=== PATIENT | male | born 1960 | race Caucasian/White ===

== ENCOUNTER 2023-10-03 14:41 | Emergency (ER) | payer MEDICAID, SELFPAY ==
[2023-10-03 15:11] VITALS: BP 182/100; PULSE 71; RESP 16; TEMP 36.7; O2SAT 97; BMI 27.5
--- NOTE | 2023-10-03 15:21 | XR_ITS ---
The [address] [address] Patient Name: ALESIA CASTREJON MRN: [id number] date: 1960 Sex: M Assigned Patient Location: ER Current Patient Location: ER Accession/Order Number: [id number] Exam Date: 10/03/2023 15:40 Report Date: 10/03/2023 15:59 At the request of: CAROLE CHEN Procedure: XR tibia fibula LT 2V IMAGES REVIEWED: XR tibia fibula LT 2V COMPARISON: None available. CLINICAL INDICATION: fell through floor joist swelling and pain FINDINGS/IMPRESSION: 1. No evidence of acute osseous abnormality of the left tibia/fibula. 2. Mild soft tissue swelling involving the anterior mid-upper leg on the lateral view. 3. No radiopaque foreign bodies seen in the soft tissues. 4. No effusion. Electronically authenticated by: CHRISTIAN BENITES Date: 10/03/2023 15:59
[2023-10-03] MEDS: IBUPROFEN 600 MG TABLET PO (15:47)
--- NOTE | 2023-10-03 16:18 | ED_ITS ---
Documented by User: Selina Salvador 10/03/23 16:36 HPI - General Adult General Chief complaint: Extremity Injury, Upper Stated complaint: LOWER EXTREMITY INJURY Time Seen by Provider: 10/03/23 16:14 Source: patient Mode of arrival: Wheelchair Limitations: no limitations History of Present Illness HPI narrative: 53-year-old male presents here with chief complaint of left Knee injury. Related Data Home Medications Medication Instructions Recorded Confirmed loratadine 10 mg tablet (Allergy mg 10/03/23 Relief (loratadine)) meclizine 25 mg tablet mg 10/03/23 (Travel-Ease (meclizine)) Previous Rx's Medication Instructions Recorded ibuprofen 800 mg tablet 800 mg PO Q8H PRN pain #20 tabs 10/03/23 Allergies Allergy/AdvReac Type Severity Reaction Status Date / Time acetaminophen [From Percocet] Allergy Intermediate Verified 10/03/23 15:11 oxycodone [From Percocet] Allergy Intermediate Verified 10/03/23 15:11 Review of Systems ROS Narrative All Systems are negative except as noted/marked. PFSH PFSH Social History Smoking status: Former smoker Exam Narrative Exam Narrative: Nurses note and vital signs reviewed and patient is not hypoxic. General: The patient appears well and in no apparent distress. Patient is resting comfortably on cart. Skin: Warm, dry, no pallor noted. There is no rash noted. Head: Normocephalic, atraumatic Eye: Normal conjunctiva, no drainage, EOMI. PERRL Ears, Nose, Mouth, and Throat: oral mucosa is moist. Nares patent. Mouth without vesicles. Ear canals patent. Tm's without Erythema Cardiovascular: Regular Rate and Rhythm Musculoskeletal: Swelling left medial knee, 2x 3 cm area abrasion noted. No obvious deformity or dislocation soft tissue swelling noted. Patient has full range of motion of the extremity. The patient has no evidence of calf tenderness, no pitting edema, symmetrical pulses noted bilaterally Neurological: A&O x4, normal speech Psychiatric: Cooperative Constitutional Vital Signs, click to edit/add: Last Vital Signs Temp 98.1 F 10/03/23 15:11 Pulse 71 10/03/23 15:11 Resp 16 10/03/23 15:11 BP 182/100 H 10/03/23 15:11 Pulse Ox 97 10/03/23 15:11 O2 Del Method Room Air 10/03/23 15:11 Course Vital Signs Vital signs: Vital Signs Temperature 98.1 F 10/03/23 15:11 Pulse Rate 71 10/03/23 15:11 Respiratory Rate 16 10/03/23 15:11 Blood Pressure 182/100 H 10/03/23 15:11 Pulse Oximetry 97 10/03/23 15:11 Oxygen Delivery Method Room Air 10/03/23 15:11 Temperature 98.1 F 10/03/23 15:11 Pulse Rate 71 10/03/23 15:11 Respiratory Rate 16 10/03/23 15:11 Blood Pressure 182/100 H 10/03/23 15:11 Pulse Oximetry 97 10/03/23 15:11 Oxygen Delivery Method Room Air 10/03/23 15:11 Medical Decision Making MDM Narrative Medical decision making narrative: Plan elevate lower extremity injury to the left knee. Patient slipped on a scaffolding twisting his leg causing an abrasion. X-ray shows no acute deformity. Patient was updated on tetanus immunization here Coleman wrap and bacitracin applied to the knee. Patient declined the need for crutches. He will follow-up with his primary care physician or Dr. hinds on friday at 1030 am. prescription for Ibuprofen was given Differential Diagnosis Differential Diagnosis: Abrasion, sprain, knee pain Medical Records Medical records reviewed: Yes I reviewed the patient's medical records Imaging Data knee: Radiologist's impression: Exam Date: 10/03/2023 15:40 Report Date: 10/03/2023 15:59 At the request of: CAROLE DIA Procedure: XR tibia fibula LT 2V IMAGES REVIEWED: XR tibia fibula LT 2V COMPARISON: None available. CLINICAL INDICATION: fell through floor joist swelling and pain FINDINGS/IMPRESSION: 1. No evidence of acute osseous abnormality of the left tibia/fibula. 2. Mild soft tissue swelling involving the anterior mid-upper leg on the lateral view. 3. No radiopaque foreign bodies seen in the soft tissues. 4. No effusion. Electronically authenticated by: CHRISTIAN BENITES Date: 10/03/2023 15:59 Discharge Plan Discharge Chief Complaint: Extremity Injury, Upper Clinical Impression: Acute knee pain, Abrasion of leg Patient Disposition: Home, Self-Care Time of Disposition Decision: 16:14 Condition: Good Prescriptions / Home Meds: New ibuprofen 800 mg tablet 800 mg PO Q8H PRN (Reason: pain) Qty: 20 0RF No Action meclizine [Travel-Ease (meclizine)] 25 mg tablet loratadine [Allergy Relief (loratadine)] 10 mg tablet Instructions: Abrasion (ED), Knee Pain (ED) Referrals: ZACKERY OGDEN [Primary Care Provider] - 1 week José Hinds MD [Physician] - 10/06/23 10:30 am Discharge Date/Time: 10/03/23 16:34 Stand Alone Forms: Portal Instructions Documented by User: Carole Dia MD 10/03/23 20:55 HPI - General Adult General Chief complaint: Extremity Injury, Upper Stated complaint: LOWER EXTREMITY INJURY Time Seen by Provider: 10/03/23 16:14 Related Data Home Medications Medication Instructions Recorded Confirmed loratadine 10 mg tablet (Allergy mg 10/03/23 Relief (loratadine)) meclizine 25 mg tablet mg 10/03/23 (Travel-Ease (meclizine)) Previous Rx's Medication Instructions Recorded ibuprofen 800 mg tablet 800 mg PO Q8H PRN pain #20 tabs 10/03/23 Allergies Allergy/AdvReac Type Severity Reaction Status Date / Time acetaminophen [From Percocet] Allergy Intermediate Verified 10/03/23 15:11 oxycodone [From Percocet] Allergy Intermediate Verified 10/03/23 15:11 PFSH PFS Social History Smoking status: Former smoker Exam Constitutional Vital Signs, click to edit/add: Last Vital Signs Temp 98.1 F 10/03/23 15:11 Pulse 71 10/03/23 15:11 Resp 16 10/03/23 15:11 BP 182/100 H 10/03/23 15:11 Pulse Ox 97 10/03/23 15:11 O2 Del Method Room Air 10/03/23 15:11 Course Vital Signs Vital signs: Vital Signs Temperature 98.1 F 10/03/23 15:11 Pulse Rate 71 10/03/23 15:11 Respiratory Rate 16 10/03/23 15:11 Blood Pressure 182/100 H 10/03/23 15:11 Pulse Oximetry 97 10/03/23 15:11 Oxygen Delivery Method Room Air 10/03/23 15:11 Temperature 98.1 F 10/03/23 15:11 Pulse Rate 71 10/03/23 15:11 Respiratory Rate 16 10/03/23 15:11 Blood Pressure 182/100 H 10/03/23 15:11 Pulse Oximetry 97 10/03/23 15:11 Oxygen Delivery Method Room Air 10/03/23 15:11 Medical Decision Making MDM Narrative Medical decision making narrative: Plan elevate lower extremity injury to the left knee. Patient slipped on a scaffolding twisting his leg causing an abrasion. X-ray shows no acute d eformity. Patient was updated on tetanus immunization here Coleman wrap and bacitracin applied to the knee. Patient declined the need for crutches. He will follow-up with his primary care physician or Dr. hinds on friday at 1030 am. prescription for Ibuprofen was given I, Dr Dia, have reviewed the above progress note and course of action in the ER; agree with the above. I have gone over history and physical, and discussed disposition and treatment plan with the patient. Discharge Plan Discharge Chief Complaint: Extremity Injury, Upper Clinical Impression: Acute knee pain, Abrasion of leg Patient Disposition: Home, Self-Care Time of Disposition Decision: 16:14 Condition: Good Prescriptions / Home Meds: New ibuprofen 800 mg tablet 800 mg PO Q8H PRN (Reason: pain) Qty: 20 0RF No Action meclizine [Travel-Ease (meclizine)] 25 mg tablet loratadine [Allergy Relief (loratadine)] 10 mg tablet Instructions: Abrasion (ED), Knee Pain (ED) Referrals: ZACKERY OGDEN [Primary Care Provider] - 1 week José Hinds MD [Physician] - 10/06/23 10:30 am Discharge Date/Time: 10/03/23 16:34 Stand Alone Forms: Portal Instructions
[2023-10-03] MEDS: ADACEL DIPH,PERTUSS(ACELL),TET VAC/PF 0.5 ML ADULT SYRINGE IM (16:28)
[2023-10-03] MEDS: BACITRACIN 0.9 GM PACKET 1 PACKET TOPICAL (16:29)
== END 2023-10-03 16:34 | disposition home or self-care (01) ==
PROVIDERS: Emergency Provider Emergency Medicine; PCP Family Medicine
DX: S80.812A Abrasion, left lower leg, initial encounter (principal); M25.562 Pain in left knee; W17.89XA Other fall from one level to another, initial encounter; Z23 Encounter for immunization; Z79.899 Other long term (current) drug therapy; Z87.891 Personal history of nicotine dependence
CPT/HCPCS: 73590; 90471; 90715; 99283

== ENCOUNTER 2024-03-11 13:39 | Emergency (ER) | payer MEDICAID, SELFPAY ==
[2024-03-11 14:04] VITALS: BP 159/93; PULSE 74; TEMP 36.3; O2SAT 98; BMI 28.8
--- NOTE | 2024-03-11 14:06 | XR_ITS ---
The [address] [address] Patient Name: ALESIA CASTREJON MRN: [id number] date: 1960 Sex: M Assigned Patient Location: ER Current Patient Location: ER Accession/Order Number: [id number] Exam Date: 03/11/2024 14:26 Report Date: 03/11/2024 14:50 At the request of: SHIRA WATERS Procedure: XR chest 1V EXAM: XR chest 1V at 1422 hours HISTORY: Syncope COMPARISON: None. TECHNIQUE: AP upright portable chest x-ray FINDINGS: The heart is not enlarged and the vasculature is not distended. No acute infiltrate, effusion or pneumothorax is identified. The osseous structures are grossly intact. XR/XR chest 1V IMPRESSION: No acute infiltrate or evidence of cardiac decompensation. Electronically authenticated by: ANGELICA RÍOS Date: 03/11/2024 14:50
--- NOTE | 2024-03-11 14:06 | CT_ITS ---
The [address] [address] Patient Name: ALESIA CASTREJON MRN: [id number] date: 1960 Sex: M Assigned Patient Location: ER Current Patient Location: ER Accession/Order Number: [id number] Exam Date: 03/11/2024 14:22 Report Date: 03/11/2024 14:43 At the request of: SHIRA WATERS Procedure: CT stroke head/brain wo con EXAMINATION: CT stroke head/brain wo con HISTORY: Syncope COMPARISON: No relevant comparison available. TECHNIQUE: Axial CT images were obtained without IV contrast. Dose reduction techniques were achieved by using automated exposure control and/or adjustment of mA and/or kV according to patient size and/or use of iterative reconstruction technique. FINDINGS: BRAIN: No edema, hemorrhage, mass, acute infarction, or inappropriate atrophy. CSF SPACES: No hydrocephalus, subarachnoid hemorrhage, or mass. Appropriate for age. SKULL: No fracture, mass, or other significant visible lesion. SINUSES: No significant mucosal thickening or fluid on the limited views. ORBITS: No appreciable abnormality on the limited views. OTHER: Results communicated to the emergency room provider, Shira, by telephone 2:[address]/CT stroke head/brain wo con IMPRESSION: No acute intracranial abnormality Electronically authenticated by: FARHAT PINK Date: 03/11/2024 14:43
--- NOTE | 2024-03-11 14:20 | PC.NURSE ---
pt taken directly to CT from triage. Signifcant other present.
--- NOTE | 2024-03-11 14:34 | CT_ITS ---
The [address] [address] Patient Name: ALESIA CASTREJON MRN: [id number] date: 1960 Sex: M Assigned Patient Location: ER Current Patient Location: Accession/Order Number: [id number] Exam Date: 03/11/2024 15:50 Report Date: 03/11/2024 16:41 At the request of: SHIRA WATERS Procedure: CT angio neck CT angio neck, CT angio head, 03/11/2024 3:50 PM EDT INDICATION: Syncope, numbness COMPARISON: Prior CT of the head of the same date TECHNIQUE: Pre and postcontrast enhanced CT angiography of the head and neck were acquired with contrast .3 D MIP images were reconstructed in sagittal and coronal format at the scanner and were evaluated at the time of dictation. Dose reduction techniques were achieved by using automated exposure control and/or adjustment of mA and/or kV according to patient size and/or use of iterative reconstruction technique. FINDINGS: The great vessels enhance normally. No filling defects are identified within the carotid arteries. There is no significant stenosis at the origin of the internal carotid arteries. No abnormality of [place] is noted. The NEPTALI MCA and ROLLER EMBOSSER are unremarkable. The anterior and posterior communicating arteries are patent. There is no aneurysm or significant stenosis. No abnormality of the vertebral and basilar arteries is noted. No mass, mass effect or midline shift or hemorrhage in the brain parenchyma is noted. No significant soft tissue abnormality within the neck is noted. The visualized portion of the lungs show moderate paraseptal emphysematous changes. No suspicious bone lesion is noted. Multilevel degenerative changes of cervical spine. CT/CT angio neck IMPRESSION: No CT evidence of embolus or severe stenosis or dissection in the major arteries in the current study. CAROTID STENOSIS REFERENCE: MILD = <50% stenosis. MODERATE = 50-69% stenosis. SEVERE = >70% stenosis. Electronically authenticated by: WILFREDO MCCALLUM Date: 03/11/2024 16:41
--- NOTE | 2024-03-11 14:34 | CT_ITS ---
The [address] [address] Patient Name: ALESIA CASTREJON MRN: [id number] date: 1960 Sex: M Assigned Patient Location: ER Current Patient Location: Accession/Order Number: [id number] Exam Date: 03/11/2024 15:50 Report Date: 03/11/2024 16:41 At the request of: SHIRA WATERS Procedure: CT angio head CT angio neck, CT angio head, 03/11/2024 3:50 PM EDT INDICATION: Syncope, numbness COMPARISON: Prior CT of the head of the same date TECHNIQUE: Pre and postcontrast enhanced CT angiography of the head and neck were acquired with contrast .3 D MIP images were reconstructed in sagittal and coronal format at the scanner and were evaluated at the time of dictation. Dose reduction techniques were achieved by using automated exposure control and/or adjustment of mA and/or kV according to patient size and/or use of iterative reconstruction technique. FINDINGS: The great vessels enhance normally. No filling defects are identified within the carotid arteries. There is no significant stenosis at the origin of the internal carotid arteries. No abnormality of redding of [place] is noted. The NEPTALI MCA and FIRMWARE ENGINEER are unremarkable. The anterior and posterior communicating arteries are patent. There is no aneurysm or significant stenosis. No abnormality of the vertebral and basilar arteries is noted. No mass, mass effect or midline shift or hemorrhage in the brain parenchyma is noted. No significant soft tissue abnormality within the neck is noted. The visualized portion of the lungs show moderate paraseptal emphysematous changes. No suspicious bone lesion is noted. Multilevel degenerative changes of cervical spine. CT/CT angio head IMPRESSION: No CT evidence of embolus or severe stenosis or dissection in the major arteries in the current study. CAROTID STENOSIS REFERENCE: MILD = <50% stenosis. MODERATE = 50-69% stenosis. SEVERE = >70% stenosis. Electronically authenticated by: WILFREDO MCCALLUM Date: 03/11/2024 16:41
--- NOTE | 2024-03-11 14:35 | ECG_ITS ---
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
--- NOTE | 2024-03-11 14:39 | ED_ITS ---
HPI HPI - General Adult General Chief complaint: Syncope Stated complaint: DIZINESS/ GENERAL WEAKNESS Time Seen by Provider: 03/11/24 14:06 Source: patient and family Mode of arrival: walk-in Limitations: no limitations History of Present Illness HPI narrative: Patient is a 64-year-old male who presents to the emergency department for the evaluation of multiple complaints. Patient states he bent over to pet his dog yesterday when he began to blackout although he did not completely lose consciousness or fall. He remained upright. He states since that time he has felt dizzy as though he and the room were spinning. He has a history of vertigo in the past but states this feels different and states meclizine did not help with his symptoms. He states he has had several days of sinus congestion, coughing, mild shortness of breath. He denies chest pain, abdominal pain, vomiting. He does feel nauseous. He reports minimal left sided headache with no visual changes, no speech changes. He states today 2 hours ago he started to feel tingling in the left hand although he is able to ambulate and move all extremities equally. Related Data Home Medications ?Medication ?Instructions ?Recorded ?Confirmed loratadine 10 mg tablet (Allergy 10 mg PO Q24H 10/03/23 03/11/24 Relief (loratadine)) meclizine 25 mg tablet 25 mg PO BID 10/03/23 03/11/24 (Travel-Ease (meclizine)) tamsulosin 0.4 mg capsule 0.8 mg PO Q24H 03/11/24 03/11/24 Previous Rx's ?Medication ?Instructions ?Recorded ibuprofen 800 mg tablet 800 mg PO Q8H PRN pain #20 tabs 10/03/23 diazepam 5 mg tablet (Valium) 5 mg PO TID PRN dizziness #10 tabs 03/11/24 methylprednisolone 4 mg tablets in See Rx Instructions .Route 03/11/24 a dose pack (Medrol (Candido)) .COMPLEX #21 ea ondansetron 4 mg disintegrating 4 mg PO Q6H PRN nausea and 03/11/24 tablet vomiting #12 tabs Allergies Allergy/AdvReac Type Severity Reaction Status Date / Time acetaminophen [From Percocet] Allergy Intermediate itching Verified 03/11/24 14:13 oxycodone [From Percocet] Allergy Intermediate itch Verified 03/11/24 14:13 Opioid HPI Opioid Management Most Recent Opioid Data: Last Pain Scale 5 10/03/23 15:47 Review of Systems ROS Constitutional Denies: fever or chills Ears, nose, mouth, and throat Reports: nasal congestion; Denies: throat pain Cardiovascular Denies: chest pain Respiratory Reports: shortness of breath and cough Gastrointestinal Reports: nausea; Denies: abdominal pain, vomiting or diarrhea Integumentary/Breast Denies: rash Hematologic/Lymphatic Denies: easy bruising or easy bleeding [facility] Medical History (Updated 03/11/24 @ 17:02 by AWILDA Alex) Vertigo ?R42 - Dizziness and giddiness (ICD-10) Liver cirrhosis ?K74.60 - Unspecified cirrhosis of liver (ICD-10) Social History Smoking status: Former smoker Exam Narrative Exam Narrative: Gen.: Awake, alert, in no distress Head: Normocephalic, atraumatic ENT: Moist mucous membranes Respiratory: No respiratory distress, lungs clear bilaterally Cardio: Regular rate and rhythm Gastrointestinal: Abdomen is soft, nondistended and nontender to palpation Extremities: Moves extremities equally, 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 Psych: Normal mood and affect Neuro: No focal neuro deficit; NIH stroke scale of 0 Skin: Warm, dry, intact Constitutional Vital Signs, click to edit/add: Last Vital Signs Temp 97.4 F L 03/11/24 14:04 Pulse 74 03/11/24 14:04 Resp 20 03/11/24 14:04 BP 159/93 H 03/11/24 14:04 Pulse Ox 98 03/11/24 14:04 O2 Del Method Room Air 03/11/24 14:04 Course Vital Signs Vital signs: Vital Signs Temperature 97.4 F L 03/11/24 14:04 Pulse Rate 74 03/11/24 14:04 Respiratory Rate 20 03/11/24 14:04 Blood Pressure 159/93 H 03/11/24 14:04 Pulse Oximetry 98 03/11/24 14:04 Oxygen Delivery Method Room Air 03/11/24 14:04 Temperature 97.4 F L 03/11/24 14:04 Pulse Rate 74 03/11/24 14:04 Respiratory Rate 03/11/24 14:04 Blood Pressure 159/93 H 03/11/24 14:04 Pulse Oximetry 98 03/11/24 14:04 Oxygen Delivery Method Room Air 03/11/24 14:04 Medical Decision Making MDM Narrative Medical decision making narrative: Patient with no focal neurodeficits in the ER, CT of the brain with stroke protocol, chest x-ray are unremarkable. Exam is consistent with upper respiratory infection causing vertigo. CT angio of the head and neck are unremarkable as well. Laboratory studies reviewed and noted within normal limits. Patient with no complaints of chest pain in the ER. No EKG changes noted. He was reevaluated by attending physician prior to discharge, he was offered admission to the hospital if he feels too dizzy to go home. Patient prefers outpatient management. He is prescribed a steroid course with Valium as needed for dizziness. Zofran given for nausea. Follow-up with PCP and return to the ER if symptoms change or worsen. SHARED APC VISIT, PHYSICIAN ATTESTATION: [id number] I performed a substantive part of the MDM during the patient?s E/M visit. I personally evaluated and examined the patient. I personally made or approved the documented management plan and acknowledge its risk of complications. Medical Records Medical records reviewed: Yes I reviewed the patient's medical records Lab Data Lab results reviewed: Yes I reviewed the patient's lab results Labs: Lab Results 03/11/24 03/11/24 03/11/24 Range/Units 14:48 15:10 16:10 WBC 9.0 (4.0-11.0) 10^3/uL RBC 4.73 (4.70-6.10) 10^6/uL Hgb 15.1 (14.0-18.0) g/dL Hct 44.4 (42.0-54.0) % MCV 93.9 (80.0-94.0) fL MCH 31.9 (25.9-34.0) pg MCHC 34.0 (29.9-35.2) g/dL RDW 12.0 (11.0-15.0) % Plt Count 226 (150-450) 10^3/uL MPV 10.8 (9.5-13.5) fL Neut % (Auto) 76.1 H (43.0-75.0) % Lymph % (Auto) 15.7 L (20.5-60.0) % [place] % (Auto) 7.1 (1.7-12.0) % Eos % (Auto) 0.4 L (0.9-7.0) % Baso % (Auto) 0.4 (0.2-2.0) % Neut # (Auto) 6.8 H (1.4-6.5) 10^3/uL Lymph # (Auto) 1.4 (1.2-3.8) 10^3/uL [place] # (Auto) 0.6 (0.3-0.8) 10^3/uL Eos # (Auto) 0.0 (0.0-0.7) 10^3/uL Baso # (Auto) 0.0 (0.0-0.1) 10^3/uL Abs Immat Gran (auto) 0.03 (0.00-0.03) 10^3/uL Imm/Tot Granulo (auto) 0.3 (0.0-0.5) % PT 10.8 (9.0-11.6) sec INR 1.02 Sodium 137 (136-145) mmol/L Potassium 3.3 L (3.5-5.1) mmol/L Chloride 101 (98-107) mmol/L Carbon Dioxide 23.3 (21.0-32.0) mmol/L Anion Gap 16.0 BUN 12.0 (7.0-18.0) mg/dL Creatinine 1.00 (0.70-1.30) mg/dL Est GFR ( Amer) >60 (>=60) Est GFR (Non-Af Amer) >60 (>=60) BUN/Creatinine Ratio 12.0 Glucose 148 H (74-106) mg/dL Lactate 1.4 (0.4-2.0) mmol/L Calcium 9.3 (8.5-10.1) mg/dL Total Bilirubin 0.8 (0.2-1.0) mg/dL AST 22 (15-37) U/L ALT 28 (16-63) U/L Alkaline Phosphatase 104 (46-116) U/L Troponin I High Sens <4.0 L (4.0-76.1) pg/mL Total Protein 7.2 (6.4-8.2) g/dL Albumin 3.6 (3.4-5.0) g/dL Globulin 3.6 g/dL Albumin/Globulin Ratio 1.0 TSH 1.409 (0.358-3.740) uIU/mL Urine Color Lt. yellow (YELLOW) Urine Clarity Clear (CLEAR) Urine pH 7.0 (5.0-9.0) Ur Specific [place] <=1.005 A (1.005-1.025) Urine Protein Negative (NEG/TRACE) mg/dL Urine Glucose (UA) Negative (NEGATIVE) mg/dL Urine Ketones Negative (NEGATIVE) mg/dL Urine Occult Blood Negative (NEGATIVE) Urine Nitrite Negative (NEGATIVE) Urine Bilirubin Negative (NEGATIVE) Urine Urobilinogen 0.2 (0.2-1.0) EU/dL Ur Leukocyte Esterase Trace A (NEGATIVE) Urine RBC 0-2 (0-2) #/HPF Urine WBC 0-2 A (NONE SEEN) #/HPF Ur Squamous Epith Cells Rare (NONE/RARE) #/LPF Urine Crystals None seen (None Seen) #/HPF Urine Bacteria Trace A (NONE SEEN) #/HPF Urine Casts None seen (NONE SEEN) #/LPF Urine Mucus None seen (NONE SEEN) Ur Culture Indicated? No SARS-CoV-2 Ag (CV2AG) Negative (NEGATIVE) Imaging Data CT scan - head: Attestation: I have reviewed the pertinent imaging results. Radiologist's impression: ITS Impressions Brain CT 03/11/24 14:06 IMPRESSION: No acute intracranial abnormality Electronically authenticated by: FARHAT PINK Date: 03/11/2024 14:43 Chest X-Ray 03/11/24 14:06 IMPRESSION: No acute infiltrate or evidence of cardiac decompensation. Electronically authenticated by: ANGELICA RÍOS Date: 03/11/2024 14:50 Head CTA 03/11/24 14:34 IMPRESSION: No CT evidence of embolus or severe stenosis or dissection in the major arteries in the current study. CAROTID STENOSIS REFERENCE: MILD = <50% stenosis. MODERATE = 50-69% stenosis. SEVERE = >70% stenosis. Electronically authenticated by: WILFREDO MCCALLUM Date: 03/11/2024 16:41 Neck CTA 03/11/24 14:34 IMPRESSION: No CT evidence of embolus or severe stenosis or dissection in the major arteries in the current study. CAROTID STENOSIS REFERENCE: MILD = <50% stenosis. MODERATE = 50-69% stenosis. SEVERE = >70% stenosis. Electronically authenticated by: WILFREDO MCCALLUM Date: 03/11/2024 16:41 ECG Data Attestation: I personally reviewed and interpreted this ECG as follows: (Normal sinus rhythm at a rate of 67, no acute ST elevation or ectopy. EKG reviewed by attending physician) Discharge Plan Discharge Stand Alone Forms: Portal Instructions Chief Complaint: Syncope Clinical Impression: Dizziness Patient Disposition: Home, Self-Care Time of Disposition Decision: 17:02 Condition: Good Prescriptions / Home Meds: New diazepam [Valium] 5 mg tablet 5 mg PO TID PRN (Reason: dizziness) Qty: 10 0RF methylprednisolone [Medrol (Candido)] 4 mg tablets,dose pack See Rx Instructions .ROUTE .COMPLEX Qty: 21 0RF Rx Instructions: Taper as directed ondansetron 4 mg tablet,disintegrating 4 mg PO Q6H PRN (Reason: nausea and vomiting) Qty: 12 0RF No Action meclizine [Travel-Ease (meclizine)] 25 mg tablet 25 mg PO BID loratadine [Allergy Relief (loratadine)] 10 mg tablet 10 mg PO Q24H ibuprofen 800 mg tablet 800 mg PO Q8H PRN (Reason: pain) Qty: 20 0RF tamsulosin 0.4 mg capsule 0.8 mg PO Q24H Print Language: Luxembourgish Instructions: Dizziness (ED) Referrals: ZACKERY OGDEN [Primary Care Provider] - 1 week
[2024-03-11 14:59] LABS: Basophils Percent Auto 0.4 % (0.2-2.0); Eosinophils Percent Auto 0.4 % (0.9-7.0); Hematocrit 44.4 % (42.0-54.0); Hemoglobin 15.1 g/dL (14.0-18.0); Immature Granulocytes Abs Auto 0.03 10^3/uL (0.00-0.03); Immature Granulocytes Pct Auto 0.3 % (0.0-0.5); Lymphocytes Absolute Auto 1.4 10^3/uL (1.2-3.8); Lymphocytes Percent Auto 15.7 % (20.5-60.0); Mean Corpuscular Hemoglobin 31.9 pg (25.9-34.0); Mean Corpuscular Volume 93.9 fL (80.0-94.0); Mean Platelet Volume 10.8 fL (9.5-13.5); Monocytes Absolute Auto 0.6 10^3/uL (0.3-0.8); Monocytes Percent Auto 7.1 % (1.7-12.0); Neutrophils Absolute Auto 6.8 10^3/uL (1.4-6.5); Neutrophils Percent Auto 76.1 % (43.0-75.0); Platelet Count 226 10^3/uL (150-450); Red Blood Count 4.73 10^6/uL (4.70-6.10)
[2024-03-11] MEDS: ONDANSETRON PF 4 MG/2 ML VIAL IV (15:00)
[2024-03-11] MEDS: METHYLPREDNISOLONE SOD SUCC PF 125 MG/2 ML VIAL IVP (15:01)
[2024-03-11] MEDS: 0.9 % SODIUM CHLORIDE 1,000 ML 1000 ML IV (15:01)
[2024-03-11] MEDS: DIAZEPAM 10 MG/2 ML SYRINGE 5 MG IV (15:01)
[2024-03-11 15:10] LABS: Alanine Aminotransferase 28 U/L (16-63); Albumin Level 3.6 g/dL (3.4-5.0); Alkaline Phosphatase 104 U/L (46-116); Aspartate Amino Transferase 22 U/L (15-37); Bilirubin Total 0.8 mg/dL (0.2-1.0); Calcium 9.3 mg/dL (8.5-10.1); Carbon Dioxide 23.3 mmol/L (21.0-32.0); Chloride 101 mmol/L (98-107); Estimated GFR (African America >60 (>=60); Estimated GFR (Non-African Ame >60 (>=60); Globulin 3.6 g/dL; Glucose 148 mg/dL (74-106); Potassium 3.3 mmol/L (3.5-5.1); Sodium 137 mmol/L (136-145); Total Protein 7.2 g/dL (6.4-8.2)
[2024-03-11 15:12] LABS: INR 1.02; Prothrombin Time 10.8 sec (9.0-11.6)
[2024-03-11 15:15] LABS: Lactate/Lactic Acid 1.4 mmol/L (0.4-2.0)
[2024-03-11 15:19] LABS: Thyroid Stimulating Hormone 1.409 uIU/mL (0.358-3.740); Troponin I High Sensitivity <4.0 pg/mL (4.0-76.1)
[2024-03-11 15:40] LABS: Internal Control Within Normal Limits; SARS-CoV-2 Ag NEGATIVE (NEGATIVE)
[2024-03-11 16:42] LABS: Bilirubin Urine NEGATIVE (NEGATIVE); Blood Urine NEGATIVE (NEGATIVE); Clarity Urine CLEAR (CLEAR); Color Urine LT. YELLOW (YELLOW); Glucose Urine UA NEGATIVE (NEGATIVE); Ketones Urine NEGATIVE (NEGATIVE); Leukocyte Esterase Urine TRACE (NEGATIVE); Nitrite Urine NEGATIVE (NEGATIVE); Protein Urine NEGATIVE (NEG/TRACE); Specific Gravity Urine <=1.005 (1.005-1.025); Urobilinogen Urine 0.2 EU/dL (0.2-1.0)
[2024-03-11 16:45] LABS: Urine Microscopic Indicated YES
[2024-03-11 16:49] LABS: Bacteria Urine TRACE #/HPF (NONE SEEN); Cast Seen? NONE SEEN #/LPF (NONE SEEN); Crystals Seen? None Seen #/HPF (None Seen); Mucus Urine NONE SEEN (NONE SEEN); RBC Urine 0-2 #/HPF (0-2); Squamous Epithelial Cell Urine RARE #/LPF (NONE/RARE); Urine Culture Indicated NO; WBC Urine 0-2 #/HPF (NONE SEEN)
[2024-03-11 17:25] VITALS: BP 146/78; PULSE 65; TEMP 36.7; O2SAT 96
== END 2024-03-11 17:27 | disposition home or self-care (01) ==
PROVIDERS: Physician Assistant; Emergency Provider Emergency Medicine; PCP Family Medicine
DX: R42 Dizziness and giddiness (principal); Z87.891 Personal history of nicotine dependence; Z20.822 Contact with and (suspected) exposure to COVID-19
CPT/HCPCS: 36415; 70450; 70496; 70498; 71045; 80053; 81001; 83605; 84443; 84484; 85025; 85610; 87811; 93005; 96361; 96374; 96375; 99285; J2405; J2919; J3360; Q9967

== ENCOUNTER 2024-09-01 13:07 | Outpatient (RCR) | payer MEDICAID, SELFPAY | END 2024-10-20 08:21 | disposition home or self-care (01) | LOC: PT 13:07 | PROVIDERS: PCP Family Medicine; Visit Provider Psychiatry & Neurology Neurology | DX: M54.50 Low back pain, unspecified (principal); G89.29 Other chronic pain; G54.2 Cervical root disorders, not elsewhere classified | CPT/HCPCS: 97010; 97014; 97110; 97161 ==

== ENCOUNTER 2024-11-01 14:57 | Outpatient (OUT) | payer MEDICAID, SELFPAY ==
--- NOTE | 2024-11-01 15:04 | XR_ITS ---
[place] [id number] Patient Name: ALESIA CASTREJON MRN: [id number] date: 1960 Sex: M Assigned Patient Location: RAD Current Patient Location: [facility] Accession/Order Number: [id number] Exam Date: 11/01/2024 18:16 Report Date: 11/01/2024 18:18 At the request of: MENDY HEARD NP Procedure: XR hip RT 2V w/ pelvis 2 views right hip a single view pelvis HISTORY: Chronic right hip pain with worsening. COMPARISON: none Qdki-ah-[id number] contact superior right hip joint space narrowing. Preserved bony articular surface. No AVN. No articular collapse. No fracture. Adequate alignment. Unremarkable soft tissues. XR/XR hip RT 2V w/ pelvis IMPRESSION: Extensive bmdu-[id number]-[id number] contact right hip degeneration. Impression dictated by: Guanako Cee M.D.11/01/2024 6:18 PM Dictation Location[facility] Electron[facility] authenticated by: [id number] Y Date: 11/01/2024 18:18
== END 2024-11-01 14:58 | disposition home or self-care (01) ==
PROVIDERS: PCP Family Medicine; Visit Provider Nurse Practitioner Family
DX: R52 Pain, unspecified (principal); M16.11 Unilateral primary osteoarthritis, right hip
CPT/HCPCS: 73502

== ENCOUNTER 2024-11-08 13:40 | Outpatient (OUT) | payer MEDICAID, SELFPAY ==
--- NOTE | 2024-11-08 13:43 | MR_ITS ---
[address] [address] Patient Name: ALESIA CASTREJON MRN: [id number] date: 1960 Sex: M Assigned Patient Location: MRI Current Patient Location: MRI Accession/Order Number: [id number] Exam Date: 11/08/2024 14:32 Report Date: 11/08/2024 14:35 At the request of: MENDY HEARD NP Procedure: MR lumbar spine wo con EXAMINATION: MRI LUMBAR SPINE WITHOUT IV CONTRAST CLINICAL HISTORY: Chronic Low Back Pain, Arthropathy, Muscle Spasm COMPARISON: None TECHNIQUE: Multiecho imaging was performed in the sagittal and axial planes without contrast administration. FINDINGS: Vertebral heights appear maintained. No significant bone marrow edema is present. Endplate degenerative changes. Diffuse disc desiccation. Spinal cord terminates in normal position without abnormal cord signal. No paraspinal mass. Visualized retroperitoneum demonstrates no acute process. At L1-L2: Mild diffuse broad-based disc bulge is present with ligamentum flavum hypertrophy and facet joint degenerative changes causing mild canal and bilateral neural foraminal stenosis. At L2-L3: Mild diffuse broad-based disc bulge is present with ligamentum flavum hypertrophy and facet joint degenerative changes causing mild canal and bilateral neural foraminal stenosis. At L3-L4: Diffuse broad-based disc bulge is present with ligament flavum hypertrophy and facet joint degenerative changes causing moderate canal and bilateral neural foraminal stenosis. At L4-L5: Diffuse broad-based disc bulge is present with ligament flavum hypertrophy and facet joint degenerative changes causing moderate canal and bilateral neural foraminal stenosis. At L5-S1: Diffuse broad-based disc bulge is present with facet joint degenerative changes. No significant canal or neural foraminal stenosis is seen. MR/MR lumbar spine wo con IMPRESSION: Diffuse degenerative disc disease as described above, worst at L3-L4 and L4-L5. Impression dictated by: Melvin De La Cruz Jr., D.ORadha11/08/2024 2:35 PM Dictation Location: [place] [address] Electronically authenticated by: [id number] Y Date: 11/08/2024 14:35
--- OUTSIDE RECORDS SUMMARY | 2024-11-08 14:01 | XMS_ITS | CCD ---
Author Organization [facility] CliniSyoh Care Team Providers Care Cra Name Role Phone Becky Woodward Unavailable TIMMIS, DR BORRERO Admitting Unavailable TIMMIS, DR BORRERO Consulting Unavailable HOUSE, DR VIZCARRA Primary Care Unavailable TIMMIS, DR BORRERO Attending Unavailable ZIEBER, DR LYNDON Vela Consulting Unavailable HOUSE, DR VIZCARRA Admitting Unavailable HOUSE, DR VIZCARRA Primary Care Unavailable HOUSE, DR VIZCARRA Attending Unavailable HOUSE, DR VIZCARRA Admitting Unavailable TURNER, DR FARHAT Ku Consulting Unavailable HOUSE, DR VIZCARRA Primary Care Unavailable HOUSE, DR VIZCARRA Attending Unavailable HOUSE, DR VIZCARRA Consulting Unavailable BOONE, DR LYNDON Vela Consulting Unavailable HOUSE, DR VIZCARRA Primary Care Unavailable BARAZI, RAYA Admitting Unavailable BARAZI, RAYA Attending Unavailable BARAZI, RAYA Consulting Unavailable HOUSE, DR VIZCARRA Primary Care Unavailable TURNER, DR FARHAT Ku Consulting Unavailable HOUSE, DR VIZCARRA Attending Unavailable HOUSE, DR VIZCARRA Admitting Unavailable HOUSE, DR VIZCARRA Consulting Unavailable Darryl, Nataliya Unavailable JEFFERY CARVER Attending Unavailable RABALEXIA, JEFFERY Attending Unavailable RABALEXIA, JEFFERY Attending Unavailable House Arun FELIX Primary Care Provider Andreina Tejada DO Unavailable ANDREINA TEJADA Attending Unavailable ELVA, ANDREINA Attending Unavailable ANCA PETERSEN Attending Unavailable TIMMIS, ADAIR Barcenas Attending Unavailable ELVA, ANDREINA Attending Unavailable HOUSE, ARUN Cm Referring Unavailable HOUSE, DO ARUN Cm Referring Unavailable Nate Hua Attending Unavailable HOUSE, ARUN Cm Primary Care Unavailable Nate Hua Attending Unavailable HOUSE, ARUN P Primary Care Unavailable HOUSE, ARUN P Primary Care Unavailable HOUSE, DO ARUN P Attending Unavailable HOUSE, ARUN P Primary Care Unavailable HOUSE, DO ARUN P Attending Unavailable HOUSE, DO ARUN Cm Attending Unavailable HOUSE, ARUN P Primary Care Unavailable HOUSE, ARUN P Primary Care Unavailable HOUSE, DO ARUN P Attending Unavailable HOUSE, ARUN P Primary Care Unavailable HOUSE, DO ARUN P Attending Unavailable MD Faizan Torrez Admitting Unavailab le MD Faizan Torrez Attending Unavailab le HOUSE, ARUN P Primary Care Unavailable HOUSE, DO ARUN P Admitting Unavailable HOUSE, ARUN P Primary Care Unavailable HOUSE, DO ARUN P Attending Unavailable HOUSE, ARUN P Primary Care Unavailable Hua, Nate Attending Unavailable HOUSE, ARUN P Primary Care Unavailable HOUSE, DO ARUN P Attending Unavailable HOUSE, DO ARUN P Admitting Unavailable HOUSE, ARUN P Primary Care Unavailable HOUSE, DO ARUN P Attending Unavailable HOUSE, ARUN P Primary Care Unavailable Hua, Nate Attending Unavailable Hua, Nate Attending Unavailable HOUSE, ARUN P Primary Care Unavailable Hua, Nate Attending Unavailable HOUSE, ARUN P Primary Care Unavailable Hua, Nate Attending Unavailable HOUSE, ARUN P Primary Care Unavailable Allergies Allergy Classification Reported Allergen(s) Allergy Type Date of Onset Reaction(s) Facility (2 sources) Acetaminophen / HYDROcodone Drug Allergy 01-09-20 15 [facility] Repository (3 sources) Acetaminophen / oxyCODONE; Translations: [Percocet] Drug Allergy 01-09-20 15 [facility] Repository (4 sources) Codeine; Translations: [CODEINE] Drug Allergy 01-09-20 15 [facility] Repository (2 sources) Misc-Food; Translations: [Misc-Food] Food allergy (disorder) 01-09-20 15 [facility] Repository (1 source) Meperidine Drug Allergy vomiting [employer] Other (15 sources) Acetaminophen / oxyCODONE; Translations: [OXYCODONE-ACETA MINOPHEN] Drug Allergy 11-05-19 23 [facility] Repository (1 source) Lactase; Translations: [LACTASE] Drug Allergy 08-05-19 18 [facility] Repository (1 source) PROPOXYPHENE N-ACETAMINOPHEN; Translations: [PROPOXYPHENE N-ACETAMINOPHEN] Propensity to adverse reactions to drug (disorder) 12-15-19 24 [facility] Repository (14 sources) Lactose (non-medical use) Drug Intolerance 08-05-19 18 Diarrhea, Nausea Only [facility] Work Phone: (1 source) Acetaminophen / Propoxyphene; Translations: [Darvocet A500] Drug Allergy [facility] Repository Medications Current Medications Medication Drug Class(es) Dates Sig (Normalized) Sig (Original) [id number] 200 actuat albuterol 0.09 mg/actuat metered dose inhaler (1 source) beta2-Adrenergic Agonist Start: 07-20-2021 take 2 puff(s) by inhalation four times daily as needed Albuterol Sulfate HFA 108 (90 Base) MCG/ACT 2 puffs Inhalation qid prn Jul, Active azithromycin 250 mg oral tablet (1 source) Macrolide Antimicrobial Start: 07-20-2021 Zithromax 250 MG 2 tablet on the first day, then 1 tablet daily for 4 days Orally Once a day for 5 day(s) Jul, Active finasteride 5 mg oral tablet (10 sources) 5-alpha Reductase Inhibitor take 1 tablet by mouth once daily finasteride (Proscar) 5 MG tablet Take 5 mg by mouth Daily Do not crush, chew, or split. Active loratadine 10 mg oral tablet (7 sources) Start: 08-05-2023 End: 08-18-2024 take 1 tablet by mouth every twenty-four hours Loratadine 10 MG 1 tablet Orally Once a day for 30 day(s) Aug, Active meclizine hydrochloride 25 mg oral tablet (15 sources) Antiemetic take 1 tablet by mouth three times daily as needed for dizziness meclizine (Antivert) 25 MG tablet Take 25 mg by mouth 3 (three) times a day as needed for dizziness Active Meclizine HCl Ac tive predniSONE 20 mg oral tablet (2 sources) Start: 08-05-2023 take 1 tablet by mouth every twelve hours prednisone 20 MG 1 tablet Orally BID for 5 Aug, Active Start: 07-20-2021 take 1 tablet by jose c th every twelve hours predniSONE 20 MG 1 tablet Orally bid for 5 day(s) Jul, Active tamsulosin hydrochloride 0.4 mg oral capsule (13 sources) alpha-Adrenergic Eder take 1 capsule by mouth once daily tamsulosin (Flomax) 0.4 MG 24 hr capsule Take 0.4 mg by mouth Daily Active tiZANidine 4 mg oral tablet (10 sources) Central alpha-2 Adrenergic Agonist Start: 08-18-19 tiZANidine (Zanaflex) 4 MG tablet Indications: Muscle spasm 1/2-1 po up to bid 30 tablet 2 08/18/2024 Active Completed/Discontinued Medications Medication Drug Class(es) Dates Sig (Normalized) Sig (Original) amoxicillin 500 mg oral capsule (1 source) Penicillin-class Antibacterial Start: 02-20-2022 take 1 capsule by mouth every eight hours Amoxicillin 500 MG 1 capsule Orally three times a day for 10 day(s) Feb, Not-Taking/PRN hydrocortisone 10 mg/ml / neomycin 3.5 mg/ml / polymyxin b 92040 unt/ml otic suspension (1 source) Aminoglycoside Antibacterial, Polymyxin-class Antibacterial, Corticosteroid Start: 02-20-2022 Neomycin-Polymyxi n-HC 3.5-41399-5 3 drops right ear Three times a day for 7 days Feb, Not-Taking/PRN ipratropium bromide 0.042 mg/actuat metered dose nasal spray (5 sources) Anticholinergic Start: 06-08-2024 End: 06-08-2025 take 2 spray(s) nasal route in the morning, then take 2 spray(s) nasal route in the evening, then take 2 spray(s) nasal route at bedtime ipratropium (Atrovent) 0.06 % nasal spray Indications: Vasomotor rhinitis Administer 2 sprays into each nostril in the morning and 2 sprays in the evening and 2 sprays before bedtime. 45 mL 3 06/08/2024 08/18/2024 Discontinued (Med list cleanup) Problems Active Problems Problem Classification Problem Date Documented Date Episodic/Chronic Cardiac dysrhythmias (14 sources) Paroxysmal supraventricular tachycardia; Translations: [Paroxysmal supraventricular tachycardia] Onset: 11-22-2022 08-28-2023 Chronic Genitourinary symptoms and ill-defined conditions (4 sources) Urinary frequency; Translations: [Poor urinary stream] Onset: 12-15-2023 Episodic Hyperplasia of prostate (2 sources) Benign prostatic hyperplasia with lower urinary tract symptoms; Translations: [Benign prostatic hyperplasia with lower urinary tract symptoms] Onset: 01-19-2024 Chronic Nonspecific chest pain (1 source) Chest pain, unspecified; Translations: [CHEST PAIN UNSPECIFIED] Onset: 09-20-2022 Episodic Other connective tissue disease (6 sources) Spasm; Translations: [Other muscle spasm] 08-18-2024 Episodic Other lower respiratory disease (4 sources) Other forms of dyspnea; Translations: [OTHER FORMS OF DYSPNEA] Onset: 11-25-2022 Episodic Other nervous system disorders (14 sources) Chronic pain; Translations: [Other chronic pain] Onset: 08-28-2023 08-28-2023 Chronic Other nervous system disorders (8 sources) Numbness and tingling sensation of skin; Translations: [Anesthesia of skin] 08-18-2024 Episodic Other non-traumatic joint disorders (18 sources) Arthropathy; Translations: [Arthropathy, unspecified] Onset: 07-15-2013 08-28-2023 Chronic Other upper respiratory disease (14 sources) Chronic pharyngitis; Translations: [Chronic pharyngitis] Onset: 08-28-2023 08-28-2023 Chronic Other upper respiratory disease (2 sources) Vasomotor rhinitis; Translations: [Vasomotor rhinitis] 06-08-2024 Chronic Other upper respiratory disease (2 sources) Perforation of nasal septum; Translations: [Other specified disorders of nose and nasal sinuses] 06-08-2024 Episodic Other upper respiratory infections (2 sources) Acute upper respiratory infection, unspecified Onset: 07-20-2021 Resolved: 07-20-2021 Episodic Residual codes; unclassified (1 source) Pain, unspecified; Translations: [Pain, unspecified] Onset: 03-11-2024 Episodic Spondylosis; intervertebral disc disorders; other back problems (16 sources) Chronic low back pain; Translations: [Neck pain] 08-18-2024 Episodic Syncope (4 sources) Syncope and collapse; Translations: [SYNCOPE AND COLLAPSE] Onset: 09-16-2022 Episodic Past or Other Problems Problem Classification Problem Date Documented Da te Episodic/Chronic Chronic obstructive pulmonary disease and bronchiectasis (1 source) Bronchitis, not specified as acute or chronic Onset: 07-20-2021 Resolved: 07-20-2021 Episodic Immunizations and screening for infectious disease (1 source) Contact with and (suspected) exposure to other viral communicable diseases Onset: 07-20-2021 Resolved: 07-20-2021 Episodic Lymphadenitis (4 sources) Localized enlarged lymph nodes; Translations: [LOCALIZED ENLARGED LYMPH NODES] Onset: 03-01-2022 Episodic Other diseases of kidney and ureters (2 sources) Other obstructive and reflux uropathy; Translations: [Other obstructive and reflux uropathy] Onset: 01-19-2024 Episodic Other lower respiratory disease (14 sources) Dyspnea on exertion; Translations: [Other forms of dyspnea] Onset: 11-22-2022 08-28-2023 Episodic Other screening for suspected conditions (not mental disorders or infectious disease) (2 sources) Encounter for screening for malignant neoplasm of prostate; Translations: [Encounter for screening for malignant neoplasm of prostate] Onset: 12-15-2023 Episodic Thyroid disorders (4 sources) Disorder of thyroid, unspecified; Translations: [DISORDER OF THYROID UNSPECIFIED] Onset: 01-22-2022 Episodic Results Test Name Value Interpretation Reference Range Facility Rad - Other Radiology Report on 11-05-2024 Rad - Other Radiology Report [id number]#[id number] [facility] XR Hip - right [address] [place] [address] XRay Report Signed Patient: ALESIA MENA MR#: [id number] : 1960 Acct:[id number] Age/Sex: 64 / M ADM Date: 11/01/24 Loc: RAD Attending Dr: Anca Petersen NP Ordering Physician: Anca Petersen NP Date of Service: 11/01/24 Procedure(s): XR hip RT 2V w/ pelvis Accession Number(s): [id number] cc: Anca Petersen RURAL CARRIER; ARUN OGDEN [place] [id number] Patient Name: ALESIA MENA MRN: [id number] date: 1960 Sex: M Assigned Patient Location: RAD Current Patient Location: RAD Accession/Order Number: [id number] Exam Date: 11/01/2024 18:16 Report Date: 11/01/2024 18:18 At the request of: ANCA PETERSEN NP Procedure: XR hip RT 2V w/ pelvis 2 views right hip a single view pelvis HISTORY: Chronic right hip pain with worsening. COMPARISON: none Bzgw-fk-sbrg contact superior right hip joint space narrowing. Preserved bony articular surface. No AVN. No articular collapse. No fracture. Adequate alignment. Unremarkable soft tissues. XR/XR hip RT 2V w/ pelvis IMPRESSION: Extensive vudt-gj-oeeb contact right hip degeneration. Impression dictated by: Guanako Cee M.D.11/01/2024 6:18 PM Dictation Location: [place] [address] Electronically authenticated by: [id number] Y Date: 11/01/2024 18:18 Dictated By: Guanako Cee D.O. Signed By: 11/01/241819 DD/ 17 TD/TT: Building Dismantler: [facility] Radiology, Radiologmartin hernandez MD - 11/01/2024 [place] [address] XRay Report Signed Patient: ALESIA MENA MR#: [id number] : 1960 Acct:[id number] Age/Sex: 64 / M ADM Date: 11/01/24 Loc: RAD Attending Dr: Anca Petersen NP Ordering Physician: Anca Petersen NP Date of Service: 11/01/24 Procedure(s): XR hip RT 2V w/ pelvis Accession Number(s): [id number] cc: Anca Petersen NP; ARUN OGDEN [place] [id number] Patient Name: ALESIA MENA MRN: [id number]:[id number] date: 1960 Sex: M Assigned Patient Location: [facility] Current Patient Location: RAD Accession/Order Number: [id number] Exam Date: 11/01/2024 18:16 Report Date: 11/01/2024 18:18 At the request of: ANCA PETERSEN NP Procedure: XR hip RT 2V w/ pelvis 2 views right hip a single view pelvis HISTORY: Chronic right hip pain with worsening. COMPARISON: none Dnlz-qy-wgyy contact superior right hip joint space narrowing. Preserved bony articular surface. No AVN. No articular collapse. No fracture. Adequate alignment. Unremarkable soft tissues. XR/XR hip RT 2V w/ pelvis IMPRESSION: Extensive zcpd-we-hesx contact right hip degeneration. Impression dictated by: Guanako Cee M.D.11/01/2024 6:18 PM Dictation Location: [place] [address] Electronically authenticated by: [id number] Y Date: 11/01/2024 18:18 Dictated By: Guanako Cee D.O. Signed By: 11/01/241819 DD/ 17 TD/TT: Building Dismantler: [facility] Radiology Study observation (narrative) [facility] XR Hip - right 3 ViewsOrdere d By: Radiologist Radiology on 11-01-2024 [facility] Work Phone: EMG 2 Extremitieson 09-15-19 25 EMG/NCS BLE Normal study [facility] 9-10 Nerveson 09-15-2024 EMG/NCS BLE Normal study [facility] EMG 2 Extremitieson 09-13-19 25 EMG/NCS BUE Normal study [facility] 11-12 Nerveson 5 EMG/NCS BUE Normal study [facility] Office Visiton 05-26-2024 Follow-up visit [id number] Arnel Mena 1960 M Date Provider Department Center 05/26/2024 [facility]RO [place] Family History Problem Relation Age of Onset Stroke Father Heart attack Father's Brother Family Status - Relation Status Age at Father Father's Brother Level of Service:97893 CO OFFICE/OUTPATIENT ESTABLISHED MOD MDM 30 MIN Reason for Visit and Comments: Urinary Frequency [552085] - Pt c/o weak urinary stream and urgency, pt states he has been taking double flomax since last visit and symptoms are not improving Normal [facility] Physical Therapy Noteon 090 Physical Therapy Note [id number]#1.00O TGTIFF Normal [facility] Coding Summaryon 03-28-2024 Coding Summary HTMLBase 64 RyrdvboyJIa5rQj+PGhlYWQ +RQ8HSUAcQ09quMGqlT7aK8 NMTElOSywgQVBQTElOSyIgb bYoYX8zvKGwOJHq IC8+WE8bVMEbVhppaNFgn2F 1qSG3E38rss5bPGxwjRB9BS BzOoMoqdixs0yroLv6TNrjE mluOyBt OJTycU59ZHR0xD45Jp24mMH tjQOad8kpiRu1GnVrULBpFG H9wPmmNNijk6CdDSPiW86ra OVue6S1 VHJfvEnzgCKvNdJufWS5zL4 bRDmoemuft1vashlwPue2st 57kKWdg5W5nSC8N8AmyzH8P GJvbGQg MocjlWXTlF0rrakcg8raiaw rWjVgXLKoGIh2VXi1DCUhfT bvEsAxPQ44ZLU0FALeajIhG 2FsLWFs mJsfJoX9v4X7As6GA3ZMCmn dP4MILBGKLHwazEV+PC90cj 28O8EcOpajCgp4QLVdZEW3x MT7wY1v CCMiEWtaz1S0pZH3W5SclwA awi7sc5fuWYIuBJxgF20vxS Nro8J2OSQlgSZ4IKRoyBzcF iBzaG93 Oyc+GXPrmWnvq4HhRxwdr9p tc2cbbAl8CbxfAHRthgSjxN esRDV9p9XpEq4qJLKrwWZ8y UA8aW5i ZoBeNaW5FBunW164IlQnbYH pIapdS60lQ3AorHH+PHRyPj u2AFAigRjnMH1gL4ErDNCog mctbGVm aZezEL2lWXSwyaegVBVdwD1 wOSCkK8j6KtYrMvV8LGuoG5 FyDGBufrciIb87aE7lEuChP yA8JTde J1OdbdF2KPZqaHSzWUujLYE 2N72mc3J0YCBjMRHxGOJ4qR E1xT4eiBxvbenpoBHmgIutk mVydGlj KNmdDKjeO219UKAlyRicYsV vZGluZyBEYXRlOiAgMDgvMj UvMjAyNDwvdGQ+YTJtGAB4b WxlPSAn xOEuRNrcAj2qeEogoAhtMD8 qMWQpvlsdEFYrmH7gEITrhT DunAuzHE1pWECwlyuoz159U iAxMHB0 JZChnIEbS3VklP1vOgKdMUE dIXSoO2LvzSKlNQrxO736CW xqJqA8BCOzheLkB1NqLKDwu WduOiB0 u8E8Ll2Jt2RpfxymT4OhzKL hFzEyOdmgHMf5B3PzWjfjtS I+QL31INNfDV02EHr3FAN5m WxlPSdi EGOsA2ZpkV4lMtFnKHFwKQF kOyc+PHRhYmxlIHdpZHRoPS lfKLQgZpNbcZbnBJ0bEa1xV GVyLWNv zBtnwQZkApTtf7nyEVXuKBw zLH8qvXzwC3FuoFD9GEMba8 g6Jy48V31wT1GprMQ+PGNvb NI5cIQ7 xD8uXvPwIsB0FSwgW911XqB snNJoOutwj0orm3tnrDv3Sk O1ERIwoxHyuVsgDOB9f7UxC k99V50d IHdpZHRoPSIxNSUiIHZhbGl yxd1vbD3sFz3+BZModLJ0fC F6xT6yGeNxYpQ4NMhqZ011Y nRvcCIv Xeacs6cds3avtMm7QzJqOAC srzBoxDafKLU2b5PqDl44R8 GeqNvqn3BoFmm2nu56rMEpu 2M1mMU6 P1DrNPQyihacgBEmrCnuUB7 gIQGzbuctMGNnaM4tKFVtF9 j1HdJsWgL7WCeyW6ZuiiE2G GJvbGQg HIJlaIXUuY7yehsvs5ujafg vHdDeZUHuRZg8DJp1GZVtfP suZfRtENR2IfB4WAS0kVNbf R1pdNdo pctnkK8wFcc+AHV2yRMddJX VUL1eIeqyvKJ+ZLMqMTM3iB msHQeqQEYqwQ1dPFIxX5m0A iAwLjA1 HSuzU6NqsuU1DXBpcLMxXHD huDXTlV6chizkd4grmvfxFb LbLAMoBSv7DMa6ZIWiyHssO iBsZWZ0 QeQ9IKU8dMMxwR4aqDgnvgq xrN3bTvl+VhkwvNycGYE6XR u3C0NaQfh0JPSxnTytEX0yq GFkZGlu Dq2yePbasTnyYU2cGABpopq od428VbEuv6geKSQemLVgKA yyQKZ4V47vy2X0OPDuSIVoW HI0tGT0 mM7rvJxnyakxhEPhrKmnjlR keEaeAGabXYemE325ITEuoQ zwRnWeIWv1E4HfXms9YSQhs SuhXE2x vYVmPTjrDp1qvPpnoRwvAK0 wFHIsfurlx472BkXnm8mwYR EhqPKdXVndNIX5N50xk1H9G CMwMDAw FDB9rYI9qY5moLdtozvydEE mdDsgdmVydGljYWwtYWxpZ2 49AQHjcPooDjOrxPr5S6WtK sz8NSRh bJlxFZ8biPBdDOwrNt0yaXx szRckZC5sSGCjjdrth322Bu Ele1qxFZDkcHNjGEqsGNK0F 44ga7T4 BUQrNZKuUQQ0vTM9cJ8mkYm nbjogbGVmdDsgdmVydGljYW jmSSofG702ZAOmuPwmIuQkw GllbnQg ZCqxVSn9O1MfMsbfrOV+PC9 7EZUrYN17mXWnfSStu1zhrH q5ClSsFMCqQVG2sPyuWHnan 3JkZXIt N90haVFqq3R6WHPfvUmqkCD jAdYcjUR9bH7fRHxntxqym5 immfghSeaea2hyjp17cE13O 29sIHdp ZHRoPSIzMCUiIHZhbGlnbj0 awR4nCm2+USNvpJU3aEJ2eO 5fALEhFdJ1ISwgM076JuIsw CIvPjxj e7tgs4hgsBw5OwV3OIUvsjA gfXhxKFI2m3FxHl44I79yYO dpZHRoPSIyMCUiIHZhbGlnb x7arE3r Ii8+ERTqcSS0pEV0uM0pMcK eAwH2BJmpA520HlRgmVNzXe upD37vT0UllRB+SFSiOpp2U CBzdHls SP1mzYEcTUvyJi6zOGP1DyH cUeCxTCpiC3RmCWRybrevna lplXE0IHQeQFKiyS41Hf0wq DogMTBw dPMNzA5llzrbg0dbejfcQtS rCGWjSIq1KNk3GIBeaGazQo TnSDP7XpA0LAV3oXNqrM3zt Glnbjog aZ6sI1IyHHArxsonFq30rX6 lKiYcTeP1OAlqVjc+U0tFRU xUSLQDI3IWLpTtOcpqnUY+P HRkIHN0 lYopOXkrQVCexM2lGDSlS1m 1WqChMcK4BBzlJ9FmEVJlej ftDi48aB2fDvWkEmO1FIdfG 0CmfaT6 PJMpbWBvJNixXXI5B97by9H 0XWLcGNRbAUH3aDB5hB8jrN lnbjogbGVmdDsgdmVydGljY WwtYWxp T757EXPfpKuhJtF8JjN9XkK 0UlX9K6AnNwm8AKWbbNutNV 7nhEIwEViiKg9pbGxazRhcI Y2lXBHm kczhOOYsuZ2eZEUykOSqpSb pCP6zJHBudqqrz058HgCuOH M5KVMuhEXcM5QfyE7pZxZiO DAwMDAw R5JhmDHoJDckS047SLrfVrZ 2LETexeUiV4KkNYUjmUfyWo C2x7T0Jk70OdZGJQIflxewq GQ+PHRk LRY1oAfyNBhmTDYqcB9rEIR rZ7g9OkVpKzG6RCboU5PkVS ZkconlFm54wY3aFiHwNqA9R AxsV6Nf koA2TOYnvWKpYQrsRSL0F90 ez4Y3BUPmDKUcWWJ6fZW6rY 1hbGlnbjogbGVmdDsgdmVyd GljYWwt YFinY931TSXefNozGg6BTXB 7Y0DuHzt0WCDopBpaRM0fxR LxBPoyYv0rlCwvhWvvQM1xL TBpbjtw NOBxlV2bAPMboXHpwXoqGP2 xJPGvsannt177GmKdPBN3LP HjwEOjT1FypQ4fElEyLZLwG AQvE2Pw oYJlJTmxD347DEzsFvV8VEQ hjmFzN7TjWMPubTogLbV2t6 Q3Zo6GELY2pvKniqicR4T0p BG0tQDr dDwvdGQ+KD40xy16E0SnFyc nYwn4MPUgLUR2zWK9lX4lMD TeQWgus8H1zDY5T3UihwZsf x4as1li HKBxFHahN38nyKAhr7W7SRQ luJG2RXEbuSwaRxXkoW59Zw c+VOLgnYjia2FzVgzzm1ccb 6gqkZw7 LdVyEBKjiaAsiRvdMDO9j1W qHc99C08vXPozETSrYXYxXU FyVOUlaNzanq6azS4jXu0+P GNvbCB3 pBL7aK8yIcAePhD8HEypX37 2AyCebFFsGtgwp8amp5umqV h4OfUhLIZhpnYnbNkgCMZ2o 0WiKe83 L7TltFuif6XoAat5rp27jVV wj1Z3eFA8S2AwXZKlkbxbfY ZnmOkwBD9rJHRawhbwNBVsw N1xRJKb Y1a2MlOsHaB2PSruO5TfrkC 5VIQfaWDxPSZepHMFiD3wfr pek5rtdxviJuNtQFZoORr1M Gt9JBUh tHkhChMkMQE0KzV9PVZ3jCB myW9mnGrxlrmucO1yFcy+UG z7a5avmDFjDQ8oxVT7MW88A H23oLQm a5U7vML4Q2ZwUTVgmtikjte jlPU5ETSmJVHyxU84Uf3kuL huJy6tFPVuCAU5YGWfeVGyH 7ZghR3c MyAbILByTMGfR0MsfVWzCWc iL936CJtlGzB4PLNhvsIlH1 VvHMAhuSylPvN1v5S5Na5EK Q20JH43 LP40mRBex7L0zSS0A8ZfUUI kmwvggykvtDK2XYAzTFAguV 83Ys4xiAxaJr9uZHAtXGN2Q FRpbWVz Z2BotI2pIcAhFVNrXESyQ5R omGImMDepY693MDyeGxG8IF BqscYfC9AmAZDegTvpNdR8g 6S5Ka6W Hm59EZ17CL92qKFke5Y8fEM 2L3WjDWEtagwbfxozdSS1LQ HzRGPcnB61Hj5phItiZr5lS CAxMHB0 CIGzqXDbB2PgpP8wBxWoDIQ nCOXeN3DajBJfMJdiN816FE ewFhP1NZLhyhRlW5GiESWff WduOiB0 r3F0Xt7VCZpqiml2K8SdQgj vdHI+OA84XYEgTC63bDKyqQ Bmt5schFj5BbZvPMXvBVA9a WxlPSdi b3J (more content not included)... [facility] Outside Recordson 03-12-2024 Outside Records [id number]#1.[address] [facility] Rad - Other Radiology Report on 03-12-2024 Rad - Other Radiology Report [id number]#1.00O [facility] Rad - Other Radiology Report [id number]#1.00O [facility] Rad - Other Radiology Report [id number]#1.00O [facility] Coding Summaryon 03-09-2024 Coding Summary HTMLBase 64 NgifargtARw8kOx+PGhlYWQ +NM7SWKLkR63qrKYvjE6nP9 NMTElOSywgQVBQTElOSyIgb cLnOU9ctDIrYVOv IC8+FO6jNNTsUubdcTOfp7T 0jAC0D55rwb6fOKpldRC3RG DmZmIovvnbw1cgcGf5HNuhI mluOyBt MWItzO87UEW5qU32Ti75wBS quSMgx9msaBb3HqFfKFHbDP O7vFmkCNqvb1NkSAEvD21ji VNfo8P7 JCHrhXvhiGCtHePeqIR8pT4 wHJzrvjnkf7grdmduCyq2au 81eYEer0Q9dUN5R5DtrfL4A GJvbGQg DyopxLDZnX0jqvtje4cpntt zRnOfFTGgLDd6YTg5QRKriR uhXxKyDD32NIM6XMEetlBqZ 2FsLWFs yVilJdI4m9J9Hi2WX0NIUjy pS2MITHLSXHjluJA+PC90cj 31Z0CaFzonUyr0UYDxTVM4o CO3zY9q DRWsETgth3X7zLL5S5FdtiS unu8kj8izUYDfIZyfM98dvP Jws1S4DTSlbNA9DWGjwZuiK iBzaG93 Oyc+DLYdoUxrs0FrUyyrb2p vu7owsXt5UfalGGLmxiYxmW rxHZZ4b1NxLa8gDLYwrPJ8y NP1xC2g FqLqSoF3JGpqH697QkOvtAY lTwdtG84bC2LmcZI+PHRyPj q9CKDpfUbqKJ9oP4GgWJCga mctbGVm vFslYL1yFKKcwlgtXFKarX7 hVOIdI2l9WoEaGhD9CJyfA4 VwNUPxdazqWb79wV4bYxUzS gV0BThi V7SmrqN9OROikFCgKNupQCU 9I00qb3C0PDMbVRYhCHT5lQ S5vG8xlDrkyccxvFCeoJtrv mVydGlj LXwuZPyxJ573VNRhnKrdOfN vZGluZyBEYXRlOiAgMDgvMD YvMjAyNDwvdGQ+UMGxPGL8i WxlPSAn oFLjWZivZd8ztBzurLkxRO3 cPWSvsxifBZVyqG6xLQMmtL NetAujVL4eBKMfajdor900T iAxMHB0 WVLyaROsN9DpoX0aWfIzMHP zWLXhP6RiqVRaOXyaO481JO eaLvW7BHBwoyZsI3JyGZIiv WduOiB0 p5F9Xl4Bu0NmgpxxB4IfqLN gFxOrNdoyQTg2T6OhWejswK I+WK42ZCQtHL87HVb3EIH9c WxlPSdi HUCyC7IubC0jMkFtEYBtYUK kOyc+PHRhYmxlIHdpZHRoPS ymMFObZsEobQavON4mKo0fV GVyLWNv eNaotQBiYoBve4ajWMEaPRu tID3xfOobF5CfjDO5HJOnt6 u0Al05S11jY0DbzYZ+PGNvb PH9kWP1 iZ1dQmTdFaY6KBwjN957OfS wfREqLczvw9anf4oqjWn6Wq F2DIAxakGehAbyXWA9b2ArR s82D17t IHdpZHRoPSIxNSUiIHZhbGl klb5hvM4iJo0+VOKdwFL3nX V0tX8xJuHzGeF9DKbnF443T nRvcCIv Trueb6fht4ycvTj2ZzOhFRW tsgCjnQxxHHR2s3WpGq93A8 MbvMyzt6CfTyr3un33cSQnd 3V7qAB2 K0OcOTOigprfcPCvhLrtVJ6 wFYJhpromTSTnfD7dOGPmB4 q1VxBlWoE4EAlxM4ExzeF3N GJvbGQg HXAeeXPTfT9mezvrq7sysgn vCsVyLBGlDMl3FEy5MCBhmV qtDsKhCDH7GwA3USJ8bRCjy U3ebAfp jrvceS1wQby+OUV3iLRbzLT COO0qIshszQQ+QKXiFRY9oL gdYYceQXZqgB4wMRDkJ4j9N iAwLjA1 NMleW1EnbxS3ZDZyjYAaOZV xrPJWhS4uqasxx7mbgzqwDz JtKZZeUQp3FZm0CGWvzZtwQ iBsZWZ0 DnO7JVU5dNAteP7ciQuwcrq wtY6eAzr+WffahBtiALM2LX v1T4ZkTsd6RLWcjCezQQ3ir GFkZGlu Mb7jzEpwmDfjKJ1fLQKipgy cm853PaLxr5rfGFUggIFvGD vcECV7A59ln6I7ROJgYIXaG DB5uQN1 jJ2gjJgxxbppmQVdzZiczhK kxXrpCZpzLEhgI112EGLujC yiDlSgHAw0K6HsTyy6MRBab MqrAC4h lNUyCAmrEi4sfXjhaNdhJF6 uCQEipsebb554ZgKkw5vlCO OfcCFeDSldYCQ8J80lt1D4U CMwMDAw ISI6zVO4zG6ozSajcytliOO mdDsgdmVydGljYWwtYWxpZ2 91VCSonSgoHbPzrJa0T8FvL id3TBZy wSzpHK5cdNPjUNthNb8krXp iwWbfAS0vBLAklsntm931Ru Dtd1gtZDBfwBMgUUazNCJ2M 83gm2R1 DHCrCFQxGNF4cUP0eN3qlIe nbjogbGVmdDsgdmVydGljYW bcCElrV185YLNupFutXdGpz GllbnQg IRdaBOz3P4MpLzdhqFE+PC9 9UQQfJY11uFQhrRRyq1dgdD h9HrUaXGSwDIC8fJrdBXsvu 3JkZXIt U60grJFgh8B2ABMfgYkhwWJ eQkLqcFT3wN2xTPzupbiri8 mwyembTsefm1jpiv68eP29X 29sIHdp ZHRoPSIzMCUiIHZhbGlnbj0 vuA7iWe6+PYAwkVZ7yFC4jD 6bKEUqCkF5CFybF754WtCqo CIvPjxj x9elo1sfdKc8NaZ3VJXzkjF wgOabRNB5e3DqHy93E18yWA dpZHRoPSIyMCUiIHZhbGlnb i8usC9e Ii8+ZTTcmQB6iKW6mW1dDmE fGwL9RLmmA193RtLqiNYlDs wpJ72hH0SxkKQ+SZCzFra1J CBzdHls GO8uvPEnJXxbSc6pNSU8NwX iPgAfAPpaG6MxJHIpyrejpe nvyLT1NLSfUIFhpC92Ea7vh DogMTBw iMWQgG2bfhoav8djmbanNpX xEQXoJXe8QMw0QQQnvNlxZm XiWDN1XxR5XKO5bNBnbT8jg Glnbjog nP8qB3BfLXYkfisgGh91hX1 vCwMzHuV6BZqdCwz+U0tFRU yMZSGKD8YBUvUiIidnxLN+P HRkIHN0 bYjmYGkbFMCllV6hKRNdK5a 4EkLjLpD7CFcrD8XqTPNoeo dbYg75sI7aQcDoTqN5LCkpE 6FuguB6 ERKngOXcJWvcKTC4M96uu8Y 2CFWhPXLdCSK6nHI1hH2hrI lnbjogbGVmdDsgdmVydGljY WwtYWxp N830GHFevVzhNwX7YyE6LjD 4PnX1P4HcPdl2HPCvrMxtUH 0psPZfCNeqVd1oaGyolUlgZ W4hJJVt dvrlMBGshQ5bRGRinNAzdRc kOA5zZIAjzrzne281FsLgDC V8WXXorDVzS5CgjA8mMrHcG DAwMDAw C3PknVPdOBclY043YOybKcC 4SZYsmtQbC8FxGLQncHjxJc I7k1K0Sk96SmLXPPPsjbszc GQ+PHRk BGD9sUluBZxfTYYqlW7wGAA qJ3e5XbZuCkV7JFlbA4JxNJ PkrlqfEb63vB2mEvXoKkU0U HbgF9Wo zyA2BSRlhHUxPCdzBHV6Q47 jq3D7UULcUFSyFGU8oHM1jW 1hbGlnbjogbGVmdDsgdmVyd GljYWwt VWhnD878UXHteTfiHw9VEBK 1X7IdAhg9YFZhqSttXY5uaP JcLXmqZu5uzMjgjUflKN8eW TBpbjtw NCCjbP9xUTPlqPQnpXafHH1 cLBCorbixm224PiCfBLK9TZ QaxGTrH8CseA4wTbIlRKFpQ ABoY4Sn sVLdSKenZ963APcmWqK7LIS yduHiX4TvVSJihGzrYyF5d7 G6Zb3PPExgiGC+PD58jd07H 3RhYmxl Bbx9EPLdWQC2mQX7dA0pGFA lRGikb2U4gJI9R1JxsmApom 0zn7qnIEPoLVayO38hmNFcw 6Z2GYLa dJZ2WKVrgNbrBqVtiZ14Iaw +AZFtoEarm2FdWdxjq8kkj2 rvvKr9DzJnFSIlwaCjvYjyW DN7p3Pr Pj54Y94pXYovXUBdUNBoMOF rRLNufTsgti3jqD3pUj8+PG ZxtGM2oHB6lL9aQeMoMrW9N JpkI738 DdFkqEKyYwggz1kxi8awsRq 0GkDsYEQfbnBjoGruULH6u1 BbTa32N1ZcsBqth5HaOub9v w34aBSi r3I6sZR7L6JjMZEwwjxelLH yqCyrHF0tNPChlczbLNDfkS 6iWMPxD5h3QqNtArY8WNnsP 1JlbeM9 OHDeuWRjOCKizMDUwR7frwl jk3gtmsvpLiZsHMWtCKx7XU u7AIVklJlpNdMaWQX5RyI1Y GW8lQSa mL6ztQbposdgjZ5xUpw+UGh 2l7ryrIIfOK7obGF5ZE03YW 12gGHrd5E5qOQ7R1YpVWJog mctcmln oRW0LCVsRVNxdT99Ka6ncWf kGv0eLFCvZBA6EKOdwFVfQ8 GjrZ7uLxVtBOMlTWNnW4Ori HQtYWxp W371IFybXeN3ABMiuxQjH8B vZSFcbDubKzF6w4X2Ag7OOV 43XJ28QS60gAWwy1X0pYR7Z 3BhZGRp zcqnwimeuXC6DHKvJCXupM4 4By0hrYfaIg2yGXPoMUB8VP PwpCZlB2VegZ7vFbOwFZBrC SKjK8Nf vDIqYGflB824BSesVqK3NVR uelEeM8LdMDUwwEytWsP2l1 C5Vm9ZTg00GZ68TB96xNMkc 3S2fKV9 B8PdQNKyqxpfaobudXC9MSF zVCHhkS11Kq3fcFngUb2uVK IzTQF2AVRxdPBoG8DwfD9cN iAjMDAw WXFyA6NtxEBmKCoxD029USx eJwM1WZMtflKrP8TeYWSxqO vpVoY9v2G9Xa2YIIijfcj3D 3RkPjwv dHI+WU25VBSyZS22aRVioUA ji0eczRs9QrCcBCFnBZH5pY zeBXhqf0QuFQArD50wmLSks 8J2GAOc bGx (more content not included)... Normal [facility] Reminder Messageson 02-25-20 Reminder Messages - From: ARUN OGDEN DO To: [facility] Clinical Pool ([facility] Sent: 02/23/2024 19:23:35 EDT ! Show up: 02/23/2024 19:23:35 EDT Subject: Results Follow Up Actions: Call the patient with result(s) Due Date/Time: 02/24/2024 19:23:00 EDT Reminder Comments: t4/tsh normal thyroglobulin pending Results: Date Result Name Value Ref Range 02/23/2024 16:09 T4 7.52 mcg/dL (6.09 - 12.23) 02/23/2024 16:09 TSH 2.95 mcIU/mL (0.45 - 5.33) pt notified Normal [facility] Reminder Messages - From: ARUN OGDEN DO To: [facility] Clinical Pool ([facility]); Sent: 02/25/2024 07:38:38 EDT ! Show up: 02/25/2024 07:38:38 EDT Subject: Results Follow Up Actions: Call the patient with result(s) Due Date/Time: 2024 07:38:00 EDT Reminder Comments: looks okay Results: Date Result Name Ind Value Ref Range 02/23/2024 16:09 Thyroglobulin by GRACE LC ((H)) 30.0 ng/mL (1.4-29.2 - ) 02/23/2024 16:09 Thyroglobulin Antibody LC <1.0 IU/mL (0.0-0.9 - ) Normal [facility] .Thyroglobulin by GRACE LCon 0 02-24-2024 Thyroglobulin by GRACE LC 30.0 ng/mL High 1.4-29.2 [facility] Comment on above: Result Comment: According to the National Academy of Clinical Biochemistry, the reference interval for Thyroglobulin (TG) should be related to euthyroid patients and not for patients who underwent thyroidectomy. TG reference intervals for these patients depend on the residual mass of the thyroid tissue left after surgery. Establishing a post-operative baseline is recommended. The assay limit of quantitation is 0.1 ng/mL Thyroglobulin measured by [facility] [place] [facility] Performed At: [facility] [id number] Montrell Ritter PhD Ph:[phone] Performed By: #### 2 [id number] ####[facility] (DEFAULT)[address] [place] [address] Thyroglobulin Reflex Profile LCon 02-24-2024 Thyroglobulin Antibody LC <1.0 Invalid Interpretation Code 0.0-0.9 [facility] Comment on above: Result Comment: Thyr oglobulin Antibody measured by Elvira [place] Methodology It should be noted that the presence of thyroglobulin antibodies may not be pathogenic nor diagnostic, especially at very low levels. The assay hot pond operator has found that four percent of individuals without evidence of thyroid disease or autoimmunity will have positive TgAb levels up to 4 IU/mL. Performed At: [address] [id number] Montrell Ritter PhD Ph:[phone] Performed By: #### 2 [id number] ####[facility] (DEFAULT)[address] [place] [address] T4, Totalon 02-23-2024 T4 [Mass/Vol] 7.52 ug/dL Normal 6.09-12.23 [facility] Comment on above: Performed By: #### 2 [id number], [id number], [id number] ####[facility] (DEFAULT)[address] [place] [address] TSHon 02-23-2024 TSH Qn 2.95 m[IU]/L Normal 0.45-5.33 [facility] Comment on above: Performed By: #### 2 [id number], [id number], [id number] ####[facility] (DEFAULT)[address] [place] [address] Consent Formson 02-04-2024 Consent Forms [id number]#1.0 0OTGTIFF Normal [facility] Follow-Upon 01-19-2024 Follow-Up [id number] Arnel Mena 1960 M Date Provider Department Center 01/19/2024 JEFFERY TRACEY [facility] URO Second Fl Family History Problem Relation Age of Onset Stroke Father Heart attack Father's Brother Family Status - Relation Status Age at Father Father's Brother Level of Service:94534 CO OFFICE/OUTPATIENT ESTABLISHED MOD MDM 30 MIN Reason for Visit and Comments: Follow-up [829120] - Urgency is better, but not able to put much pressure behind stream, recovering with hernia surgery and hemorhoids, Normal [facility] Consent Formson 01-14-2024 Consent Forms [id number]#[id number] GTIFF Normal [facility] Labon 12-15-2023 Lab [id number] Arnel Mena J 1960 M Date Provider Department Center 12/15/2023 2245-[facility] OPD LAB RESOURCE [facility] OPD DC Medical C Family History Problem Relation Age of Onset Stroke Father Heart attack Father's Brother Family Status - Relation Status Age at Father Father's Brother Normal [facility] Office Visiton 12-15-2023 Follow-up visit [id number] Arnel Mena J 1960 M Date Provider Department Center 12/15/2023 3844-JEFFERY CARVER [facility] URO Second Fl Family History Problem Relation Age of Onset Stroke Father Heart attack Father's Brother Family Status - Relation Status Age at Father Father's Brother Level of Service:17277 CO OFFICE/OUTPATIENT NEW MODERATE MDM 45 MINUTES Reason for Visit and Comments: Urinary Frequency [947570] - Pt c/o frequency, urgency, and weak stream for about a year and a half Normal [facility] PSA, SCREENINGon 12-15-2023 PROSTATE SPECIFIC AG (NG/ML) IN SER/PLAS 2.4 ng/mL Normal 0.4-4 [facility] Comment on above: Performed By: #### L [id number] #### [facility] (BEAKER) [address] [place] [address] URINALYSISon 12-15-2023 BILIRUBIN, TOTAL PRESENCE IN URINE Negative Normal Negative [facility] Comment on above: Order Comment: Micro scopics not performed on urines with negative chemical reactions unless requested on original order. Performed By: #### L [id number] #### [facility] ([facility]) [address] [place] [address] Clarity (U) Clear Normal Clear [facility] Comment on above: Order Comment: Micro scopics not performed on urines with negative chemical reactions unless requested on original order. Performed By: #### L [id number] #### [facility] ([facility]) [address] [place] [address] Color (U) Yellow Normal Yellow [facility] Comment on above: Order Comment: Micro scopics not performed on urines with negative chemical reactions unless requested on original order. Performed By: #### L [id number] #### [facility] ([facility]) [address] [place] [address] Glucose (U) [Mass/Vol] Negative Normal Negative [facility] Comment on above: Order Comment: Micro scopics not performed on urines with negative chemical reactions unless requested on original order. Performed By: #### L [id number] #### [facility] ([facility]) [address] [place] [address] HEMOGLOBIN PRESENCE IN URINE Negative Normal Negative [facility] Comment on above: Order Comment: Micro scopics not performed on urines with negative chemical reactions unless requested on original order. Performed By: #### L [id number] #### [facility] ([facility]) [address] [place] [address] Ketones Ql (U) Negative Normal Negative [facility] Comment on above: Order Comment: Micro scopics not performed on urines with negative chemical reactions unless requested on original order. Performed By: #### L [id number] #### [facility] ([facility]) [address] [place] [address] LEUKOCYTE ESTERASE PRESENCE IN URINE BY TEST STRIP Negative Normal Negative [facility] Comment on above: Order Comment: Micro scopics not performed on urines with negative chemical reactions unless requested on original order. Performed By: #### L [id number] #### [facility] ([facility]) [address] [place] [address] NITRITE PRESENCE IN URINE Negative Normal Negative [facility] Comment on above: Order Comment: Micro scopics not performed on urines with negative chemical reactions unless requested on original order. Performed By: #### L [id number] #### [facility] ([facility]) [address] [place] [address] pH (U) 7.0 [pH] Normal 5.0-8.0 [facility] Comment on above: Order Comment: Micro scopics not performed on urines with negative chemical reactions unless requested on original order. Performed By: #### L [id number] #### [facility] ([facility]) [address] [place] [address] Protein (U) [Mass/Vol] Negative Normal Negative [facility] Comment on above: Order Comment: Micro scopics not performed on urines with negative chemical reactions unless requested on original order. Performed By: #### L [id number] #### [facility] ([facility]) [address] [place] [address] Specific gravity (U) [Rel density] 1.009 Low 1.015-1.020 [facility] Comment on above: Order Comment: Micro scopics not performed on urines with negative chemical reactions unless requested on original order. Performed By: #### L [id number] #### [facility] ([facility]) [address] [place] [address] Coding Summaryon 11-20-2023 [facility] JnbsaqmlTHg5uZx+PGhlYWQ +BR4HMILqX89xsOIctZ4tY5 NMTElOSywgQVBQTElOSyIgb rAbYH4vvIMkKIRj IC8+WQ7lWMFuTcbydWKdr8W 5dVW6Q47fps5kOLsuiVD0RG GgEhXmzbwwa2efvIw4EYavD mluOyBt VQShsQ97CYQ1eE83Zm73uPS ccAFsz1yhpZe5FnZvWBGeGS R3pTpuQLeod0DfFFQmL47hy VHlu5F2 ESWelYopnGYuDjMoqBR1fA0 iMGxctpklb7tqejimFyv8uc 38mBUqz9O5tMW8F4FeuuR6H GJvbGQg TigvcBPGkS2jpairq1bvvnb xXqDzBJRgGTt6KVd6PDLdgV vgYoMfGO42OHU6WMLzmtHvQ 2FsLWFs bTfyJoY1q5Z6Zj2EV7LHUbx qB9UTXIFCYWepeRZ+PC90cj 67A7ApGxkcJpd6TSWkPQL9p IL9rQ4r WYRwPIncd5A7pCS4E2NnmhS cio3xa4diOCUuQVhxU82wrH Wzf6V3DMEvlOE8PWZamTzrS iBzaG93 Oyc+TPFuoJolh8IrFwxtl6g xz0jraEt3XwiyVPIpohDypH bfLIX8c3EsQj5zEITzvUM9v BA3qE3p WsRwNiS9TZwiE586WlBruTP nWgldO03vL7FzjUR+PHRyPj j2EJNsqHgtIU1rG2RbWGEzl mctbGVm rDnuMX8rGORjlfqvXXZqfN7 yBEVnU4q6TyAjHbT9SDfbG5 OkGTTomfooVe15pO8uXwByS pK7NCaw M8ZdunN8DNThwBBuWWkcRXK 3D22wr8I3FDDbCNVbTBE4kX Q5nI1xpMrtywyoxHZdsIiey mVydGlj DPynGPghE267MGWzyQryDuU vZGluZyBEYXRlOiAgMDQvMT gvMjAyNDwvdGQ+WETkLHH0m WxlPSAn uIJrQJquCv3rjBuicDorUF8 hHXCbljojKHIpgQ2fXNMokU FieXsvKW1zGZVyxhkii506I iAxMHB0 FKVfsTUwF1AyuV6rFaEvWGF cNLUuF5PbrMMoCOekH751HG yjNvP9HPGfppYdZ8BbZIAle WduOiB0 v5A7Hs4My3CkfugfL0PgiAY yJtGeQdnpZEv2I9DfSygndF I+OY25BNAzSA63EIb8QMO4d WxlPSdi IZKpT4HquK1wTkDxXPArPOX kOyc+PHRhYmxlIHdpZHRoPS sbBOYqLyXrsAltDW0gMx4sC GVyLWNv jAfynAXfSkKif6nyKAGgVDx oBF4wmXkcA3RosEK6PLUbq6 v9Qv80K66yX4QkjBF+PGNvb CH8nOD5 rI2aOfYgFpC6TNowU299HbF keAWbYjfwr9qbk2kkdJi8Ni H2GMDcbcTftJisTQM9i1FwN j47Y07q IHdpZHRoPSIxNSUiIHZhbGl zmj7dgE5nBo8+FKEsiDU9qJ L9cX6fSnSdLfE2MZujN577R nRvcCIv Bganr2wld8fhdIq2BeCxWCN tzdTahTtwXBC4x8RtXd96X6 MosGrnw6PfVrt6tw47pWYuu 4B2oFX7 K0GhBSRdrhlgfWLzlWjvMT7 lRBLoexycTLGjyG6jXTPtB8 l9KdNtQuH0CUbqJ8KtumB3U GJvbGQg JIWemLKCqK2jxpopa0kceqy gXvLpIGIeHQa4KSk9QJOjrM kxSeCtCNS6ToX0WYB0cZTgf K6ymFiu rsfkeP5qItk+VUW7aJUyqHH NNR8dSesnwTK+JULgLUQ8kJ prYUcbOYKgxQ7yXGOwW2m6B iAwLjA1 XKfsZ7DgooP9MIQopJBjCKE mgSNIlA5pdwepu3waqaycLw ZtOGNxBGt9GJd8BLNuvIfzY iBsZWZ0 AzN0NZP1nZBfsH5tnYqbzrt aiC5kGqp+HmldbHlbPPD8QG q1F4VjTjj0NPIjoBdaGF2mf GFkZGlu Uz8ucNdcoAleNV3iTRUmcbj xf467UtFxa5dkGJLejBUbBS jlIJE9Y42mq0W3JAOzOLGcN ZH5nXX3 wH4ivUyxoulbkHKurCruohB kfYfiRQurEMajD266IORhbP weCuGsSNu3G6MpMqx4RHMvb HlnJK1s eDBzGGleJn2ehLqvvCexDY9 dAZDlnddij647OmTpj4rpWC HajTPfHMhgQDW6V15uu8D1N CMwMDAw WIL6vDS5rA5tlKvbtnwunMQ mdDsgdmVydGljYWwtYWxpZ2 90HOUulTewKhTzkPr8Q4EgS qi7BGKy rPnmXY7ymAYiXHhbBa3ivLh biRhmMT5sKALhzrlqd295Pe Iwt5jbPUBxdOIxJXzlCZO9S 24gk3C8 BQCwOAZiYQH8zBY7kX4tsGs nbjogbGVmdDsgdmVydGljYW glLIqgO843LCZmxBrjZoCya GllbnQg AKudXRw0N9ZxDuhfiVK+PC9 1EELbUL81sWKxqCRoz2jryA w8RcDbKIVgEBV7kNhzGLzov 3JkZXIt J17ajKDih2J0SYDhiNlouTL jNuJfbOZ3oA6eVPsvmrcyv2 pmwpdgFxdhz8tfvp21rE82C 29sIHdp ZHRoPSIzMCUiIHZhbGlnbj0 pzD7lBs6+RHZhzKT3eOL6qS 6oFBChEqL5YRslN628QkGkk CIvPjxj u2eod6myeVq4FbO1AGAbxnK mmLzaDJI8a8TaPc60D17qFJ dpZHRoPSIyMCUiIHZhbGlnb b4adS0u Ii8+TWZlhPO0qNN4rM0kRjB uYeH3MTwrF966GjNqiLGcGe ydG58zT0MxtMK+TNCcTvp2Q CBzdHls PQ2miVOeMZuqXd6fRLZ4OtH pDmSdHZjkR2ZtRVBbrlakce dhiHU3TTOlXOIjoK31Ed0ju DogMTBw qBWYdD0dblyma3ifovbkDnE kRFAiSZy3CZe3PZOxjAtpCh SvLNB2KtH5SNP9oYHqxW7yc Glnbjog lF6hC2LrDAEfkdifGa35oL3 vWuOwQoK0QHabEnp+U0tFRU aRAAOUB8TTMvFeVmaopPJ+P HRkIHN0 jLviQNozBSZrgN1fXLXyZ9t 3YkBqFjR5SMshI9MbNQQqfa hrOf92lB0yOqZwDdC2VHldI 1EyxyP6 EKFamNYpDQsrOMX7Q72jl2O 4RXInMOQrWKI1pTP5eM7vcL lnbjogbGVmdDsgdmVydGljY WwtYWxp M131TIFyxLmbRiJ1OdC0UgT 8FhO9L3WiPux4JDFxpNuiWN 8mwVNaNOxiOq6nxXbvnMxlS B0wIVKn ikwrXOUvlS3iDSRkxTFfkMm eFZ1yJGSsjqrdh409ZwZjEV J6BBEltCYpP3OuwC3gSyVtI DAwMDAw O3EblLVoJBpjM605XEwbEcB 6OHOtmlFfU6CfVERpbFwdOw T7p5H7Ht31KFWYHAGdwwjdk GQ+PHRk WHO7eXefWEnxAEWbkD1sIRS jP5g6CgGrIlC1YVwgM4VaEA CcswunVj95hT3eHlEjBzI9U CjzM6Gv cdZ5GZCkwLWvIZomXOI5R36 fr2S0CWGrPXQkDEF4rBY2qZ 1hbGlnbjogbGVmdDsgdmVyd GljYWwt VKtcS749XPJhqVarXm3ZZZK 4G3MyDjn4GWLluMecAV1uwS WxSFfkAg3lhLuxwWorCP6iV TBpbjtw UVKscQ2eDQEciDJbkBqvRD6 eATXizbhwf357ApVfJQK5FM AxjRXbS1DnzC5rXfHgKTJhO UVxY1Xm cBUoRXdlK059MCfhNhA3XBI gkuAuE1ExOEZkjMvsTzB5d4 O7Dv9NaWRpD5TbT6l8Y5MkT jwvdHI+ BE47NYCwNA14tKCwaNYxa2w mmUa3JaFdXOCrNAP8vCypVH qda0AgINMwX93irVWzc5Z3P GNvbGxh uHIsZbClgTZ3rS7hTIxtbzb bi7rnumywOwwzh9xoyu25sB 92X33sVSevZGViIFArPREsJ HZhbGln dy5ouZ6tPx7+FRDibYM3vYF 5iH6dCmQcGfN4RNnmA268Ux YtnQLiRjpbx2xge4lyzMo3F jIwJSIg pjDsaKscISA3b8FhHu35K26 sIHdpZHRoPSIyMCUiIHZhbG opol0haV0gCb3+LV5nc6vui t26zI71 dHI+VNWaCKS9mCdqVKncHCD agH5cIKykVlN7IARwPbPgwY 86iLRaJGjnNh7pbKfuuZjeE F7fWRSd sktdw044MpOlg8ruGKIquDY bVFirKND9J36os2H6QOTiNZ TcQPL3gZZ4aD9cwWxiqomla GVmdDsg toCfuJggTUgjUJvbM342IAX yiHxbLkNbqVSuJ9jtetADAO 1lOjwvdGQ+JMWeZYH5dUehW SdwYWRk cE5fSUGaA2z0OjRxQpQ9WKv tL2OhtoO3HISvyDAgSPCmuS OOaT2lbzejs9jovllxSvOrS DAwMDt0 BCe3CCWdyWldWcAtDGQ0CxK 4JEG7oTPlwP7wuYwjapudvL 9wOyc+RklOOjwvdGQ+PHRkI ZO3xZwx AQmgIVRetK7aFYEhH7z7FwX iSgM8YYuwC3BfivX1GYEktL QhVFEwwWCSiA4uyuxto7xsf jogIzAw RVZlVLj9EFr8FYGizCdxOuT qGSP4WoU9CHS0jUZorC1omZ elukbfvP9cDrn+TVJOOjwvd GQ+PHRk SRT6lYcoGKkfUJXalP7cQBM uQ3m7BgKxNoY4ICikC1Osfc H0DHQahLOuGOTcpTTJlL0ss rzhw2op ctntQjYwVPRcZXg0KDp6EXQ mvZodZhUnXOL1DsC9WDB7cM RheJ0dxYuaslfabG6yGea+U JE3MUQ2 NJ76WP76P8GuZvhfxWDqnJN +PHRhYmxlIHdpZHRoPScxMD HuMrAveSayLZ6aPb1yUBGwF WNvbGxh cHN (more content not included)... [facility] Consent Formson 11-18-2023 Consent Forms [id number]#[id number] GTIFF [facility] .Auto Diff 1on 11-14-2023 Auto [place] % 9 % [place] 08-15 [facility] Comment on above: Performed By: #### 1 [id number], [id number], [id number], [id number], [id number] ####[facility] (DEFAULT)[address] [place] [address] Baso Abs# 0.0 x10 Normal 0.0-0.2 [facility] Comment on above: Performed By: #### 1 [id number], [id number], , , [id number], [id number] ####[facility] (DEFAULT)[address] [place] [address] Basophils/100 WBC (Bld) 0.5 % Normal 0.2-2.0 [facility] Comment on above: Performed By: #### 1 [id number], [id number], [id number], , [id number], [id number] ####[facility] (DEFAULT)[address] [place] [address] Eos Abs# 0.2 x10 Normal 0.0-0.4 [facility] Comment on above: Performed By: #### 1 [id number], [id number], , , [id number], [id number] ####[facility] (DEFAULT)[address] [place] [address] Eosinophils/100 WBC (Bld) 2.9 % Normal 0.9-4.0 [facility] Comment on above: Performed By: #### 1 [id number], [id number], , , [id number], [id number] ####[facility] (DEFAULT)[address] [place] [address] 93918 Lymph Abs# 1.7 x10 Normal 1.3-2.9 [facility] Comment on above: Performed By: #### 1 [id number], [id number], , [id number], [id number], 6434291 ####[facility] (DEFAULT)[address] [place] [address] 43348 Lymphocytes/100 WBC (Bld) 25 % Normal 14-48 [facility] Comment on above: Performed By: #### 1 [id number], [id number], [id number], , [id number], 2369679 ####[facility] (DEFAULT)[address] [place] [address] 29770 Seward Abs# 0.7 x10 Normal 0.0-0.8 [facility] Comment on above: Performed By: #### 1 2152280, [id number], , , [id number], [id number] ####[facility] (DEFAULT)[address] [place] [address] Neut Abs# 4.3 x10 Normal 1.5-9.2 [facility] Comment on above: Performed By: #### 1 [id number], [id number], [id number], 1783997828, [id number], 7493056 ####[facility] (DEFAULT)[address] [place] [address] Neutrophils/100 WBC (Bld) 62 % Normal 44-88 [facility] Comment on above: Performed By: #### 1 [id number], [id number], 3293476269, 1507946845, 6180041185, 9675906 ####[facility] (DEFAULT)[address] [place] [address] CBC w/ Auto Diffon Erythrocyte distribution width (RBC) [Ratio] 13.0 % Normal 11.5-15.0 [facility] Comment on above: Performed By: #### 1 [id number], [id number], 1094581472, 8279760916, [id number], 9673349 ####[facility] (DEFAULT)[address] [place], [place] [address] Hematocrit (Bld) [Volume fraction] 43.9 % Normal 34.8-51.9 [facility] Comment on above: Performed By: #### 1 8563957, [id number], 3858344735, 6891357935, 0282186491, 9167161 ####[facility] (DEFAULT)[address] [place] [address] 48451 Hemoglobin (Bld) [Mass/Vol] 14.7 g/dL Normal 11.8-17.7 [facility] Comment on above: Performed By: #### 1 0294322, [id number], 2599634098, 6250646042, 9263621922, 1722835 ####[facility] (DEFAULT)[address] [place] [address] Man Diff? Auto Invalid Interpretation Code [facility] Comment on above: Performed By: #### 1 6506214, [id number], [id number], , [id number], 3787184 ####[facility] (DEFAULT)[address] [place] [address] 21189 MCH (RBC) [Entitic mass] 32 pg Normal 24-34 [facility] Comment on above: Performed By: #### 1 9501869, [id number], , , 9849137601, 3753750 ####[facility] (DEFAULT)[address] [place] [address] 27083 MCHC (RBC) [Mass/Vol] 34 g/dL Normal 26-37 [facility] Comment on above: Performed By: #### 1 0015241, 3845179752, 0172741678, , 8468707965, 7989529 ####[facility] (DEFAULT)[address] [place] [address] 73194 MCV (RBC) [Entitic vol] 96 fL Normal 81-100 [facility] Comment on above: Performed By: #### 1 8645196, [id number], 7400683981, , 3690541327, 6147611 ####[facility] (DEFAULT)[address] [place] [address] Platelet 228 x10 Normal 138-427 [facility] Comment on above: Performed By: #### 1 3378129, 9256709576, 8457888837, , 9728229676, 9706911 ####[facility] (DEFAULT)[address] [place] [address] 35140 Platelet mean volume (Bld) [Entitic vol] 8.5 fL Normal 6.3-10.2 [facility] Comment on above: Performed By: #### 1 7316015, 1744298668, 3438687943, , 0427062497, 2250859 ####[facility] (DEFAULT)[address] [place] [address] RBC 4.60 x10 Normal 3.70-5.30 [facility] Comment on above: Performed By: #### 1 9222085, [id number], 0058622574, 1085863123, 1652534964, 0477144 ####[facility] (DEFAULT)[address] [place] [address] WBC 6.9 x10 Normal 3.5-10.5 [facility] Comment on above: Performed By: #### 1 4205741, 2262051812, 6976049810, 4129433993, 5557378481, 2775443 ####[facility] (DEFAULT)[address] [place] [address] CMP Standardon 11-14-2023 eGFR Non AA >60 Invalid Interpretation Code [facility] Comment on above: Performed By: #### 1 5273257, [id number], 8721963892, 3967368196, 5779954063, 9764330 ####[facility] (DEFAULT)[address] [place] [address] eGFR AA >60 Invalid Interpretation Code [facility] Comment on above: Performed By: #### 1 4041950, [id number], [id number], , 2745627207, 0975315 ####[facility] (DEFAULT)[address] [place] [address] 96257 Albumin [Mass/Vol] 4.0 g/dL Normal 3.5-5.0 [facility] Comment on above: Performed By: #### 1 3536721, 6629231104, 0416733498, 1901997710, 2476321031, 4445412 ####[facility] (DEFAULT)[address] [place] [address] 96172 Alk Phos 76 IU/L Normal 32-91 [facility] Comment on above: Performed By: #### 1 2860435, [id number], 5514987367, 7864330146, 9626793366, 8810543 ####[facility] (DEFAULT)[address] [place] [address] ALT [Catalytic activity/Vol] 80.0 U/L High 17.0-63.0 [facility] Comment on above: Performed By: #### 1 0666541, [id number], 5197372616, , 5716242848, 4268270 ####[facility] (DEFAULT)[address] [place] [address] 92593 AST [Catalytic activity/Vol] 65 U/L High 15-41 [facility] Comment on above: Performed By: #### 1 8450625, [id number], 4503267954, , 1399456841, 2703199 ####[facility] (DEFAULT)[address] [place] [address] 25115 Bili Total 0.6 mg/dL Normal 0.3-1.2 [facility] Comment on above: Performed By: #### 1 9939613, 9161950965, 9333984795, , 3293862474, 8107956 ####[facility] (DEFAULT)[address] [place] [address] 09431 Calcium [Mass/Vol] 9.2 mg/dL Normal 8.9-10.3 [facility] Comment on above: Performed By: #### 1 5105649, [id number], , , [id number], 5282820 ####[facility] (DEFAULT)[address] [place] [address] 39225 Chloride [Moles/Vol] 106 mmol/L Normal 101-111 [facility] Comment on above: Performed By: #### 1 8997481, [id number], , , 3260395759, 8787989 ####[facility] (DEFAULT)[address] [place] [address] 86153 CO2 [Moles/Vol] 23 mmol/L Normal 21-32 [facility] Comment on above: Performed By: #### 1 8724874, [id number], , , 5889672374, 6835495 ####[facility] (DEFAULT)[address] [place] [address] 21254 Creatinine [Mass/Vol] 0.87 mg/dL Low 0.90-1.30 [facility] Comment on above: Performed By: #### 1 [id number], [id number], [id number], , [id number], [id number] ####[facility] (DEFAULT)[address] [place] [address] 32152 Glucose [Mass/Vol] 83.0 mg/dL Normal 74.0-118.0 [facility] Comment on above: Performed By: #### 1 [id number], [id number], [id number], , [id number], [id number] ####[facility] (DEFAULT)[address] [place] [address] 85334 Potassium [Moles/Vol] 4.0 mmol/L Normal 3.6-5.1 [facility] Comment on above: Performed By: #### 1 [id number], [id number], [id number], [id number], [id number], [id number] ####[facility] (DEFAULT)[address] [place] [address] 52633 Protein [Mass/Vol] 7.3 g/dL Normal 6.5-8.1 [facility] Comment on above: Performed By: #### 1 [id number], [id number], , , [id number], [id number] ####[facility] (DEFAULT)[address] [place] [address] 21898 Sodium [Moles/Vol] 135.0 mmol/L Low 136.0-144.0 [facility] Comment on above: Performed By: #### 1 [id number], [id number], [id number], , [id number], [id number] ####[facility] (DEFAULT)[address] [place] [address] 67534 Urea nitrogen [Mass/Vol] 16 mg/dL Normal 8-26 [facility] Comment on above: Performed By: #### 1 [id number], [id number], [id number], [id number], [id number], [id number] ####[facility] (DEFAULT)[address] [place] [address] 71739 Albumin/Globulin [Mass ratio] 1.2 {ratio} Low 1.4-2.6 [facility] Comment on above: Performed By: #### 1 [id number], [id number], [id number], , [id number], [id number] ####[facility] (DEFAULT)[address] [place] [address] 04407 Anion gap [Moles/Vol] 10.0 mmol/L Normal 5.0-19.0 [facility] Comment on above: Performed By: #### 1 [id number], [id number], [id number], [id number], [id number], [id number] ####[facility] (DEFAULT)[address] [place] [address] 13990 Globulin (S) [Mass/Vol] 3.3 g/dL Normal 1.5-4.3 [facility] Comment on above: Performed By: #### 1 [id number], [id number], [id number], [id number], [id number], [id number] ####[facility] (DEFAULT)[address] [place] [address] Osmolality 270 mOsm/L Invalid Interpretation Code [facility] Comment on above: Performed By: #### 1 [id number], [id number], [id number], [id number], [id number], [id number] ####[facility] (DEFAULT)[address] [place] [address] Urea nitrogen/Creatini ne [Mass ratio] 18.3 mg/mg High 4.6-16.2 [facility] Comment on above: Performed By: #### 1 [id number], [id number], [id number], [id number], [id number], [id number] ####[facility] (DEFAULT)[address] [place] [address] CT Abdomen/Pelvis w/ Contras ton 11-14-2023 CT Abdomen/Pelvis w/ Contrast CT ABDOMEN/PELVIS WITH IV CONTRAST. INDICATION: Abdominal pain, post-op. Recent right hernia surgery. COMPARISON: 09/04/2019 TECHNIQUE: Contiguous axial images were obtained from the lung bases to the pelvic floor following the intravenous administration of contrast. Coronal and sagittal reformations are provided. FINDINGS: LOWER LUNGS: Clear. LIVER/BILIARY TREE: No mass. No intrahepatic ductal dilatation. GALLBLADDER: No significant gallbladder wall thickening. No radiopaque stone. CBD: Normal CBD. SPLEEN: Normal in size. PANCREAS: No acute findings. No peripancreatic fluid or inflammation. No pancreatic duct dilatation. No discrete mass. ADRENALS: Normal. KIDNEYS: No hydronephrosis. Left nephrolithiasis. STOMACH AND BOWEL: Stomach is unremarkable. No dilated bowel loops. No bowel wall thickening. APPENDIX: Normal appendix. PERITONEAL CAVITY: No fluid. No fat stranding. ABDOMINAL WALL: Postoperative changes in the right inguinal region. There is either a recurrent or residual small right inguinal hernia containing fluid and fat. No organized collection. LYMPH NODES: No mesenteric or retroperitoneal lymphadenopathy by CT criteria. ABDOMINAL AORTA: No aneurysm. PELVIS: No acute abnormality. Prostatomegaly. MUSCULOSKELETAL: No acute osseous abnormality. IMPRESSION: 1. Either a recurrent or residual small right inguinal hernia containing fluid and fat. No organized fluid collection.. 2. No acute abnormality within the abdomen or within the pelvis. Final Dictated by: Angel Sandy MD Dictated DT/TM: 11/14/23 4:35 Signed (Electronic Signature): Angel Sandy MD 11/14/23 4:42 pm Technologist: Thomas NG [facility] ED Clinical Summaryon 2023 ED Clinical Summary [facility] - Emergency Department [address] [place] [address] ED Clinical Summary PERSON INFORMATION Name: ALESIA MENA Age: 63 Years Sex: MALE : 1960 MRN: Acct#: Visit Reason: Post surgical problem; ABD PAIN Arrival: 11/14/2023 13:14:58 Discharge: 11/14/2023 17:12:00 LOS: 000 03:58 Check In: 11/14/2023 13:14:58 Checkout:11/14/2023 17:12:00 Address: [address] [place] [address] PCP: ARUN OGDEN DO PROVIDER INFORMATION Provider Role Assigned Unassigned Norma Hollins RN ED Nurse 11/14/2023 14:11:44 Faizan Torrez ED Provider 11/14/2023 14:13:56 VITALS INFORMATION Vital Sign Triage Latest Temperature Tympanic Temperature Temporal Artery 36.9 DegC Pulse Rate 65 bpm 64 bpm O2 Sat 99 % 96 % Respiratory Rate 18 br/min 18 br/min Blood Pressure /86 mmHg /86 mmHg MEDICAL INFORMATION Medications Given: Medication Dose Route HYDROmorphone (Dilaudid) 1 mg IV Push ondansetron 4 mg IV Push iohexol (Omnipaque 350 100 ml) 350 mg IV Push Allergy Information: Darvocet A500; Percocet; codeine PHYSICIAN DOCUMENTATION DISCHARGE INFORMATION: Discharge Disposition: Home Discharge Location: Home PATIENT EDUCATION INFORMATION Instructions: Inguinal Hernia, Adult, Dyzz-fb-Oriy; Abdominal Pain, Adult, [id number]-Wqiq Follow-Up: With: Address: When: Nate Hua [address] [place] [address], [place] [address] Business (1) Within 3 to 5 days Comments: follow up with Dr. Hua on Friday as scheduled. return to ED if worsening symptoms. With: Address: When: ARUN [address] [address] Business (1) Within 3 to 5 days DIAGNOSIS: Groin pain; Post surgical complication Patient Understands: Yes - Patient/family/caregive r verbalizes understanding of instructions given Comment: [facility] ED Note - Physicianon 2023 ED Note - Physician Patient: ALESIA MENA Age: 63 years Sex: MALE : 1960 Associated Diagnoses: Post surgical complication; Groin pain Author: Fiazan Torrez Basic Information Additional information: Chief Complaint from Nursing Triage Note : Chief Complaint 11/14/2023 13:25 EDT Chief Complaint Patient had a hernia repair from Dr. Hua 10 days ago. Patient was left alone today for the first time, patient pulled the lever on his recliner and is concerned for reherniation. RLQ pain rating 10/10. . History of Present Illness Patient presents with right groin pain. The patient had a right inguinal repair hernia on 11/04/[address] Hua. He noted relatively improving signs over the past few days but then yesterday he was attempting to get in and out of recliner and noted some pain associated with extending his legs. He now notes moderate to severe pain in his right groin area. Denies any fever or chills denies any nausea or vomiting. Is able to defecate. And is able to urinate. Review of Systems Constitutional symptoms: No fever, no chills. Skin symptoms: Some bruising noted to the right groin area. Gastrointestinal symptoms: No abdominal pain, no nausea, no vomiting, no diarrhea. Genitourinary symptoms: No dysuria, no hematuria. Psychiatric symptoms: Anxiety. Health Status Allergies: Allergic Reactions (Selected) Mild Codeine- Itching. Darvocet A500- Itching. Percocet- Itching.. Medications: (Selected) Prescriptions Prescribed acetaminophen-hydrocodo ne 325 mg-5 mg oral tablet: 1 tab(s), Oral, TID, PRN: as needed for pain, 8 tab(s), 0 Refill(s) ibuprofen 600 mg oral tablet: 600 mg = 1 tab(s), Oral, q6hr, PRN: Pain - Moderate, 30 tab(s), 0 Refill(s) Documented Medications Documented Travel-Ease 25 mg oral tablet: Take 1 tablet by mouth 3 times a day ibuprofen 800 mg oral tablet: TAKE 1 TABLET BY MOUTH EVERY 8 HOURS NEEDED FOR PAIN ohm Allergy Relief 10 mg oral tablet: TAKE 1 TABLET BY MOUTH ONCE DAILY. Past Medical/ Family/ Social History Medical history: No active or resolved past medical history items have been selected or recorded.. Surgical history: Hernia ([id number]) on 11/04/2023 at 63 Years. Comments: 11/04/2023 10:39 FREIDAT - Sofia Franco RN right inguinal hernia repair Colonoscopy ([id number]). Arm ([id number]). Comments: 10/20/2023 13:18 Naomy Wilder RN right arm. Family history: COPD (chronic obstructive pulmonary disease) Mother Father Sister Brother . Social history: Social & Psychosocial Habits Alcohol 11/14/2023 Alcohol Use: Never Home/Environment 10/09/2023 Lives with: Spouse Substance Use 10/20/2023 Type: Marijuana Frequency: Daily 11/14/2023 Substance use: Current Type: Marijuana Tobacco 10/09/2023 Smoking tobacco use: Former tobacco user Number used per day: quit january 20 or 202211/14/2023 Smoking tobacco use: Former tobacco user Electronic Cigarette/Vaping 10/09/2023 Electronic Cigarette Use: Never 11/14/2023 Electronic Cigarette Use: Never . Problem list: Active Problems (4) Direct inguinal hernia of right side Enlarged prostate Hernia, inguinal Multiple leg contusions . Physical Examination Vital Signs Vital Signs 11/14/2023 17:00 EDT Peripheral Pulse Rate 64 bpm Respiratory Rate 18 br/min Systolic Blood Pressure 189 mmHg HI Diastolic Blood Pressure 118 mmHg HI Mean Arterial Pressure, Cuff 142 mmHg HI Mean Arterial Pressure Cuff 131 mmHg SpO2 96 % Oxygen Therapy Room air 11/14/2023 16:30 EDT Peripheral Pulse Rate 69 bpm Pulse Site Radial artery Respiratory Rate 16 br/min Systolic Blood Pressure 179 mmHg HI Diastolic Blood Pressure 100 mmHg HI Mean Arterial Pressure, Cuff 126 mmHg HI Mean Arterial Pressure Cuff 110 mmHg SpO2 92 % Oxygen Therapy Room air 11/14/2023 16:00 EDT Peripheral Pulse Rate 63 bpm Respiratory Rate 16 br/min Systolic Blood Pressure 174 mmHg HI Diastolic Blood Pressure 102 mmHg HI Mean Arterial Pressure, Cuff 126 mmHg HI Mean Arterial Pressure Cuff 126 mmHg SpO2 97 % Oxygen Therapy Room air 11/14/2023 15:30 EDT Peripheral Pulse Rate 63 bpm Respiratory Rate 18 br/min Systolic Blood Pressure 189 mmHg HI Diastolic Blood Pressure 106 mmHg HI Mean Arterial Pressure, Cuff 134 mmHg HI Mean Arterial Pressure Cuff 145 mmHg SpO2 97 % Oxygen Therapy Room air 11/14/2023 15:00 EDT Peripheral Pulse Rate 70 bpm Respiratory Rate 16 br/min SpO2 98 % Oxygen Therapy Room air 11/14/2023 14:30 EDT Peripheral Pulse Rate 64 bpm Respiratory Rate 18 br/min Systolic Blood Pressure 151 mmHg HI Diastolic Blood Pressure 94 mmHg HI Mean Arterial Pressure, Cuff 113 mmHg HI Mean Arterial Pressure Cuff 132 mmHg SpO2 95 % Oxygen Therapy Room air 11/14/2023 13:25 EDT Temperature Temporal Artery 36.9 DegC Peripheral Pulse Rate 65 bpm Respiratory Rate 18 br/min Systolic Blood Pressure 130 mmHg Diastolic Blood Pressure 86 mmHg (more content not included)... 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 Privacy maintained. Sister remained at bedside. Patient tolerated exam well. [facility] ED Note-Nursing Patient arrives via private car with his sister and taken to room 5. He c/o right groin pain from hernia repair 10 days ago. He was doing well until this morning and now pain 10/10. He had no injury. The area looks good. No s/sx of infection. Patient i A/O X4. He is urinating without difficulty. [facility] ED Note-Nursing Patient delayed room assignment due to high patient census. Patient taken to room 5 at this time. [facility] ED Patient Summaryon 024 ED Patient Summary [facility] - Emergency Department [address] [place] [address] PATIENT DISCHARGE INSTRUCTIONS Patient Information Name: ALESIA MENA Age: 63 Years Date of : 1960 Reason For Visit: Post surgical problem; ABD PAIN Arrival Time: 11/14/2023 13:14:58 Primary Care Physician: ARUN ODGEN DO Attending Physician: Faizan Torrez Comment: Visit Diagnosis: Diagnoses This Visit Groin pain (R10.30) Post surgical complication (T81.9XXA) Post surgical problem ([id number]) The Pharmacy at [facility] is open Friday through Friday from 9A to 6P and Friday and Friday from 9A to 5P Prescription Information: If you have been given a prescription for narcotics, seek immediate medical attention if you have any difficulty breathing or any sudden status changes such as confusion and sleepiness. If you or anyone you know is experiencing suicidal thoughts, mental health, alcohol and/or drug addiction problems; contact the [facility] 24/02 Crisis Hotline -Text 4HHUE vs 264515. If you received any narcotics, sedation, or any other medication that causes drowsiness for the next 24 hours, unless otherwise directed: ? Do not drive a car. ? Do not operate machinery such as power tools, lawn mowers, drills, sewing machines, or stoves ? Avoid alcoholic beverages and drugs for allergies, nerves, or sleep ? Do not make important personal or business decisions or sign any legal documents With: Address: When: Nate Hua [address] [facility], [place] [address] [facility] (1) Within 3 to 5 days Comments: follow up with Dr. Hua on Friday as scheduled. return to ED if worsening symptoms. With: Address: When: ARUN OGDEN [facility] [place] [address] [facility] (1) Within 3 to 5 days Medication Information: The exam and treatment you received today in the [facility] Emergency Department were for an urgent problem and are not intended as complete care. It is important for you to follow up with a doctor, nurse practitioner, or physician?s pharmacy technician assistant for ongoing care. If your symptoms become worse or you do not improve as expected and you are unable to reach your usual health care provider, you should return to the Emergency Department, we are available 24 hours a day. For those patients who have received Radiology results, the interpretation of your X-ray as given to you by our Emergency Department physician is only a preliminary report. The Radiologist will review your films and if there is a change in the diagnosis you will be notified by phone. Please make sure you have provided a working phone number so we can reach you if necessary. In the event that you had a lab culture while you were a patient in the Emergency Department, you will be notified by phone if there is a need to change your antibiotic. Please make sure you have provided a working phone number so we can reach you if necessary. [facility] Emergency Department has provided you with a complete list of medications post discharge. Please inform your production planning supervisor/provider of your visit and for further instruction on these medications. Any specific questions regarding your chronic medications and dosages should be discussed with your primary care physician(s) and/or pharmacist. Medications That Were Updated - Follow Below Instructions [id number], [address] [place] [id number], [phone] Updated: acetaminophen-hydrocodo ne (acetaminophen-hydrocod one 325 mg-5 mg oral tablet) 1 tab(s) Oral (given by mouth) 3 times a day (scheduled) as needed as needed for pain. Refills: 0. Additional medications on your home medication list not specifically addressed. Please contact the ordering physician if you have questions about these medications. ibuprofen (ibuprofen 600 mg oral tablet) 1 tab(s) Oral (given by mouth) every 6 hours (scheduled) as needed Pain - Moderate. Refills: 0. ibuprofen (ibuprofen 800 mg oral tablet) TAKE 1 TABLET BY MOUTH EVERY 8 HOURS NEEDED FOR PAIN. loratadine (ohm Allergy Relief 10 mg oral tablet) TAKE 1 TABLET BY MOUTH ONCE DAILY. meclizine (Travel-Ease 25 mg oral tablet) Take 1 tablet by mouth 3 times a day. Visit Information Allergies: Substance Reaction Symptoms Type Comments codeine Itching Drug Darvocet A500 Itching Drug Percocet Itching Drug Vital Signs: Vitals and Measurements this Visit (last charted value for your 11/14/2023 visit) Vital Signs This Visit Temperature Temporal Artery: 36.9 DegC Peripheral Pulse Rate: 64 bpm Pulse Site: Radial artery Respiratory Rate: 18 br/min Systolic Blood Pressure: 189 mmHg Diastolic Blood Pressure: 118 mmHg Mean Arterial Pressure, Cuff-Calculation: 142 mmHg Mean Arterial Pressure Cuff-Monitor: 131 mmHg SpO2: 96 % Oxygen Ther (more content not included)... Normal [facility] Extra Blueon 11-14-2023 Tube Collected Yes Invalid Interpretation Code [facility] Comment on above: Performed By: #### 1 [id number], [id number], [id number], [id number], [id number], [id number] ####[facility] (DEFAULT)[address] [place] [address] NM STRESS/REST MULTIon 11-25 NM STRESS/REST MULTI Patient: ESTEPHANIAKENTON ALESIA Jesusita Exam Date: 11/25/2022 : 1960 Gender:M Ordering : RAYA MÉNDEZ Admission #: [id number] Family : Order #: [id number] CLICK HERE TO VIEW EXAM RADIOLOGY REPORT PROCEDURE: RADIONUCLIDE IMAGING STRESS/REST MULTI COMPARISON: None. INDICATIONS: Dyspnea on exertion TECHNIQUE: Exam Description: Stress/Rest two day protocol gated SPECT Rest Imagin.2 mCi Tc-99m Cardiolite IV on 11/25/2022 Stress Imaging 30.6 mCi Tc-99m Cardiolite IV on 11/25/2022 Exercise Protocol: 0.4 mg Lexiscan given IV Heart Rate (bpm): Rest: 58 Max: 87 PMHR: 66 Blood Pressure: Rest: 154/78 Max: 156/80 Symptoms: Rest and peak stress ECG findings were pending and the exercise portion of the study was pending per attending physician Dr. SERRANO . For more details please see separate cardiac stress test report. FINDINGS: QUALITY OF STUDY: Excellent. PERFUSION DEFECT: None. LOCATION: N/A SIZE: N/A. SEVERITY: N/A. TYPE: N/A. WALL MOTION: Normal. LV SIZE: Normal. 103 mL. TID / TCD: None; 0.9 LVEF: Normal. Calculated EF 65%. SUMMARY: Myocardial perfusion imaging study is NORMAL. CONCLUSION: 1. Normal nuclear medicine myocardial perfusion scan. Dictated by: Lyndon Graham M.D. on 11/25/2022 at 13:10 Approved by: Lyndon Graham M.D. on 11/25/2022 at 13:[address] [facility] US CAROTID ART BILon 02-13-2 023 US CAROTID ART SHARMIN EXAMINATION: US CAROTID ART SHARMIN HISTORY: Syncope COMPARISON: No relevant comparison available. TECHNIQUE: Duplex Doppler ultrasound analysis of carotid and vertebral arteries. . Bilateral carotid arterial duplex examination was performed using B-mode, color flow and spectral analysis. Carotid stenosis is reported according to validated velocity parameters, similar to NASCET criteria. FINDINGS: RIGHT CAROTID ARTERY No significant atherosclerotic plaque Subclavian: PSV: 189.1 cm/s cm/s EDV: 0.0 cm/s cm/s CCA: Prox: PSV: 125.9 cm/s cm/s EDV: 31.3 cm/s cm/s Mid: PSV: 102.3 cm/s cm/s EDV: 27.4 cm/s cm/s Distal: PSV: 94.4 cm/s cm/s EDV: 21.5 cm/s cm/s BULB: PSV: 72.7 cm/s cm/s EDV: 19.5 cm/s cm/s ICA: Prox: PSV: 47.8 cm/s cm/s EDV: 19.3 cm/s cm/s Mid: PSV: 81.4 cm/s cm/s EDV: 30.9 cm/s cm/s Distal: PSV: 101.6 cm/s cm/s EDV: 43.4 cm/s cm/s ECA: PSV: 90.3 cm/s cm/s EDV: 17.6 cm/s cm/s VERTEBRAL: PSV: 48.8 cm/s cm/s EDV: 6.9 cm/s cm/s ICA/CCA ratio: PSV: 1.1 EDV: 2.0 LEFT CAROTID ARTERY Mild atherosclerotic plaque Subclavian: PSV: 137.8 cm/s cm/s EDV: 17.5 cm/s CCA: Prox: PSV: 139.7 cm/s cm/s EDV: 31.3 cm/s Mid: PSV: 96.4 cm/s cm/s EDV: 25.4 cm/s Distal: PSV: 88.5 cm/s cm/s EDV: 25.4 cm/s BULB: PSV: 66.8 cm/s cm/s EDV: 19.5 cm/s ICA: Prox: PSV: 65.8 cm/s cm/s EDV: 23.0 cm/s Mid: PSV: 87.5 cm/s cm/s EDV: 30.3 cm/s Distal: PSV: 94.1 cm/s cm/s EDV: 39.1 cm/s ECA: PSV: 85.3 cm/s cm/s EDV: 14.9 cm/s VERTEBRAL: PSV: 64.4 cm/s cm/s EDV: 19.3 cm/s ICA/CCA ratio: PSV: 1.1 EDV: 1.5 IMPRESSION: 0-49% flow stenosis bilateral internal carotid arteries Spectral Doppler US Thresholds (Reference: Girish EG, et al. Radiology 2000; 214:247-252) Stenosis (%) PSV (cm/sec) VICA/VCCA 0-49 <150 <2.5 50-69 150-225 2.5-4.0 >70 >225 >4.0 Electronically authenticated by: FARHAT PINK Date: 2022-09-16 16:30 Normal [facility] CREATININEon 03-01-2022 Creatinine [Mass/Vol] 1.09 mg/dL Normal 0.70-1.[address] [facility] Comment on above: Performed By: #### C PEÑA #### [facility] [address] [address] [address] Ramona Rojo EGFR-AF [facility] >60 Normal >=60 [facility] Comment on above: Performed By: #### C PEÑA #### [facility] [address] [address] [address] Ramona Rojo EGFR-NON AF [facility] >60 Normal >=[address] [facility] Comment on above: Performed By: #### C PEÑA #### [facility] [address] [address] [address] NECK ST W CONon [address] W CON EXAMINATION: CT NECK ST W CON HISTORY: Lymphadenopathy ; right neck lump for 2 months COMPARISON: No relevant comparison available. TECHNIQUE: Axial, Coronal, and Sagittal CT images created with IV contrast. Dose reduction techniques were achieved by using automated exposure control and/or adjustment of mA and/or kV according to patient size and/or use of iterative reconstruction technique. FINDINGS: NASOPHARYNX: No asymmetry of the fossae of Rosenmuller and torus tubarius. ORAL CAVITY: No visible mass. OROPHARYNX: No asymmetry of the facial and lingual tonsils. HYPOPHARYNX: No mass or other visible lesion. LARYNX: No mass or asymmetry of the vocal cords. SINUSES: No significant fluid or mucosal thickening. NECK GLADS: No visible abnormality of the parotid, submandibular, and thyroid glands. LYMPH NODES: No pathological-appearing or enlarged lymph nodes. VASCULATURE: No suspicious abnormality. BONES: Mild degenerative disc disease. No significant osseous lesions. OTHER: Prominent bullous changes within the lung apices. IMPRESSION: 1. No mass or lymphadenopathy to correspond to the patient's palpable lump which was localized with a skin surface marker over the lower lateral right neck. The posterior margin of the sternocleidomastoid muscle is deep to the marker and may account for the palpable sensation. Electronically authenticated by: LYNDON GRAHAM Date: 2022-03-01 17:58 Normal [facility] US THYROIDon 01-22-2022 US THYROID EXAMINATION: US THYR OID HISTORY: Mass of thyroid gland COMPARISON: No relevant comparison available. TECHNIQUE: Sonographic images of the thyroid gland were obtained. FINDINGS: The right thyroid lobe is normal in size, contour and homogeneous echotexture measuring 4.9 x 1.7 x 1.8 cm. No focal nodules. The thyroid isthmus measures 4 mm, homogeneous, no focal nodule The left thyroid lobe is normal in size, contour and homogeneous echotexture measuring 3.9 x 1.7 x 1.4 cm. No focal nodules. Right lateral neck corresponding to the patient's palpable abnormality is a oval area of hypoechogenicity measuring 0.9 x 0.4 x 0.7 cm having peripheral hypoechogenicity and a hyperechogenic hilum without definitive flow on color ultrasound IMPRESSION: Normal appearance of the thyroid gland Normal size right cervical lymph node corresponding to the patient's palpable abnormality Electronically authenticated by: FARHAT PINK Date: 2022-01-22 16:[address] [facility] Coding Summary.on 07-04-2020 Coding Summary. CODING DATE: 020 [facility] STATUS: Home (Routine DC) PAYOR: Commercial Insurance ADMIT DX: REASON FOR VISIT DX: Z20.828 Contact with and (suspected) exposure to other viral communicable diseases FINAL DX: PRINCIPAL: Z20.828 Contact with and (suspected) exposure to other viral communicable diseases SECONDARY: PYMT PROC APC STAT DESCRIPTION DOCTOR NAME DATE NOTE: The code number assigned matches the documented diagnosis and / or procedure in the patient's chart. However, the narrative phrase printed from the coding software may appear abbreviated, or result in slightly different terminology. Coded By: Molly Sow CphT Date Saved: 07/04/2020 04:17 pm Normal [facility] SARS-CoV-2, NAAon 06-17-2020 SARS CORONAVIRUS 2 RNA:PRTHR:PT:RESP IRATORY:ORD:PROBE .AMP.TAR Not Detected Not Detected [facility] Comment on above: Result Comment: This nucleic acid amplification test was developed and its performance characteristics determined by [employer]. Nucleic acid amplification tests include PCR and TMA. This test has not been FDA cleared or approved. This test has been authorized by FDA under an Emergency Use Authorization (EUA). This test is only authorized for the duration of time the declaration that circumstances exist justifying the authorization of the emergency use of in vitro diagnostic tests for detection of SARS-CoV-2 virus and/or diagnosis of COVID-19 infection under section 564(b)(1) of the Act, 21 U.S.C. 360bbb-3(b) (1), unless the authorization is terminated or revoked sooner. When diagnostic testing is negative, the possibility of a false negative result should be considered in the context of a patient's recent exposures and the presence of clinical signs and symptoms consistent with COVID-19. An individual without symptoms of COVID-19 and who is not shedding SARS-CoV-2 virus would expect to have a negative (not detected) result in this assay. Performed at: [facility] [address] [facility], [place] [id number] [facility] Trell Diaz Performed By: #### S ARS-CoV-2, STEVE #### [facility] [address] [place] [address] Physician Orderon 06-13-2020 Physician Order [id number] D:127 Normal [facility] Vital Signs Date Time Vital Sign Value Performing Clinician Facility 10-14-2024 16:00-0400 Body height 175.3 cm Anca Johannyanum [employer] Work Phone: [facility] 10-14-2024 16:00-0400 Body mass index (BMI) [Ratio] 29.39 kg/m2 Anca Gillanum [employer] Work Phone: [facility] 10-14-2024 16:00-0400 Body weight 90.27 kg Anca Petersen [employer] Work Phone: [facility] 10-14-2024 16:00-0400 Diastolic blood pressure 80 mm[Hg] Anca Kinneyr [employer] Work Phone: [facility] 10-14-2024 16:00-0400 Heart rate 75 /min Anca Johannyanum [employer] Work Phone: [facility] 10-14-2024 16:00-0400 SaO2% (BldA) [Mass fraction] 92 % Anca Petersen [employer] Work Phone: [facility] 10-14-2024 16:00-0400 Systolic blood pressure 142 mm[Hg] Anca Petersen [employer] Work Phone: [facility] 08-18-2024 15:12-0500 Body height 175.3 cm Andreina Elva DO Work Phone: [facility] 08-18-2024 15:12-0500 Body mass index (BMI) [Ratio] 29.15 kg/m2 Andreina Elva DO Work Phone: [facility] 08-18-2024 15:12-0500 Body weight 89.54 kg Andreina Elva DO Work Phone: [facility] 08-18-2024 15:12-0500 Diastolic blood pressure 94 mm[Hg] Andreina Elva DO Work Phone: [facility] 08-18-2024 15:12-0500 Heart rate 68 /min Andreina Elva DO Work Phone: [facility] 08-18-2024 15:12-0500 SaO2% (BldA) [Mass fraction] 93 % Andreina Elva DO Work Phone: [facility] 08-18-2024 15:12-0500 Systolic blood pressure 168 mm[Hg] Andreina Elva DO Work Phone: [facility] 06-08-2024 11:01-0500 Body mass index (BMI) [Ratio] 30.7 kg/m2 Adair Melo MD Work Phone: [facility] 06-08-2024 11:01-0500 Body weight 88.91 kg Adair Melo MD Work Phone: [facility] 06-08-2024 11:01-0500 Diastolic blood pressure 81 mm[Hg] Adair Melo MD Work Phone: [facility] 06-08-2024 11:01-0500 Systolic blood pressure 125 mm[Hg] Adair Melo MD Work Phone: [facility] 08-05-2023 13:20-0500 Body height Nataliya Andrews Other [employer] Other 08-05-2023 13:20-0500 Body mass index (BMI) [Ratio] 28.4 kg/m2 Nataliya Andrews Other [employer] Other 08-05-2023 13:20-0500 Body temperature 98.7 [degF] Nataliya Andrews Other [employer] Other 08-05-2023 13:20-0500 Body weight 84.73 kg Nataliya Andrews Other [employer] Other 08-05-2023 13:20-0500 Respiratory rate 18 /min Nataliya Andrews Other [employer] Other 08-05-2023 13:20-0500 SaO2% (BldA) [Mass fraction] 97 % Nataliya Andrews Other [employer] Other 07-20-2021 16:00-0500 Body height Becky Diamondmond Other [employer] Other 07-20-2021 16:00-0500 Body mass index (BMI) [Ratio] 25.85 kg/m2 Becky Crissy Other [employer] Other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 with MRIs. Plan I will order an electromyograph evaluation of the upper extremities to assess for nerve damage such as cervical radiculopathy, brachial plexopathy, or entrapment mononeuropathy. I will order an electromyograph evaluation of the lower extremities to assess for nerve damage such as lumbar radiculopathy, lumbar plexopathy, or peripheral neuropathy. Add Zanaflex 4 mg half 1 at bedtime and can work up to twice a day tolerated can rotate the Motrin can consider Therapy with home exercise program If fails physical therapy consider treatment we will then consider MRI of the lumbar and cervical. Do not recommend smoking marijuana The diagnosis was all discussed with the patient. All questions were answered and they agreed with the treatment plan. Patient will call if there are any new issues or questions. Pt has been fully educated on their diagnosis, treatment options, follow up plan, and return instructions Return to clinic: 3 weeks documented in this encounter [facility] 06-08-2024 History of Present illness Narrative Subjective Patient ID: Alesia Mena is a 64 y.o. male who presents for Sinusitis (Check sinuses last seen 04/2022) Pt reports one month ago he had a sore throat and congestion. Tx with abx and steroids and improved. Primary c/o now is chronic rhinorrhea exacerbated by eating. 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 Chronic pharyngitis 08/28/2023 FLOREZ (dyspnea on exertion) 11/22/2022 Other chronic pain 08/28/2023 Paroxysmal supraventricular tachycardia (CMS/HCC) 11/22/2022 Resolved Ambulatory Problems Diagnosis Date Noted No Resolved Ambulatory Problems Past Medical History: Diagnosis Date COVID-19 08/2021 Past Surgical History: Procedure Laterality Date ELBOW SURGERY Right HERNIA REPAIR 11/04/2023 VASECTOMY Allergies Allergen Reactions Lactose Intolerance (Gi) Diarrhea and Nausea Only Oxycodone-Acetaminophen Current Outpatient Medications on File Prior to Visit Medication Sig Dispense Refill loratadine (Claritin) 10 MG tablet Take 10 mg by mouth in the morning. meclizine (Antivert) 25 MG tablet Take 25 mg by mouth 3 (three) times a day as needed for dizziness tamsulosin (Flomax) 0.4 MG 24 hr capsule Take 0.4 mg by mouth Daily No current facility-administered medications on file prior to visit. Objective Last Recorded Vitals Vitals: 06/08/24 1101 BP: 125/81 ENT Physical Exam Ear Ear Canals: right ear canal normal; left ear canal normal; Tympanic Membranes: right tympanic membrane normal; left tympanic membrane normal; Nose Nose comments: Lg ant septal perf Oral Cavity/Oropharynx Lips: normal; Teeth: normal; Gums: gingiva normal; Tongue: normal; Oral mucosa: normal; Hard palate: normal; OC/OP comments: IDL - no mass or ulcer Neck Neck: neck normal; neck palpation normal; Thyroid: thyroid normal; Assessment/Plan Diagnoses and all orders for this visit: Vasomotor rhinitis Trial of ipratroprium for rhinorrhea Nasal septal perforation Due to remote cocaine use. documented in this encounter [facility] 05-26-2024 Note Chief complaint: BPH follow-up History of Present Illness: Location: Prostate Duration: Has been a chronic problem Context/Modifying Factors: Voiding Associated signs and symptoms: Denies gross hematuria Review of Systems: A 10 point review of systems was performed and is otherwise negative unless included in the chief complaint, history of present illness, histories, or the assessment and plan. Social History: Social History Socioeconomic History Marital status: Spouse name: Not on file Number of children: Not on file Years of education: Not on file Highest education level: Not on file Occupational History Not on file Tobacco Use Smoking status: Former Packs/day: 1.5 Types: Cigarettes Quit date: 01/20/2023 Years since quittin.3 Smokeless tobacco: Never Substance and Sexual Activity Alcohol use: Not Currently Drug use: Yes Types: Marijuana Sexual activity: Not on file Other Topics Concern Not on file Social History Narrative Not on file Social Determinants of Health Financial Resource Strain: Not on file Food Insecurity: Not on file Transportation Needs: Not on file Physical Activity: Not on file Stress: Not on file Social Connections: Not on file Intimate Partner Violence: Unknown (09/25/2023) [place] Safety & Environment Fear of Current or Ex-Partner: Not on file Emotionally Abused: Not on file Physically Abused: Not on file Sexually Abused: Not on file Physically or Sexually Abused: Not on file Housing Stability: Not on file Past Medical/Surgical History: No past medical history on file. Family History: Family History Problem Relation Name Age of Onset Stroke Father Heart attack Father's Brother Physical Exam: Constitutional: In no acute distress Psychiatric: Normal affect, alert and oriented HEENT: No scleral icterus Pulmonary: Is not laboring to breathe Cardiovascular: No obvious cyanosis of the extremities Extremities: No significant lower extremity edema Neurologic: Grossly nonfocal Skin: No jaundice Diagnoses: BPH symptoms Assessment and Plan: The patient is a 64-year-old male evaluated in follow-up. He initially presented with a weak urinary stream and straining to urinate. A prescription for tamsulosin was provided but he has had poor symptom control. His PVR by ultrasound today is minimal. I discussed with him the options. A prescription for finasteride was provided. Will see him back in 6 months to assess his response. Jeffery Carver MD [facility] 04-28-2024 Note Entered by LETY OGDEN DO on April 28, 2024 16:03:44 EDT From: ARUN OGDEN DO To: [id number] Sent: 04/28/2024 16:03:44 EDT Subject: Medication Management Submitted: Complete:meclizine (meclizine 25 mg oral tablet) Signed by ARUN OGDEN DO 04/28/2024 16:03:00 EDT Approved with modifications: meclizine (meclizine 25 mg tablet) TAKE 1 TABLET BY MOUTH THREE TIMES DAILY Qty: 90 tab(s) Days Supply: 30 Refills: 1 Substitutions Allowed Route To Pharmacy - [id number] --------- From: [facility] To: ARUN OGDEN DO Sent: April 28, 2024 1:23:27 PM CDT Subject: Medication Management Due: April 29, 2024 12:03:27 AM CDT On Hold Pending Signature Drug: meclizine (meclizine 25 mg oral tablet), TAKE 1 TABLET BY MOUTH THREE TIMES DAILY Quantity: 90 tab(s) Days Supply: 30 Refills: 1 Substitutions Allowed Notes from Pharmacy: This prescription was filled on 02/06/2024. Any refills authorized will be placed on file. Dispensed Drug: meclizine (meclizine 25 mg oral tablet), TAKE 1 TABLET BY MOUTH THREE TIMES DAILY Quantity: 90 tab(s) Days Supply: 30 Refills: 1 Substitutions Allowed Notes from Pharmacy: --------- [facility] 2024 Note Entered by LETY OGDEN DO on 2024 08:24:20 EDT From: ARUN OGDEN DO To: [facility] Sent: 2024 08:24:20 EDT Subject: Medication Management Submitted: Complete:meclizine (Travel-Ease 25 mg oral tablet) Signed by ARUN OGDEN DO 2024 08:24:00 EDT Approved with modifications: meclizine (meclizine 25 mg tablet) TAKE 1 TABLET BY MOUTH THREE TIMES DAILY Qty: 90 tab(s) Days Supply: 30 Refills: 1 Substitutions Allowed Route To Pharmacy - [facility] Note from Pharmacy: This prescription was filled on 02/06/2024. Any refills authorized will be placed on file. --------- From: [facility] To: ARUN OGDEN DO Sent: 2024 7:02:15 AM CDT Subject: Medication Management Due: February 27, 2024 12:19:08 AM CDT On Hold Pending Signature Drug: meclizine (Travel-Ease 25 mg oral tablet), 1 tab(s) Oral TID,x30 day(s),Instr:Take 1 tablet by mouth 3 times a day Quantity: 90 tab(s) Days Supply: 0 Refills: 0 Substitutions Allowed Notes from Pharmacy: Dispensed Drug: meclizine (meclizine 25 mg oral tablet), TAKE 1 TABLET BY MOUTH THREE TIMES DAILY Quantity: 90 tab(s) Days Supply: 30 Refills: 1 Substitutions Allowed Notes from Pharmacy: This prescription was filled on 02/06/2024. Any refills authorized will be placed on file. --------- [facility] 01-19-2024 Note Chief complaint: BPH follow-up History of Present Illness: Location: Prostate Duration: Has been a chronic problem Context/Modifying Factors: Started on tamsulosin 0.4 mg at the last visit Associated signs and symptoms: Denies gross hematuria Review of Systems: A 10 point review of systems was performed and is otherwise negative unless included in the chief complaint, history of present illness, histories, or the assessment and plan. Social History: Social History Socioeconomic History Marital status: Spouse name: Not on file Number of children: Not on file Years of education: Not on file Highest education level: Not on file Occupational History Not on file Tobacco Use Smoking status: Former Packs/day: 1.5 Types: Cigarettes Quit date: 01/20/2023 Years since quittin.9 Smokeless tobacco: Never Substance and Sexual Activity Alcohol use: Not Currently Drug use: Yes Types: Marijuana Sexual activity: Not on file Other Topics Concern Not on file Social History Narrative Not on file Social Determinants of Health Financial Resource Strain: Not on file Food Insecurity: Not on file Transportation Needs: Not on file Physical Activity: Not on file Stress: Not on file Social Connections: Not on file Intimate Partner Violence: Unknown (09/25/2023) [place] Safety & Environment Fear of Current or Ex-Partner: Not on file Emotionally Abused: Not on file Physically Abused: Not on file Sexually Abused: Not on file Physically or Sexually Abused: Not on file Housing Stability: Not on file Past Medical/Surgical History: No past medical history on file. Family History: Family History Problem Relation Name Age of Onset Stroke Father Heart attack Father's Brother Physical Exam: Constitutional: In no acute distress Psychiatric: Normal affect, alert and oriented HEENT: No scleral icterus Pulmonary: Is not laboring to breathe Cardiovascular: No obvious cyanosis of the extremities Extremities: No significant lower extremity edema Neurologic: Grossly nonfocal Skin: No jaundice Diagnoses: BPH Assessment and Plan: The patient is a 63-year-old male evaluated in follow-up. At last visit he was started on tamsulosin for his lower urinary tract symptoms. He feels that he has some improvement but still his stream is slow. I discussed with him that only anecdotally increasing Flomax may improve his symptoms but also could potentially increase side effects. He will try 0.8 mg daily. We will see him back in 4 to 6 weeks to assess his response. Jeffery Carver MD [facility] 12-15-2023 Note Chief complaint: Wea k urinary stream History of Present Illness: Location: Lower urinary tract Duration: Worsening recently Context/Modifying Factors: Voiding Associated signs and symptoms: Denies gross hematuria Review of Systems: A 10 point review of systems was performed and is otherwise negative unless included in the chief complaint, history of present illness, histories, or the assessment and plan. Social History: Social History Socioeconomic History Marital status: Spouse name: Not on file Number of children: Not on file Years of education: Not on file Highest education level: Not on file Occupational History Not on file Tobacco Use Smoking status: Former Packs/day: 1.5 Types: Cigarettes Quit date: 01/20/2023 Years since quittin.9 Smokeless tobacco: Never Substance and Sexual Activity Alcohol use: Not Currently Drug use: Yes Types: Marijuana Sexual activity: Not on file Other Topics Concern Not on file Social History Narrative Not on file Social Determinants of Health Financial Resource Strain: Not on file Food Insecurity: Not on file Transportation Needs: Not on file Physical Activity: Not on file Stress: Not on file Social Connections: Not on file Intimate Partner Violence: Unknown (09/25/2023) [place] Safety & Environment Fear of Current or Ex-Partner: Not on file Emotionally Abused: Not on file Physically Abused: Not on file Sexually Abused: Not on file Physically or Sexually Abused: Not on file Housing Stability: Not on file Past Medical/Surgical History: No past medical history on file. Family History: Family History Problem Relation Name Age of Onset Stroke Father Heart attack Father's Brother Physical Exam: Constitutional: In no acute distress Psychiatric: Normal affect, alert and oriented HEENT: No scleral icterus Pulmonary: Is not laboring to breathe Cardiovascular: No obvious cyanosis of the extremities Extremities: No significant lower extremity edema Neurologic: Grossly nonfocal Skin: No jaundice Genitourinary: Prostate exam is benign Diagnoses: Weak urinary stream Assessment and Plan: The patient is a 63-year-old male who complains of a weak urinary stream. He has to void urgently and frequently as well. He denies gross hematuria. A prescription was provided for tamsulosin. He has not had a recent PSA or urinalysis and orders were placed. Will see him back in a few weeks to assess his response. Jeffery Carver MD [facility] 11-14-2023 Note Education Materials Gastroenterology Inguinal Hernia, Adult An inguinal hernia is when fat or your intestines push through a weak spot in a muscle where your leg meets your lower belly (groin). This causes a bulge. This kind of hernia could also be: ? In your scrotum, if you are male. ? In folds of skin around your vagina, if you are female. There are three types of inguinal hernias: ? Hernias that can be pushed back into the belly (are reducible). This type rarely causes pain. ? Hernias that cannot be pushed back into the belly (are incarcerated). ? Hernias that cannot be pushed back into the belly and lose their blood supply (are strangulated). This type needs emergency surgery. What are the causes? This condition is caused by having a weak spot in the muscles or tissues in your groin. This develops over time. The hernia may poke through the weak spot when you strain your lower belly muscles all of a sudden, such as when you: ? Lift a heavy object. ? Strain to poop (have a bowel movement). Trouble pooping (constipation) can lead to straining. ? Cough. What increases the risk? This condition is more likely to develop in: ? Males. ? females. ? People who: ? Are overweight. ? Work in jobs that require long periods of standing or heavy lifting. ? Have had an inguinal hernia before. ? Smoke or have lung disease. These factors can lead to long-term (chronic) coughing. What are the signs or symptoms? Symptoms may depend on the size of the hernia. Often, a small hernia has no symptoms. Symptoms of a larger hernia may include: ? A bulge in the groin area. This is easier to see when standing. You might not be able to see it when you are lying down. ? Pain or burning in the groin. This may get worse when you lift, strain, or cough. ? A dull ache or a feeling of pressure in the groin. ? An abnormal bulge in the scrotum, in males. Symptoms of a strangulated inguinal hernia may include: ? A bulge in your groin that is very painful and tender to the touch. ? A bulge that turns red or purple. ? Fever, feeling like you may vomit (nausea), and vomiting. ? Not being able to poop or to pass gas. How is this treated? Treatment depends on the size of your hernia and whether you have symptoms. If you do not have symptoms, your doctor may have you watch your hernia carefully and have you come in for follow-up visits. If your hernia is large or if you have symptoms, you may need surgery to repair the hernia. Follow these instructions at home: Lifestyle ? Avoid lifting heavy objects. ? Avoid standing for long amounts of time. ? Do not smoke or use any products that contain nicotine or tobacco. If you need help quitting, ask your doctor. ? Stay at a healthy weight. Prevent trouble pooping You may need to take these actions to prevent or treat trouble pooping: ? Drink enough fluid to keep your pee (urine) pale yellow. ? Take [id number] or prescription medicines. ? Eat foods that are high in fiber. These include beans, whole grains, and fresh fruits and vegetables. ? Limit foods that are high in fat and sugar. These include fried or sweet foods. General instructions ? You may try to push your hernia back in place by very gently pressing on it when you are lying down. Do not try to push the bulge back in if it will not go in easily. ? Watch your hernia for any changes in shape, size, or color. Tell your doctor if you see any changes. ? Take [id number] and prescription medicines only as told by your doctor. ? Keep all follow-up visits. Contact a doctor if: ? You have a fever or chills. ? You have new symptoms. ? Your symptoms get worse. Get help right away if: ? You have pain in your groin that gets worse all of a sudden. ? You have a bulge in your groin that: ? Gets bigger all of a sudden, and it does not get smaller after that. ? Turns red or purple. ? Is painful when you touch it. ? You are a male, and you have: ? Sudden pain in your scrotum. ? A sudden change in the size of your scrotum. ? You cannot push the hernia back in place by very gently pressing on it when you are lying down. ? You feel like you may vomit, and that feeling does not go away. ? You keep vomiting. ? You have a fast heartbeat. ? You cannot poop or pass gas. These symptoms may be an emergency. Get help right away. Call your local emergency services (911 in the [place] ? Do not wait to see if the symptoms will go away. ? Do not drive yourself to the hospital. Summary ? An inguinal hernia is when fat or your intestines push through a weak spot in a muscle where your leg meets your lower belly (groin). This causes a bulge. ? If you do not have symptoms, you may not need treatment. If you have symptoms or a large hernia, you may need surgery. ? Avoid lifting heavy objects. Also, avoid standing for long amounts of time. ? Do not try to push the bulge back (more content not included)... [facility] 08-05-2023 Evaluation note Encounter Date Diagnosis Assessment Notes Aug, Viral URI with cough (ICD-10 - J06.9) Patient declines/refuses COVID/influenza testing today. Advised patient that will treat as viral URI. Supportive care as directed, increase fluids and rest, Tylenol as directed, Rx of prednisone and Claritin as directed to help with ear effusion, cool mist humidifier, throat lozenges. Discussed infection control practices such as good hand washing and mask wearing. Patient to follow up with PCP if symptoms persist or worsen despite treatment. Immediate eval for SOB, difficulty breathing, chest pain, fevers that do not break with antipyretic or any other concerning symptoms as reviewed on patient education handout. Patient verbalizes understanding and is agreeable to treatment plan. Patient left in stable condition. [employer] Other 04-24-2023 NoteCARDIAC STRESS TEST Requesting Provider: Raya Méndez NP Procedure Date:11/25/2022 PERFORMING PHYSICIAN: Corina Anna M.D. INDICATION: Dyspnea on exertion. STRESS TEST PROTOCOL: Treadmill nuclear stress test. Resting EKG: Sinus rhythm. Resting heart rate: 59 Peak heart rate: 136 Resting blood pressure: 134/78 ST changes: None. Symptoms: None. Arrhythmias: None. CONCLUSION: 1. Treadmill stress test was discontinued early due to fatigue. Patient has poor exercise tolerance. He was unable to attain target heart rate. This was converted to a Lexiscan stress test. 2. This is an equivocal treadmill stress test. 3. No definite evidence of ischemia on EKG portion of Lexiscan stress test. 4. Please refer to separately interpreted and reported nuclear myocardial perfusion imaging.[id number] Evaluation [facility]* Encounter Date Diagnosis Assessment Notes Treatment Notes Treatment Clinical Notes Jul, Contact with and (suspected) exposure to other viral communicable diseases (ICD-10 - Z20.828) Jul, Bronchitis (ICD-10 - J40) Drink plenty of fluids, get plenty of rest. Take Tylenol Motrin for aches pains or fevers. Take the prednisone as prescribed until gone. Take the Zithromax as prescribed until gone. Use the albuterol inhaler as prescribed as needed for cough or shortness of breath. Try to quit smoking. Follow-up with your family doctor if no improvement in 2 to 3 days Jul, Viral upper respiratory illness (ICD-10 - J06.9) Jul, Other Additional time spent conducting pre-visit phone call, screening for symptoms, instructions on social distancing, application and removal of PPE, and cleaning of examination room, equipment and supplies was preformed. Patient education given for testing methodology and results. Patient care instructions given in writting by [facility] Care At Home document. [employer] Other Evaluation note* Diagnosis Vasomotor rhinitis- Primary Allergic rhinitis, cause unspecified Nasal septal perforation Other diseases of nasal cavity and sinuses [facility] Diagnosis Chronic low back pain, unspecified back pain laterality, unspecified whether sciatica present- Primary Neck pain Cervicalgia Numbness and tingling Disturbance of skin sensation Muscle spasm Spasm of muscle [facility]* Diagnosis Chronic low back pain, unspecified back pain laterality, unspecified whether sciatica present Neck pain Cervicalgia Numbness and tingling Disturbance of skin sensation [facility] Diagnosis Chronic low back pain, unspecified back pain laterality, unspecified whether sciatica present Neck pain Cervicalgia Numbness and tingling Disturbance of skin sensation [facility]* Diagnosis Chronic low back pain, unspecified back pain laterality, unspecified whether sciatica present- Primary Arthropathy Unspecified arthropathy, site unspecified Numbness and tingling Disturbance of skin sensation Muscle spasm Spasm of muscle [facility] Narrative - Reported* Type Description Date Medical History vertigo Surgical History Right arm Hospitalization History See Above [employer] Other Summary Purpose Family History No Family History Records FoundNo Family History Records FoundNo Family History Records FoundNo Family History Records FoundNo Family History Records FoundNo Family History Records Found Advance Directives No Advanced Directives Records FoundNo Advanced Directives Records FoundNo Advanced Directives Records FoundNo Advanced Directives Records FoundNo Advanced Directives Records FoundNo Advanced Directives Records Found Additional Source Comments (unrecognized sect ion and content) No Status Records FoundNo Status Records FoundNo Status Records FoundNo Status Records FoundNo Status Records FoundNo Status Records Found INFORMATION SOURCE (unrecogn ized section and content) DATE CREATED AUTHOR [facility] DATE CREATED AUTHOR AUTHOR'S ORGANIZ ATION 12/05/2022 [facility] DATE CREATED AUTHOR AUTHOR'S ORGANIZ ATION 03/18/2024 [facility] DATE CREATED AUTHOR AUTHOR'S ORGANIZ ATION 05/28/2024 [facility] DATE CREATED AUTHOR AUTHOR'S ORGANIZ ATION 10/17/2024 [facility] DATE CREATED AUTHOR AUTHOR'S ORGANIZ ATION [facility]/20[facility] REASON FOR VISIT (unrecogniz ed section and content) Reason Comments Sinusitis Check sinuses last s een 04/2022 Reason Comments Back Pain Neck Pain Specialty Diagnoses / Procedures Referred By Olman evangelista Referred To Contact Neurology Diagnoses Dorsalgia, unspecified Procedures CO [facility] [address] [place] [address] Phone: tel: fax: Lyndon Monroe MD [address] [place] [address] Phone: tel: fax: Referral ID Status Reason Start Date Expiration Date V isits Requested Visits Authorized [id number] Closed Consult and Treat 06/30/2024 12/27/2024 1 1 Reason Comments Back Pain Neck Pain Numbness Tingling Care Teams (unrecognized sec tion and content) Cra Relationship Specialty Start Date End Date Arun Ogden MD [address] [place] [address] PCP - General Family Medicine 05/11/24 Cra Relationship Specialty Start Date End Date Arun Ogden MD [address] [place] [address] PCP - General Family Medicine 05/11/24 Cra Relationship Specialty Start Date End Date Arun Ogden MD [address] [place] [id number] PCP - General Family Medicine 05/11/24 Cra Relationship Specialty Start Date End Date Arun Ogden MD [address] [place] [address] PCP - General Family Medicine 05/11/24 Cra Relationship Specialty Start Date End Date Arun Ogden MD [address] [place] [address] PCP - General Family Medicine 05/11/24 Cra Relationship Specialty Start Date End Date Arun Ogden MD [address] [place] [address] PCP - General Family Medicine 05/11/24 Cra Relationship Specialty Start Date End Date Arun Ogden MD [address] [place] [address] PCP - General Family Medicine 05/11/24 Andreina Tejada DO [address] [place] [address] Referring Physician Neurology 09/15/24 Cra Relationship Specialty Start Date End Date Arun Ogden MD [address] [place] [address] PCP - General Family Medicine 05/11/24 Andreina Tejada DO [address] [place] [address] Referring Physician Neurology 09/15/24 Cra Relationship Specialty Start Date End Date Arun Ogden MD [address] [place] [address] PCP - General Family [facility] 05/11/24 Andreina Tejada DO [address] [place] [address] Referring Physician Neurology 09/15/24 FOR RECORDS PERTAINING TO PATIENTS WHO ARE OR HAVE BEEN ENROLLED IN A CHEMICAL DEPENDENCY/SUBSTANCEABUSE PROGRAM, SOME INFORMATION MAY BE OMITTED. This clinical summary was aggregated from multiple sources. Caution should be exercised in using it in the provision of clinical care. This summary normalizes information from multiple sources, and as a consequence, information in this document may materially change the coding, format and clinical context of patient data. In addition, data may be omitted in some cases. CLINICAL DECISIONS SHOULD BE BASED ON THE PRIMARY CLINICAL RECORDS. [facility]. provides no warranty or guarantee of the accuracy or completeness of information in this document.
== END 2024-11-08 13:41 | disposition home or self-care (01) ==
LOC: MRI 13:40
PROVIDERS: PCP Family Medicine; Visit Provider Nurse Practitioner Family
DX: M54.50 Low back pain, unspecified (principal); G89.29 Other chronic pain; M12.9 Arthropathy, unspecified; R20.0 Anesthesia of skin; R20.2 Paresthesia of skin; M62.838 Other muscle spasm; M51.369 Other intervertebral disc degeneration, lumbar region without mention of lumbar back pain or lower extremity pain
CPT/HCPCS: 72148

== ENCOUNTER 2024-12-16 08:02 | Outpatient (OUT) | payer MEDICAID, SELFPAY ==
--- OUTSIDE RECORDS SUMMARY | 2024-12-16 08:07 | XMS_ITS | CCD ---
Author Organization [facility] [place] CliniSynd Care Team Providers Care Imagery Analyst Name Role Phone Becky Woodward Unavailable TIMMIS, DR BORRERO Admitting Unavailable TIMMIS, DR BORRERO Consulting Unavailable HOUSE, DR VIZCARRA Primary Care Unavailable TIMMIS, DR BORRERO Attending Unavailable ZIEBER, DR LYNDON Vela Consulting Unavailable HOUSE, DR VIZCARRA Admitting Unavailable HOUSE, DR VIZCARRA Primary Care Unavailable NANTICOKE, DR VIZCARRA Attending Unavailable MELVI, DR VIZCARRA Admitting Unavailable JOESPH, DR FARHAT Ku Consulting Unavailable NANTICOKE, DR VICZARRA Primary Care Unavailable NANTICOKE, DR VIZCARRA Attending Unavailable NANTICOKE, DR VIZCARRA Consulting Unavailable BOONE, DR LYNDON Vela Consulting Unavailable HOUSE, DR VIZCARRA Primary Care Unavailable BARAZI, RAYA Admitting Unavailable BARAZI, RAYA Attending Unavailable BARAZI, RAYA Consulting Unavailable NANTICOKE, DR VIZCARRA Primary Care Unavailable HUNT, DR FARHAT Ku Consulting Unavailable NANTICOKE, DR VIZCARRA Attending Unavailable HOUSE, DR VIZCARRA Admitting Unavailable HOUSE, DR VIZCARRA Consulting Unavailable Nataliya Andrews Unavailable Arun Ogden MD Primary Care Provider Andreina Tejada DO Unavailable JEFFERY CARVER Attending Unavailable NU, JEFFERY Attending Unavailable NU, JEFFERY Attending Unavailable NU, JEFFERY Attending Unavailable Anca Petersen NP Unavailable ANDREINA TEJADA Attending Unavailable ELVA, ANDREINA Attending Unavailable ANCA PETERSEN Attending Unavailable JR. BARTLETT GEORGE C Attending Unavaila ANDREINA Joshua Referring Unavailable JR. BARTLETT GEORGE C Referring Unavaila ADAIR Gamboa Attending Unavailable ADAIR MELO Attending Unavailable ANDREINA TEJADA Attending Unavailable ARUN OGDEN Referring Unavailable ANCA PETERSEN Attending Unavailable JR. IRAIS, GANESH Sanabria Attending Unavaila Nate Hogan Attending Unavailable HOUSE, ARUN P Primary Care [...] HOUSE, DO ARUN P Admitting Unavailable HOUSE, DO ARUN P Attending Unavailable STEPANIC, GANESH C Admitting Unavailable STEPANIC, GANESH C Attending Unavailable HOUSE, ARUN P Primary Care Unavailable STEPANIC, GANESH C Admitting Unavailable STEPANIC, GANESH C Attending Unavailable HOUSE, ARUN P Primary Care Unavailable HOUSE, ARUN P Primary Care Unavailable Hua, Nate Attending Unavailable HOUSE, ARUN P Primary Care Unavailable HOUSE, DO ARUN P Attending Unavailable HOUSE, ARUN P Primary Care Unavailable HOUSE, DO ARUN P Admitting Unavailable HOUSE, DO ARUN P Attending Unavailable HOUSE, ARUN P Primary Care Unavailable Hua, Nate Attending Unavailable Hua, Nate Attending Unavailable HOUSE, ARUN P Primary Care Unavailable HOUSE, DO ARUN P Referring Unavailable Hua, Nate Attending Unavailable HOUSE, ARUN P Primary Care Unavailable Allergies Allergy Classification Reported Allergen(s) Allergy Type Date of Onset Reaction(s) Facility (2 sources) Acetaminophen / HYDROcodone Drug Allergy 01-09-20 15 [facility] Repository (3 sources) Acetaminophen / oxyCODONE; Translations: [Percocet] Drug Allergy 01-09-20 15 [facility] Repository (4 sources) Codeine; Translations: [CODEINE] Drug Allergy 01-09-20 15 [facility] Repository (2 sources) Misc-Food; Translations: [Misc-Food] Food allergy (disorder) 01-09-20 15 [facility] Repository (1 source) Meperidine Drug Allergy vomiting [employer] Other (20 sources) Acetaminophen / oxyCODONE; Translations: [OXYCODONE-ACETA MINOPHEN] Drug Allergy 11-05-19 23 [facility] (20 sources) Lactose (non-medical use) Drug Intolerance 08-05-19 18 Diarrhea, Nausea Only [facility] Healthcare Work Phone: (1 source) Lactase; Translations: [LACTASE] Drug Allergy 08-05-19 18 [facility] Repository (1 source) PROPOXYPHENE N-ACETAMINOPHEN; Translations: [PROPOXYPHENE N-ACETAMINOPHEN] Propensity to adverse reactions to drug (disorder) 12-15-19 [facility] Repository (7 sources) Codeine Drug Allergy 11-30-19 25 [facility] (1 source) Acetaminophen / Propoxyphene; Translations: [Indra A500] Drug Allergy [facility] Repository Medications Current Medications Medication Drug Class(es) Dates Sig (Normalized) Sig (Original) [id number] 200 actuat albuterol 0.09 mg/actuat metered dose [...] Jul, Active finasteride 5 mg oral tablet (20 sources) 5-alpha Reductase Inhibitor take 1 tablet [...] Active meclizine hydrochloride 25 mg oral tablet (20 sources) Antiemetic End: 11-29-2024 take 1 tablet by mouth three times daily as needed for dizziness meclizine (Antivert) 25 MG tablet Take 25 mg by mouth 3 (three) times a day as needed for dizziness 11/29/2024 Discontinued (Therapy completed) Meclizine HCl Ac tive methylPREDNISolone (11 sources) Corticosteroid Start: 11-11-2024 methylPREDNISo lone (Medrol Dospak) 4 MG tablets 11/11/2024 Active Start: 11-11-2024 methylPREDNISo lone (Medrol Dospak) 4 MG tablets TAKE BY MOUTH DIRECTED ON PACKAGE 11/11/2024 Active predniSONE 20 mg oral tablet (2 sources) Start: 08-05-2023 take 1 tablet by mouth every twelve hours prednisone 20 MG 1 tablet Orally BID for 5 Aug, Active Start: 07-20-2021 take 1 tablet by jose c th every twelve hours predniSONE 20 MG 1 tablet Orally bid for 5 day(s) Jul, Active tamsulosin hydrochloride 0.4 mg oral capsule (20 sources) alpha-Adrenergic Eder End: 11-29-2024 take 1 capsule by mouth once daily tamsulosin (Flomax) 0.4 MG 24 hr capsule Take 0.4 mg by mouth Daily Active tiZANidine 4 mg oral tablet (20 sources) Central alpha-2 Adrenergic Agonist Start: 11-15-2024 tiZANidine (Zanaflex) 4 MG tablet Indications: Muscle spasm TAKE 1/2 (ONE-HALF) OF A TABLET TO ONE TABLET BY MOUTH TWICE DAILY 30 tablet 2 11/15/2024 Active Start: 08-18-2024 tiZANidine (Za naflex) 4 MG tablet Indications: Muscle spasm 1/2-1 [...] / neomycin 3.5 mg/ml / polymyxin b 79057 unt/ml otic suspension (1 source) Aminoglycoside Antibacterial, Polymyxin-class Antibacterial, Corticosteroid Start: 02-20-2022 Neomycin-Polymyxi n-HC 3.5-62995-5 3 drops right ear Three times a [...] Problem Classification Problem Date Documented Date Episodic/Chronic Abdominal hernia (11 sources) Right inguinal hernia ; Translations: [Unilateral inguinal hernia, without obstruction or gangrene, not specified as recurrent] Onset: 11-16-2024 11-16-2024 Episodic Cardiac dysrhythmias (20 sources) Paroxysmal supraventricular tachycardia; Translations: [Paroxysmal supraventricular tachycardia] Onset: 11-22-2022 08-28-2023 Chronic Conditions associated with dizziness or vertigo (11 sources) Benign paroxysmal positional vertigo; Translations: [Benign paroxysmal vertigo, unspecified ear] Onset: 11-16-2024 11-16-2024 Episodic Hyperplasia of prostate (2 sources) Benign prostatic hyperplasia with lower urinary tract symptoms; Translations: [Benign prostatic hyperplasia with lower urinary tract symptoms] Onset: 01-19-2024 Chronic Nonspecific chest pain (1 source) Chest pain, unspecified; Translations: [CHEST PAIN UNSPECIFIED] Onset: 09-20-2022 Episodic Osteoarthritis (4 sources) Osteoarthritis of right hip joint; Translations: [Unilateral primary osteoarthritis, right hip] 11-27-2024 Chronic Other connective tissue disease (8 sources) Spasm; Translations: [Other muscle spasm] 08-18-2024 Episodic Other lower respiratory disease (4 sources) Other forms of dyspnea; Translations: [OTHER FORMS OF DYSPNEA] Onset: 11-25-2022 Episodic Other nervous system disorders (20 sources) Chronic pain; Translations: [Other chronic pain] Onset: 08-28-2023 08-28-2023 Chronic Other nervous system disorders (10 sources) Numbness and tingling sensation of skin; Translations: [Anesthesia of skin] 08-18-2024 Episodic Other non-traumatic joint disorders (20 sources) Arthropathy; Translations: [Arthropathy, unspecified] Onset: 07-15-2013 08-28-2023 Chronic Other non-traumatic joint disorders (6 sources) Hip pain; Translations: [Pain in right hip] 11-19-2024 Episodic Other skin disorders (2 sources) Mass of neck; Translations: [Localized swelling, mass and lump, neck] 11-29-2024 Episodic Other upper respiratory disease (20 sources) Chronic pharyngitis; Translations: [Chronic pharyngitis] Onset: 08-28-2023 08-28-2023 Chronic Other upper respiratory disease (2 sources) Vasomotor rhinitis; Translations: [Vasomotor rhinitis] 06-08-2024 Chronic Other upper respiratory disease (2 sources) Perforation of nasal septum; Translations: [Other specified disorders of nose and nasal sinuses] 06-08-2024 Episodic Other upper respiratory disease (2 sources) Pain in throat; Translations: [Pain in throat] 11-29-2024 Episodic Other upper respiratory disease (7 sources) Chronic hoarseness; Translations: [Dysphonia] Onset: 11-29-2024 11-29-2024 Episodic Other upper respiratory disease (1 source) Dysphonia; Translations: [Dysphonia] Onset: 11-25-2024 Episodic Other upper respiratory infections (2 sources) Acute upper respiratory infection, unspecified Onset: 07-20-2021 Resolved: 07-20-2021 Episodic Residual codes; unclassified (1 source) Pain, unspecified; Translations: [Pain, unspecified] Onset: 03-11-2024 Episodic Spondylosis; intervertebral disc disorders; other back problems (20 sources) Chronic low back pain; Translations: [Neck pain] 08-18-2024 Episodic Syncope (4 sources) Syncope and collapse; Translations: [SYNCOPE AND COLLAPSE] Onset: 09-16-2022 Episodic Unclassified (2 sources) Benign Prostatic Hypertrophy; Translations: [Benign Prostatic Hypertrophy] Onset: 11-24-2024 Past or Other Problems Problem Classification Problem Date Documented Da te Episodic/Chronic Chronic obstructive pulmonary disease and bronchiectasis (1 source) Bronchitis, not specified as acute or chronic Onset: 07-20-2021 Resolved: 07-20-2021 Episodic Genitourinary symptoms and ill-defined conditions (4 sources) Urinary frequency; Translations: [Poor urinary stream] Onset: 12-15-2023 Episodic Immunizations and screening for infectious disease [...] Onset: 01-19-2024 Episodic Other lower respiratory disease (20 sources) Dyspnea on exertion; Translations: [Other forms [...] Test Name Value Interpretation Reference Range Facility Follow-Upon 11-24-2024 Follow-Up [id number] Arnel Mena 1960 M Date Provider Department Center 11/24/2024 JEFFERY [facility] Second Fl Family History Problem Relation Age of Onset Stroke Father Heart attack Father's Brother Family Status - Relation Status Age at Father Father's Brother Level of Service:68256 [place] OFFICE/OUTPATIENT ESTABLISHED LOW [facility] 20 MIN Reason for Visit and Comments: Benign Prostatic Hypertrophy [[id number]] - 6mo med check Normal [facility] XR Hip - right 3 Viewson Imaging Result: Imaging Result: AP and lateral of right hip showed femoral head to be well centered in the acetabulum without evidence of fracture or dislocation. There was some spurring at the inferior medial, and superior lateral aspect of the femoral acetabular junction. There was global decrease in joint space height. There was no acute bony process including but not limited to, fracture and/or dislocation. Impression moderate degenerative joint disease, right hip [facility] Radiology Study observation (narrative) [facility] Rad - Other Radiology Report on 11-09-2024 Rad - Other Radiology Report [id number]#[id number] 0OTGTIFF [facility] MR [place]BAR [place] [address] Magnetic Resonance Report Signed Patient: ALESIA MENA MR#: [id number] : 1960 Acct:[id number] Age/Sex: 64 / M ADM Date: 11/08/24 Loc: MRI Attending Dr: Anca Petersen NP Ordering Physician: Anca Petersen NP Date of Service: 11/08/24 Procedure(s): MR lumbar spine wo con Accession Number(s): [id number] cc: Anca Petersen NP; [place] [address] Patient Name: ALESIA MENA MRN: [id number] date: 1960 Sex: M Assigned Patient Location: MRI Current Patient Location: MRI Accession/Order Number: [id number] Exam Date: 11/08/2024 14:32 Report Date: 11/08/2024 14:35 At the request of: ANCA PETERSEN NP Procedure: MR lumbar spine wo con EXAMINATION: MRI LUMBAR SPINE WITHOUT IV CONTRAST CLINICAL HISTORY: Chronic Low Back Pain, Arthropathy, Muscle Spasm COMPARISON: None TECHNIQUE: Multiecho imaging was performed in the sagittal and axial planes without contrast administration. FINDINGS: Vertebral heights appear maintained. No significant bone marrow edema is present. Endplate degenerative changes. Diffuse disc desiccation. Spinal cord terminates in normal position without abnormal cord signal. No paraspinal mass. Visualized retroperitoneum demonstrates no acute process. At L1-L2: Mild diffuse broad-based disc bulge is present with ligamentum flavum hypertrophy and facet joint degenerative changes causing mild canal and bilateral neural foraminal stenosis. At L2-L3: Mild diffuse broad-based disc bulge is present with ligamentum flavum hypertrophy and facet joint degenerative changes causing mild canal and bilateral neural foraminal stenosis. At L3-L4: Diffuse broad-based disc bulge is present with ligament flavum hypertrophy and facet joint degenerative changes causing moderate canal and bilateral neural foraminal stenosis. At L4-L5: Diffuse broad-based disc bulge is present with ligament flavum hypertrophy and facet joint degenerative changes causing moderate canal and bilateral neural foraminal stenosis. At L5-S1: Diffuse broad-based disc bulge is present with facet joint degenerative changes. No significant canal or neural foraminal stenosis is seen. MR/MR lumbar spine wo con IMPRESSION: Diffuse degenerative disc disease as described above, worst at L3-L4 and L4-L5. Impression dictated by: Melvin De La Cruz Jr., D.O.11/08/2024 2:35 PM Dictation Location: [place] [address] Electronically authenticated by: [id number] Y Date: 11/08/2024 14:35 Dictated By: Melvin De La Cruz M.D. Signed By: 11/08/248 DD/ 34 TD/TT: Web Production Artist: [facility] Radiology, Radiologmartin hernandez MD - 11/08/2024 [place] [address] Magnetic Resonance Report Signed Patient: ALESIA MENA MR#: [id number] : 1960 Acct:[id number] Age/Sex: 64 / M ADM Date: 11/08/24 Loc: MRI Attending Dr: Anca Petersen NP Ordering Physician: Anca Petersen NP Date of Service: 11/08/24 Procedure(s): MR lumbar spine wo con Accession Number(s): [id number] cc: Anca Petersen NP; ARUN OGDEN [place] [address] Patient Name: ALESIA MENA MRN: [facility]:[id number] date: 1960 Sex: M Assigned Patient Location: MRI Current Patient Location: MRI Accession/Order Number: [id number] Exam Date: 11/08/2024 14:32 Report Date: 11/08/2024 14:35 At the request of: ANCA PETERSEN NP Procedure: MR lumbar spine wo con EXAMINATION: MRI LUMBAR SPINE WITHOUT IV CONTRAST CLINICAL HISTORY: Chronic Low Back Pain, Arthropathy, Muscle Spasm COMPARISON: None TECHNIQUE: Multiecho imaging was performed in the sagittal and axial planes without contrast administration. FINDINGS: Vertebral heights appear maintained. No significant bone marrow edema is present. Endplate degenerative changes. Diffuse disc desiccation. Spinal cord terminates in normal position without abnormal cord signal. No paraspinal mass. Visualized retroperitoneum demonstrates no acute process. At L1-L2: Mild diffuse broad-based disc bulge is present with ligamentum flavum hypertrophy and facet joint degenerative changes causing mild canal and bilateral neural foraminal stenosis. At L2-L3: Mild diffuse broad-based disc bulge is present with ligamentum flavum hypertrophy and facet joint degenerative changes causing mild canal and bilateral neural foraminal stenosis. At L3-L4: Diffuse broad-based disc bulge is present with ligament flavum hypertrophy and facet joint degenerative changes causing moderate canal and bilateral neural foraminal stenosis. At L4-L5: Diffuse broad-based disc bulge is present with ligament flavum hypertrophy and facet joint degenerative changes causing moderate canal and bilateral neural foraminal stenosis. At L5-S1: Diffuse broad-based disc bulge is present with facet joint degenerative changes. No significant canal or neural foraminal stenosis is seen. MR/MR lumbar spine wo con IMPRESSION: Diffuse degenerative disc disease as described above, worst at L3-L4 and L4-L5. Impression dictated by: Melvin De La Cruz Jr., D.ORadha11/08/2024 2:35 PM Dictation Location: [place] [address] Electronically authenticated by: [id number] Y Date: 11/08/2024 14:35 Dictated By: Melvin De La Cruz M.D. Signed By: 11/08/241437 DD/ 34 TD/TT: Web Production Artist: [facility] Radiology Study observation (narrative) [facility] MR LUMBAR SPINE WO CONOrdere d By: Radiologist Radiology on 11-08-2024 [facility] Work Phone: Rad - Other Radiology Report on 11-05-2024 Rad - Other Radiology Report [id number]#[id number] [facility] XR Hip - right 3 [facility] The [address] [address] XRay Report Signed Patient: ALESIA MENA MR#: [id number] : 1960 Acct:[id number] Age/Sex: 64 / M ADM Date: 11/01/24 Loc: RAD Attending Dr: Anca Petersen NP Ordering Physician: Anca Petersen NP Date of Service: 11/01/24 Procedure(s): XR hip RT 2V w/ pelvis Accession Number(s): [id number] cc: Anca Petersen SHOWCASE TRIMMER; ARUN OGDEN [place] [address] Patient Name: ALESIA MENA MRN: [facility]:[id number] date: 1960 Sex: M Assigned Patient Location: RAD Current Patient Location: RAD Accession/Order Number: [id number] Exam Date: 11/01/2024 18:16 Report Date: 11/01/2024 18:18 At the request of: ANCA PETERSEN NP Procedure: XR hip RT 2V w/ pelvis 2 views right hip a single view pelvis HISTORY: Chronic right hip pain with worsening. COMPARISON: none Kwcz-rj-hgnm contact superior right hip joint space narrowing. Preserved bony articular surface. No AVN. No articular collapse. No fracture. Adequate alignment. Unremarkable soft tissues. XR/XR hip RT 2V w/ pelvis IMPRESSION: Extensive ipih-nz-opmt contact right hip degeneration. Impression dictated by: Guanako Cee M.D.11/01/2024 6:18 PM Dictation Location: [place] [address] Electronically authenticated by: [id number] Y Date: 11/01/2024 18:18 Dictated By: Guanako Cee D.O. Signed By: 11/01/241819 DD/ 17 TD/TT: Web Production Artist: [facility] Radiology, Radiologi MD david - 11/01/2024 [place] [address] XRay Report Signed Patient: ALESIA MENA MR#: [id number] : 1960 Acct:[id number] Age/Sex: 64 / M ADM Date: 11/01/24 Loc: [facility] Attending Dr: Anca Petersen NP Ordering Physician: Anca Petersen NP Date of Service: 11/01/24 Procedure(s): XR hip RT 2V w/ pelvis Accession Number(s): [id number] cc: Anca Petersen SHOWCASE TRIMMER; [place] [address] Patient Name: ALESIA MENA MRN: [id number] date: 1960 Sex: M Assigned Patient Location: RAD Current Patient Location: RAD Accession/Order Number: [id number] Exam Date: 11/01/2024 18:16 Report Date: 11/01/2024 18:18 At the request of: ANCA PETERSEN NP Procedure: XR hip RT 2V w/ pelvis 2 views right hip a single view pelvis HISTORY: Chronic right hip pain with worsening. COMPARISON: none Gfaz-ri-wbtn contact superior right hip joint space narrowing. Preserved bony articular surface. No AVN. No articular collapse. No fracture. Adequate alignment. Unremarkable soft tissues. XR/XR hip RT 2V w/ pelvis IMPRESSION: Extensive nobz-an-ixao contact right hip degeneration. Impression dictated by: Guanako Cee M.D.11/01/2024 6:18 PM Dictation Location: [place] [address] Electronically authenticated by: [id number] Y Date: 11/01/2024 18:18 Dictated By: Guanako Cee D.O. Signed By: 11/01/241819 DD/ 17 TD/TT: Web Production Artist: [facility] Radiology Study observation (narrative) [facility] XR Hip - right 3 ViewsOrdere d By: Radiologist Radiology on 11-01-2024 [facility] Work Phone: EMG 2 Extremitieson 09-15-19 25 EMG/NCS BLE Normal study [facility] -10 Nerveson 09-15-2024 EMG/NCS BLE Normal study [facility] EMG 2 Extremitieson 09-13-19 25 EMG/NCS BUE Normal study [facility] 11-12 Nerveson 5 EMG/NCS BUE Normal study [facility] Office Visiton 05-26-2024 Follow-up visit [id number] Arnel Mena 1960 M Date Provider Department Center 05/26/2024 JEFFERY [facility] Second Fl Family History Problem Relation Age of Onset Stroke Father Heart attack Father's Brother Family Status - Relation Status Age at Father Father's Brother Level of Service:82386 [place] OFFICE/OUTPATIENT ESTABLISHED MOD MDM 30 MIN Reason for Visit and Comments: Urinary Frequency [690875] - Pt c/o weak urinary stream and urgency, pt states he has been taking double flomax since last visit and symptoms are not improving Normal [facility] Physical Therapy Noteon Physical Therapy Note [id number] TGTIFF [facility] Coding Summaryon 03-28-2024 Coding Summary HTMLBase 64 UwdztqlzYRn2wCr+PGhlYWQ +KQ4AFKMqI33jdIPlrK2nB1 NMTElOSywgQVBQTElOSyIgb aHjNL7tzETpCWQw IC8+VT8sTDYlHjuvmLJvq3D 3uWI9Y67ffr5dNLdziTD8FM BqQkYrikrjm4jhiSa5XSbsX mluOyBt TYGrfR51IXT3aA75Ns03xKH mpLLgj9npnSv2FqVlJODjHB L3xAexJJizc8NmXIBlK89pk OHxa4Y1 CKCycVtkaNVpXrJzgLJ1eJ5 oYQbrqyeiw3dekqvoUvu9jz 96lFJxj4G7kQI5F3RgujD9X GJvbGQg TaqmiDPAgP5fkwuoq2mdmep pCnIuAZYgAKq9ZAy2GCCanT rzOySuKT06XXK6AEYhrmIuL 2FsLWFs nFbuYyH7x1H1Mx0GF6OCHcd aE6FFSCXFWGjliPH+PC90cj 54M6UfAugwAfy9NKEyHGS5a LZ3eF6c RRAmWWgml7P6zXK9K3DitbK iyg5jx4ifUXDsKVkbL48ssI Sbd0E8LOOgdLH7LZAucNogN iBzaG93 Oyc+OQOoeSxen4DsXleyx9r yd6alqQw2GtmlQRCadaDnkN yaHBU9e9NuWx1xIGBxoQM6o TU7yK6d OjEiEwA7XCwqT602PwShdYN qHnnuV19nV2IlpYA+PHRyPj h9SHQiwTdxXY7fK9AuOMYqo mctbGVm rVpgUP9qYHXxxjamKITfhW3 cVMLyU6u3MrWyQdG7NKybO0 UyYYLphhzvGj84mN9rTpMtV hH6RAll R3KztrI3SYGnfSHgTLqzPUR 1T99yn3G1MAPgGYJqTYB8qM H2bZ1blGfonvybgXOigAwmn mVydGlj BYitMTlmS725RXVsnGxaTjS vZGluZyBEYXRlOiAgMDgvMj UvMjAyNDwvdGQ+OFSsZMG2r WxlPSAn gUMkJJtxQu8uaDpogKdlHA1 gYSAqppfzDGZiuP1pQAVvwU UqxFbxRT6zOWBijvykp287W iAxMHB0 OOUsyIRxI7VowK8kLmPnOZL qUEXmW8IvbOKkRYtyS620XC arZrK7DJPhtsBdJ2OmGOUta WduOiB0 c8K9Gj0Wf9TcylajA9AtaEA vCdNgJgvoPXk8F3UxMozeyJ I+QU21DOObAH19YTd2IVQ1v WxlPSdi XMKnH1XfaZ1kQyRzHTEoDNO kOyc+PHRhYmxlIHdpZHRoPS lhSRSyNePqpRzbGU3pAu1sS GVyLWNv eMqysKOaNoAke5deOODuWIa jXT3ihEysC0AmiFI5CGEbh9 w0Bw77J51fJ2KdpOS+PGNvb KH2sSV1 eP2lGnJdOuQ9CFayX749ArK dzXFhAlrkf8hbi0ypuPs4Tw C8AEQcviQgiFypMBG9r4HxI y38X70g IHdpZHRoPSIxNSUiIHZhbGl fmp4ejT9dGq3+BNMeyIO8zN R7nT3uEfFyUbB7XOmmO520B nRvcCIv Slknl6fqj0rybQw9ErOfUPI sjmBuzTpsQRY1l4NhXg19T8 NnrYrsj3BgKxa3qg93gHHoh 9F7jFV8 O7TwGAGoancckPUxsQfyRF8 eAXIgdnqtSGSsjZ5mVIKvT5 w7FaCsVxL5WLmbH8EwviS7Y GJvbGQg QBVmvRNLgI4jxivkd3hwttk wZhSaWZGlELk4CHn8EHWhdK jdNqGwUXD1FjZ6FEG7oGZqw O6tdApw popydE6vRoc+FEA9lPVppFZ DOI7oYrbqgAY+GCTwFLN8cJ zzVOlfKWHurW1nAPFpL0n5W iAwLjA1 HJseQ7OhrvS6VRJgiYBtGIT ndQUOkR5lhvejz9kctxexMt JqDBQpADq0GPs4NOJbbAoaC iBsZWZ0 GtR2QBH3mMCmuE0lrPbfkif ltC4cQfy+SjpokAttTZB0NW j3S9IlKgq0YDLrhQyfOP9bv GFkZGlu De2oyOwyaLyrWA4eKXZdvsq sc920JpKow2cnTRIhwSHtHX uiSVY2J81ks9B9DNRmBMHbP AF4nAI6 zP5gwXudvhycvEOicWgpaqR ggVpsEDvsNMrnM722PDQqdD xnLdTdDNw6I1FjVfn7KQHie ClqNB5s fSJfITdkPw7bxGawsDwsHI0 qRSDbfpncr725XuRec5ygXC UyxOXaLIuqNFS3W16ry4J7S CMwMDAw DZM4jWH0vR3wbZqgtjeeoRB mdDsgdmVydGljYWwtYWxpZ2 12JKVvdPhqKrAwwGm0W8UbL oq5XHWe xPqiBN1ifMWoQZdaXa3duTo fdCyuJB9eKVJpiujad567Xf Oyv3kqWPRdlVXwPQvaYFO2Z 39lo4E7 JPVsESFcBFE8bHJ5vE9qlLs nbjogbGVmdDsgdmVydGljYW cgODgrX950LZNzbExoYaAee GllbnQg HNqgLQk0O7MqEvoqgYI+PC9 7EKLcRG27tFMibOWip0nkpG z1StGuMUTxIHW4wAijZKxyc 3JkZXIt Z58rmTUny1Y6KTNmvGlsmDF tNtLpjXE6yG3kPSjoqvjjn3 garfwzSyunn9tccg97nT33D 29sIHdp ZHRoPSIzMCUiIHZhbGlnbj0 rlY7sDo3+UDNtnHY9cWK8pL 0fCBHfHrI5WYiaJ507UjFyy CIvPjxj c0nwt1ygmFf1LjN7MZOkkqP skStpWJI2k9XkUe50E44nXS dpZHRoPSIyMCUiIHZhbGlnb s5zgV8z Ii8+OTHucGZ5aCK6sB3sTuZ aGqU2VFnlP846OjFruBMcUw gwM40vA2MwdOU+VWNzBrc4W CBzdHls MR6xwRTgJJslBt3xZSS9KbS xMlPcYWojL4JsDZRsdepvhq mtiIM1FDGyGOOtnZ95Eu2di DogMTBw uAGLpT7etvmcy8extwehLfZ hBEMsAAg0TUx8WZQdcGheSv AxHRZ6OzA2VYW8wTEavH2gz Glnbjog vE7bT0MkQFJcaaikQg94sM3 qQqHyBwA0PYaiZtn+U0tFRU lPHJKEU4MDNoYqLitgxTA+P HRkIHN0 vAdyUQzsQWAmlW5dFZBuV6f 8QdNjYuO3VYojU1WuWSYcen ngBo46hZ6dMeSbHrR5CVwzW 1PmbkT8 VZMjuFSqLGdnKTQ9N06jx8E 2PUKyFGRjJTX9bJS0pO7kkI lnbjogbGVmdDsgdmVydGljY WwtYWxp D384KXImhLixJzA4SsN1UxV 6BaQ3F8BaMiq5JJHilWnvII 6fmWQsAKjpCu0jcSwylUhaO S8sIFEq zlwxHMBvnN4oHNXveGTykKq dBH8jHFEzfhxxu977RmMmGB I7XZOgxNUqE4IitM4yEhMbF DAwMDAw N6VckNDdUErkL640SGisRfR 0KJDgmyBlQ5IyTKJmoGwhQf A4s2F5Ac07PhHRIDSihgksx GQ+PHRk PAI8kTtxLGbnUFVuoD1vWJE gJ4b5QuLoXsE8RRicR5CsEB PacfwsZw07vJ6sAvLkIjV9A TjbU4Rv vxJ0SIGlhCJyIKonIVS6G80 dm8R2XBBmFSPhHJA7aJG6wG 1hbGlnbjogbGVmdDsgdmVyd GljYWwt TJtgM098NPYykJikGb2MCNJ 3T8JgMej1BHOpfDzsGZ5wzH AoTGxaYc2ocJskmSrfZV4lT TBpbjtw NSKtpJ7mGXZzjYAzjLvmTY2 pFPJympfgq778VdQgWBO7AG GdhFBmG7SeaC1sGxOrNXWgY IKbX1Uh dQWfZOjaQ172JRsjBrK6MCL viiApG0ReGJKxmDzmLsE7s0 E6Tx6WOTT3eiQpwbmbG3M1u WI3rIQo dDwvdGQ+AD29am58C4OcDop dCau1XDAkRRK1iUI1kV9fBM IaFKybb4M0wVD6W1WpvdPft p6tu1mx MYOtOOdnG50fxJPxz7O3LPW uaIJ8JBQccQrmTpGkwO23Fu c+LBLjtXksh7SpJrmxt3jsm 3eboHg5 SkEfYNIdlnJioQayMGZ4x1Y kFj22D31uCQrrNTIjALObXD AfWDQwnCthnu7yuN4dCe6+P GNvbCB3 qUB2hJ1gXcLsApN8DDzjK80 8VlMafGQkVbceb6ovk4yivY u9RsRuVBJlaxZynYbrTEH1j 7BpOh32 W3LyeMauk2GqAhr1qe08fSD fy8P9uLS8X7VeSTCrfdrdxQ KwsCckZT0zSGThwtxiFDDts L6uGTUh C2a1AoMhMtI7ZFntY7PdbcH 7UHYrzGMcWFTrbUBIsY9prm wtk6wsmrinTkAgGLUgUKf9O Ja8EQPf aCbkLzEcNVC7JpQ3VEL3nDE jfT3yoOjrhifhqP0zEih+UG x1w0rhqYGmLN4baMZ2SU92C L58mCIw o0P3vFZ8A2WbNRGckjdmlfm jiYR2VRPrRTRxjQ39Ox5fcM qvQi1fSRIdNCD2WCBafNGeE 8CbeT3q OuNfSSNeQMFbX5OphRKzJZo lX085ZEepXcJ6CUUobiIpK2 XjZCNbiIyqQfV8z0D9Fd1AC E35XP28 DC29iBVud9K2iIF2C6RqGDQ tqtmtznxotCP6BTAdGFQpaS 10Av9ctAopGi8uOCDdTZQ1U FRpbWVz M4QdgQ4yAqRqMCQsPOQaT0F ftREpWDklL487ZKsbNzV4UF WgkgFmC6RaGQBfyNtlLgK7x 4A9Ej3T Uw20XE64KF31xRFti0Q8qQJ 2Z4PaMBDaxxmlquttwDS3WV LlDDKukH36Ft2ijXjlAu9oS CAxMHB0 MVRuiEHvC6WrnP6gMtRpOLC kGQCqI5WhrFJxQAdxG488CD naAfV4VQAbopRgC3DyOCOoo WduOiB0 z3F5Tk7WJZokche6V7HvYvx vdHI+ZB20SBRbDU41eOIemP Mdp1uoxPo1DpJiDLRmSSD4l WxlPSdi b3J (more content not included)... [facility] Outside Recordson 03-12-2024 Outside Records [id number]#1.00O [facility] Rad - Other Radiology Report on 03-12-2024 Rad - Other Radiology Report [id number]#1.00O [facility] Rad - Other Radiology Report [id number]#1.00O [facility] Rad - Other Radiology Report [id number]#1.00O [facility] Coding Summaryon 03-09-2024 Coding Summary HTMLBase 64 NlzvmysqFYk5kAx+PGhlYWQ +PA1YSXAoI01vwBLesP7mR5 NMTElOSywgQVBQTElOSyIgb lXkSM1jgGMkZAQz IC8+RI3wIBJqRfakoMYpu1V 3zNQ8K81tvr9iAIczgIG9OP LjBgIiamgfr0gvsVd9HTbhL mluOyBt LQBugP80CKK4xF83Ds26lPN ymJMbz8mdsIh7NlHvQGPpBE X0mOzrYDoay3SbMSQzB87mh WXjo7I8 LVIsvOyymTLrJlBumQP5tA4 bUKspjzxsv4fbtyprMxf5bb 18kSGhc4F0jKO4J9VtzzG2G GJvbGQg DoxxvVIRpF4loqqce7qvjvq fRcGbFJAuQFs0RXt0MANhyJ axNqStJI75BYQ9PVDxnnXoZ 2FsLWFs zNawYaP0g1E4Oo1HU0BIVup dW2XZEGHBVBmstNY+PC90cj 99V7NdUczlDyf4RKZqCGH6k UP9rF8d QXIpFYwxz7K3vDY8F9FafaQ aup6yx8gsKVHzDZzgQ04skM Kze4W2QCHdiOV0PAUfkUmlF iBzaG93 Oyc+CPGzcWqqn1KwPkrfy2i jt7wzgIj2JwzcFLOvxaRfvZ rrFYL4m0RoOh2uRDEqwQA9w XG3lN7i PcKlZiA8RRvzB439MdTlnHB cIgkzW81aR3KiqLQ+PHRyPj z5ZHCglYjcPX1vJ0HfHJQbv mctbGVm wRhlUV7gDIMpjdwbBMHaxY4 zRQXdB8d7IyJxIcP0HWyfE1 HvODVjozgjOe18uX6nVpBnA gX0SKkk W4QhefX8IJPyxZIcYCvgMXJ 9N67uj1J8THZyXRXcMBX1aT F6dI5lxIfueeasxEXgdFopx mVydGlj VQzhDXdpC335GCLmmYsmJnX vZGluZyBEYXRlOiAgMDgvMD YvMjAyNDwvdGQ+OHEhWHE0v WxlPSAn bCBbZYbfFj0weToyuGvcBY3 bMAHxfjixKUXenM4eSZBxmV JmtZfhVI6tFSNeytcgf024O iAxMHB0 UPOwoGOwZ6JnnH1fWkBoPVF tCBTjU6LqlAMcTXdtM959ER zwAoX9LPXppgHyZ8QgKYWcw WduOiB0 s8M0On7Mo2MfzdtvY7NcdRM xJlOcPhlbYPg6V6SzSikluO I+WD61QUMwZP09YFl8QKZ1d WxlPSdi PFBhG0NloL0aFbSeDXTqAMU kOyc+PHRhYmxlIHdpZHRoPS igRBEgUzMekHypSX9vQb0hB GVyLWNv tLknlCOgXfHxx8kyEPHqSCx nAJ2okPneT2GwxZR3SBFby4 p7Yu78D56uS5OckZW+PGNvb IN5oSV5 nE7iGqSiTqD6HCftD513UcJ vkBLbPfmlb1amc8fddZp6Cg S0EKRkbmMbvLzkEGW3o2CnD n53N03z IHdpZHRoPSIxNSUiIHZhbGl guo7ahE8hMf6+CCMzxTV4eB R1fV7lPyTpXkJ9VQubM475W nRvcCIv Pmrop9cih9lxuDk6ZkFlNXV ytzJpdYefGTE5j2CwAm25T9 CfbTekr7WbPsg1aw38bHFbs 8F3jHQ4 S1TeUHAdhtmcgQRtbYdiEJ8 wBNTitnadIIIspT2gYPBhS0 c3TxRmXtH6QStwE6RespD9X GJvbGQg BGNriXHKlY1ljrcot2tardl nAnWaMYZyRZg1CIv7OMAcuO rnIwYvYJJ4CzC4HNF6tQPww T3ppEwo adcrqG7cNkt+CYZ7rMYhpQQ JCB8yGmqwbDY+PNGxQQU9gK wnFPxxZXXgrM5rTQRmX8u0G iAwLjA1 BWgaN2QhnoD7ZDFwyMEfEDX ydFIToG0geheki3wvlurhMj GeNDPvNIw7AFu6JCZwvWmjO iBsZWZ0 ZaU0WEL4vUJqzL8wcNfrkrg niZ6dPhz+VyxttIscFSI8QP w8F1YmMul0TJJwaNotXT2xz GFkZGlu Fh9ioRugaLjrCL2uWXAiihk lf356VbSit7teHKRvsTDyTX vzDDC7B47ad8X0FYAtQITsP IR9gBN9 eS8fdDflzmvidCUubVmdkvF wpTmqKVgfQXgiA870SUFwnD yqGbAgHSz8O3IzAww1RDIch RxqRD0s uTDfVCoiRu7maErymQswZE9 eGRUtbduey176JqLta5mgSL MmaDYdUNvjCAQ3G29bk2G2E CMwMDAw QCO8lTV4oO3smTjoigidnFX mdDsgdmVydGljYWwtYWxpZ2 16GYAocGmgCyFmtNe6N9EkK xo4MKKo jBzxOU5xjZTdYQfvYn1adJf xxSitET7eFFIjcsuug157If Whx0tgCXYuaPXxAEfhZYC1R 26un8Y9 WWLzTRVtISE1cGT7jZ4qhHj nbjogbGVmdDsgdmVydGljYW yqEGffB078AFZlbUofIzKia GllbnQg EGrgDIc1L0HxAvniaJV+PC9 2YVTeXD07dTTwfNJin7oyfY b5RlZfAZQaCJH4hEetOMzbl 3JkZXIt R28gjUHne5V8OWRjjXuawDB qFkHyjLE0zR3kTDitiaonl0 pyvykyAvjsq4xdko67oK06W 29sIHdp ZHRoPSIzMCUiIHZhbGlnbj0 taX7aNy3+ZDRudSO5pOO5uL 0gXSBqIgS4NOlzD250JcGur CIvPjxj e4mgm1lkmUx5XlM6UCPnboC bgWcvSQR5l4WzVr97M77mOB dpZHRoPSIyMCUiIHZhbGlnb b8bqZ1o Ii8+JUHizWB0uTZ7bZ5vVpE vWtK4TTbxR304EgJkaDIwNv zhA66uK0RxrXN+EJHjTsc5T CBzdHls DF3coXGwETfpXi6iWZL9UkS tVmAwKGesT1PxLYDgyjeikc xjpJK6PMTxSMOcjC06Zi3qq DogMTBw nOFHbJ5gcauaw8pzskeoOxQ mJSJfAAv8XVg0NWUpgAqlYc SzDJQ5YhX7FDH2hPAhpX2tg Glnbjog wU3jM5FcQDWtqmyjFh07kL4 fUmThLyN2IJlrNst+U0tFRU mOBHMAF4GKBlGkWhbuxVU+P HRkIHN0 eIctOPxgDGRixR2mGKVuH8g 7EoYdQjO0WSpoU5SuJPCaoe nnEd18lQ9tPaMwAwQ1QLpsD 9MdehT0 CFEyyDHpDFdnDLI7H69as0W 4YLZsAWYxRYS0bVN4sN1csH lnbjogbGVmdDsgdmVydGljY WwtYWxp W031NHSkqRafUuN1BoY0JrH 8DgE5Z4NuPje8BWVleDcwPR 8zoUIuFBboIm1szKjgzIiuI J8fSOEr tkfpPWEemF3iVTYisWJcfFf cRK2uCQRjbdtbf872BcUuOU P1WKFicJZcS1XixK3kObVqB DAwMDAw T2KffRHaOIiiT574UPgyPuT 6DLMiovHyT3CkTEYeuFyzDd I2o4Q9Qu32EoSHYMPwkeqir GQ+PHRk WYZ2qTtgPMrtCDUpjS4kMFE kR9s9LrJcKvK7SBneA8SyVG BfodxpIb07vC3pUjDcVxW4E FgoL9Jj ypT8NDKggKQvZVrxNQU7Y59 wf7K2HOEbXSLlSXN9tDE2eJ 1hbGlnbjogbGVmdDsgdmVyd GljYWwt JEscF551ZMUvhPzdRa5PAWB 5N4KiAvx2IWCkzKmgIY6mmN UgPZjuPc4rzYhqhXodFY7zL TBpbjtw WIDbpS4rSFYheAQdmUxwIR4 jMMDplzupn099DyDoVUZ9KE ZbtITeI7ZfsQ5zHvFwCZMmO ZYpA5Oh bZKhAWvdB550RFslAuP5VOG uxqDkG8MvZDYovNceMkM3l3 O2Wx3RPQglsBW+UB98dr39T 3RhYmxl Hzo9NAJjQBS3yKQ5lV3jSJB yWQxlx0P2xQH8F3JsezKzow 5nv7glSSKgWWshJ71bmGGhk 1Q2MPMb nFL2ABDxaVhkIaPylH72Aho +NPAljUxxq8FxAsnqf1aqm0 ooqFb8GjUtOKTszjXbzTfkF NR6b8Ld Ud06T57sYZdiXHKjRXPsEYE vXKMqhZkxbl8ojG0xLy3+PG JdeHR7nSJ8kG2yImYeRoW6N YbxM683 LnYayJPcGfwij0rky3ptkNv 7ViBvEUNvtaFwhEapMOR8n2 QlAe68A2DvoPqvb7FmAvh8g p96qUTn p2Y0vLJ7E8ZiSODtedbkrYF muIxySH9rAEHxcormOMCtvO 1zHOYuW2y3WgNnVhI4KCbmG 9SpzhT7 HFVerWPxJGMkeWLDjE1eibh of0lybefmZtJcQQYhFYd9OK b7LBEadJgmCdRzCKQ9DeW5Z WT4tXVh pI3ybFhlxngryK6pQtv+UGh 3r7cakIYaLE3krMJ5ZP65HY 33qFYnl3B2uPM9Y1OmQTLsn mctcmln nAD1SSHtVOCddL41Sx3tfMd dNu7pVDOhSMM0ISYekPNlG1 PwjK4pWqYfHPZtDMRyB5Llf HQtYWxp O353NXrbXtU4VRYspeYvA2O cLJHqtGrbJvA9r6C0Os8OPI 80UB30BL07nXBvc0S8rLM8G 3BhZGRp dymrdjrgpUZ8MRCxNTQvlV4 0Eo2gcZfgYa7uDGTuCMP1TJ CtoMCmS2SkiV1tAgUkTYYkT AQtB6Hi fOLrPZasU835VDpcYfX8NNY zpmVkM0IwBUWgfPzlEvF8j9 E8Hq5JQz36HC72YV15rUJiz 9Y8uZQ4 B0AfWWMsogbeovohgYE3ZNY zIBCaiT52Gx3pmVylEu5kNT FxPRT1AJNzgPBuF6EwzZ3qK iAjMDAw CEFqT7SukGKxMHdvS250EJr nDmV4PGKtvnUdN8UgIUMizL btIcW6v1G6Tb1LQLyfpqs4X 3RkPjwv dHI+ER21AOTjSK73dEQleFL ch0kxxQe9KqKiWJPvYSV2uU byJIukt9YbFDHbB51unQGkt 4X5NISw bGx (more content not included)... Normal [facility] Reminder Messageson 02-25-20 Reminder Messages - From: ARUN OGDEN DO To: [facility] Clinical [place] ([facility]); Sent: 02/23/2024 19:23:35 EDT ! Show up: 02/23/2024 19:23:35 EDT Subject: Results Follow Up Actions: Call the patient with result(s) Due Date/Time: 02/24/2024 19:23:00 EDT Reminder Comments: t4/tsh normal thyroglobulin pending Results: Date Result Name Value Ref Range 02/23/2024 16:09 T4 7.52 mcg/dL (6.09 - 12.23) 02/23/2024 16:09 TSH 2.95 mcIU/mL (0.45 - 5.33) pt notified [facility] Reminder Messages - From: ARUN OGDEN DO To: [facility] Clinical [place]beck ([facility]); Sent: 02/25/2024 07:38:38 EDT ! Show up: 02/25/2024 07:38:38 EDT Subject: Results Follow Up Actions: Call the patient with result(s) Due Date/Time: 2024 07:38:00 EDT Reminder Comments: looks okay Results: Date Result Name Ind Value Ref Range 02/23/2024 16:09 Thyroglobulin by GRACE LC ((H)) 30.0 ng/mL (1.4-29.2 - ) 02/23/2024 16:09 Thyroglobulin Antibody LC <1.0 IU/mL (0.0-0.9 - ) Normal [facility] .Thyroglobulin by GRACE LCon 0 02-24-2024 Thyroglobulin by GRACE LC 30.0 ng/mL High 1.4-29.2 [facility] Comment on above: Result Comment: According [...] is 0.1 ng/mL Thyroglobulin measured by Elvira Morris Immunometric Assay Performed At: [facility] [address], [place] [id number] Montrell Ritter PhD Ph:[phone] Performed By: #### 1 [id number] ####[facility] (DEFAULT)[address] [place] [address] Thyroglobulin Reflex Profile LCon 02-24-2024 Thyroglobulin Antibody LC <1.0 Invalid Interpretation Code 0.0-0.9 [facility] Comment on above: Result Comment: Thyr oglobulin Antibody measured by Elvira Rayle Methodology It should be noted that the presence of thyroglobulin antibodies may not be pathogenic nor diagnostic, especially at very low levels. The assay crusher setter has found that four percent of individuals without evidence of thyroid disease or autoimmunity will have positive TgAb levels up to 4 IU/mL. Performed At: [facility] [address], [place] [id number] Montrell Ritter PhD Ph:[phone] Performed By: #### 1 [id number], [id number] ####[facility] (DEFAULT)[address] [place] [address] T4, Totalon 02-23-2024 T4 [Mass/Vol] 7.52 ug/dL Normal 6.09-12.23 [facility] Comment on above: Performed By: #### 1 [id number], [id number], [id number] ####[facility] (DEFAULT)[address] [place] [address] TSHon 02-23-2024 TSH Qn 2.95 m[IU]/L Normal 0.45-5.33 [facility] Comment on above: Performed By: #### 1 [id number], [id number], [id number] ####[facility] (DEFAULT)[address] [place] [address] Consent Formson 02-04-2024 Consent Forms [id number]#1.0 [facility]-19-2024 Follow-Up [id number] Arnel Mena 1960 [facility] Provider Department Center 01/19/2024 JEFFERY TRACEY [facility] [place] Family History Problem Relation Age of Onset Stroke Father Heart attack Father's Brother Family Status - Relation Status Age at Father Father's Brother Level of Service:92902 [place] OFFICE/OUTPATIENT ESTABLISHED MOD MDM 30 MIN Reason for Visit and Comments: Follow-up [545366] - Urgency is better, but not able to put much pressure behind stream, recovering with hernia surgery and hemorhoids, Normal [facility] Consent Formson 01-14-2024 Consent Forms [id number]#1.00OT [facility] Labon 12-15-2023 Lab [id number] Arnel Mena 1960 [facility] Provider Department Center 12/15/2023 2[facility] LAB RESOURCE [facility] [place] Medical C Family History Problem Relation Age of Onset Stroke Father Heart attack Father's Brother Family Status - Relation Status Age at Father Father's Brother Normal [facility] Office Visiton 12-15-2023 Follow-up visit [id number] Arnel Mena 1960 [facility] Provider Department Center 12/15/2023 JEFFERY TRACEY [facility] [place] Family History Problem Relation Age of Onset Stroke Father Heart attack Father's Brother Family Status - Relation Status Age at Father Father's Brother Level of Service:44537 [place] OFFICE/OUTPATIENT NEW MODERATE MDM 45 MINUTES Reason for Visit and Comments: Urinary Frequency [669042] - Pt c/o frequency, urgency, and weak stream for about a year and a half Normal [facility] PSA, SCREENINGon 12-15-2023 PROSTATE SPECIFIC AG (NG/ML) IN SER/PLAS 2.4 ng/mL Normal 0.4-4 [facility] Comment on above: Performed By: #### L [id number] #### [facility] ([facility]) [address] [place] [address] URINALYSISon 12-15-2023 BILIRUBIN, TOTAL PRESENCE IN URINE Negative Normal Negative [facility] Comment on above: Order Comment: Micro scopics not performed on urines with negative chemical reactions unless requested on original order. Performed By: #### L [id number] #### [facility] ([facility]) [address] [place] [address] Clarity (U) Clear Normal Clear [facility] Comment on above: Order Comment: Micro scopics not performed on urines with negative chemical reactions unless requested on original order. Performed By: #### L [id number] #### [facility] ([facility]) [address] [place] [address] Color (U) Yellow Normal Yellow [facility] Comment on above: Order Comment: Micro scopics not performed on urines with negative chemical reactions unless requested on original order. Performed By: #### L [id number] #### [facility] ([facility]) [address] [place] [address] Glucose (U) [Mass/Vol] Negative Normal Negative [facility] Comment on above: Order Comment: Micro scopics not performed on urines with negative chemical reactions unless requested on original order. Performed By: #### L [id number] #### [facility] ([facility]) [address] [place] [address] HEMOGLOBIN PRESENCE IN URINE Negative Normal Negative [facility] Comment on above: Order Comment: Micro scopics not performed on urines with negative chemical reactions unless requested on original order. Performed By: #### L [id number] #### [facility] ([facility]) [address] [place] [address] Ketones Ql (U) Negative Normal Negative [facility] Comment on above: Order Comment: Micro scopics not performed on urines with negative chemical reactions unless requested on original order. Performed By: #### L [id number] #### [facility] ([facility]) [address] [place] [address] LEUKOCYTE ESTERASE PRESENCE IN URINE BY TEST STRIP Negative Normal Negative [facility] Comment on above: Order Comment: Micro scopics not performed on urines with negative chemical reactions unless requested on original order. Performed By: #### L [id number] #### [facility] ([facility]) [address] [place] [address] NITRITE PRESENCE IN URINE Negative Normal Negative [facility] Comment on above: Order Comment: Micro scopics not performed on urines with negative chemical reactions unless requested on original order. Performed By: #### L [id number] #### [facility] ([facility]) [address] [place] [address] pH (U) 7.0 [pH] Normal 5.0-8.0 [facility] Comment on above: Order Comment: Micro scopics not performed on urines with negative chemical reactions unless requested on original order. Performed By: #### L [id number] #### [facility] ([facility]) [address] [place] [address] Protein (U) [Mass/Vol] Negative Normal Negative [facility] Comment on above: Order Comment: Micro scopics not performed on urines with negative chemical reactions unless requested on original order. Performed By: #### L [id number] #### [facility] ([facility]) [address] [place] [address] Specific gravity (U) [Rel density] 1.009 Low 1.015-1.020 [facility] Comment on above: Order Comment: Micro scopics not performed on urines with negative chemical reactions unless requested on original order. Performed By: #### L [id number] #### [facility] ([facility]) [address] [place] [address] NM STRESS/REST MULTIon 11-25 NM STRESS/REST MULTI Patient: ALESIA MENA Exam Date: 11/25/2022 : 1960 Gender:M Ordering : RAYA MÉNDEZ Admission #: [id number] Family : Order #: [id number] CLICK HERE TO VIEW EXAM RADIOLOGY REPORT [...] Graham M.D. on 11/25/2022 at 13:11 Normal [facility] US CAROTID ART BILon 02-13-2 023 [...] by: FARHAT PINK Date: 2022-09-16 16:30 Normal [facility] CREATININEon 03-01-2022 Creatinine [Mass/Vol] 1.09 mg/dL Normal 0.70-1.30 [facility] Comment on above: Performed By: #### C PEÑA #### [facility] [address] [place] [address] Dr. Ramona Rojo EGFR-AF VENEZUELAN >60 Normal >=60 [facility] Comment on above: Performed By: #### C PEÑA #### [facility] [address] [place] [address] Dr. Ramona Rojo EGFR-NON AF VENEZUELAN >60 Normal >=60 [facility] Comment on above: Performed By: #### C PEÑA #### [facility] [address] [place] [address] NECK ST W CONon CT NECK ST W CON EXAMINATION: CT [...] by: LYNDON GRAHAM Date: 2022-03-01 17:58 Normal [facility] US THYROIDon 01-22-2022 US THYROID EXAMINATION: US [...] by: FARHAT PINK Date: 2022-01-22 16:42 Normal [facility] Coding Summary.on 07-04-2020 Coding Summary. CODING DATE: [address] [facility] STATUS: Home (Routine DC) PAYOR: Commercial Insurance [...] CphT Date Saved: 07/04/2020 04:[address] [facility] SARS-CoV-2, NAAon 06-17-2020 SARS CORONAVIRUS 2 RNA:PRTHR:PT:RESP IRATORY:ORD:PROBE .AMP.TAR Not Detected Not Detected [facility] Comment on above: Result Comment: This nucleic acid amplification test was developed and its performance characteristics determined by [employer]. Nucleic acid amplification tests include PCR and [...] detected) result in this assay. Performed at: [facility] [address] [place], [place] [id number] [facility] Trell Diaz Performed By: #### S ARS-CoV-2, STEVE #### [facility] [address] [place] [address] Physician Orderon 06-13-2020 Physician Order [id number] D:[address] [facility] Vital Signs Date Time Vital Sign Value Performing Clinician Facility 11-30-2024 08:19-0400 Body height 175.3 cm Anca Petersen [employer] Work Phone: [facility] 11-30-2024 08:19-0400 Body mass index (BMI) [Ratio] 29.39 kg/m2 Anca Petersen [employer] Work Phone: [facility] 11-30-2024 08:19-0400 Body weight 90.27 kg Anca Petersen [employer] Work Phone: [facility] 11-30-2024 08:19-0400 Diastolic blood pressure 88 mm[Hg] Anca Petersen [employer]CASE [employer]MER Work Phone: [facility] 11-30-2024 08:19-0400 Heart rate 65 /min Anca Johannymor [employer] Work Phone: [facility] 11-30-2024 08:19-0400 SaO2% (BldA) [Mass fraction] 96 % Anca Johannymor [employer]CASE [employer]MER Work Phone: [facility] 11-30-2024 08:19-0400 Systolic blood pressure 152 mm[Hg] Anca Johannymor [employer]CASE [employer]MER Work Phone: [facility] 11-29-2024 09:44-0400 Body height 175.3 cm Adair Melo MD Work Phone: [facility] 11-29-2024 09:44-0400 Body mass index (BMI) [Ratio] 29.09 kg/m2 Adair Melo MD Work Phone: [facility] 11-29-2024 09:44-0400 Body weight 89.36 kg Adair Melo MD Work Phone: [facility] 11-29-2024 09:44-0400 Diastolic blood pressure 76 mm[Hg] Adair Melo MD Work Phone: [facility] 11-29-2024 09:44-0400 Heart rate 66 /min Adair Melo MD Work Phone: [facility] 11-29-2024 09:44-0400 Systolic blood pressure 140 mm[Hg] Adair Melo MD Work Phone: [facility] 10-14-2024 16:00-0400 Body height 175.3 cm Anca Johannymor [employer]CASE [employer]MER Work Phone: [facility] 10-14-2024 16:00-0400 Body mass index (BMI) [Ratio] 29.39 kg/m2 Anca Gillmor [employer] Work Phone: [facility] 10-14-2024 16:00-0400 Body weight 90.27 kg Anca Gillmor [employer]CASE [employer]MER Work Phone: [facility] 10-14-2024 16:00-0400 Diastolic blood pressure 80 mm[Hg] Anca Gillmor [employer]OWCASE TR[employer]MER Work Phone: [facility] 10-14-2024 16:00-0400 Heart rate 75 /min Anca Kinneyr [employer]CASE [employer]MER Work Phone: [facility] 10-14-2024 16:00-0400 SaO2% (BldA) [Mass fraction] 92 % Anca Petersen [employer]OWCASE [employer]MER Work Phone: [facility] 10-14-2024 16:00-0400 Systolic blood pressure 142 mm[Hg] Anca Petersen [employer]OWCASE [employer]MER Work Phone: [facility] 08-18-2024 15:12-0500 Body height 175.3 cm Andreina Elva DO Work Phone: [facility] 08-18-2024 15:12-0500 Body mass index (BMI) [Ratio] 29.15 kg/m2 Andreina Elva DO Work Phone: [facility] 08-18-2024 15:12-0500 Body weight 89.54 kg Andreina Elva DO Work Phone: [facility] 08-18-2024 15:12-0500 Diastolic blood pressure 94 mm[Hg] Andreina Elva DO Work Phone: [facility] 08-18-2024 15:12-0500 Heart rate 68 /min Andreina Elva DO Work Phone: [facility] 08-18-2024 15:12-0500 SaO2% (BldA) [Mass fraction] 93 % Andreina Elva DO Work Phone: [facility] 08-18-2024 15:12-0500 Systolic blood pressure 168 mm[Hg] Andreina Elva DO Work Phone: [facility] 06-08-2024 11:01-0500 Body mass index (BMI) [Ratio] 30.7 kg/m2 Adair Melo MD Work Phone: [facility] 06-08-2024 11:01-0500 Body weight 88.91 kg Adair Melo MD Work Phone: [facility] 06-08-2024 11:01-0500 Diastolic blood pressure 81 mm[Hg] Adair Melo MD Work Phone: [facility] 06-08-2024 11:01-0500 Systolic blood pressure 125 mm[Hg] Adair Melo MD Work Phone: [facility] 08-05-2023 13:20-0500 Body height Nataliya Andrews Other [employer] Other 08-05-2023 13:20-0500 Body mass index (BMI) [Ratio] 28.4 kg/m2 Nataliya Andrews Other [employer] Other 08-05-2023 13:20-0500 Body temperature 98.7 [degF] Nataliya Andrews Other [employer] Other 08-05-2023 13:20-0500 Body weight 84.73 kg Nataliya Andrews Other [employer] Other 08-05-2023 13:20-0500 Respiratory rate 18 /min Nataliya Andrews Other [employer] Other 08-05-2023 13:20-0500 SaO2% (BldA) [Mass fraction] 97 % Nataliya Andrews Other [employer] Other 07-20-2021 16:00-0500 Body height Becky Woodward Other [employer] Other 07-20-2021 16:00-0500 Body mass index (BMI) [Ratio] 25.85 kg/m2 Becky Woodward Other [employer] Other 07-20-2021 16:00-0500 Body temperature 97.5 [degF] Becky Woodward Other [employer] Other 07-20-2021 16:00-0500 Body weight 77.11 kg Becky Woodward Other [employer] Other 07-20-2021 16:00-0500 SaO2% (BldA) [Mass fraction] 96 % Becky Woodward Other [employer] Other Encounters Encounter Date Encounter Type Care Provider Facility Start: 12-10-2024 End: 12-10-2024 Bamlico monte Jr. Ganesh Elly Bartlett DO Work Phone: [facility] Start: 12-10-2024 End: 12-10-2024 Bambosharath Red [employer] Ganesh Elly Colepat DO Work Phone: [facility] Start: 12-10-2024 ambulatory GANESH BARTLETT [facility] Start: 12-10-2024 End: 12-10-2024 Office outpatient visit 40 minutes Jr. Ganesh Bartlett DO Work Phone: [facility] Comment on above: Pain of right hip (P rimary Dx); Primary osteoarthritis of right hip Start: 12-10-2024 End: 12-10-2024 ambulatory GANESH VELARDE Not Available Start: 11-30-2024 End: 11-30-2024 Office outpatient visit 25 minutes Anca Petersen NP Work Phone: [facility] Comment on above: Chronic low back krishna n, unspecified back pain laterality, unspecified whether sciatica present (Primary Dx); Pain of right hip; Neck pain; Muscle spasm; Numbness and tingling Start: 11-30-2024 End: 11-30-2024 ambulatory ANCA PETERSEN Not Available Start: 11-29-2024 End: 11-29-2024 Bamboo flowsheet Adair Melo MD Work Phone: [facility] Start: 11-29-2024 End: 11-29-2024 Bamboo flowsheet Adair Melo MD Work Phone: [facility] Start: 11-29-2024 End: 11-29-2024 ambulatory ADAIR MELO Not Available Start: 11-29-2024 End: 11-29-2024 Office outpatient visit 25 minutes Adair Melo MD Work Phone: [facility] Comment on above: Neck mass (Primary D x); Throat pain Start: 11-25-2024 End: 11-25-2024 ambulatory DO ARUN Cm NANT[place]KE Facility:[facility] Start: 11-24-2024 End: 11-24-2024 ambulatory [facility] Start: 11-19-2024 End: 11-19-2024 Bamboo flowsheet JrRadha Sanabria Steppat DO Work Phone: [facility] Start: 11-19-2024 End: 11-19-2024 Bamboo flowsheet JrRadha Sanabria Steppat DO Work Phone: [facility] Start: 11-19-2024 End: 11-19-2024 Office consultation new/estab patient 40 min JrRadha Sanabria Steppat DO Work Phone: [facility] Comment on above: Primary osteoarthrit is of right hip (Primary Dx); Pain of right hip Start: 11-19-2024 End: 11-19-2024 ambulatory GANESH VELARDE Not Available Start: 11-08-2024 End: 11-08-2024 Clinisync Result Encounter Anca Petersen [employer] Work Phone: [facility] Unsolicited Start: 11-08-2024 End: 11-08-2024 Clinisync Result Encounter Anca Petersen [employer]MER Work Phone: [facility] Unsolicited Start: 11-01-2024 End: 11-01-2024 Clinisync Result Encounter Anca Petersen [employer]OWCASE TRIMMER Work Phone: [facility] Unsolicited Start: 11-01-2024 End: 11-01-2024 Clinisync Result Encounter Anca Kinneyamelia [employer]OWCASE TR[employer]MER Work Phone: [facility] Unsolicited Start: 10-14-2024 End: 10-14-2024 Office outpatient visit 25 minutes Anca Kinneyamelia [employer]MER Work Phone: [facility] Comment on above: Chronic low back krishna n, unspecified back pain laterality, unspecified whether sciatica present (Primary Dx); Arthropathy; Numbness and tingling; Muscle spasm Start: 10-14-2024 End: 10-14-2024 ambulatory ANCA PETERSEN Not Available Start: 10-14-2024 End: 10-14-2024 Bamboo flowsheet Anca Kinneyamelia [employer]OWCASE TRIMMER Work Phone: [facility] Start: 10-14-2024 End: 10-14-2024 Bamboo flowsheet Anca Kinneyamelia SHOWCASE TRIMMER Work Phone: [facility] [place] Start: 09-15-2024 End: 09-15-2024 Bamboo flowsheet Andreina Elva DO Work Phone: [facility] [place] Start: 09-15-2024 End: 09-15-2024 Bamboo flowsheet Andreina Elva DO Work Phone: [facility] [place] Start: 09-15-2024 End: 09-15-2024 Patient encounter procedure Andreina Elva DO Work Phone: [facility] Comment on above: Chronic low back krishna n, unspecified back pain laterality, unspecified whether sciatica present; Neck pain; Numbness and tingling Start: 09-15-2024 End: 09-15-2024 ambulatory ANDREINA ELVA Not Available Start: 09-13-2024 End: 09-13-2024 Bamboo flowsheet Andreina Elva DO Work Phone: [facility] [place] Start: 09-13-2024 End: 09-13-2024 Bamboo flowsheet Andreina Elva DO Work Phone: [facility] [place] Start: 09-13-2024 End: 09-13-2024 Patient encounter procedure Andreina Tejada DO Work Phone: [facility] Comment on above: Chronic low back krishna n, unspecified back pain laterality, unspecified whether sciatica present; Neck pain; Numbness and tingling Start: 09-13-2024 End: 09-13-2024 ambulatory ANDREINA TEJADA Not Available Start: 08-18-2024 End: 08-18-2024 Office outpatient new 45 minutes Andreina Tejada DO Work Phone: [facility] Comment on above: Chronic low back krishna n, unspecified back pain laterality, unspecified whether sciatica present (Primary Dx); Neck pain; Numbness and tingling; Muscle spasm Start: 08-18-2024 End: 08-18-2024 ambulatory ANDREINA TEJADA Not Available Start: 08-18-2024 End: 08-18-2024 Bamboo flowsheet Andreina Tejada DO Work Phone: [facility] Start: 08-18-2024 End: 08-18-2024 Bamboo flowsheet Andreina Tejada DO Work Phone: [facility] Start: 07-07-2024 End: 07-07-2024 ambulatory DO ARUN OGDEN Facility:[facility] Start: 06-15-2024 ambulatory DO ARUN Toi [place] Faci lity:[facility] Start: 06-08-2024 End: 06-08-2024 Bamboo flowsheet Adair Melo MD Work Phone: [facility] Start: 06-08-2024 End: 06-08-2024 Bamboo flowsheet Adair Melo MD Work Phone: [facility] Start: 06-08-2024 End: 06-08-2024 Office outpatient visit 25 minutes Adair Melo MD Work Phone: [facility] Comment on above: Vasomotor rhinitis ( Primary Dx); Nasal septal perforation Start: 06-08-2024 End: 06-08-2024 ambulatory ADAIR MELO Not Available Start: 05-26-2024 End: 05-26-2024 ambulatory [facility] Start: 05-12-2024 End: 05-12-2024 ambulatory DO ARUN P HOUSE [facility] Start: 03-23-2024 End: 04-08-2024 ambulatory ARUN P HOUSE Facility:[facility] Start: 03-18-2024 End: 03-18-2024 ambulatory ARUN P HOUSE Facility: [facility] Start: 03-11-2024 ambulatory [facility] Start: 02-23-2024 End: 02-23-2024 ambulatory ARUN P HOUSE Facility:[facility] Start: 02-23-2024 End: 02-23-2024 ambulatory ARUN P HOUSE [facility] Start: 02-19-2024 End: 02-19-2024 ambulatory ARUN P HOUSE Facility: [facility] Start: 02-04-2024 End: 02-04-2024 ambulatory ARUN P HOUSE Facility: [facility] Start: 02-02-2024 End: 02-02-2024 ambulatory Nate Hua Facility: [facility] Start: 01-19-2024 End: 01-19-2024 ambulatory [facility] Start: 01-14-2024 End: 01-14-2024 ambulatory Nateshawn Hua Facility: [facility] Start: 12-22-2023 End: 12-22-2023 ambulatory DO ARUN P HOUSE Facility: [facility] Start: 12-16-2023 End: 12-16-2023 ambulatory DO ARUN P HOUSE Facility: [facility] Start: 12-15-2023 ambulatory [facility] Start: 12-15-2023 End: 12-15-2023 ambulatory [facility] Start: 08-05-2023 End: 08-05-2023 ambulatory Nataliya Andrews Other [employer] Other Start: 08-05-2023 Office outpatient vi sit [...] 07-20-2021 End: 07-20-2021 ambulatory Becky Woodward Other [employer] Other Start: 07-20-2021 Office outpatient vi sit 15 minutes Becky Woodward [facility] Procedures Date Procedure Procedure Detail Performing Clinician Start: 11-19-2024 Radex hip unilateral with pelvis 2-3 views Jr. Ganesh Bartlett DO Work Phone: Start: 11-08-2024 MR LUMBAR SPINE WO CON Anca Petersen NP Work Phone: Start: 11-01-2024 Radex hip unilateral with pelvis 2-3 views Anca Petersen NP Work Phone: Start: 09-15-2024 End: 09-15-2024 Needle emg ea extremty w/paraspinl area complete Andreina Elva DO Work Phone: Start: 09-13-2024 End: 09-13-2024 Needle emg ea extremty w/paraspinl area complete Andreina Elva DO Work Phone: Plan of Treatment Date Care Activity Detail Author Start: 02-21-2025 End: 02-21-2025 Patient encounter procedure 02/21/2025 10:00 AM EDT Office Visit [facility] [address] [place] [address] Girish Fairbanks, SHOWCASE TRIMMER [address] [place], [place] [id number] [facility] Start: 12-10-2024 End: 12-10-2024 Patient encounter procedure [facility] Comment on above: Arrived Start: 12-02-2024 End: 12-02-2024 Patient encounter procedure 12/02/2024 9:40 AM EDT Office Visit [facility] [address] [place] [address] Anca Petersen NP [address] [place] [facility] Start: 11-30-2024 End: 11-30-2024 Patient encounter procedure 11/30/2024 8:20 AM EDT Office Visit [facility] [address] [place] [address] Anca Petersen NP [address] [place], [place] [facility] Start: 11-29-2024 End: 11-29-2024 Patient encounter procedure 11/29/2024 9:40 AM EDT Office Visit [facility] [address] [facility] [place] [phone] Adair Melo MD [address] [facility] [address] [place] [address] [facility] Start: 11-19-2024 End: 11-19-2024 Patient encounter procedure 11/19/2024 8:30 AM EDT Office Visit [facility] [address] [place] [address] Jr. Ganesh Bartlett DO [address] [place] [address] Pain of right hip [facility] Comment on above: Pain of right hip Start: 10-14-2024 End: 10-14-2024 Patient encounter procedure 10/14/2024 4:00 PM EDT Office Visit [facility] [address] [place] [address] Anca Petersen NP [address] [place] Arrived [facility] Comment on above: Arrived Start: 10-14-2024 End: 10-14-2025 MR Lumbar spine WO contrast MR lumbar spine wo contrast Imaging Routine Chronic low back pain, unspecified back pain laterality, unspecified whether sciatica present Arthropathy Numbness and tingling Muscle spasm Expected: 10/14/2024 (Approximate), Expires: 10/14/2025 [facility] Comment on above: Expected: 10/14/2024 [...] 09-15-2024 End: 09-15-2024 Patient encounter procedure [facility] Comment on above: Arrived Start: 09-13-2024 End: 09-13-2024 Patient encounter procedure [facility] Comment on above: Arrived Start: 08-18-2024 End: 08-18-2024 Patient encounter procedure 08/18/2024 3:30 PM EST Office Visit [facility] [address] [place] [address] Andreina Tejada DO [address] [place] [address] Arrived [facility] Comment on above: Arrived Start: 08-18-2024 End: 08-18-2025 EMG 2 Extremities EMG 2 Extremities Neurology Routine Chronic low back pain, unspecified back pain laterality, unspecified whether sciatica present Neck pain Numbness and tingling Expected: 08/18/2024 (Approximate), Expires: 08/18/2025 [facility] Comment on above: Expected: 08/18/2024 (Approximate), [...] EST Office Visit [facility] [address] [facility] [address] [place] [id number] Adair Melo MD [address] [facility] [address] [place], [place] [phone] Arrived [facility] Comment on above: Arrived Payers Date Payer Category Payer Medicaid [facility] [id number] 2023 Medicaid [id number] 1960 Unknown [id number] 2.16.840.1.852345.3.579.2.593 1962 Unknown [id number] 2.16.840.1.593231.3.579.2.593 1962 Unknown [id number] 2.16.840.1.558294.3.579.2.593 1962 Unknown [id number] 2.16.840.1.881086.3.579.2.593 1962 Unknown [id number] 2.16.840.1.287622.3.579.2.593 1962 Unknown [id number] 2.16.840.1.816341.3.579.2.1286 1962 Unknown [id number] 2.16.840.1.647535.3.579.2.125 1962 Unknown [id number] 2.16.840.1.794955.3.579.2.125 1962 Unknown [id number] 2.16.840.1.242726.3.579.2.125 1962 Unknown [id number] 2.16.840.1.126898.3.579.2.1259 1962 Unknown [id number] 2.16.840.1.630056.3.579.2.1259 1962 Unknown [id number] 2.16.840.1.572684.3.579.2.1259 1962 Unknown [id number] 2.16.840.1.361647.3.579.2.125 1962 Unknown [id number] 2.16.840.1.075997.3.579.2.1259 1962 Unknown [id number] 2.16.840.1.698194.3.579.2.1259 1962 Unknown [id number] 2.16.840.1.660666.3.579.2.1259 1962 Unknown [id number] 2.16.840.1.268523.3.579.2. 1962 Unknown [id number] 2.16.840.1.844391.3.579.2. 1962 Unknown [id number] 2.16.840.1.322210.3.579.2. 1962 Unknown [id number] 2.16.840.1.720126.3.579.2. 1962 Unknown [id number] 2.16.840.1.315199.3.579.2. 1962 Unknown [id number] 2.16.840.1.495855.3.579.2. 1962 Unknown [id number] 2.16.840.1.210734.3.579.2 1962 Unknown [id number] 2.16.840.1.085069.3.579.2. 1962 Unknown [id number] 2.16.840.1.446343.3.579.2. 1962 Unknown [id number] 2.16.840.1.577356.3.579.2. 1962 Unknown [id number] 2.16.840.1.130110.3.579.2. 1962 Unknown [id number] 2.16.840.1.901177.3.579.2. 1962 Unknown [id number] 2.16.840.1.434969.3.579.2. 1962 Unknown [id number] 2.16.840.1.924156.3.579.2. 1962 Unknown [id number] 2.16.840.1.767401.3.579.2.718 1962 Unknown [id number] 2.16.840.1.544567.3.579.2.718 1959 Self-pay [id number] Self-pay [id number] 2.16.840.1.857238.19 Unknown [id number] 2.16. 840.1.509133.19 Social History Date Type Detail Facility Unknown if ever smoked [employer] Other Start: 08-28-2023 End: 12-10-2024 Sex Assigned At [id number] Other Start: 08-28-2023 Tobacco smoking stat [facility] Smokes tobacco daily [facility] History of tobacco use Cigarette Smoker [facility] Start: 08-28-2023 End: 06-08-2024 Tobacco use and exposure Smokeless tobacco non-user [facility] Start: 08-28-2023 End: 12-10-2024 Alcoholic beverage intake Ex-drinker (finding) [facility] Start: 08-28-2023 End: 12-10-2024 History of Social function [facility] Start: 1960 Sex assigned at Not on file [facility] Start: 06-08-2024 Tobacco smoking stat [facility] Ex-smoker [facility] History of tobacco use Current smoker [facility] Clinical Notes 07-20-2021 to 12-10-2024 . Ganesh Bartlett, - 12/10/2024 8:00 AM Adithya Melo MD - 11/29/2024 9:40 AM EDTJr. Ganesh Bartlett, - 11/19/2024 8:30 AM Renny Petersen NP - 10/14/2024 4:00 PM EDT Note Date & Type Note Facility 12-10-2024 History of Present illness Narrative Images from the original note were not included. HISTORY OF PRESENT ILLNESS: EST PT Alesia Mena is an 64 y.o. @ male. (EST PT) - RECHECK (R) HIP PAIN - HERE TO DISCUSS POSSIBLE (R) YARI - HE WOULD LIKE TO HAVE THIS DONE IN MARCH 2025. *AT LAST APPT, PATIENT WAS HAVING DIFFICULTY WITH URINARY FLOW - WENT TO UROLOGIST, DR. CARVER AT [facility] ON 11/24/24 - CYSTOSCOPY WAS RECOMMENDED- THIS IS SCHEDULED FOR 12/22/24. XR (R) HIP 11/19/24 MAG XR (R) HIP 11/01/24 [facility] (REPORT IN EPIC) MRI L-SPINE 11/08/24 [facility] (REPORT IN [facility]) EMG BLE 09/15/24 [facility] 11/11/24, 11/25/24 PER PCP FOR SINUS INFECTION - NO RELIEF IN HIP/BACK PAIN P.T [facility] (09/01/24-10/28/24) (R) HIP PAIN / LOW BACK PAIN - NEUROLOGY TX W/ P.T, XR (R) HIP, MRI L-SPINE, EMG BLE, AND ZANAFLEX - LOW BACK PAIN FOR MORE THAN 20 YEARS - PAIN IS MOSTLY IN (R) HIP NOW, PAIN IS IN JOINT - HE IS DOING HEP- IF HE DOESN'T DO EXERCISES THE HIP WILL GET STIFF/TIGHT - PAIN CAN BE DULL OR SHOOTING - PAIN IS CONSTANT, WORSE WITH SITTING/DRIVING. TAKING ZANAFLEX AND MOTRIN/TYL FOR PAIN - HE HAS TRIED HEAT/ICE AND TOPICAL CREAMS. DENIES N/T, DENIES SWELLING. DENIES CRACKING, POPPING, GRINDING. +DOES CAUSE HIM TO WALK WITH A LIMP AT TIMES. PAIN CAN WAKE HIM AT NIGHT AT TIMES. ALLERGIES: Allergies Allergen Reactions Codeine Lactose Intolerance (Gi) Diarrhea and Nausea Only Oxycodone-Acetaminophen HOME MEDICATIONS: Current Outpatient Medications Medication Instructions finasteride (PROSCAR) 5 mg, Daily methylPREDNISolone (Medrol Dospak) 4 MG tablets tamsulosin (FLOMAX) 0.4 mg, Daily tiZANidine (Zanaflex) 4 MG tablet TAKE 1/2 (ONE-HALF) OF A TABLET TO ONE TABLET BY MOUTH TWICE DAILY PHYSICAL EXAM: Hip Musculoskeletal Exam Gait Antalgic: right Inspection Leg length disparity: no discrepancy Right Erythema: none Ecchymosis: none Edema: none Deformity: none Palpation Right Increased warmth: none Tenderness: present Greater trochanteric region pain: moderate Pubic rami pain: mild Lower lumbar region pain: mild Range of Motion Right Right hip range of motion is within functional limits. Active ROM: pain. Passive ROM: pain. Active extension: 20. Passive extension: 20. Active flexion: 90. Passive flexion: 90. Active internal rotation: 10. Passive internal rotation: 10. Active external rotation: 20. Passive external rotation: 25. Active adduction: 10. Passive adduction: 10. Active abduction: 20. Passive abduction: 20. Range of motion additional comments: Terminal motion on IR and ER limited by pain. Strength Right Right hip strength is normal. Extension: 5/5. Flexion: 4+/5. Flexion is affected by pain. Internal rotation: 5/5. External rotation: 5/5. Adduction: 5/5. Abduction: 4+/5. Abduction is affected by pain. Neurovascular Right Right hip neurovascular exam is normal. Pulses - PT: normal Posterior tibial: 2+ Special Tests Right Log roll test: positive General Constitutional: appears stated age Labored breathing: no Psychiatric: normal mood and affect Neurological: alert and oriented x3 Skin: intact Lymphadenopathy: none Vitals: There is no height or weight on file to calculate BMI. Tobacco Use: Medium Risk (11/30/2024) Patient History Smoking Tobacco Use: Former Smokeless Tobacco Use: Never Passive Exposure: Not on file Alcohol Use: Not on file IMAGING: Procedures No orders of the defined types were placed in this encounter. ASSESSMENT: No diagnosis found. PLAN: We have discussed his case with him at length including both surgical and nonsurgical treatment options and the risks and benefits associated with both. The patient is requesting a right total hip arthroplasty. We'll see him back on the day of surgery. Patient fully understands the risks and benefits of said treatment. We have discussed both surgical and nonsurgical treatment options with the patient and the risks and benefits associated with both. The patient is requesting surgical intervention because the patient's symptoms were affecting the patient's activities of daily living and ability to sleep. The patient's symptoms were unresponsive to outpatient treatment options. After lengthy discussions involving but not limited to both surgical and nonsurgical treatment options the patient has requested surgical intervention and we will see them back on the day of surgery. The patient understands the risks of said treatment. We have discussed both surgical and nonsurgical treatment options with the patient at length and the risks and benefits associated with both. The patient is requesting surgical intervention because they have not responded to outpatient treatment options including but not limited to rest ice, and home exercise program. Pain and decreased range of motion are affecting the patient''s ability to sleep and activities of daily living and we have recommended surgical intervention. We recommended surgery in the form of a total hip arthroplasty. Factors including the patient's age and longevity of prosthesis, usual postoperative course, and possible need for revision in the future, and leg length inequality postoperatively were discussed at length. We have discussed with the patient that this is a major orthopedic procedure. We discussed that the patient may require more than the average 30 MED limited and may require greater than 7 days narcotic treatment postoperatively. Therefore, patient's narcotic usage will be tailored on an individual basis. If this patient at the time of surgery has any of the following: Morbidities including but not limited to history of falling, cognitive impairment, BMI greater than 30, end-stage renal disease, respiratory failure, heart failure, kidney failure, liver failure, diabetes, cardiac event in the last year, sleep apnea, disorder, excessive tobacco use, if at the time of surgery the patient is greater than 80 years old, or the patient requires discharge to a halfway facility, the patient may require to have additional inpatient hospital stay days following the surgery. Physical therapy is contraindicated in this patient''s case because of the [id number] articulation of the patient's hip. Questions answered in laymen terms at the bedside. The diagnosis, home exercise plan and any ongoing restrictions/ recommendations reviewed. If unable to be reached in office, I recommend evaluation at nearest Emergency Room if any symptoms worsened or new symptoms develop for requiring urgent evaluation. documented in this encounter [facility] 11-29-2024 History of Present illness Narrative Images from the original note were not included. Subjective Patient ID: Alesia Mena is a 64 y.o. male who presents for Hoarseness Pt reports he has continued to have intermittent RT neck/throat pain. Quit smoking 2 years ago. Smoked 2ppd till then. Review of Systems All other systems reviewed and are negative. 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 Chronic pharyngitis 08/28/2023 FLOREZ (dyspnea on exertion) 11/22/2022 Other chronic pain 08/28/2023 Paroxysmal supraventricular tachycardia (CMS/HCC) 11/22/2022 Right inguinal hernia 11/16/2024 Benign positional vertigo 11/16/2024 Chronic hoarseness 11/29/2024 Resolved Ambulatory Problems Diagnosis Date Noted No Resolved Ambulatory Problems Past Medical History: Diagnosis Date COVID-19 08/2021 Enlarged prostate Inguinal hernia, right Peripheral edema Past Surgical History: Procedure Laterality Date COLONOSCOPY ELBOW SURGERY Right HERNIA REPAIR 11/04/2023 VASECTOMY Allergies Allergen Reactions Codeine Lactose Intolerance (Gi) Diarrhea and Nausea Only Oxycodone-Acetaminophen Current Outpatient Medications on File Prior to Visit Medication Sig Dispense Refill finasteride (Proscar) 5 MG tablet Take 5 mg by mouth Daily Do not crush, chew, or split. methylPREDNISolone (Medrol Dospak) 4 MG tablets tamsulosin (Flomax) 0.4 MG 24 hr capsule Take 0.4 mg by mouth Daily tiZANidine (Zanaflex) 4 MG tablet TAKE 1/2 (ONE-HALF) OF A TABLET TO ONE TABLET BY MOUTH TWICE DAILY 30 tablet 2 [DISCONTINUED] meclizine (Antivert) 25 MG tablet Take 25 mg by mouth 3 (three) times a day as needed for dizziness [DISCONTINUED] tamsulosin (Flomax) 0.4 MG 24 hr capsule Take 0.4 mg by mouth Daily No current facility-administered medications on file prior to visit. Objective Last Recorded Vitals Vitals: 11/29/24 0944 BP: 140/76 Pulse: 66 ENT Physical Exam Neck Neck comments: 2cm soft tender mass post to insertion of RT SCM into the sternum Respiratory Inspection: breathing unlabored; normal breathing rate; Auscultation: breath sounds are clear; Cardiovascular Inspection: extremities are warm and well perfused; no peripheral edema present; Auscultation: regular rate and rhythm; Patient ID: Alesia Mena is a 64 y.o. male. Procedures A diagnostic flexible fiberoptic laryngoscopy was performed. The flexible fiberoptic laryngoscope was placed into the nose and advanced to the level of the tip of the epiglottis. Examination of the larynx including both surfaces of the epiglottis false and true vocal folds, arytenoids and surrounding mucosal surfaces show no evidence of lesion, ulceration or mass. Normal bilateral true vocal fold motion is present. Bilateral piriform sinuses and base of tongue appear without lesion Assessment/Plan Diagnoses and all orders for this visit: Neck mass Throat pain Pharyngeal exam is still unremarkable. I will check a CT neck to evaluate the RT zone 4 mass documented in this encounter [facility] 11-24-2024 Note Chief complaint/HPI/ Plan: The patient is a 64-year-old male who is seen in follow-up for BPH. He had been maintained on tamsulosin 0.8 mg daily. At the last visit finasteride was added. However, he did not notice any improvement in his lower urinary tract symptoms. He denies gross hematuria. His PVR by ultrasound today was 40 mL. He has to sit to void. Will arrange cystoscopy. I have personally reviewed the imaging and lab work relevant to the patient visit. Diagnosis: BPH with Vitals: 11/24/24 1407 BP: (!) 161/92 Pulse: 71 Temp: 36.7 ???C (98 ???F) Exam: Constitutional: Patient is in no acute distress Psychiatric: Normal affect HEENT: No head or neck abnormalities or jaundice Pulmonary: Patient is not laboring to breathe Neurologic: No obvious neurologic abnormalities Extremities: No deformity Cardiovascular: No obvious cyanosis of the extremities Integumentary: No obvious rash Patient Active Problem List Diagnosis Viral warts Paroxysmal supraventricular tachycardia FLOREZ (dyspnea on exertion) History reviewed. No pertinent past medical history. Past Surgical History: Procedure Laterality Date ELBOW SURGERY Right 1996 tendonitis repair EXTREMITY CYST EXCISION Right 1979 knee HERNIA REPAIR 11/04/2023 right inguinal Current Outpatient Medications on File Prior to Visit Medication Sig Dispense Refill Allergy Relief, loratadine, 10 mg tablet Take 10 mg by mouth in the morning. finasteride (Proscar) 5 mg tablet Take 1 tablet (5 mg) by mouth in the morning. Do not crush, chew, or split. 30 tablet 11 tamsulosin (Flomax) 0.4 mg 24 hr capsule Take 2 capsules (0.8 mg) by mouth in the morning. 60 capsule 11 meclizine (Antivert) 25 mg tablet Take 25 mg by mouth if needed in the morning, at noon, and at bedtime. No current facility-administered medications on file prior to visit. Allergies Allergen Reactions Lactase Diarrhea and Nausea Only Percocet [Oxycodone-Acetaminophen] Codeine Itching Propoxyphene N-Acetaminophen Itching Social History Socioeconomic History Marital status: Spouse name: Not on file Number of children: Not on file Years of education: Not on file Highest education level: Not on file Occupational History Not on file Tobacco Use Smoking status: Former Current packs/day: 0.00 Types: Cigarettes Quit date: 01/20/2023 Years since quittin.8 Passive exposure: Past Smokeless tobacco: Never Substance and Sexual Activity [...] on file Housing Stability: Not on file Family History Problem Relation Name Age of Onset Stroke Father Heart attack Father's Brother Jeffery Carver MD [facility] 11-19-2024 History of Present illness Narrative Images from the original note were not included. NAME: Alesia Mena : 1960 HISTORY OF PRESENT ILLNESS: NEW PT Alesia Mena is an 64 y.o. @ male. (NEW PT) (DR. TEJADA/NEUROLOGY REFERRAL) - (R) HIP PAIN / LOW BACK PAIN - NEUROLOGY TX W/ P.T, XR (R) HIP, MRI L-SPINE, EMG BLE, AND ZANAFLEX - LOW BACK PAIN FOR MORE THAN 20 YEARS - PAIN IS MOSTLY IN (R) HIP NOW, PAIN IS IN JOINT - HE IS DOING HEP- IF HE DOESN'T DO EXERCISES THE HIP WILL GET STIFF/TIGHT - PAIN CAN BE DULL OR SHOOTING - PAIN IS CONSTANT, WORSE WITH SITTING/DRIVING. TAKING ZANAFLEX AND MOTRIN/TYL FOR PAIN - HE HAS TRIED HEAT/ICE AND TOPICAL CREAMS. DENIES N/T, DENIES SWELLING. DENIES CRACKING, POPPING, GRINDING. +DOES CAUSE HIM TO WALK WITH A LIMP AT TIMES. PAIN CAN WAKE HIM AT NIGHT AT TIMES. XR (R) HIP TODAY 11/19/24 [facility] XR (R) HIP 11/01/24 [facility] (REPORT IN EPIC) MRI L-SPINE 11/08/24 [facility] (RE[facility]) EMG BLE 09/15/24 [facility] 11/11/24 PER PCP FOR SINUS INFECTION -DID NOT NOTICE RELIEF WITH PAIN P.T [facility] (09/01/24-10/28/24) PAST MEDICAL HISTORY: Past Medical History: Diagnosis Date COVID-19 08/2021 PAST SURGICAL HISTORY: Past Surgical History: Procedure Laterality Date ELBOW SURGERY Right HERNIA REPAIR 11/04/2023 VASECTOMY SOCIAL HISTORY: Social History Occupational History Not on file Tobacco Use Smoking status: Former Current packs/day: 1.50 Types: Cigarettes Smokeless tobacco: Never Substance and Sexual Activity Alcohol use: Not Currently Drug use: Never Sexual activity: Defer ALLERGIES: Allergies Allergen Reactions Lactose Intolerance (Gi) Diarrhea and Nausea Only Oxycodone-Acetaminophen HOME MEDICATIONS: Current Outpatient Medications Medication Instructions finasteride (PROSCAR) 5 mg, Daily meclizine (ANTIVERT) 25 mg, 3 times daily PRN tamsulosin (FLOMAX) 0.4 mg, Daily tiZANidine (Zanaflex) 4 MG tablet TAKE 1/2 (ONE-HALF) OF A TABLET TO ONE TABLET BY MOUTH TWICE DAILY REVIEW OF SYSTEMS: Review of Systems Vitals: There is no height or weight on file to calculate BMI. Tobacco Use: Medium Risk (10/14/2024) Patient History Smoking Tobacco Use: Former Smokeless Tobacco Use: Never Passive Exposure: Not on file Alcohol Use: Not on file PHYSICAL EXAM: Hip Musculoskeletal Exam Gait Antalgic: right Inspection Leg length disparity: no discrepancy Right Erythema: none Ecchymosis: none Edema: none Deformity: none Palpation Right Increased warmth: none Tenderness: present Greater trochanteric region pain: mild Pubic rami pain: mild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
--- NOTE | 2024-12-16 08:18 | CT_ITS ---
[address] [address] Patient Name: ALESIA CASTREJON MRN: [id number] date: 1960 Sex: M Assigned Patient Location: LAB Current Patient Location: LAB Accession/Order Number: [id number] Exam Date: 12/16/2024 10:15 Report Date: 12/16/2024 10:20 At the request of: ADAIR MELO MD Procedure: CT soft tissue neck w con CT soft tissue neck w con 12/16/2024 9:07 AM SIGNS AND SYMPTOMS: Swelling and pain on right side of neck for 6 months with swelling and pain on left side of neck for 2 weeks. CONTRAST: 100 mL of intravenous Omnipaque TECHNIQUE: Multidetector CT axial slices of the soft tissues of the neck were obtained with IV contrast. Sagittal and coronal reformats were reconstructed. CT was performed with one or more of the following dose reduction techniques: Automated exposure control, adjustment of the mA and/or kV according to patient size, or use of iterative reconstruction technique. COMPARISON: 03/11/2024 FINDINGS: The soft tissues of the infratemporal fossa fossa structures show no acute abnormality. Mucosal surfaces of the nasopharynx, oropharynx, hypopharynx, glottic, and subglottic airways are grossly unremarkable. The parotid glands, submandibular, and the thyroid gland are within normal limits. The carotid and jugular circulations are within normal limits. Emphysematous changes are noted in the lung apices. No acute bony abnormalities are appreciated. Degenerative changes are noted in the cervical spine. The skull base, craniocervical junction, atlantoaxial joints are within normal limits. The paranasal sinuses are within normal limits. CT/CT soft tissue neck w con IMPRESSION: No evidence of mass, soft tissue swelling, or abnormality enhancement. Emphysematous changes are noted in the lung apices. Impression dictated by: Damion Grayson M.D. 12/16/2024 10:20 AM Dictation Location: [place] [address] Electronically authenticated by: [id number] Y Date: 12/16/2024 10:20
[2024-12-16 08:29] LABS: Estimated GFR (African America >60 (>=60 mL/min/1.73m^2); Estimated GFR (Non-African Ame >60 (>=60 mL/min/1.73m^2)
== END 2024-12-16 08:03 | disposition home or self-care (01) ==
LOC: LAB 08:04
PROVIDERS: Pathology Anatomic Pathology & Clinical Pathology; PCP Family Medicine; Visit Provider Otolaryngology
DX: R22.1 Localized swelling, mass and lump, neck (principal); R07.0 Pain in throat
CPT/HCPCS: 36415; 70491; 82565; Q9967

== ENCOUNTER 2024-12-29 12:22 | Emergency (ER) | payer MEDICAID, SELFPAY ==
--- OUTSIDE RECORDS SUMMARY | 2023-10-06 06:30 | XMS_ITS ---
Author Organization [facility] Address [address] [place] [address] Care Team Providers Care Cardiac Cath Lab Radiology Technologist Name Role Phone José Petty Unavailable [phone] Allergies Allergen (clinical drug ingredient) Drug/Non Drug Allergy documented on EMR Reaction Allergy Type Onset Date Status Percocet Unknown Drug Allergy Active REASON FOR VISIT [facility] ER f/u LT knee injury Medications Medication SIG (Take, Route, Frequency, Duration) Notes Start Date End Date Status Dramamine Active Social History Tobacco Use: Social History Observation Description Date Details (start date - stop date) Never Smoker NA - NA Smoking History Question Answer Notes Smoking Status NonSmoker Alcohol Screening Question Answer Notes Did you have a drink contain ging alcohol in the last year? Yes How often did you have a dri nk containing alcohol in the last year? Monthly or less (1 point) Points 1 Interpretation Negative Vital Signs Height 5'8 in 10/06/2023 Weight 181 lbs 10/06/2023 BMI 27.52 10/06/2023 Encounters Encounter Location Date Provider Diagnosis [facility] Office [address] [place] [address] [place] [address] 10/06/2023 José Petty Injury of left knee, initial encounter S89.92XA Assessments Encounter Date Diagnosis (ICD Code) Assessment Notes Treatment Notes Treatment Clinical Notes Section Notes 10/06/2023 Injury of left knee, initial encounter (ICD-10 - S89.92XA) 10/06/2023 Other I have discussed with the patient that this more likely represents a bruise of the bone versus an occult fracture. I recommended symptomatic treatment with relative rest. He will follow-up in 1 month to reassess his progress. If pain persist we will repeat x-rays. If his pain is increasing and starts to have pain with walking he will follow-up sooner. Import medication Plan Of Treatment Treatment Notes Assessment Notes Other I have discussed with the patient that this more likely represents a bruise of the bone versus an occult fracture. I recommended symptomatic treatment with relative rest. He will follow-up in 1 month to reassess his progress. If pain persist we will repeat x-rays. If his pain is increasing and starts to have pain with walking he will follow-up sooner. Import medication Next Appt Details Follow Up: 4 Weeks, Reason: Progress Notes * ALESIA CASTREJON LenchoDOB:[birth year] (63 yo M)Acc No.[id number]:10/06/2023 Patient: ALESIA LEY Provider: Siomara Petty MD :1960 A ge:63 Y S ex:Male Date:10/06/2023 Address:[address] [place], [place] [id number] Subjective: * Chief Complaints: * T [facility] ER f/u LT knee injury * HPI: G eneral Follow Up Information: Patient presents today for a left leg injury sustained this past week. He was working on his home when he fell struck his proximal tibia against a wooden beam with the acute onset of pain. He had x-rays obtained and was referred here for evaluation. G eneral Info per Patient Report: Have you seen another doctor in this practice? N o. S carolina affected is L eft. J oint or body part affected is k nee. D ate of Injury: . S tart of Pain/Cause of Injury . P ain occurred i njury. W ork related: N o. M otor vehicle accident: N o. M VA N o. T hird constitution party responsibility: N o. Q uality of pain is m oderate, severe. T ype of pain: s harp, burning. H ave you been seen by a Dentist in the last year? N o. D o you have any dental problems? N o. * ROS: M usculoskeletal: Joint pain Y es. J oint stiffness Y es. ? C ardiovascular: Leg Swelling Y es. N eurological: Numbness/ Tingling Yes. * Medical History: * Surgical History: N o Surgical History documented. * Family History: M other: diagnosed with Lung disease. S iblings: diagnosed with Lung disease. F ather: diagnosed with Arthritis, Stroke. * Social History: S moking History S moking Status N onSmoker. A lcohol Screening D id you have a drink containging alcohol in the last year? Y es, H ow often did you have a drink containing alcohol in the last year? M onthly or less (1 point), P oints 1 , I nterpretation?Negative. * Medications: T akingDramamine Medication List reviewed and reconciled with the patientTaking Dramamine Medication List reviewed and reconciled with the patient * Allergies: P ercocetno[Allergies Verified] Objective: * Vitals: H t: 5'8 , Wt: 181 lbs, BMI:27.52. * Examination: G eneral examination: O n exam today he is in no obvious distress. He has ecchymosis and swelling around the proximal tibia. He is tender to palpation along the proximal tibia. His gait is not antalgic. X -ray Imaging Studies: X -rays of his leg were reviewed and show no obvious fractures. . M RI Imaging Studies: Assessment: * Assessment: 1. I njury of left knee, initial encounter - S89.92XA (Primary) Plan: * Treatment: * Procedure Codes: * Preventive Medicine: MIPS Measures: # 128 BMI screening follow up plan A sybil Normal BMI Follow-up?Dietary management education, guidance, and counseling. * Follow Up: 4 Weeks Forms: * Images: * Sign off status: Completed true * Provider: Siomara Petty MD Date: 0 10/06/2023 Generated for Adalid hathaway/Maria G/Mitaliitting on: 0 12/29/2024 12:27 PM EDT History and Physical Notes * HPI (History of Present Illness) Category Sub-Category Detail Notes Category Not es General Follow Up Information Patient presents tod ay for a left leg injury sustained this past week. He was working on his home when he fell struck his proximal tibia against a wooden beam with the acute onset of pain. He had x-rays obtained and was referred here for evaluation. General Info per Patient Report Side affected is Left Joint or body part affected is knee Pain occurred injury Work related: No Motor vehicle accident: No Quality of pain is moderate, severe Type of pain: sharp, burning Have you seen another doctor in this pra ctice? No Date of Injury: 10/03/2023 Start of Pain/Cause of Injury 10/03/2023 Third constitution party responsibility: No Have you been seen by a Dentist in the l ast year? No Do you have any dental problems? No MVA No Examination Category Sub-Category Detail Notes Category Not es General examination On exam today he is in no obvious distress. He has ecchymosis and swelling around the proximal tibia. He is tender to palpation along the proximal tibia. His gait is not antalgic. X-ray Imaging Studies X-rays of his leg were reviewed and show no obvious fractures. MRI Imaging Studies
--- OUTSIDE RECORDS SUMMARY | 2023-11-03 06:30 | XMS_ITS ---
Author Organization [facility] Address [address] [place] [address] Care Team Providers Care Nurse Licensed Practical Name Role Phone José Petty Unavailable [phone] Results Component Value Reference Range Notes SCC- KNEE 4 VIEW [id number] Reviewed date:12/11/2023 09:17:11 AM Interpretation: Performing Lab: Notes/Report: REASON FOR VISIT Left knee injury f/u Medications Medication SIG (Take, Route, Frequency, Duration) Notes Start Date End Date Status Dramamine Active Encounters Encounter Location Date Provider Diagnosis [facility] Office [address] [place] [address] [place] [address] 11/03/2023 José Jovanny Injury of left knee, initial encounter S89.92XA Assessments Encounter Date Diagnosis (ICD Code) Assessment Notes Treatment Notes Treatment Clinical Notes Section Notes 11/03/2023 Injury of left knee, initial encounter (ICD-10 - S89.92XA) Plan Of Treatment No Information Progress Notes * ALESIA CASTREJONDOB:[birth year] (64 yo M)Acc No.[id number]:11/03/2023 Patient: Siomara GOLDROHITALESIA ROY Provider: Siomara Petty MD :1960 A ge:63 Y S ex:Male Date:11/03/2023 Address:[address] [place] [id number] Subjective: * Chief Complaints: * 1 . Left knee injury f/u. * Medical History: * Medications: T aking Dramamine Objective: * Vitals: Assessment: * Assessment: 1. I njury of left knee, initial encounter - S89.92XA Plan: * Treatment: Forms: * Images: * Electronic signature of Holger Petty MD on 12/29/2024 at 12:27 PM EDT Sign off status: Pending * Provider: Siomara Petty MD Date: 0 11/03/2023 Generated for Adalid hathaway/Maria G/Roseann on: 0 12/29/2024 12:27 PM EDT
--- OUTSIDE RECORDS SUMMARY | 2024-11-16 05:24 | XMS_ITS | Continuity of Care Document ---
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 It does not include entries that were removed or entered in error. 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 Location Location Details Encounter Type Encounter Number Reason For Visit Attending Provider ADM Date DC Date Status Disposition Source [facility] HC PRO PHONE CALL 5-10 MIN [id number] Diagnos is: ICD-10- CM Z71.89 Other specifi ed auto travel counselor Amy Garcia 08/29 [facility] MTMS BY PHARM ADDL 15 MIN [id number] Diagnos is: ICD-10- CM F43.81 Prolong ed grief disorde r WILLDane CRUZ [place] J 08/29 [facility] PSYCH DIAGNOSTIC EVALUATION [id number] Diagnos is: ICD-10- CM F43.21 Adjustm ent disorde r with depress ed mood PLATTE,NIKOLE Ordoñez 09/19 [facility] Outpatient Encounter [id number] 10/22 [facility] Out[facility] Encounter [id number] 10/28 [facility]
--- OUTSIDE RECORDS SUMMARY | 2024-12-29 12:27 | XMS_ITS | Patient Health Record ---
Author Organization [facility] Address [address] [place] [address] Support Name Relationship Address Phone LUCÍAALESIA Guarantor Unknown [phone] Allergies Allergen (clinical drug ingredient) Drug/Non Drug Allergy documented on EMR Reaction Allergy Type Onset Date Status Percocet Unknown Drug Allergy Active Reason For Referral No Information Medications Medication SIG (Take, Route, Frequency, Duration) [...] less (1 point) Points 1 Interpretation Negative Plan Of Treatment No Information Insurance Providers Payer Name Payer Address Payer Phone Subscriber Number Group Number Insured Name Patient Relationship to Insured Coverage Start Date Coverage End Date Medicaid [facility] [address] [address] [place] [address] [id number] ALESIA CASTREJON Self - patient is the insured Medical (General) History Medical History History ICD Code Drug allergies: yes
--- OUTSIDE RECORDS SUMMARY | 2024-12-29 12:27 | XMS_ITS | Encounter Summary ---
Author Organization [facility] Address [address] [place] [address] Care Team Providers Care Patrol Mother Name Role Phone Unallocated, Noms Provider Primary Care Provi quintin Arun Mina MD Primary Care Provider [phone] Elva Vivienne DO Unavailable [phone] Anca Petersen RANCH SUPERVISOR Unavailable [phone] Encounter Details Date Type Department Care Team (Late st Contact Info) Description 08/28/2023 Abstract [facility] [address] [facility] [address] [place] [phone] Paola Aden RN 112 [facility] [address] [place], [place] [address] Social History Tobacco Use Types Packs/Day Years Used Date Smoking Tobacco: Every Day Cigarettes Smokeless Tobacco: Never Tobacco Cessation:Ready to Q uit: Not Asked; Counseling Given: Not Answered Alcohol Use Standard Drinks/Week Comments Not Currently 0 (1 standard drink = 0.6 oz pur e alcohol) Sex and Gender Information Value Date Recorded Sex Assigned at Not on file Legal Sex Male 7:06 PM EDT Gender Identity Not on file Sexual Orientation Not on file documented as of this encounter Plan of Treatment Upcoming Encounters Date Type Department Care Team (Late st Contact Info) Description 01/03/2025 11:10 AM EDT Office Visit [facility] [address] [facility] [address] [place] [phone] Sharmaine Calderón MD 112 [facility] [address] [place], [place] [address] 02/21/2025 10:00 AM EDT Office Visit [facility] [address] [place] [address] Girish Fairbanks, SHERRI [address] [place] [address] documented as of this encounter Visit Diagnoses Not on filedocumented in this encounter Care Teams Patrol Mother Relationship Specialty Start Date End Date Unallocated, Noms MD Pancho [address] [place] [address] PCP - General Family Medicine 08/13/23 05/10/24 Arun Mina MD [address] [place] [address] PCP - General Family Medicine 05/11/24 Vivienne Stevenson DO [address] [place] [address] Referring Physician Neurology 09/15/24 Anca Petersen NP [address] [place], [place] Nurse Practitioner Neurology 11/30/24 11/30/24 documented as of this encounter
--- OUTSIDE RECORDS SUMMARY | 2024-12-29 12:27 | XMS_ITS | Encounter Summary ---
Author Organization [facility] Address [address] [place] [address] Care Team Providers Care Theatre Instructor Name Role Phone Leopoldo Arun Cm MD Primary Care Provider [phone] Vivienne Stevenson DO Unavailable [phone] Encounter Details Date Type Department Care Team (Late Contact Info) Description 12/15/2024 Orders Only [facility] [address] [place] [phone] Sarina Ji [address] [place], [place] [id number] Neck mass Social History Tobacco Use Types Packs/Day Years Used Date Smoking Tobacco: Former Cigarettes Smokeless Tobacco: Never Alcohol Use Standard Drinks/Week Comments Not Currently [...] Visit [facility] [address] [place] [phone] Sharmaine Calderón MD [address] [place] [address] 02/21/2025 10:00 AM EDT Office Visit [facility] [address] [place] [phone] Girish Fairbanks, CAR LUBRICATOR [address] [place], [place] [phone] Scheduled Orders Name Type Priority Associated Diagnoses Orde r Schedule Creatinine Lab Routine Neck mass Expected: 12/15/2024 (Approximate), Expires: 12/15/2025 documented as of this encounter Visit Diagnoses Diagnosis Neck mass Swelling, mass, or lump in head and neck documented in this encounter Care Teams Theatre Instructor Relationship Specialty Start Date End Date Arun Mina MD [address] [place] [address] PCP - General Family Medicine 05/11/24 Vivienne Stevenson DO [address] [place] [address] Referring Physician Neurology 09/15/24 documented as of this encounter
--- OUTSIDE RECORDS SUMMARY | 2024-12-29 12:27 | XMS_ITS | Clinical Summary ---
Author Organization [employer] Address [id number] [address] [place] [address] Care Team Providers Care Irrigation Flume Layer Name Role Phone Unavailable Primary Care Provider Unavailabl e Social History Tobacco Use Types Packs/Day Years Used Date Smoking Tobacco: Never Assessed Childcare Answer Date Recorded Childcare Unknown 01/13/2019 Employment Answer Date Recorded Employment Unknown 01/13/2019 Sex and Gender Information Value Date Recorded Sex Assigned at Not on file Legal Sex Male 11:30 AM EDT Gender Identity Not on file Sexual Orientation Not on file Plan of Treatment Health Maintenance Due Date Last Done Comments Depression Screening 1974 Tobacco Screening 1974 Adult BMI Screening 02/27/1980 DTaP,Tdap and Td Vaccines (1 - Tdap) 1981 Zoster (Shingles) Vaccine (1 of 2) 02/27/2012 Influenza Vaccine 04/04/2025 Medical Devices Not on file Insurance MEDICAID [place]
--- OUTSIDE RECORDS SUMMARY | 2024-12-29 12:27 | XMS_ITS | Encounter Summary ---
Author Organization [facility] Address [address] [place] [address] Care Team Providers Care Mock Up Assembler Name Role Phone Arun Mina MD Primary Care Provider [phone] Vivienne Stevenson DO Unavailable [phone] Encounter Details Date Type Department Care Team (Late st Contact Info) Description 12/17/2024 Telephone [facility] [address] [place] [address] [place] [address] Sharmaine Calderón MD [address] [facility] [address] [place], [place] [id number] Social History Tobacco Use Types Packs/Day Years [...] on file documented as of this encounter Miscellaneous Notes * Telephone Encounter - Pari Calderón - 12/21/2024 9:22 AM EDT Pt is scheduled with Dr Calderón 01/03/2025. * Telephone Encounter - Pari Calderón - 12/21/2024 9:10 AM EDT Tried to call pt/unable to leave a message. * Telephone Encounter - Pari Calderón - 12/17/2024 10:48 AM EDT Tried to call pt to schedule appt with Dr Calderón, unable to leave a message. * Telephone Encounter - Sharmaine Calderón MD - 12/17/2024 10:15 AM EDT Pt needs a post-CT appt documented in this encounter Plan of Treatment Upcoming Encounters Date Type Department Care Team (Late st Contact Info) Description 01/03/2025 11:10 AM EDT Office Visit [facility] [address] [facility] [address] [place] [phone] Sharmaine Calderón MD [address] [address] 02/21/2025 10:00 AM EDT Office Visit [facility] [address] [place] [phone] Girish Fairbanks, SHERRI [address] [place] [address] documented as of this encounter Visit Diagnoses Not on filedocumented in this encounter Care Teams Mock Up Assembler Relationship Specialty Start Date End Date Arun Mina MD [address] [place] [address] PCP - General Family Medicine 05/11/24 Vivienne Stevenson DO [address] [place] [address] Referring Physician Neurology 09/15/24 documented as of this encounter
--- OUTSIDE RECORDS SUMMARY | 2024-12-29 12:27 | XMS_ITS | Encounter Summary ---
Author Organization [facility] Address [address] [facility] [address] Care Team Providers Care Photography Manager Name Role Phone Leopoldo Arun Cm MD Primary Care Provider [phone] Vivienne Stevenson DO Unavailable [phone] Encounter Details Date Type Department Care Team (Late Contact Info) Description 12/16/2024 Orders Only [facility] [address] [facility] [address] [place] [phone] Sharmaine Calderón MD [address] [facility] [address] [place], [place] [phone] Social History Tobacco Use Types Packs/Day Years [...] Encounters Date Type Department Care Team (Late Contact Info) Description 01/03/2025 11:10 AM EDT Office Visit [facility] [address] [facility] [address] [place] [phone] Sharmaine Calderón MD [address] [facility] [address] [place] [address] 02/21/2025 10:00 AM EDT Office Visit [facility] [address] [place] [phone] Girish Fairbanks, HUMAN RESOURCES RECRUITER [address] [place] [address] documented as of this encounter Procedures Procedure Name Priority Date/Time Associated Diagnosis Comments CT SOFT TISSUE NECK WO CO Routine 12/16/2024 10:37 AM EDT documented in this encounter Results * CT SOFT TISSUE NECK WO CO (12/16/2024 10:37 AM EDT) Anatomical Region Laterality Modality Radiographic Lupe ging us Sharmaine Calderón MD IMG XR PROCEDURES Final Resul t documented in this encounter Visit Diagnoses Not on filedocumented in this encounter Care Teams Photography Manager Relationship Specialty Start Date End Date Arun Mina MD [address] [place] [address] PCP - General Family Medicine 05/11/24 Vivienne Stevenson DO [address] [place] [address] Referring Physician Neurology 09/15/24 documented as of this encounter
--- OUTSIDE RECORDS SUMMARY | 2024-12-29 12:27 | XMS_ITS | Clinical Summary ---
Author Organization [facility] Address [address] [place] [address] Care Team Providers Care Brand Manager Name Role Phone House SrRadha, Arun SMITH Primary Care Provider + Allergies Active Allergy Reactions Criticality Noted Date Comments Lactose Intolerance (Gi) Diarrhea,Nausea Only 0 08/05/2017 Medications Dimeth Mnybj-Feiffwm-V sobutane (COMPOUND W FREEZE OFF) AERO Apply topically as needed Active Active Problems Problem Noted Date Diagnosed Date Viral warts 08/06/2017 Social History Tobacco Use Types Packs/Day Years Used Date Smoking Tobacco: Every Day Cigarettes 1.5 48.8 Started: 02/27/1976 Smokeless Tobacco: Never Tobacco Cessation:Ready to Q uit: No; Counseling Given: Yes Comments:Smokes 1-1.5 packs / day. Try chew once, but hated it. Alcohol Use Standard Drinks/Week Comments No 0 (1 standard drink = 0.6 oz pur e alcohol) Sex and Gender Information Value Date Recorded Sex Assigned at Not on file Legal Sex Male 8:26 PM EST Gender Identity Not on file Sexual Orientation Not on file Last Filed Vital Signs Vital Sign Reading Time Taken Comments Blood Pressure - - Pulse - - Temperature - - Respiratory Rate 16 08/05/2017 4:05 PM EST Oxygen Saturation - - Inhaled Oxygen Concentration - - Weight 74.8 kg (165 lb) 08/05/2017 4:05 PM EST Height 172.7 cm (5' 8 ) 08/05/2017 4:05 PM EST Body Mass Index 25.09 08/05/2017 4:05 PM EST Plan of Treatment Not on file Care Teams Brand Manager Relationship Specialty Start Date End Date Arun Mina Sr., DO [address] [place] [address] PCP - General Family Medicine 08/05/17
--- OUTSIDE RECORDS SUMMARY | 2024-12-29 12:27 | XMS_ITS | Encounter Summary ---
Author Organization [facility] Address [address] [place] [address] Care Team Providers Care Outside Plant Supervisor Name Role Phone Leopoldo Arun Cm MD Primary Care Provider [phone] Vivienne Stevenson DO Unavailable [phone] Encounter Details Date Type Department Care Team (Late Contact Info) Description 12/16/2024 Clinisync Result Encounter [facility] Department Unsolicited Adair Calderón MD [address] [facility] [address] [place] [address] Social History Tobacco Use Types Packs/Day Years [...] EDT Office Visit [facility] [address] [facility] [address] [place] [phone] Adair Calderón MD [address] [facility] [address] [place] [address] 02/21/2025 10:00 AM EDT Office Visit [facility] [address] [place] [phone] Girish Fairbanks, HEAD RESIDENT [address] [place], [place] [phone] (work) documented as of this encounter Procedures Procedure Name Priority Date/Time Associated Diagnosis Comments CT SOFT TISSUE NECK W IV CONTRAST 12/16/2024 10:20 AM EDT documented in this encounter Results * CT soft tissue neck w IV contrast (12/16/2024 10:20 AM EDT) Anatomical Region Laterality Modality Head, Neck Computed Tomogra phy 12/16/2024 10:2 0 AM EDT Narrative 12/16/2024 10:22 [place] [address] CT Scan Report Signed Patient: ALESIA MENA MR#: [id number] : 1960 Acct:[id number] Age/Sex: 64 / M ADM Date: 12/16/24 Loc: LAB Attending Dr: Adair Calderón M.D. Ordering Physician: Adair Calderón M.D. Date of Service: 12/16/24 Procedure(s): CT soft tissue neck w con Accession Number(s): [id number] cc: ARUN OGDEN [address] [address] Patient Name: ALESIA MENA MRN: [id number] date: 1960 Sex: M Assigned Patient Location: LAB Current Patient Location: LAB Accession/Order Number: [id number] Exam Date: 12/16/2024 10:15 Report Date: 12/16/2024 10:20 At the request of: ADAIR CALDERÓN MD Procedure: CT soft tissue neck w con CT soft tissue neck w con 12/16/2024 9:07 AM SIGNS AND SYMPTOMS: Swelling and pain on right side of neck for 6 months with swelling and pain on left side of neck for 2 weeks. CONTRAST: 100 mL of intravenous Omnipaque TECHNIQUE: Multidetector CT axial slices of the soft tissues of the neck were obtained with IV contrast. Sagittal and coronal reformats were reconstructed. CT was performed with one or more of the following dose reduction techniques: Automated exposure control, adjustment of the mA and/or kV according to patient size, or use of iterative reconstruction technique. COMPARISON: 03/11/2024 FINDINGS: The soft tissues of the infratemporal fossa fossa structures show no acute abnormality. Mucosal surfaces of the nasopharynx, oropharynx, hypopharynx, glottic, and subglottic airways are grossly unremarkable. The parotid glands, submandibular, and the thyroid gland are within normal limits. The carotid and jugular circulations are within normal limits. Emphysematous changes are noted in the lung apices. No acute bony abnormalities are appreciated. Degenerative changes are noted in the cervical spine. The skull base, craniocervical junction, atlantoaxial joints are within normal limits. The paranasal sinuses are within normal limits. CT/CT soft tissue neck w con IMPRESSION: No evidence of mass, soft tissue swelling, or abnormality enhancement. Emphysematous changes are noted in the lung apices. Impression dictated by: Damion Grayson M.D. 12/16/2024 10:20 AM Dictation Location: [place] [address] Electronically authenticated by: [id number] Y Date: 12/16/2024 10:20 Dictated By: Damion Grayson M.D. Signed By: 12/16/24 1022 DD/ 1020 TD/TT: Drafting Layout Man: Procedure Note Radiology, Radiologist, MD - 12/16/2024 [place] [address] CT Scan Report Signed Patient: ALESIA MENA R#: [id number] : 1960cct:[id number] Age/Sex: 64 / MADM Date: 12/16/24 Loc: LAB Attending Dr: Adari Calderón M.D. Ordering Physician: Adair Calderón M.D. Date of Service: 12/16/24 Procedure(s): CT soft tissue neck w con Accession Number(s): [id number] cc: ARUN OGDEN [place] [id number] Patient Name: ALESIA MENA MRN: [id number] date: 1960 Sex: M Assigned Patient Location: LAB Current Patient Location: LAB Accession/Order Number: [id number] Exam Date: 12/16/2024 10:15 Report Date: 12/16/2024 10:20 At the request of: ADAIR CALDERÓN MD Procedure: CT soft tissue neck w con CT soft tissue neck w con 12/16/2024 9:07 AM SIGNS AND SYMPTOMS: Swelling and pain on right side of neck for 6 monthswith swelling and pain on left side of neck for 2 weeks. CONTRAST: 100 mL of intravenous Omnipaque TECHNIQUE: Multidetector CT axial slices of the soft tissues of the neckwere obtained with IV contrast. Sagittal and coronal reformats werereconstructed. CT was performed with one or more of the following dose reductiontechniques: Automated exposure control, adjustment of the mA and/or kV according to patient size, or use of iterative reconstruction technique. COMPARISON: 03/11/2024 FINDINGS: The soft tissues of the infratemporal fossa fossa structures show no acute abnormality. Mucosal surfaces of the nasopharynx, oropharynx, hypopharynx, glottic, and subglottic airways are grossly unremarkable. The parotid glands, submandibular, and the thyroid gland are within normal limits. The carotid and jugular circulations are within normal limits. Emphysematous changes are noted in the lung apices. No acute bony abnormalities are appreciated. Degenerative changes arenoted in the cervical spine. The skull base, craniocervical junction,atlantoaxial joints are within normal limits. The paranasal sinuses are within normal limits. CT/CT soft tissue neck w con IMPRESSION: No evidence of mass, soft tissue swelling, or abnormality enhancement. Emphysematous changes are noted in the lung apices. Impression dictated by: Damion Grayson M.D. 12/16/2024 10:20 AM Dictation Location: [place] [address] Electronically authenticated by: [id number] Y Date: 0:20 Dictated By: Damion Grayson M.D. Signed By:12/16/24 1022 DD/ 1020 TD/TT: Drafting Layout Man: Adair Calderón MD IMG CT PROCEDURES Final Resul t documented in this encounter Visit Diagnoses Not on filedocumented in this encounter Care Teams Outside Plant Supervisor Relationship Specialty Start Date End Date Arun Ogden MD [address] [place] [address] PCP - General Family Medicine 05/11/24 Vivienne Stevenson DO [address] [place] [address] Referring Physician Neurology 09/15/24 documented as of this encounter
--- OUTSIDE RECORDS SUMMARY | 2024-12-29 12:28 | XMS_ITS | Clinical Summary ---
Author Organization [facility] Address [address] [place] [address] Care Team Providers Care Electrical Construction Project Manager Name Role Phone Leopoldo Arun Cm MD Primary Care Provider [phone] Vivienne Stevenson DO Unavailable [phone] Allergies Active Allergy Reactions Criticality Noted Date Comments Codeine 11/29/2024 Lactose Intolerance (Gi) Diarrhea,Nausea Only 0 08/05/2017 Oxycodone-Acetaminophen 11/04/2022 Medications finasteride (Proscar) 5 MG tablet Take 5 mg by mouth Daily Do not crush, chew, or split. Active tiZANidine (Zanaflex) 4 MG tabletIndication s:Muscle spasm TAKE 1/2 (ONE-HALF) OF A TABLET TO ONE TABLET BY MOUTH TWICE DAILY 30 tablet 2 11/15/2024 Active methylPREDNISolo ne (Medrol Dospak) 4 MG tablets 11/11/2024 Active tamsulosin (Flomax) 0.4 MG 24 hr capsule Take 0.4 mg by mouth Daily Active Active Problems Problem Noted Date Diagnosed Date Chronic hoarseness 11/29/2024 Right inguinal hernia 11/16/2024 Benign positional vertigo 11/16/2024 Chronic pharyngitis 08/28/2023 Other chronic pain 08/28/2023 FLOREZ (dyspnea on exertion) 11/22/2022 Overview (08/28/2023): Last Assessment & Plan: - Patient now experiencing FLOREZ which is unusual for him and has no past history of this or medical concerns such as hypertension or heart disease Paroxysmal supraventricular tachycardia 11/23/19 Overview (08/28/2023): Last Assessment & Plan: - Per event monitor SVT is mild -For now we will proceed with treadmill stress test -If palpitations persist, can consider beta-andree or calcium channel andree, otherwise palpitations are infrequent Arthropathy 07/15/2013 Encounters Date Type Department Care Team Description 12/17/2024 Telephone [facility] [address] [place] [address] Sharmaine Melo MD 12/16/2024 Clinisync Result Encounter [facility] External Department Unsolicited Sharmaine Melo MD 12/16/2024 Orders Only [facility] [address] [place] [phone] Sharmaine Melo MD 12/15/2024 Orders Only [facility] [address] [place] [phone] Sarina Ji Neck mass 12/10/2024 8:00 AM EDT Office Visit [facility] [address] [place] [address] Jr. Carter Bartlett, Pain of right hip (Primary Dx); Primary osteoarthritis of right hip 12/10/2024 [facility] flowsheet [facility] [address] [facility] [address] [place] [phone] Jr. Carter Bartlett, 12/10/2024 Travel 11/30/2024 8:20 AM EDT Office Visit [facility] GUERIN [address] [facility] [place] [address] Mendy Petersen NP Chronic low back pain, unspecified back pain laterality, unspecified whether sciatica present (Primary Dx); Pain of right hip; Neck pain; Muscle spasm; Numbness and tingling 11/29/2024 9:40 AM EDT Office Visit [facility] [address] [place] [address] Sharmaine Melo MD Neck mass (Primary Dx); Throat pain 11/29/2024 [facility] [address] [place] [address] Sharmaine Melo MD 11/29/2024 Travel 11/19/2024 8:30 AM EDT Office Visit [facility] [address] [place] [address] Jr. Carter Bartlett, DO Primary osteoarthritis of right hip (Primary Dx); Pain of right hip 11/19/2024 8:05 AM EDT Ancillary Procedure [facility] [address] [place] [address] 11/19/2024 Bamboo flowsheet [facility] [address] [facility] [address] [place] [address] Jr. Carter Bartlett, 11/19/2024 Travel 11/14/2024 Refill AYALA MIRI [address] [place] [address] Vivienne Stevenson DO Muscle spasm 11/10/2024 Telephone AYALA DREW [address] [place], [place] [address] [place] [address] Carmen Mgaallanes MA requesting MRI results 11/08/2024 Clinisync Result Encounter [facility] External Department Unsolicited Mendy Petersen NP 11/01/2024 Clinisync Result Encounter [facility] External Department Unsolicited Mendy Petersen NP 10/14/2024 4:00 PM EDT Office Visit AYALA GUERIN [address] [place] [address] Mendy Petersen NP Chronic low back pain, unspecified back pain laterality, unspecified whether sciatica present (Primary Dx); Arthropathy; Numbness and tingling; Muscle spasm 10/14/2024 Bamboo flowsheet AYALA MIRI [address] [place] [address] Mendy Petersen NP from Last 3 Months Family History Medical History Relation Name Comments Hypertension Father Stroke Father COPD Mother Relation Name Status Comments Father Mother Social History Tobacco Use Types Packs/Day Years Used Date Smoking Tobacco: Former Cigarettes Smokeless Tobacco: Never Tobacco Cessation:Counseling Given: Not Answered Alcohol Use Standard Drinks/Week Comments Not Currently 0 (1 standard drink = 0.6 oz pur e alcohol) Sex and Gender Information Value Date Recorded Sex Assigned at Not on file Legal Sex Male 7:06 PM EDT Gender Identity Not on file Sexual Orientation Not on file Last Filed Vital Signs Vital Sign Reading Time Taken Comments Blood Pressure 152/88 11/30/2024 8:19 AM EDT Pulse 65 11/30/2024 8:19 AM EDT Temperature - - Respiratory Rate - - Oxygen Saturation 96% 11/30/2024 8:19 AM EDT Inhaled Oxygen Concentration - - Weight 90.3 kg (199 lb) 11/30/2024 8:19 AM EDT Height 175.3 cm (5' 9 ) 11/30/2024 8:19 AM EDT Body Mass Index 29.39 11/30/2024 8:19 AM EDT Plan of Treatment Upcoming Encounters Date Type Department Care Team (Late st Contact Info) Description 01/03/2025 11:10 AM EDT Office Visit [facility] [address] [facility] [address] [place] [phone] Sharmaine Melo MD [address] [address] 02/21/2025 10:00 AM EDT Office Visit [facility] [address] [place] [address] Girish Fairbanks NP [address] [place], [place] [phone] Procedures Procedure Name Priority Date/Time Associated Diagnosis Comments CT SOFT TISSUE NECK WO CO Routine 12/16/2024 10:[address] SOFT TISSUE NECK W IV CONTRAST 12/16/2024 10:20 AM EDT XR HIP 2 OR 3 VW RIGHT Routine 11/19/2024 8:05 AM EDT Pain of right hip MR LUMBAR SPINE WO CON 11/08/2024 2:35 PM EDT XR HIP 2 OR 3 VW RIGHT 11/01/2024 6:18 PM EDT from Last 3 Months Results * CT SOFT TISSUE NECK WO CO (12/16/2024 10:37 AM EDT) Anatomical Region Laterality Modality Radiographic Lupe ging us Sharmaine Melo MD IMG XR PROCEDURES Final Resul t * CT soft tissue neck w IV contrast (12/16/2024 10:20 AM EDT) Anatomical Region Laterality Modality Head, Neck Computed Tomogra phy 12/16/2024 10:2 0 AM EDT Narrative 12/16/2024 10:[place] [address] CT Scan Report Signed Patient: ALESIA MENA MR#: [id number] : 1960 Acct:[id number] Age/Sex: 64 / M ADM Date: 12/16/24 Loc: LAB Attending Dr: Sharmaine Melo M.D. Ordering Physician: Sharmaine Melo M.D. Date of Service: 12/16/24 Procedure(s): CT soft tissue neck w con Accession Number(s): [id number] cc: ARUN OGDEN [place] [id number] Patient Name: ALESIA MENA MRN: [id number] date: 1960 Sex: M Assigned Patient Location: LAB Current Patient Location: LAB Accession/Order Number: [id number] Exam Date: 12/16/2024 10:15 Report Date: 12/16/2024 10:20 At the request of: SHAMRAINE MELO MD Procedure: CT soft tissue neck w [...] Grayson M.D. 12/16/2024 10:20 AM Dictation Location: [place] [address] Electronically authenticated by: [id number] Y Date: 12/16/2024 10:20 Dictated By: Damion Grayson M.D. Signed By: 12/16/24 1022 DD/ 1020 TD/TT: Creative Specialist: Procedure Note Radiology, Radiologist, MD - 12/16/2024 [place] [address] CT Scan Report Signed Patient: ALESIA MENA JMR#: [id number] : 2Acct:[id number] Age/Sex: 64 / MADM Date: 12/16/24 Loc: LAB Attending Dr: Sharmaine Melo M.D. Ordering Physician: Sharmaine Melo M.D. Date of Service: 12/16/24 Procedure(s): CT soft tissue neck w con Accession Number(s): [id number] cc: ARUN OGDEN [place] [address] [place] [id number] Patient Name: ALESIA MENA MRN: [id number] date: 1960 Sex: M Assigned Patient Location: LAB Current Patient Location: LAB Accession/Order Number: [id number] Exam Date: 12/16/2024 10:15 Report Date: 12/16/2024 10:20 At the request of: SHARMAINE MELO MD Procedure: CT soft tissue neck w [...] Grayson M.D. 12/16/2024 10:20 AM [facility]ictation [facility] Electron[facility] authenticated by: [id number] Y Date: 0:20 Dictated By: Damion Grayson M.D. Signed By:12/16/24 1022 DD/ 1020 TD/TT: Creative Specialist: Sharmaine Melo MD IMG CT PROCEDURES Final Resul t * XR hip right 2 or 3 views (11/19/2024 8:05 AM EDT) Only the most recent of2 resultswithin the time period is included. Anatomical Region Laterality Modality Lower Extremities, Hip Right Radiograp hic Imaging Narrative 11/19/2024 9:09 AM EDT Imaging Result: Imaging Result: AP and lateral [...] Impression moderate degenerative joint disease, right hip Jr. Carter Bartlett DO IMG XR PROCEDURES Final Result * MR LUMBAR SPINE WO CON (11/08/2024 2:35 PM EDT) Anatomical Region Laterality Modality Other 11/08/2024 2:35 PM EDT Narrative 11/08/2024 2:38 PM EDT [address] [address] Magnetic Resonance Report Signed Patient: ALESIA MENA MR#: [id number] : 1960 Acct:[id number] Age/Sex: 64 / M ADM Date: 11/08/24 Loc: MRI Attending Dr: Mendy Petersen NP Ordering Physician: Mendy Petersen NP Date of Service: 11/08/24 Procedure(s): MR lumbar spine wo con Accession Number(s): [id number] cc: Mendy Petersen NP; ARUN OGDEN [address] [address] Patient Name: ALESIA MENA MRN: [id number] date: 1960 Sex: M Assigned Patient Location: MRI Current Patient Location: MRI Accession/Order Number: [id number] Exam Date: 11/08/2024 14:32 Report Date: 11/08/2024 14:35 At the request of: MENDY PETERSEN NP Procedure: MR lumbar spine wo [...] Cruz Jr., D.O.11/08/2024 2:35 PM Dictation Location: [place] [address] Electronically authenticated by: [id number] Y Date: 11/08/2024 14:35 Dictated By: Melvin De La Cruz M.D. Signed By: 11/08/24 1438 DD/ 1435 TD/TT: Creative Specialist: Procedure Note Radiology, Radiologist, - 11/08/[address] Resonance Report Signed Patient: ALESIA MENA JMR#: [id number] : 1960cct:[id number] Age/Sex: 64 / MADM Date: 11/08/24 Loc: MRI Attending Dr: Mendy Petersen NP Ordering Physician: Mendy Petersen NP Date of Service: 11/08/24 Procedure(s): MR lumbar spine wo con Accession Number(s): [id number] cc: Mendy Petersen VENTILATOR SPECIALIST; [facility] [address] [place] [id number] Patient Name: ALESIA MENA MRN: [id number] date: 1960 Sex: M Assigned Patient Location: MRI Current Patient Location: MRI Accession/Order Number: [id number] Exam Date: 11/08/2024 14:32 Report Date: 11/08/2024 14:35 At the request of: MENDY PETERSEN NP Procedure: MR lumbar spine wo con EXAMINATION: MRI LUMBAR SPINE WITHOUT IV CONTRAST CLINICAL HISTORY: Chronic Low Back Pain, Arthropathy, Muscle Spasm COMPARISON: None TECHNIQUE: Multiecho imaging was performed in the sagittal and axialplanes without contrast administration. FINDINGS: Vertebral heights appear maintained. No significant bone marrow edema is present. Endplate degenerative changes. Diffuse discdesiccation. Spinal cord terminates in normal position without abnormal cord signal.No paraspinal mass. Visualized retroperitoneum demonstrates no acuteprocess. At L1-L2: Mild diffuse broad-based disc bulge is present with ligamentum flavum hypertrophy and facet joint degenerative changes causing mild [place] bilateral neural foraminal stenosis. At L2-L3: Mild diffuse broad-based disc bulge is present with ligamentum flavum hypertrophy and facet joint degenerative changes causing mild can[place] bilateral neural foraminal stenosis. At L3-L4: Diffuse broad-based disc bulge is present with ligament flavum hypertrophy and facet joint degenerative changes causing moderate can[place] bilateral neural foraminal stenosis. At L4-L5: Diffuse broad-based disc bulge is present with ligament flavum hypertrophy and facet joint degenerative changes causing moderate canaland bilateral neural foraminal stenosis. At L5-S1: Diffuse broad-based disc bulge is present with facet joint degenerative changes. No significant canal or neural foraminal stenosisis seen. MR/MR lumbar spine wo con IMPRESSION: Diffuse degenerative disc disease as described above, worst at L3-L4 and L4-L5. Impression dictated by: Melvin De La Cruz Jr., D.O.11/08/2024 2:35 PM Dictation Location: [place] [address] Electronically authenticated by: [id number] Y Date: 4:35 Dictated By: Melvin De La Cruz M.D. Signed By:11/08/248 DD/ 34 TD/TT: Creative Specialist: us Mendy Petersen VENTILATOR SPECIALIST [facility] Final Result from Last 3 Months Insurance [employer] [place]ICA[place] Care Teams Electrical Construction Project Manager Relationship Specialty Start Date End Date Arun Ogden MD [address] [place] [address] PCP - General Family Medicine 05/11/24 Vivienne Stevenson DO [address] [place] [address] Referring Physician Neurology 09/15/24
[2024-12-29 12:48] VITALS: BP 152/86; PULSE 66; TEMP 36.5; O2SAT 95; BMI 28.8
--- NOTE | 2024-12-29 12:49 | XR_ITS ---
The [place] [id number] Patient Name: ALESIA CASTREJON MRN: [id number] date: 1960 Sex: M Assigned Patient Location: ED.MAIN Current Patient Location: ED.MAIN Accession/Order Number: [id number] Exam Date: 12/29/2024 13:21 Report Date: 12/29/2024 13:23 At the request of: SUMMER WOODS MD Procedure: XR hand RT min 3V RIGHT HAND - 3 views CLINICAL DATA: Puncture wound at the base of the second and third fingers with a corn ann. COMPARISON: None AP, lateral and oblique views were obtained. A marker was placed at the site of concern on the lateral view. There is no acute fracture or dislocation. There are mild scattered degenerative changes involving the interphalangeal, metacarpophalangeal and first carpal metacarpal joints. There is slight soft tissue swelling in the vicinity of the metacarpal phalangeal joints. No radiopaque foreign bodies are noted. XR/XR hand RT min 3V IMPRESSION: NO ACUTE BONY INJURY OR RADIOPAQUE FOREIGN BODIES. Impression dictated by: Taylor Patel M.D. 12/29/2024 1:23 PM Dictation Location: [place] [address] Electronically authenticated by: [id number] Y Date: 12/29/2024 13:23
--- NOTE | 2024-12-29 12:51 | ED.GENADUL1 ---
HPI HPI - General Adult General Chief complaint: Wound/Laceration Stated complaint: LACERATION R HAND Time Seen by Provider: 12/29/24 12:47 History of Present Illness HPI narrative: 64-year-old male presented to the emergency department for a wound to his right hand. This was sustained about 7:00 this morning when his hand accidentally went onto a metal spike causing this puncture type wound to the palm of his right hand between his 2nd and 3rd fingers. It did not hurt initially but now he has some pain in that area. He had a tetanus shot a year ago. No weakness in his fingers. Related Data Home Medications ?Medication ?Instructions ?Recorded ?Confirmed loratadine 10 mg tablet (Allergy 10 mg PO Q24H 10/03/23 03/11/24 Relief (loratadine)) meclizine 25 mg tablet 25 mg PO BID 10/03/23 03/11/24 (Travel-Ease (meclizine)) tamsulosin 0.4 mg capsule 0.8 mg PO Q24H 03/11/24 03/11/24 Previous Rx's ?Medication ?Instructions ?Recorded ibuprofen 800 mg tablet 800 mg PO Q8H PRN pain #20 tabs 10/03/23 diazepam 5 mg tablet (Valium) 5 mg PO TID PRN dizziness #10 tabs 03/11/24 methylprednisolone 4 mg tablets in See Rx Instructions .Route 03/11/24 a dose pack (Medrol (Candido)) .COMPLEX #21 ea ondansetron 4 mg disintegrating 4 mg PO Q6H PRN nausea and 03/11/24 tablet vomiting #12 tabs cephalexin 500 mg capsule 500 mg PO TID 5 days #15 caps 12/29/24 Allergies Allergy/AdvReac Type Severity Reaction Status Date / Time oxycodone (From Percocet) Allergy Intermediate itch Verified 03/11/24 14:13 acetaminophen (From AdvReac Severe itching Verified 12/29/24 13:02 Tylenol-Codeine #3) codeine (From AdvReac Severe itching Verified 12/29/24 13:02 Tylenol-Codeine #3) Opioid HPI Opioid Management Most Recent Opioid Data: Last Pain Scale 5 10/03/23, 15:47 Review of Systems ROS Narrative A ten point review of systems is negative except as noted above. [facility] Medical History (Updated 12/29/24 @ 13:20 by Robert Cunha MD) Vertigo ?R42 - Dizziness and giddiness (ICD-10) Liver cirrhosis ?K74.60 - Unspecified cirrhosis of liver (ICD-10) Social History Smoking status: Former smoker Little interest or pleasure in doing things: not at all Feeling down, depressed, or hopeless: not at all Exam Narrative Exam Narrative: Nurses note and vital signs reviewed and patient is not hypoxic. General: The patient appears well and in no apparent distress. Patient is resting comfortably on cart. Skin: Warm, dry, no pallor noted. There is no rash noted. Head: Normocephalic, atraumatic Eye: Normal conjunctiva, no drainage Ears, Nose, Mouth, and Throat: oral mucosa is moist. Nares patent. Cardiovascular: Regular Rate and Rhythm Respiratory: Patient is in no distress, no accessory muscle use Back: non-tender GI: Soft and nontender Musculoskeletal: His right hand is examined. There is a laceration approximately 4 mm in length which is not gaping or bleeding. It is on the palmar aspect between the base of the 2nd and 3rd fingers. Fingers have full range of motion. Neurological: A&O, normal speech; fingers of his right hand have full range of motion Psychiatric: Cooperative Constitutional Vital Signs, click to edit/add: Last Vital Signs Temp 97.7 F 12/29/24 12:48 Pulse 66 12/29/24 12:48 Resp 16 12/29/24 12:48 BP 152/86 H 12/29/24 12:48 Pulse Ox 95 12/29/24 12:48 O2 Del Method Room Air 12/29/24 12:48 Course Vital Signs Vital signs: Vital Signs Temperature 97.7 F 12/29/24 12:48 Pulse Rate 66 12/29/24 12:48 Respiratory Rate 16 12/29/24 12:48 Blood Pressure 152/86 H 12/29/24 12:48 Pulse Oximetry 95 12/29/24 12:48 Oxygen Delivery Method Room Air 12/29/24 12:48 Temperature 97.7 F 12/29/24 12:48 Pulse Rate 66 12/29/24 12:48 Respiratory Rate 16 12/29/24 12:48 Blood Pressure 152/86 H 12/29/24 12:48 Pulse Oximetry 95 12/29/24 12:48 Oxygen Delivery Method Room Air 12/29/24 12:48 Medical Decision Making MDM Narrative Medical decision making narrative: X-rays here in my interpretation shows no bony injury or foreign body. Tetanus is up-to-date and he is placed on prophylactic Keflex. Treatment diagnosis and follow-up were discussed with the patient. Sutures are not indicated. Differential Diagnosis Differential Diagnosis: Puncture wound, laceration, foreign body, fracture Imaging Data Right hand x-ray: My impression: No fracture or foreign body Discharge Plan Discharge Chief Complaint: Wound/Laceration Clinical Impression: Puncture wound Patient Disposition: Home, Self-Care Prescriptions / Home Meds: New cephalexin 500 mg capsule 500 mg PO TID 5 Days Qty: 15 0RF No Action meclizine [Travel-Ease (meclizine)] 25 mg tablet 25 mg PO BID loratadine [Allergy Relief (loratadine)] 10 mg tablet 10 mg PO Q24H ibuprofen 800 mg tablet 800 mg PO Q8H PRN (Reason: pain) Qty: 20 0RF tamsulosin 0.4 mg capsule 0.8 mg PO Q24H diazepam [Valium] 5 mg tablet 5 mg PO TID PRN (Reason: dizziness) Qty: 10 0RF methylprednisolone [Medrol (Candido)] 4 mg tablets,dose pack See Rx Instructions .ROUTE .COMPLEX Qty: 21 0RF Rx Instructions: Taper as directed ondansetron 4 mg tablet,disintegrating 4 mg PO Q6H PRN (Reason: nausea and vomiting) Qty: 12 0RF Print Language: Beninese Instructions: Puncture Wound (ED) Referrals: ZACKERY OGDEN [Primary Care Provider, Family Practice] - 1 week
== END 2024-12-29 13:26 | disposition home or self-care (01) ==
PROVIDERS: Emergency Provider Emergency Medicine; PCP Family Medicine
DX: S61.431A Puncture wound without foreign body of right hand, initial encounter (principal); W45.8XXA Other foreign body or object entering through skin, initial encounter; Z87.891 Personal history of nicotine dependence
CPT/HCPCS: 73130; 99283

== ENCOUNTER 2025-03-05 12:46 | Outpatient (OUT) | payer MEDICAID, SELFPAY ==
--- OUTSIDE RECORDS SUMMARY | 2023-11-03 06:30 | XMS_ITS ---
Author Organization [facility] Address [address] [place] [address] Care Team Providers Care Rollout Manager Name Role Phone José Petty Unavailable [phone] Results Component Value Reference Range Notes SCC- KNEE 4 VIEW [id number] Reviewed date:12/11/2023 09:17:11 AM Interpretation: Performing Lab: Notes/Report: REASON FOR VISIT Left knee injury f/u Medications Medication SIG (Take, Route, Frequency, Duration) Notes Start Date End Date Status Dramamine Active Encounters Encounter Location Date Provider Diagnosis [facility] Office [address] [place] [address] [place] [address] 11/03/2023 José Jovanny Injury of left knee, initial encounter S89.92XA Assessments Encounter Date Diagnosis (ICD Code) Assessment Notes Treatment Notes Treatment Clinical Notes Section Notes 11/03/2023 Injury of left knee, initial encounter (ICD-10 - S89.92XA) Plan Of Treatment No Information Progress Notes * ALESIA CASTREJONDOB:[birth year] (65 yo M)Acc No.[id number]:11/03/2023 Patient: Siomara BEEALESIA Provider: Siomara Petty MD :1960 A ge:63 Y S ex:Male Date:11/03/2023 Address:[address] [place] [id number] Subjective: * Chief Complaints: * 1 . Left knee injury f/u. * Medical History: * Medications: T aking Dramamine Objective: * Vitals: Assessment: * Assessment: 1. I njury of left knee, initial encounter - S89.92XA Plan: * Treatment: Forms: * Images: * Electronic signature of Holger Petty MD on 03/05/2025 at 12:48 PM EDT Sign off status: Pending * Provider: Siomara Petty MD Date: 0 11/03/2023 Generated for Adalid hathaway/Maria G/Roseann on: 0 03/05/2025 12:48 PM EDT
--- OUTSIDE RECORDS SUMMARY | 2025-02-21 04:55 | XMS_ITS | Continuity of Care Document ---
Author Name [facility] Organization [facility] Care Team Providers Care Armhole Baster Jumpbasting Name Role Phone [facility] Unavailable Unavailable Problems Combined list of problems from Department of Defense and Veterans Affairs facilities. It does not include entries that were removed or entered in error. Problem Status Onset Date Problem Type Date of Resolution Comments Source Adjustment disorder with depressed mood Active Condition [facility] Diagnosis: ICD-10-CM F43.21 Adjustment disorder with depressed [...] [facility] HC PRO PHONE CALL 5-10 MIN [phone] Diagnos is: ICD-10- CM Z71.89 Other specifi ed admitting counselor Amy Garcia 08/29 [facility] MTMS BY PHARM ADDL 15 MIN [id number] Diagnos is: ICD-10- CM F43.81 Prolong ed grief disorde r WILLDane CRUZ BARR[place] J 08/29 [facility] PSYCH DIAGNOSTIC EVALUATION [id number] Diagnos is: ICD-10- CM F43.21 Adjustm ent disorde r with depress ed mood PLATTE,NIKOLE Ordoñez 09/19 [facility] Outpatient Encounter [id number] 10/22 [facility] Out[facility] Encounter [id number] 10/28 [facility]
--- OUTSIDE RECORDS SUMMARY | 2025-02-21 10:00 | XMS_ITS | Encounter Summary ---
Author Organization [facility] Address [address] [place] [address] Care Team Providers Care Copy Room Technician Name Role Phone Vivienne Stevenson DO Unavailable [phone] Reason for Referral * Rehabilitation - Outpatient (Routine) - Authorized Specialty Diagnoses / Procedures Referred By Olman evangelista Referred To Contact Physical Therapy Diagnoses Pre-op exam Procedures [place] OFFICE/OUTPATIENT [facility] MDM 60 MINUTES Girish Fairbanks, SHERRI [address] [place] [address] Phone: tel: fax: Romeo Romero, PT [address] [address] Phone: tel: fax: Referral ID Status Reason Start Date Expiration Date Visits Requested Visits Authorized [id number] Authorized Specialty Services Required 02/21/2025 08/20/2025 30 30 Reason for Visit * Reason Comments Pre-op Exam Encounter Details Date Type Department Care Team (Latest Contact Info) Description 02/21/2025 10:00 AM EDT Office Visit [facility] [address] [place] [address] Girish Fairbanks, SHERRI [address] [place] [address] Primary osteoarthritis of right hip; Pre-op exam Social History Tobacco Use Types Packs/Day Years [...] on file documented as of this encounter Last Filed Vital Signs Vital Sign Reading Time Taken Comments Blood Pressure - - Pulse - - Temperature - - Respiratory Rate - - Oxygen Saturation - - Inhaled Oxygen Concentration - - Weight 90.5 kg (199 lb 9.6 oz) 02/21/2025 10:03 AM EDT Height 170.2 cm (5' 7 ) 02/21/2025 10:03 AM EDT Body Mass Index 31.26 02/21/2025 10:03 AM EDT documented in this encounter Progress Notes * Girish Fairbanks NP - 02/21/2025 10:00 AM EDT Images from the original note were not included. GENERAL HISTORY AND PHYSICAL: NAME: Jesus Mena : 1960 HISTORY OF PRESENT ILLNESS: Jesus Mena is an 64 y.o. @ male. Here for surgery instructions right total hip arthroplasty March 21 @ [facility]. PAST MEDICAL HISTORY: Past Medical History: Diagnosis Date Benign positional vertigo COVID-19 08/2021 Enlarged prostate Inguinal hernia, right Peripheral edema PAST SURGICAL HISTORY: Past Surgical History: Procedure Laterality Date COLONOSCOPY ELBOW SURGERY Right HERNIA REPAIR 11/04/2023 VASECTOMY SOCIAL HISTORY: Social History Occupational History Not on file Tobacco Use Smoking status: Former Current packs/day: 1.50 Types: Cigarettes Smokeless tobacco: Never Substance and Sexual Activity Alcohol use: Not Currently Drug use: Yes Types: Marijuana Sexual activity: Defer ALLERGIES: Allergies Allergen Reactions Codeine Lactose Intolerance (Gi) Diarrhea and Nausea Only Oxycodone-Acetaminophen MEDICATIONS: Current Outpatient Medications Medication Instructions finasteride (PROSCAR) 5 mg, Daily tamsulosin (FLOMAX) 0.4 mg, Daily tiZANidine (Zanaflex) 4 MG tablet TAKE 1/2 (ONE-HALF) OF A TABLET TO ONE TABLET BY MOUTH TWICE DAILY REVIEW OF SYSTEMS: Review of Systems Constitutional: Negative for fatigue, fever and unexpected weight change. Eyes: Negative for redness and visual disturbance. Gastrointestinal: Negative for abdominal pain. Denies Indigestion Musculoskeletal: See note: Skin: Negative for color change and rash. Neurological: Negative for light-headedness and numbness. Vitals: Body mass index is 31.26 kg/m??. PHYSICAL EXAM: Physical Exam Constitutional: General: He is not in acute distress. Appearance: Normal appearance. HENT: Head: Normocephalic and atraumatic. Right Ear: External ear normal. Left Ear: External ear normal. Nose: Nose normal. No rhinorrhea. Mouth/Throat: Mouth: Mucous membranes are moist. Dentition: No gingival swelling or dental abscesses. Pharynx: Oropharynx is clear. No pharyngeal swelling or posterior oropharyngeal erythema. Eyes: Extraocular Movements: Extraocular movements intact. Conjunctiva/sclera: Conjunctivae normal. Cardiovascular: Rate and Rhythm: Normal rate and regular rhythm. Pulses: Normal pulses. Heart sounds: Normal heart sounds. No murmur heard. Pulmonary: Effort: Pulmonary effort is normal. No respiratory distress. Breath sounds: No wheezing or rhonchi. Comments: Diminished breath sounds but no crackles, rhonchi or wheezing noted Abdominal: Palpations: Abdomen is soft. Tenderness: There is no abdominal tenderness. Musculoskeletal: Cervical back: Normal range of motion and neck supple. Lymphadenopathy: Cervical: No cervical adenopathy. Skin: General: Skin is warm and dry. Findings: No erythema or rash. Neurological: General: No focal deficit present. Mental Status: He is alert and oriented to person, place, and time. Psychiatric: Mood and Affect: Mood normal. Behavior: Behavior normal. No orders of the defined types were placed in this encounter. ASSESSMENT: ICD-10-CM 1. Primary osteoarthritis of right hip M16.11 2. Pre-op exam Z01.818 PLAN: This patient presents for preadmission testing for upcoming surgery. Complete history with medical,surgery, and current allergy and medication list obtained. Consent for surgery signed and witnessedafter verbal consent to perform surgery received. All questions answered and proposed surgery scheduled. SURGERY INSTRUCTIONS February BRAYAN NOTIFIED PAT AT [facility] February MEDICAL CLEARANCE FROM DR. OGDEN RECEIVED HAS PERCOCET ALLERGY HAS WALKER IRON SENT TO [facility] APRN Follow up in about 6 weeks (around 04/05/2025) for Post-Op April 05 10:[address] [place] [address] Bartlett. documented in this encounter Plan of Treatment Upcoming Encounters Date Type Department Care Team (Late st Contact Info) Description 03/14/2025 2:00 PM EDT Evaluation [facility] [address] [facility] [address] [place] [address] Fitz Lanadmantha, DEMARCO 03/15/2025 3:20 PM EDT Office Visit [facility] [place] [facility] [address] [facility] [address] [place] [address] Sharmaine Calderón MD [address] [facility] [address] [place] [address] 04/05/2025 10:00 AM EDT Office Visit [facility] [address] [facility] [id number] Jr. Carter Bartlett DO [address] [facility] [address] [place] [address] Scheduled Referrals Name Type Priority Associated Diagnoses Order Schedule Ambulatory referral to Physical Therapy Outpatient Referral Routine Pre-op exam Expected: 02/21/2025 (Approximate), Expires: 08/24/2025 documented as of this encounter Visit Diagnoses Diagnosis Primary osteoarthritis of right hip Pre-op exam documented in this encounter Care Teams Copy Room Technician Relationship Specialty Start Date End Date Vviienne Stevenson DO [address] [place] [address] Referring Physician Neurology 09/15/24 documented as of this encounter
--- OUTSIDE RECORDS SUMMARY | 2025-02-23 23:59 | XMS_ITS | Continuity of Care Document ---
Author Organization [facility] Address Unknown Care Team Providers Care Greens Or Grounds Superintendent Name Role Phone ZACKERY OGDEN Primary Care Physician [phone] Encounter [facility] [id number] Date(s): 02/23/25 - 02/23/[address] [address] Discharge Disposition: Home Attending Physician: GANESH BRAXTON DO Admitting Physician: GANESH BRAXTON DO Encounter Type: OP Allergies, Adverse Reactions, Alerts Substance Criticality Severity Reaction Reaction Severity Status codeine Low criticality Mild Itching Acti ve Percocet Low criticality Mild Itching Acti ve Darvocet A500 Low criticality Mild Itching Active Assessment and Plan Future Appointments Medications Ferrex 150 Forte oral capsule 1 tab(s), Oral, Daily, 0 Refill(s) Start Date: 02/23/25 Status: Ordered Medication Dispense Status: Completed Total Allowed Fills: 1 Fills Dispensed: 0 finasteride 5 mg oral tablet Instructions: TAKE 1 TABLET BY MOUTH IN THE MORNING DO NOT CRUSH, CHEW, OR SPLIT Start Date: 07/07/24 Status: Ordered Medication Dispense Status: Completed Total Allowed Fills: 1 Fills Dispensed: 0 Multivitamin, generic 1 tab(s), Oral, Daily, 0 Refill(s) Start Date: 02/23/25 Status: Ordered Medication Dispense Status: Completed Total Allowed Fills: 1 Fills Dispensed: 0 ohm Allergy Relief 10 mg oral tablet Instructions: TAKE 1 TABLET BY MOUTH ONCE DAILY Start Date: 10/20/23 Status: Ordered Medication Dispense Status: Completed Total Allowed Fills: 1 Fills Dispensed: 0 tamsulosin 0.4 mg oral capsule 1 cap(s) ( 0.4 mg ), Instructions: TAKE 2 CAPSULES BY MOUTH IN THE MORNING Start Date: 02/23/24 Status: Ordered Medication Dispense Status: Completed Total Allowed Fills: 1 Fills Dispensed: 0 tiZANidine 4 mg oral tablet Instructions: TAKE ONE-HALF TABLET to ONE TABLET BY MOUTH TWICE DAILY Start Date: 02/15/25 Status: Ordered Medication Dispense Status: Completed Total Allowed Fills: 1 Fills Dispensed: 0 Problem List Condition Confirmation Course Effective Dates Status H ealth Status Informant Allergic rhinitis Confirmed Active Benign positional vertigo Confirmed Active Benign paroxysmal positional vertigo Confirmed 11/16/24 Active BPH (benign prostatic hyperplasia) Confirmed Active Chronic hoarseness. Confirmed 11/29/24 Active Chronic pain Confirmed 08/28/23 Active Dyspnea on exertion Confirmed 11/22/22 Active Enlarged prostate Confirmed Active Lethargy Confirmed Active Osteoarthritis Confirmed Active Paroxysmal supraventricular tachycardia Confirmed 11/22/22 Active Procedures Procedure Date Related Diagnosis Body Site Status Hernia 1 11/03/23 Completed Arm 2 Completed Colonoscopy Completed Knee 3 Completed 1right inguinal hernia repair 2right arm 3right knee, removed Results Laboratory List Name Date .Auto Diff 1 02/23/25 Basic Metabolic Panel Standard (BMP Glenn dard) 02/23/25 CBC w/ Auto Diff 02/23/25 Urinalysis with Culture, if indicated [place] (UA w Culture if Ind Standard) 02/23/25 Most recent to oldest [Reference Range]: 1 Urine Source Clean Catch (02/23/25 10:15 AM) Creatinine Level [0.90-1.30 mg/dL] 0.90 mg/dL (02/23/25 10:57 AM) UA Blood [NEGATIVE] NEGATIVE (02/23/25 10:15 AM) UA Color Yellow (02/23/25 10:15 AM) UA Glucose NEGATIVE (02/23/25 10:15 AM) UA Ketones NEGATIVE (02/23/25 10:15 AM) UA Leuk Est [NEGATIVE] NEGATIVE (02/23/25 10:15 AM) UA Nitrite [NEGATIVE] NEGATIVE (02/23/25 10:15 AM) UA Protein [NEGATIVE] NEGATIVE (02/23/25 10:15 AM) UA Urobilinogen [0.2-1.0 mg/dL] 0.2 mg/d L (02/23/25 10:15 AM) UA pH [5-8] 7.0 (02/23/25 10:15 AM) BUN [8-26 mg/dL] 18 mg/dL (02/23/25 10:57 AM) Chloride Level [101-111 mmol/L] 106 mmol /L (02/23/25 10:57 AM) CO2 [21-32 mmol/L] 24 mmol/L (02/23/25 10:57 AM) Glucose Level [74.0-118.0 mg/dL] 93.0 mg /dL (02/23/25 10:57 AM) Hct [34.8-51.9 %] 42.9 % (02/23/25 10:57 AM) Hgb [11.8-17.7 gm/dL] 14.8 gm/dL (02/23/25 10:57 AM) MCH [24-34 pg] 32 pg (02/23/25 10:57 AM) MCHC [26-37 gm/dL] 34 gm/dL (02/23/25 10:57 AM) MCV [81-100 fL] 94 fL (02/23/25 10:57 AM) MPV [6.3-10.2 fL] 9.1 fL (02/23/25 10:57 AM) Osmolality 277 mOsm/L *NA* (02/23/25 10:57 AM) Platelet [138-427 x10^3/mcL] 183 x10^3/m cL (02/23/25 10:57 AM) Potassium Level [3.6-5.1 mmol/L] 3.8 mmo l/L (02/23/25 10:57 AM) RBC [3.70-5.30 x10^6/mcL] 4.57 x10^6/mcL (02/23/25 10:57 AM) RDW [11.5-15.0 %] 12.9 % (02/23/25 10:57 AM) Sodium Level [136.0-144.0 mmol/L] 138.0 mmol/L (02/23/25 10:57 AM) WBC [3.5-10.5 x10^3/mcL] 6.9 x10^3/mcL (02/23/25 10:57 AM) UA Spec Grav [1.001-1.035] 1.020 (02/23/25 10:15 AM) Anion Gap [5.0-19.0 mmol/L] 11.8 mmol/L (02/23/25 10:57 AM) Calcium Level [8.9-10.3 mg/dL] 9.1 mg/dL (02/23/25 10:57 AM) Auto Eos % [0.9-4.0 %] 2.2 % (02/23/25 10:57 AM) Auto Lymph % [14-48 %] 23 % (02/23/25 10:57 AM) Auto Neut % [44-88 %] 64 % (02/23/25 10:57 AM) Eos Abs# [0.0-0.4 x10^3/mcL] 0.1 x10^3/m cL (02/23/25 10:57 AM) Lymph Abs# [1.3-2.9 x10^3/mcL] 1.6 x10^3 /mcL (02/23/25 10:57 AM) Dixie Abs# [0.0-0.8 x10^3/mcL] 0.7 x10^3/ mcL (02/23/25 10:57 AM) UA Clarity [CLEAR] CLEAR (02/23/25 10:15 AM) Auto Baso % [0.2-2.0 %] 0.6 % (02/23/25 10:57 AM) Auto Dixie % [1-12 %] 10 % (02/23/25 10:57 AM) Baso Abs# [0.0-0.2 x10^3/mcL] 0.0 x10^3/ mcL (02/23/25 10:57 AM) Neut Abs# [1.5-9.2 x10^3/mcL] 4.4 x10^3/ mcL (02/23/25 10:57 AM) BUN/Creat Ratio [4.6-16.2] 20.0 *HI* (02/23/25 10:57 AM) Micro? Not Indicated *NA* (02/23/25 10:15 AM) eGFR AA >60 mL/min/1.73m2 *NA* (02/23/25 10:57 AM) eGFR Non AA >60 mL/min/1.73m2 *NA* (02/23/25 10:57 AM) Culture? Not Indicated *NA* (02/23/25 10:15 AM) UA Bilirubin NEGATIVE (02/23/25 10:15 AM) Social History Social History Type Response Tobacco Former tobacco user Tobacco Use:. quit january 20 or 2022 per day. Sex Sex Representation Male (finding) Implantable Device List Procedure Provider Procedure Date Device Type Site Hernia Repair Inguinal Nate Hua MD 11/04/23 Non B iological Groin R Device Identifier Serial Number Lot or Batch Number Manufacturing Date Expiration Date Distinct Identification Code MRI Safety Implantable Status Assigning Authority Unknown Unknown [id number] Unknown 12/01/27 Unknown Unknown Active Unknown Patient Care team information Care Team Personnel Name: ZACKERY OGDEN DO Position: [facility] Physician Acute/ED/Clinic/Care Member Role: Primary Care Physician [address]: [address] [place] [address] Telecom: Care Team Related Persons Name: NIK MOCK Name: JOSELUIS CASTREJON Insurance Providers Guarantor name: Health Plan Information #: 1 Payer: MEDICAID [place] Payer Identifier: NA Member Number: [id number] Group Number: [id number] Subscriber Identifier: [id number] Relationship to Subscriber: self Coverage Type: MEDICAID Coverage Verification Date: 25 Telecom: [phone] Address: [address] [address] [facility] Plan Information #: 2 Payer: MEDICAID [place] Payer Identifier: NA Member Number: [id number] Group Number: [id number] Subscriber Identifier: [id number] Relationship to Subscriber: self Coverage Type: MEDICAID Coverage Verification Date: 25 Telecom: [phone] Address: [address] [address]
--- OUTSIDE RECORDS SUMMARY | 2025-03-02 13:30 | XMS_ITS | Encounter Summary ---
Author Organization [facility] Address [address] [place] [address] Care Team Providers Care Shot Fireman Name Role Phone Vivienne Stevenson DO Unavailable [phone] Arun Mina MD Primary Care Provider [phone] Reason for Visit * Reason Comments Throat Pain Encounter Details Date Type Department Care Team (Late st Contact Info) Description 03/02/2025 1:30 PM EDT Office Visit [facility] [address] [facility] [address] [place] [address] Sharmaine Calderón MD 112 [facility] [address] [place] [address] Neck pain (Primary Dx) Social History Tobacco Use Types Packs/Day Years [...] Sign Reading Time Taken Comments Blood Pressure 137/75 03/02/2025 1:20 PM EDT Pulse 66 03/02/2025 1:20 PM EDT Temperature - - Respiratory Rate - - Oxygen Saturation - - Inhaled Oxygen Concentration - - Weight 90.3 kg (199 lb) 03/02/2025 1:20 PM EDT Height 175.3 cm (5' 9 ) 03/02/2025 1:20 PM EDT Body Mass Index 29.39 03/02/2025 1:20 PM EDT documented in this encounter Progress Notes * Sharmaine Calderón MD - 03/02/2025 1:30 PM EDT Subjective Patient ID: Jesus Mena is a 65 y.o. male who presents for Throat Pain Pt reports a 2 day h/o RT lower neck pain. Family History Problem Relation Name Age of Onset COPD Mother Emphysema Mother Stroke Father Hypertension Father Active Ambulatory Problems Diagnosis Date Noted Arthropathy 07/15/2013 Chronic pharyngitis 08/28/2023 FLOREZ (dyspnea on exertion) 11/22/2022 Other chronic pain 08/28/2023 Paroxysmal supraventricular tachycardia (HCC) 11/22/2022 Right inguinal hernia 11/16/2024 Benign positional vertigo 11/16/2024 Chronic hoarseness 11/29/2024 BPH (benign prostatic hyperplasia) 03/02/2025 Osteoarthritis 03/02/2025 Resolved Ambulatory Problems Diagnosis Date Noted No [...] Daily Do not crush, chew, or split. Iron Polysacch [id number] (Poly-Iron 150 Forte) 150-0.025-1 MG capsule Take 1 tablet by mouth Daily 30 capsule 1 tamsulosin (Flomax) 0.4 MG 24 hr capsule Take 0.4 mg by mouth Daily tiZANidine (Zanaflex) 4 MG tablet TAKE 1/2 (ONE-HALF) OF A TABLET TO ONE TABLET BY MOUTH TWICE DAILY 30 tablet 2 No current facility-administered medications on file prior to visit. Objective Last Recorded Vitals Vitals: 03/02/25 1320 BP: 137/75 Pulse: 66 ENT Physical Exam Neck Neck comments: Anterior neck tenderness with no discrete abnormality on palpation. Assessment/Plan Diagnoses and all orders for this visit: Neck pain Pt notes a 2 day flare up of his pain. There is no mass on palpation. I will check an US and start abx Pt having a hip replacement in 2 weeks. I have advised he needs to notify his orthopedic surgeon that he has been put on abx for a possible infection. documented in this encounter Miscellaneous Notes * Addendum Note - Steph Sandhu MA - 03/02/2025 1:30 PM EDTAddended by: STEPH SANDHU on: 03/02/2025 04:08 PM Modules accepted: Orders documented in this encounter Plan of Treatment Upcoming Encounters Date Type Department Care Team (Late st Contact Info) Description 03/14/2025 2:00 PM EDT Evaluation [facility] [place] [facility] [address] [facility] [address] [place] [address] Ama Landa, DEMARCO 03/15/2025 3:20 PM EDT Office Visit [facility] [place] [facility] [address] [facility] [address] [place] [address] Sharmaine Calderón MD [address] [facility] [address] [place] [address] 04/05/2025 10:00 AM EDT Office Visit [facility] [address] [facility] [place] [phone] Jr. Carter Bartlett DO [address] [facility] [address] [place] [address] Scheduled Orders Name Type Priority Associated Diagnoses Orde r Schedule US head neck soft tissue Imaging Routine Neck pain Expected: 03/02/2025, Expires: 03/02/2026 documented as of this encounter Visit Diagnoses Diagnosis Neck pain- Primary Cervicalgia documented in this encounter Care Teams Shot Fireman Relationship Specialty Start Date End Date Arun Mina MD [address] [facility] [place] [address] PCP - General Family Medicine 03/01/25 Vivienne Stevenson DO [address] [place] [id number] Referring Physician Neurology 09/15/24 documented as of this encounter
--- NOTE | 2025-03-05 | US_ITS ---
The [address] [address] Patient Name: ALESIA CASTREJON MRN: [id number] date: 1960 Sex: M Assigned Patient Location: US Current Patient Location: US Accession/Order Number: [id number] Exam Date: 03/05/2025 19:57 Report Date: 03/05/2025 20:00 At the request of: ADAIR MELO MD Procedure: US soft tissue head and neck US soft tissue head and neck 03/05/2025 1:06 PM SIGNS AND SYMPTOMS: ^NECK PAIN M54.2 PROTOCOL: Grayscale, color Doppler, and duplex Doppler sonographic images of the soft tissues of the neck and right carotid bulb COMPARISON: 12/16/2024 FINDINGS: The soft tissues of the anterior aspect of the right side of the neck in the region of tenderness are within normal limits. There is no evidence of mass, fluid collection, hyperemia, or edema. No pathologically enlarged lymph nodes. Incidental note is made of smooth homogeneous plaque in the right carotid bulb with satisfactory arterial waveforms on duplex Doppler imaging within the right common carotid artery and carotid bulb. This is consistent with plaque seen at the right carotid bulb posteriorly and laterally on the previous soft tissue neck CT. US/US soft tissue head and neck IMPRESSION: The soft tissues of the anterior aspect of the right side of the neck in the region of tenderness are within normal limits. There is no evidence of mass, fluid collection, hyperemia, or edema. No pathologically enlarged lymph nodes. Impression dictated by: Damion Grayson M.D. 03/05/2025 8:00 PM Dictation Location: [place] [address] Electronically authenticated by: [id number] Y Date: 03/05/2025 20:00
--- OUTSIDE RECORDS SUMMARY | 2025-03-05 12:48 | XMS_ITS | Clinical Summary ---
Author Organization [facility] Address [address] [place] [address] Care Team Providers Care Manager Quality Name Role Phone Arun Mina MD Primary Care Provider [phone] Ric Carver MD Unavailable Allergies Active Allergy Reactions Criticality Noted Date Comments Codeine Itching Low 12/15/2023 Lactase Diarrhea,Nausea Only 08/05/2017 Oxycodone-Acetaminophen 11/04/2022 Propoxyphene N-Acetaminophen Itching Low 024 Medications meclizine (Antivert) 25 mg tablet Take 25 mg by mouth if needed in the morning, at noon, and at bedtime. 3 Active Allergy Relief, loratadine, 10 mg tablet Take 10 mg by mouth in the morning. 4 Active finasteride (Proscar) 5 mg tabletIndication s:Benign prostatic hyperplasia with lower urinary tract symptoms, symptom details unspecified Take 1 tablet (5 mg) by mouth in the morning. Do not crush, chew, or split. 30 tablet 11 4 05/26/20 25 Active tamsulosin (Flomax) 0.4 mg 24 hr capsuleIndicatio ns:Weak urinary stream TAKE 2 CAPSULES BY MOUTH IN THE MORNING 60 capsule 11 5 Active Active Problems Problem Noted Date Diagnosed Date Paroxysmal supraventricular tachycardia 11/23/19 23 Assessment & Plan (11/22/2022 7:26 AM EDT): - Per event monitor SVT is mild -For now we will proceed with treadmill stress test -If palpitations persist, can consider beta-andree or calcium channel andree, otherwise palpitations are infrequent FLOREZ (dyspnea on exertion) 11/22/2022 Assessment & Plan (11/22/2022 7:26 AM EDT): - Patient now experiencing FLOREZ which is unusual for him and has no past history of this or medical concerns such as hypertension or heart disease Viral warts 08/06/2017 Encounters Date Type Department Care Team Description 01/11/2025 Refill [facility] Urology [address] [place] [address] Ric Carver MD Weak urinary stream 12/22/2024 2:00 PM EDT Procedure Visit [facility] [address] [place] [address] Ric Carver MD BPH with lower urinary tract symptoms without urinary obstruction (Primary Dx) from Last 3 Months Family History Medical History Relation Name Comments Stroke Father Heart attack Father's Brother Relation Name Status Comments Father Father's Brother Social History Tobacco Use Types Packs/Day Years Used Date Smoking Tobacco: Former Cigarettes Q uit: 01/20/2023 Passive Smoke Exposure: Past Smokeless Tobacco: Never Tobacco Cessation:Counseling Given: Not Answered Alcohol Use Standard Drinks/Week Comments Not Currently 0 (1 standard drink = 0.6 oz pur e alcohol) PHQ-2 Answer Date Recorded Patient Health Questionnaire-2 Score 0 11/24/2024 [place] Safety & Environment Answer Date Rec orded Fear of Current or Ex-Partner Not on file Emotionally Abused Not on file 09/25/2023 Physically Abused Not on file 09/25/2023 Sexually Abused Not on file 09/25/2023 Physically or Sexually Abused Not on file Sex and Gender Information Value Date Recorded Sex Assigned at Not on file Legal Sex Male 12:51 PM EST Gender Identity Not on file Sexual Orientation Not on file Last Filed Vital Signs Vital Sign Reading Time Taken Comments Blood Pressure 141/78 12/22/2024 2:08 PM EDT Pulse 72 12/22/2024 2:08 PM EDT Temperature 36.8 C (98.3 F) 12/22/2024 2:08 PM EDT Respiratory Rate - - Oxygen Saturation 97% 12/11/2022 2:55 PM EDT Inhaled Oxygen Concentration - - Weight 90.4 kg (199 lb 3.2 oz) 12/22/2024 2:08 P M EDT Height 172.7 cm (5' 8 ) 12/22/2024 2:08 PM EDT Body Mass Index 30.29 12/22/2024 2:08 PM EDT Plan of Treatment Upcoming Encounters Date Type Department Care Team (Late st Contact Info) Description 06/27/2025 1:00 PM EST Follow-Up [facility] Urology [address] [place] [address] Ric Carver MD [address] [place] [address] Health Maintenance Due Date Last Done Comments CT Colonography 1962 Colonoscopy 1962 Colorectal Cancer Screening 1962 FIT-DNA 1962 FIT 1962 FOBT 1962 Sigmoidoscopy 1962 Adult Tetanus 02/27/1984 Zoster Vaccines (1 of 2) 02/27/2012 COVID-19 Vaccine (2023-2 5 season) 2024 Influenza Vaccine (#1) 2025 Depression Screening 11/24/2025 11/24/2024 HIB Vaccines Aged Out No longer eligi ble based on patient's age to complete this topic HPV Vaccines Aged Out No longer eligi ble based on patient's age to complete this topic IPV Vaccines Aged Out No longer eligi ble based on patient's age to complete this topic Meningococcal B Vaccine Aged Out No l onger eligible based on patient's age to complete this topic Meningococcal Vaccine Aged Out No loi ian eligible based on patient's age to complete this topic Pneumococcal Vaccine: Pediat rics (0 to 5 Years) and At-Risk Patients (6 to 64 Years) Aged Out No longer eligi ble based on patient's age to complete this topic Rotavirus Vaccines Aged Out No longer eligible based on patient's age to complete this topic Insurance [facility] MEDICA[facility] Care Teams Manager Quality Relationship Specialty Start Date End Date Arun Mina MD [address] [place] [address] PCP - General 10/30/22 Ric Carver MD [address] [place] [address] Consulting Physician Urology 12/15/23
--- OUTSIDE RECORDS SUMMARY | 2025-03-05 12:48 | XMS_ITS | Encounter Summary ---
Author Organization [facility] Address [address] [facility] [place] [address] Care Team Providers Care Datastage Architect Name Role Phone Unallocated, Noms Provider Primary Care Provi quintin Vivienne Stevenson DO Unavailable [phone] Anca Petersen PLUG STITCHER Unavailable [phone] Arun Mina MD Primary Care Provider [phone] Encounter Details Date Type Department Care Team (Late st Contact Info) Description 08/28/2023 Abstract [facility] [address] [place] [address] Paola Aden, JOSEPH [address] [place] [address] Social History Tobacco Use Types Packs/Day Years [...] Info) Description 03/14/2025 2:00 PM EDT Evaluation [facility] [address] [place] [address] Ama Landa PT 03/15/2025 3:20 PM EDT Office Visit [facility] [place] [facility] [address] [place] [address] Sharmaine Calderón MD 112 [facility] 130 [place] [address] 04/05/2025 10:00 AM EDT Office Visit [facility] [address] [place] [address] Jr. Carter Bartlett DO 112 [facility] 150 [place] [address] documented as of this encounter Visit Diagnoses Not on filedocumented in this encounter Care Teams Datastage Architect Relationship Specialty Start Date End Date Unallocated, Nomoscar Deleon MD [address] [place] [address] PCP - General Family Medicine 08/13/23 05/10/24 Arun Mina MD [address] [place] [address] PCP - General Family Medicine 03/01/25 Vivienne Stevenson DO [address] [place] [address] Referring Physician Neurology 09/15/24 Anca Petersen NP [address] [place] [address] Nurse Practitioner Neurology 11/30/24 11/30/24 documented as of this encounter
--- OUTSIDE RECORDS SUMMARY | 2025-03-05 12:48 | XMS_ITS | Encounter Summary ---
Author Organization [facility] Address [address] [place] [address] Care Team Providers Care Investigations Chief Name Role Phone Vivienne Stevenson DO Unavailable [phone] Arun Mina MD Primary Care Provider [phone] Reason for Visit * Reason Onset Date Comments Antbiotics 03/02/2025 Encounter Details Date Type Department Care Team (Late st Contact Info) Description 03/02/2025 Telephone [facility] [address] [place] [address] Jr. Carter Bartlett, DO [address] [address] Antbiotics Social History Tobacco Use Types Packs/Day Years [...] encounter Miscellaneous Notes * Telephone Encounter - Laverne Bolden MA - 03/02/2025 2:56 PM EDT I let Dr. Bartlett know, he said as long as it clears up after the abx, we can proceed forward withsurgery. Abx for 7 days. Will follow up then. * Telephone Encounter - Yanely Rhodes - 03/02/2025 2:11 PM EDT Pt called stating that he just saw ENT and they put him on a ABX, was told to inform out office of this. Please call pt at [phone] documented in this encounter Plan of Treatment Upcoming Encounters Date Type Department Care Team (Late st Contact Info) Description 03/14/2025 2:00 PM EDT Evaluation [facility] [place] [facility] [address] [facility] [address] [place] [address] Ama aLnda, DEMARCO 03/15/2025 3:20 PM EDT Office Visit [facility] [place] [facility] [address] [facility] [address] [place] [address] Sharmaine Calderón MD [address] [facility] [address] [place] [address] 04/05/2025 10:00 AM EDT Office Visit [facility] [address] [place] [address] Jr. Carter Bartlett DO [address] [facility] [address] [place] [address] documented as of this encounter Visit Diagnoses Not on filedocumented in this encounter Care Teams Investigations Chief Relationship Specialty Start Date End Date Arun Mina MD [address] [facility] [place] [address] PCP - General Family Medicine 03/01/25 Vivienne Stevenson DO [address] [place] [address] Referring Physician Neurology 09/15/24 documented as of this encounter
--- OUTSIDE RECORDS SUMMARY | 2025-03-05 12:48 | XMS_ITS | Clinical Summary ---
Author Organization [facility] Address [id number] [address] [place] [address] Care Team Providers Care Desk Editor Name Role Phone Unavailable Primary Care Provider [...]
--- OUTSIDE RECORDS SUMMARY | 2025-03-05 12:48 | XMS_ITS | Encounter Summary ---
Author Organization [facility] Address [address] [place] [address] Care Team Providers Care Sports Internship Name Role Phone Vivienne Stevenson DO Unavailable [phone] Arun Mina MD Primary Care Provider [phone] Encounter Details Date Type Department Care Team (Late Contact Info) Description 03/02/2025 Bamboo flowsheet [facility] [place] [facility] [address] [facility] [address] [place] [address] Sharmaine Calderón MD [address] [facility] [address] [place] [address] Social History Tobacco Use Types Packs/Day Years [...] Department Care Team (Late Contact Info) Description 03/14/2025 2:00 PM EDT Evaluation [facility] [place] [facility] [address] [facility] [address] [place] [address] Ama Landa, DEMARCO 03/15/2025 3:20 PM EDT Office Visit [facility] [place] [facility] [address] [place] [address] [place] [address] Sharmaine Calderón MD [address] [place], [place] [address] 04/05/2025 10:00 AM EDT Office Visit [facility] [address] [place] [address] Jr. Carter Bartlett DO [address] [facility] [address] [place] [address] documented as of this encounter Visit Diagnoses Not on filedocumented in this encounter Care Teams Sports Internship Relationship Specialty Start Date End Date Arun Mina MD [address] [place] [address] PCP - General Family Medicine 03/01/25 Vivienne Stevenson DO [address] [place], [place] [id number] Referring Physician Neurology 09/15/24 documented as of this encounter
--- OUTSIDE RECORDS SUMMARY | 2025-03-05 12:48 | XMS_ITS | Encounter Summary ---
Author Organization [facility] Address [address] [facility] [place] [address] Care Team Providers Care Mental Health Nurse Practitioner Name Role Phone Vivienne Stevenson DO Unavailable [phone] Arun Mina MD Primary Care Provider [phone] Encounter Details Date Type Department Care Team (Latest Contact Info) Description 03/02/2025 Travel Social History Tobacco Use Types Packs/Day Years [...] [facility] [address] [place] [address] Ama Landa, DEMARCO 03/15/2025 3:20 PM EDT Office Visit [facility] [address] [place] [address] Sharmaine Calderón MD [address] [place] [address] 04/05/2025 10:00 AM EDT Office Visit [facility] [address] [place] [address] Jr. Carter Bartlett DO [address] [place] [address] documented as of this encounter Visit Diagnoses Not on filedocumented in this encounter Care Teams Mental Health Nurse Practitioner Relationship Specialty Start Date End Date Arun Mina MD [address] [place] [address] PCP - General Family Medicine 03/01/25 Vivienne Stevenson DO [address] [place] [address] Referring Physician Neurology 09/15/24 documented as of this encounter
--- OUTSIDE RECORDS SUMMARY | 2025-03-05 12:48 | XMS_ITS | Clinical Summary ---
Author Organization [facility] Address [address] [facility], [address] [place] [address] Care Team Providers Care Manufacturing Quality Manager Name Role Phone House SrRadha, Arun SMITH Primary Care Provider + Allergies Active Allergy Reactions Criticality Noted Date Comments Lactose Intolerance (Gi) Diarrhea,Nausea Only 0 08/05/2017 Medications Dimeth Mcigm-Ohksexa-A sobutane (COMPOUND W FREEZE OFF) AERO Apply topically as needed Active Active Problems Problem Noted Date Diagnosed Date Viral warts 08/06/2017 Social History Tobacco Use Types Packs/Day Years Used Date Smoking Tobacco: Every Day Cigarettes 1.5 49 Started: 02/27/1976 Smokeless Tobacco: Never Tobacco Cessation:Ready [...] of Treatment Not on file Care Teams Manufacturing Quality Manager Relationship Specialty Start Date End Date Arun Mnia Sr., DO [address] [place] [address] PCP - General Family Medicine 08/05/17
--- OUTSIDE RECORDS SUMMARY | 2025-03-05 12:48 | XMS_ITS | Encounter Summary ---
Author Organization [facility] Address [address] [place] [address] Care Team Providers Care Clipper Counters Name Role Phone Vivienne Stevenson DO Unavailable Encounter Details Date Type Department Care Team (Late Contact Info) Description 02/21/2025 Bamboo flowsheet [facility] [address] [place] [address] Girish Fairbanks, PRODUCT MARKETING INTERN [address] [place], [place] [phone] Social History Tobacco Use Types Packs/Day Years [...] EDT Evaluation [facility] [address] [facility] [address] [place] [address] Ama Landa, DEMARCO 03/15/2025 3:20 PM EDT Office Visit [facility] [address] [facility] [address] [place] [address] Sharmaine Calderón MD [address] [facility] [address] [place], [place] [address] 04/05/2025 10:00 AM EDT Office Visit [facility] [address] [place] [address] Jr. Carter Bartlett, 112 [facility] [address] [place] [address] documented as of this encounter Visit Diagnoses Not on filedocumented in this encounter Care Teams Clipper Counters Relationship Specialty Start Date End Date Vivienne Stevenson DO [address] [place] [address] Referring Physician Neurology 09/15/24 documented as of this encounter
--- OUTSIDE RECORDS SUMMARY | 2025-03-05 12:48 | XMS_ITS | Patient Health Record ---
Author Organization [facility] Address [address] [place] [address] Support Name Relationship Address Phone LUCÍAALESIA Guarantor Unknown [phone] Allergies Allergen (clinical drug ingredient) Drug/Non Drug [...] Coverage Start Date Coverage End Date Medicaid [facility] [address] [address] [place] [address] [id number] ALESIA CASTREJON Self - patient is the insured Medical (General) History Medical History History ICD Code Drug allergies: yes
--- OUTSIDE RECORDS SUMMARY | 2025-03-05 12:48 | XMS_ITS | Encounter Summary ---
Author Organization [facility] Address [address] [place] [address] Care Team Providers Care Colon Therapist Name Role Phone Vivienne Stevenson DO Unavailable [phone] Encounter Details Date Type Department Care Team (Latest Contact Info) Description 02/21/2025 Travel Social History Tobacco Use Types Packs/Day [...] Info) Description 03/14/2025 2:00 PM EDT Evaluation [facility] [address] [place] [address] Ama Landa, DEMARCO 03/15/2025 3:20 PM EDT Office Visit [facility] [address] [place] [address] Sharmaine Calderón MD [address] [place] [address] 04/05/2025 10:00 AM EDT Office Visit [facility] [place] [address] Jr. Carter Bartlett DO [address] [place] [address] documented as of this encounter Visit Diagnoses Not on filedocumented in this encounter Care Teams Colon Therapist Relationship Specialty Start Date End Date Vivienne Stevenson DO [address] [place] [address] Referring Physician Neurology 09/15/24 documented as of this encounter
--- OUTSIDE RECORDS SUMMARY | 2025-03-05 12:49 | XMS_ITS | CCD ---
Author Organization [facility] Care Team Providers Care Superintendent General Name Role Phone Becky Wodoward Unavailable TIMMIS, DR BORRERO Admitting Unavailable TIMMIS, DR BORRERO Consulting Unavailable MELVI, DR VIZCARRA Primary Care Unavailable CARLOSS, DR BORRERO Attending Unavailable BOONE, DR LYNDON Vela Consulting Unavailable MELVI, DR VIZCARRA Admitting Unavailable MELVI, DR VIZCARRA Primary Care Unavailable PHILADEL[place], DR VIZCARRA Attending Unavailable MELVI, DR VIZCARRA Admitting Unavailable JOESPH, DR FARHAT Ku Consulting Unavailable MELVI, DR VIZCARRA Primary Care Unavailable MELVI, DR VIZCARRA Attending Unavailable MELVI, DR VIZCARRA Consulting Unavailable BOONE, DR LYNDON Vela Consulting Unavailable [place], DR VIZCARRA Primary Care Unavailable BARAZI, RAYA Admitting Unavailable BARAZI, RAYA Attending Unavailable BARAZI, RAYA Consulting Unavailable MELVI, DR VIZCARRA Primary Care Unavailable JOESPH, DR FARHAT Ku Consulting Unavailable [place], DR VIZCARRA Attending Unavailable [place], DR VIZCARRA Admitting Unavailable [place], DR VIZCARRA Consulting Unavailable Nataliya Andrews Unavailable Arun Ogden MD Primary Care Provider Andreina Tejada DO Unavailable Nicola POLANCO, Anca Unavailable [phone] JEFFERY CARVER Attending Unavailable NU, JEFFERY Attending Unavailable NU, JEFFERY Attending Unavailable NU, JEFFERY Attending Unavailable Arun Ogden MD Primary Care Provider Arun Ogden MD Primary Care Provider ANDREINA TEJADA Attending Unavailable ANDREINA TEJADA Attending Unavailable ANCA PETERSEN Attending Unavailable JR. IRAIS, GANESH Sanabria Attending Unavaila ANDREINA Joshua Referring Unavailable JR. IRAIS, GANESH Sanabria Referring Unavaila ble ADAIR MELO Attending Unavailable KAMERON, ADAIR Barcenas Attending Unavailable ANDREINA TEJADA Attending Unavailable ARUN OGDEN Referring Unavailable ANCA PETERSEN Attending Unavailable JR. IRAIS, GANESH Sanabria Attending UnavailADAIR Kohler Attending Unavailable FRANCISCO, CHRISTIAN Hoffmann Attending Unavailable ADAIR MELO Attending Unavailable Farhat Mehta Consulting Unavailable HOUSE, ARUN P Primary Care Unavailable STEPANIC, GANESH C Admitting Unavailable STEPANIC, GANESH Sanabria Attending Unavailable HOUSE, DO ARUN P Admitting Unavailable HOUSE, DO ARUN P Attending Unavailable HOUSE, ARUN P Primary Care Unavailable HOUSE, ARUN P Primary Care Unavailable HOUSE, DO ARUN P Attending Unavailable HOUSE, DO ARUN P Attending Unavailable [...] ARUN P Primary Care Unavailable STEPANIC, GANESH Sanabria Admitting Unavailable STEPANIC, GANESH Sanabria Attending Unavailable Allergies Allergy Classification Reported Allergen(s) Allergy Type Date of Onset Reaction(s) Facility (2 sources) Acetaminophen / HYDROcodone Drug Allergy 01-09-[address] [facility] Repository (3 sources) Acetaminophen / oxyCODONE; Translations: [Percocet] Drug Allergy 01-09-[address] [facility] Repository (4 sources) Codeine; Translations: [CODEINE] Drug Allergy 01-09-[address] [facility] Repository (2 sources) Misc-Food; Translations: [Misc-Food] Food allergy (disorder) 01-09-[address] [facility] Repository (1 source) Meperidine Drug Allergy vomiting [employer] Other (20 sources) Acetaminophen / oxyCODONE; Translations: [OXYCODONE-ACETA MINOPHEN] Drug Allergy 11-05-19 23 [facility] Healthcare (20 sources) Lactose (non-medical use) Drug Intolerance 08-05-19 18 Diarrhea, Nausea Only [facility] Healthcare Work Phone: (19 sources) Codeine Drug Allergy 11-30-19 25 [facility] (1 source) Lactase; Translations: [LACTASE] Drug Allergy 08-05-19 18 [facility] Repository (1 source) PROPOXYPHENE N-ACETAMINOPHEN; Translations: [PROPOXYPHENE N-ACETAMINOPHEN] Propensity to adverse reactions to drug (disorder) 12-15-19 [facility] Repository (1 source) Acetaminophen / Propoxyphene; Translations: [Indra A500] Drug Allergy [facility] Repository Medications Current Medications Medication Drug Class(es) Dates Sig (Normalized) Sig (Original) [id number] 200 actuat albuterol 0.09 mg/actuat metered dose inhaler (1 source) beta2-Adrenergic Agonist Start: 07-20-2021 take 2 puff(s) by inhalation four times daily as needed Albuterol Sulfate HFA 108 (90 Base) MCG/ACT 2 puffs Inhalation qid prn Jul, Active amoxicillin 875 mg / clavulanate 125 mg oral tablet (2 sources) Penicillin-class Antibacterial Start: 03-02-2025 End: 03-09-2025 take 1 tablet by mouth in the morning amoxicillin-clavula ranjeet (Augmentin) 875-125 MG tablet Indications: Neck pain Take 1 tablet (875 mg) by mouth in the morning and 1 tablet (875 mg) before bedtime. Do all this for 7 days. 14 tablet 03/02/2025 03/09/2025 Active azithromycin 250 mg oral tablet (1 source) Macrolide Antimicrobial Start: 07-20-2021 Zithromax 250 MG 2 tablet on the first day, then 1 tablet daily for 4 days Orally Once a day for 5 day(s) Jul, Active cephalexin 500 mg oral capsule (6 sources) Cephalosporin Antibacterial Start: 12-29-2024 End: 02-21-2025 take 1 capsule by mouth in the morning, then take 1 capsule by mouth in the evening, then take 1 capsule by mouth at bedtime cephalexin (Keflex) 500 MG capsule Take 500 mg by mouth in the morning and 500 mg in the evening and 500 mg before bedtime. 12/29/2024 02/21/2025 Discontinued (Therapy completed) finasteride 5 mg oral tablet (20 sources) 5-alpha Reductase Inhibitor take 1 tablet by mouth once daily finasteride (Proscar) 5 MG tablet Take 5 mg by mouth Daily Do not crush, chew, or split. Active folic acid 1 mg / polysaccharide iron complex 150 mg / vitamin b12 0.025 mg oral capsule (5 sources) Vitamin B12 Start: 02-21-2025 End: 03-23-2025 take 1 tablet by mouth once daily Iron Polysacch Jetva-D76-NZ (Poly-Iron 150 Forte) 150-0.025-1 MG capsule Indications: Primary osteoarthritis of right hip Take 1 tablet by mouth Daily 30 capsule 1 02/21/2025 03/23/2025 Active loratadine 10 mg oral tablet (7 [...] (Therapy completed) Meclizine HCl Ac tive methylPREDNISolone (20 sources) Corticosteroid Start: 11-11-2024 End: 02-21-2025 methylPREDNISolone (Medrol Dospak) 4 MG tablets 11/11/2024 02/21/2025 Discontinued (Therapy completed) Start: 11-11-2024 methylPREDNISo lone (Medrol Dospak) 4 [...] / neomycin 3.5 mg/ml / polymyxin b 51183 unt/ml otic suspension (1 source) Aminoglycoside Antibacterial, Polymyxin-class Antibacterial, Corticosteroid Start: 02-20-2022 Neomycin-Polymyxi n-HC 3.5-54944-9 3 drops right ear Three times a [...] Problem Date Documented Date Episodic/Chronic Cardiac dysrhythmias (20 sources) Paroxysmal supraventricular tachycardia; Translations: [Paroxysmal supraventricular tachycardia] Onset: 11-22-2022 08-28-2023 Chronic Hyperplasia of prostate (4 sources) Benign prostatic hyperplasia with lower urinary tract symptoms; Translations: [Benign prostatic hyperplasia] Onset: 01-19-2024 Chronic Nonspecific chest pain (1 source) Chest pain, unspecified; Translations: [CHEST PAIN UNSPECIFIED] Onset: 09-20-2022 Episodic Osteoarthritis (8 sources) Osteoarthritis of right hip joint; Translations: [Unilateral primary osteoarthritis, right hip] Onset: 03-02-2025 11-27-2024 Chronic Other connective tissue disease (8 [...] right hip] 11-19-2024 Episodic Other skin disorders (4 sources) Mass of neck; Translations: [Localized swelling, [...] in throat] 11-29-2024 Episodic Other upper respiratory infections (2 sources) [...] Other Problems Problem Classification Problem Date Documented Date Episodic/Chronic Abdominal hernia (20 sources) Right inguinal hernia ; Translations: [Unilateral inguinal hernia, without obstruction or gangrene, not specified as recurrent] Onset: 11-16-2024 11-16-2024 Episodic Chronic obstructive pulmonary disease and bronchiectasis (1 source) Bronchitis, not specified as acute or chronic Onset: 07-20-2021 Resolved: 07-20-2021 Episodic Conditions associated with dizziness or vertigo (20 sources) Benign paroxysmal positional vertigo; Translations: [Benign paroxysmal vertigo, unspecified ear] Onset: 11-16-2024 11-16-2024 Episodic Genitourinary symptoms and ill-defined conditions (4 sources) Urinary frequency; Translations: [Poor urinary stream] Onset: 01-19-2024 Episodic Immunizations and screening for infectious disease [...] of dyspnea] Onset: 11-22-2022 08-28-2023 Episodic Other upper respiratory disease (19 sources) Chronic hoarseness; Translations: [Dysphonia] Onset: 11-29-2024 11-29-2024 Episodic Other upper respiratory disease (1 source) Dysphonia; Translations: [Dysphonia] Onset: 11-25-2024 Episodic Thyroid disorders (4 sources) Disorder of thyroid, unspecified; Translations: [DISORDER OF THYROID UNSPECIFIED] Onset: 01-22-2022 Episodic Unclassified (2 sources) Preprocedural examination done 02-21-2025 Results Test Name Value Interpretation Reference Range Facility Coding Summaryon 03-03-2025 Coding Summary HTMLBase 64 BhuxfvbuSEc6cRn+PGhlYWQ +DF7VHVVrO93zrYDklN8hE7 NMTElOSywgQVBQTElOSyIgb xQfSE9neRSgGHYl IC8+WI6gHLJvXvoufLPns8O 3tAP1Y04kfi7rCBuwrHP3AE KkDcHsfngcw0gmqSa3OLcwW mluOyBt XMRmuC84YKV1oQ97Yy83tCF paQMlk3fmsAh9PzTsZVBeZV B7aUpyCVrxq2IlWJVzK92zw VAnt5Q5 VMPmzGeipVUpVfOsoCI1wC7 jHRoodcvli5krlpyqMvj4wj 93yBZcs5M3yFE3U3JlzqV2Q GJvbGQg WwchuHSZhJ9ricinp9iauhq eZbBwCWSkPNq7NDu7RVVzaJ cgAaGzYJ01LKG7MLVysjCsF 2FsLWFs lBfjUnJ9n2M5St1VN5ITXho mZ4VDYUWZFGifdSA+PC90cj 25A8YyQahiOoj5JRFjRFI0r PF9rM1l PLUoQSzko1O7fKO9Y9JkabF hin4dp7erSGByIJemW04luM Lyx1P6ZSVphJI5RXIfzJkkA iBzaG93 Oyc+QGAsoQexz6CkJgkdj7h hi7zvlNw7NijoXRMjyrQcqE zcMDX2v8MwPv4zRWXsmPD0e ND6gG5t UhJpFaA2KQsrI379SrFeuWB lJonzU88rT4AoyOZ+PHRyPj w6INGtsDmmHL8oY6GrVVBlx mctbGVm yEydZZ7eQJLfghgwYBLzcL6 yAPWtV2s1ZkHzFmU6AZvvW6 FpFJUcrqzjSu40qG1dBvUhW tO8MVti X4UdhrJ4HFGfeQOtBAddCJV 1M40ds1K2GEYrQXLjUXY9yL D5qJ2ubVhdmmyqjZXauCzez mVydGlj FRwxXMnqU611SQTupUugHeM vZGluZyBEYXRlOiAgMDcvMz EvMjAyNTwvdGQ+DOWiEPE6t WxlPSAn zUOuDWygJi7taXxzlQsiGG8 iJRYmreyjZXXgpH6bPXUloR AsyKhbKL5cOCOrydhne363S iAxMHB0 EVJzjJBjK4NliJ6jOxIqCWU dXDQuF0PogUOqDMjpJ828KG ojTtA6FHNhnpFqS4KzKJEpq WduOiB0 o7D9Sr1Ge6NxraweY4PgwKI fUvTkCksrRMe2N0TlXjaxcU I+BE14IXJeYP42KAc3QVE3p WxlPSdi ILBvW5MabR3eUgXrNCPbKJG kOyc+PHRhYmxlIHdpZHRoPS oaAVKaXkMppZeqGB6uTm8lJ GVyLWNv hMhoqJDmXtHgl3hyCBWmTEm rUU7iyVtjG3NaaFL1OZGry8 a4Aq90T39zY3YsoUB+PGNvb FB1bQE8 xA2lShJnDzI1RAtrV028JuU okBUrOirob9lje3ptpLz5Eu V9TDAumwShlQksOXA4o0PuC x47P95y IHdpZHRoPSIxNSUiIHZhbGl lhz0cxV3pMa8+USXmwYO4qC A7cS5iTsGiZaF4FRmoK239A nRvcCIv Hzkql9cjt0dzvPw7DsBsXHH fyaShzRerWZY2a5KvZp00P7 IomNhcp3VpJdq1nx48nPJmc 4K4tYX8 C1EjHJFeorgrnHMwoPhfFQ4 yFLUaberfNPNpxM1aGTYoB2 b9BfQoWfX8GLlrB4DqljN5S GJvbGQg KOPoaINKbJ4svuwru7wcymb jIsDdVCLyGYl3MJc5AJCdcH zwCgKiAMY6HbJ5BIG7rPYoo H3omNak ghtptB0iDfa+EJV3oPEiuDF NLA6fYzamlJR+DIRkRCP0qI mbSPhuLHTabA8sMUQaC0t5M iAwLjA1 XNslB1NymoW4GWVvbGQcSMC eiTDWmA8zcboia3nolhamMa KyPTLgWZs0AEj4VMVugHlmP iBsZWZ0 FaR4SJU0bLLhcF1svTmanzw goG1nZie+WurwlQidQZC7MW t1Q2ApDdt2IOOxhFejEN5xz GFkZGlu Ac6yeVyvxRkaHZ6yWUEdiwm ai221WxTgv6uyLJFcxGOuYW qsIXR4C99hj3I1YLQgYPEzP UG6zDD3 lJ5hmUtcycufxESgdBlcgqS spOjwMNyoTZciO561JWKqbO quBpEtFNf9H0MrCnt5SUNwp UkvDJ0z wDVbNScyQz4ezQxnuKadMF2 uXSNqjgtee091BrZyl2qzGV AgpODnMFopXEE1T89uj8S8Y CMwMDAw JQI2dKA1sB5tmMpxbyqrhHI mdDsgdmVydGljYWwtYWxpZ2 84FZIgmYihTwOhuSg7C0DpF yz3VIXs cWfwEW6zdIWtFJakCx1uxCg mfGkbVU1tYIAnavmyr661Ta Ddy0vvQKVyiVEmAVtiEOX4J 05ij4V8 DTOrDAMbQWB9jEK9oV7ipLb nbjogbGVmdDsgdmVydGljYW ufRAipD135WMWmdJwpYyJlt GllbnQg XTqbAHp7Y4NlKchxjDY+PC9 1SNKhGW44tDQliKZqz1xvvW s9YhNmSVXtGYB1rBjgZBnad 3JkZXIt T37ddKHch2B2NYMpjDuzoHW bAlKnsUH5tA7tPKhxioejj9 pnfsvhTvubx2insy84lV29U 29sIHdp ZHRoPSIzMCUiIHZhbGlnbj0 ggC5wCu6+PRUgnLU2zPZ5oR 7pYWPuEjX0QDffD639DlJlj CIvPjxj a4dhl6lohPx6OlW0WLTftrE dvTwtBCD6d7QoBb58D79tBU dpZHRoPSIyMCUiIHZhbGlnb l7whK7t Ii8+XNPcrRG4cHE9dB9jHkQ uMtQ3TIpsQ183EbHklSHqId dcZ88jR1RcvOD+KOSmRer7E CBzdHls FD0ycCHkWZdrNc3dEUW5KrO sQsBrLKvfZ3EuUHThearxat mloTF6ZNQfQSGuhF69Wb0fw DogMTBw pHZYnG8jjtdsy3ltdcvrSiV cUKDeMFs3KEu3RAMvsOgkRa WwIMC6EdM3ILT2uTSsvY5sc Glnbjog sT2dM1BsDZHsfrcbUx00uQ4 uTnBoXlW7YVfcIhl+U0tFRU wZCRJMW1FMSgDfWfnlmPF+P HRkIHN0 uUjuAUlqFOUqyY6hYHLhB5v 6XeTbZwE5KWreX6XsILJifi djQw71wY0gWfZaQcW6XEfxZ 1SlcyO2 VBDbhGEhZRbiYKG7R34gg0K 8TVGdFKVxMGD5iMZ4hG7byP lnbjogbGVmdDsgdmVydGljY WwtYWxp W261RCGcdVodKzR8WlQ2ZnW 7QeC9O7EgMqc7FUJehPwuHE 3pjKAzQIayTm3rbKlyrWraP J5dHGGx airqUPYzmT0vJELljSIvbIv jOQ5xCWYkflxhd577EcCeWR I9GBGwtLPpG0MqtQ6iFfPsV DAwMDAw O2LyhZUlTOelF713PVnvTbH 9ICDyioAnB7AgJBBzvUojEh H1n3N0Nd86GiSGXBUxaxzmy GQ+PHRk NBN7nTvzJSjqRKJnkS0gZNH uK4x0ZsAoHpL1SJoqN7KwJC AjlffzAs82pX2tFlXzJtP7U OwwB7We cpE2YPFwoLSgOKsbNOE9J99 mc4Q0DBGjBGGtOXB8kVG4oY 1hbGlnbjogbGVmdDsgdmVyd GljYWwt ZUwgN579IIJvaBsjEc3XXKN 8L7RpXmf1UWUneItsDF5nmM WbWOsnNz9rsDzveYrpRU7tJ TBpbjtw VAUcfN1lFNKsdVNwpRtgVA1 gXJZofzzek938NuAwDKE0CO FpfTHfP5UynA3dReAbCJWcC KDyB6Aa aJPmFIrdH397JEanSkT4SAB rscJiH1MfQPAubXyrGxL1q1 I7Gu8YEDhuhCJ+KL99vv41X 3RhYmxl Esf8QRHmPMT5oUQ2eW5eZNX cZSsby7B6zUJ2H1VkizNagl 9oz0hkBFFoUXkmR65ejUBns 9T8ZGHe yUK1TBKjcAvbRmVphC42Mcq +OUYicTiem1RiLssgc2rxb3 izuQd6FjNrZDNtxfIluYqmA MP5i1Ep Os10F32dNEtcWKFaIZEqHPA mWYTquWtsxr6zeK0oFh2+PG ZyiSA2wPB3eO4cRgSoEeJ5B ZcyO099 FaIehMCaUhcga9uqw4biuHr 5HlJpHYOqmlFjfGlzTMQ8i2 UrTl16A5OpkBnwt2UuQje7q o45jGSr u3W9uGX6W7XySEOfldxvqKB gtVflDQ0wBSIxbthcFNPygY 2zNWOtO9k4NoMfArP3OApfN 5PxzkR8 EWDzcGRhSLNskQSDgK0vkbl bb2nezokgWaWnXHCeDGd3WG g7UYOqnYttEoFtRBH7JuY1C UE9zSPj oC8xnKlxqxozbO2aHqo+UGh 9r6ksnMUbBU0ceDY9UT73NT 38xWFkz3C7gQY1F9GeYFNwa mctcmln eKA7SOKpMFQmjH42Si9yjMu fIs6zEQFgSSU6DTOjoYZrP8 CwsV5gMaVnURYsIHRoW0Jpl HQtYWxp X969JRmkYcQ5LYQebiZsU5W oXSAjlVdlVqD9w4V1Mz0TVG 44LY53GV61pTPoe3I8lCF0B 3BhZGRp lruhixjntUU4OTIxELKjoX2 2Ir9huYjqLb1lPJZeZYQ8MW IqzROuB0KiiJ0iJzQcYQMmN OQzJ2Ml bVZuJLzmC230SYiwThA9UUD acsLwQ8UzANUecVjhXrO6h2 C4Fl0AXu89PI66JZ33kDWbe 9Q8oOS4 B5DaKAIyumeablgmtZC6LGL oFLHwdT61Bj1dtAyqDz5kPG OuKSY8QELftIDhQ9InwP0pQ iAjMDAw EKNnO5XpxYUyYDpbD507HKf sAvE3CMAtehPzB2SaCTXsmQ ckUoY2z7U9Fx6AUQurhpb4I 3RkPjwv dHI+YD86NEZmJC43qQEqpLO rr2lukUj4UtFoAEClTVF2sD jeOHdeo6CnPEMvP54duTLun 3Y5LLHm bGx (more content not included)... [facility] Progress Note - Nurseon 02-03 Progress Note - Nurse Patient called and informed nurse that he had just seen ENT doctor and was placed on oral antibiotic. Patient did not know what type of infection he had but stated he was having throat pain and difficulty swallowing when questioned about his symptoms. Pt stated he is scheduled for total hip surgery on 03-21-2025- informed patient that he needs to call his surgeon/ Dr Bartlett's office to notify them of current issue- pt with understanding. Called Micaela at Dr Bartlett's office and notified of patient's phone call and details. [Electronically Signed on: 03/02/2025 14:16 EDT] Marina Coyne RN [Verified on: 03/02/2025 14:16 EDT] Marina Coyne RN [facility] Provider [place] 03-01-2025 Provider Orders [id number]#[id number] TGTIFF [facility] Progress Note - Nurseon 02-02 Progress Note - Nurse chart reviewed per anesthesia (Dr Mehta) and no new orders received [Electronically Signed on: 02/24/2025 09:32 EDT] Naomy Ma RN [Verified on: 02/24/2025 09:32 EDT] Naomy Ma RN [facility] Provider [place] 02-24-2025 Provider Orders [id number]#[id number] GTIFF Normal [facility] .Auto Diff 102-23-2025 Auto [place] % 10 % Normal -12 [facility] Comment on above: Performed By: #### 1 [id number], [id number], [id number] ####[facility] (DEFAULT)[address] [place] [address] Baso Abs# 0.0 x10 Normal 0.0-0.2 [facility] Comment on above: Performed By: #### 1 [id number], [id number], [id number] ####[facility] (DEFAULT)[address] [place] [address] 83658 Basophils/100 WBC (Bld) 0.6 % Normal 0.2-2.0 [facility] Comment on above: Performed By: #### 1 [id number], [id number], [id number] ####[facility] (DEFAULT)[address] [place] [address] 95780 Eos Abs# 0.1 x10 Normal 0.0-0.4 [facility] Comment on above: Performed By: #### 1 [id number], [id number], [id number] ####[facility] (DEFAULT)[address] [place] [address] 24535 Eosinophils/100 WBC (Bld) 2.2 % Normal 0.9-4.0 [facility] Comment on above: Performed By: #### 1 [id number], [id number], [id number] ####[facility] (DEFAULT)[address] [place] [address] 62221 Lymph Abs# 1.6 x10 Normal 1.3-2.9 [facility] Comment on above: Performed By: #### 1 [id number], [id number], [id number] ####[facility] (DEFAULT)[address] [place] [address] 39054 Lymphocytes/100 WBC (Bld) 23 % Normal 14-48 [facility] Comment on above: Performed By: #### 1 [id number], [id number], [id number] ####[facility] (DEFAULT)[address] [place] [address] [place] Abs# 0.7 x10 Normal 0.0-0.8 [facility] Comment on above: Performed By: #### 1 [id number], [id number], [id number] ####[facility] (DEFAULT)[address] [place] [address] 88203 Neut Abs# 4.4 x10 Normal 1.5-9.2 [facility] Comment on above: Performed By: #### 1 [id number], [id number], [id number] ####[facility] (DEFAULT)[address] [place] [address] 28825 Neutrophils/100 WBC (Bld) 64 % Normal 44-88 [facility] Comment on above: Performed By: #### 1 [id number], [id number], [id number] ####[facility] (DEFAULT)[address] [place] [address] 73849 BMP Standardon 02-23-2025 eGFR Non AA >60 Invalid Interpretation Code [facility] Comment on above: Performed By: #### 1 [id number], [id number], [id number] ####[facility] (DEFAULT)[address] [place] [address] eGFR AA >60 Invalid Interpretation Code [facility] Comment on above: Performed By: #### 1 [id number], [id number], [id number] ####[facility] (DEFAULT)[address] [place] [address] 50825 Anion gap [Moles/Vol] 11.8 mmol/L Normal 5.0-19.0 [facility] Comment on above: Performed By: #### 1 [id number], [id number], [id number] ####[facility] (DEFAULT)[address] [place] [address] Calcium [Mass/Vol] 9.1 mg/dL Normal 8.9-10.3 [facility] Comment on above: Performed By: #### 1 [id number], [id number], [id number] ####[facility] (DEFAULT)[address] [place] [address] 98938 Chloride [Moles/Vol] 106 mmol/L Normal 101-111 [facility] Comment on above: Performed By: #### 1 [id number], [id number], [id number] ####[facility] (DEFAULT)[address] [place] [address] 09078 CO2 [Moles/Vol] 24 mmol/L Normal 21-32 [facility] Comment on above: Performed By: #### 1 [id number], [id number], [id number] ####[facility] (DEFAULT)[address] [place] [address] 76667 Creatinine [Mass/Vol] 0.90 mg/dL Normal 0.90-1.30 [facility] Comment on above: Performed By: #### 1 [id number], [id number], [id number] ####[facility] (DEFAULT)[address] [place] [address] 92274 Glucose [Mass/Vol] 93.0 mg/dL Normal 74.0-118.0 [facility] Comment on above: Performed By: #### 1 [id number], [id number], [id number] ####[facility] (DEFAULT)[address] [place] [address] 59561 Osmolality 277 mOsm/L Invalid Interpretation Code [facility] Comment on above: Performed By: #### 1 [id number], [id number], [id number] ####[facility] (DEFAULT)[address] [place] [address] 59099 Potassium [Moles/Vol] 3.8 mmol/L Normal 3.6-5.1 [facility] Comment on above: Performed By: #### 1 [id number], [id number], [id number] ####[facility] (DEFAULT)[address] [place] [address] 58591 Sodium [Moles/Vol] 138.0 mmol/L Normal 136.0-144.0 [facility] Comment on above: Performed By: #### 1 [id number], [id number], [id number] ####[facility] (DEFAULT)[address] [place] [address] Urea nitrogen [Mass/Vol] 18 mg/dL Normal 8-26 [facility] Comment on above: Performed By: #### 1 [id number], [id number], [id number] ####[facility] (DEFAULT)[address] [place] [address] Urea nitrogen/Creatini ne [Mass ratio] 20.0 mg/mg High 4.6-16.2 [facility] Comment on above: Performed By: #### 1 [id number], [id number], [id number] ####[facility] (DEFAULT)[address] [place] [address] CBC w/ Auto Diffon Erythrocyte distribution width (RBC) [Ratio] 12.9 % Normal 11.5-15.0 [facility] Comment on above: Performed By: #### 1 [id number], [id number], [id number] ####[facility] (DEFAULT)[address] [place] [address] Hematocrit (Bld) [Volume fraction] 42.9 % Normal 34.8-51.9 [facility] Comment on above: Performed By: #### 1 [id number], [id number], [id number] ####[facility] (DEFAULT)[address] [place] [address] 87318 Hemoglobin (Bld) [Mass/Vol] 14.8 g/dL Normal 11.8-17.7 [facility] Comment on above: Performed By: #### 1 [id number], [id number], [id number] ####[facility] (DEFAULT)[address] [place] [address] Man Diff? Auto Invalid Interpretation Code [facility] Comment on above: Performed By: #### 1 [id number], [id number], [id number] ####[facility] (DEFAULT)[address] [place] [address] 03651 MCH (RBC) [Entitic mass] 32 pg Normal 24-34 [facility] Comment on above: Performed By: #### 1 [id number], [id number], [id number] ####[facility] (DEFAULT)[address] [place] [address] MCHC (RBC) [Mass/Vol] 34 g/dL Normal 26-37 [facility] Comment on above: Performed By: #### 1 [id number], [id number], [id number] ####[facility] (DEFAULT)[address] [place] [address] MCV (RBC) [Entitic vol] 94 fL Normal 81-100 [facility] Comment on above: Performed By: #### 1 [id number], [id number], [id number] ####[facility] (DEFAULT)[address] [place] [address] Platelet 183 x10 Normal 138-427 [facility] Comment on above: Performed By: #### 1 [id number], [id number], [id number] ####[facility] (DEFAULT)[address] [place] [address] Platelet mean volume (Bld) [Entitic vol] 9.1 fL Normal 6.3-10.2 [facility] Comment on above: Performed By: #### 1 [id number], [id number], [id number] ####[facility] (DEFAULT)[address] [place] [address] RBC 4.57 x10 Normal 3.70-5.30 [facility] Comment on above: Performed By: #### 1 [id number], [id number], [id number] ####[facility] (DEFAULT)[address] [place] [address] WBC 6.9 x10 Normal 3.5-10.5 [facility] Comment on above: Performed By: #### 1 [id number], [id number], [id number] ####[facility] (DEFAULT)[address] [place] [address] UA w Culture if Ind Standard on 02-23-2025 Breakpoint UA Normal [facility] Comment on above: Performed By: #### 1 [id number] ####[facility] (DEFAULT)[address] [place] [address] [id number] Color (U) Yellow Normal [facility] Comment on above: Performed By: #### 1 [id number] ####[facility] (DEFAULT)[address] [place] [address] 71504 Culture? Not Indicated Invalid Interpretation Code [facility] Comment on above: Result Comment: Resu lt created by rule GL_MAGR_ADD_UA_CULT1 Performed By: #### 1 [id number] ####[facility] (DEFAULT)[address] [place] [address] 56139 Glucose (U) [Mass/Vol] Negative Normal [facility] Comment on above: Performed By: #### 1 [id number] ####[facility] (DEFAULT)[address] [place] [address] 73369 Ketones Ql (U) Negative Normal [facility] Comment on above: Performed By: #### 1 [id number] ####[facility] (DEFAULT)[address] [place] [address] 23939 Micro? Not Indicated Invalid Interpretation Code [facility] Comment on above: Result Comment: Resu lt created by rule GL_MAGR_ADD_UA_MICRO Performed By: #### 1 [id number] ####[facility] (DEFAULT)[address] [place] [address] 52265 UA Bilirubin Negative Normal [facility] Comment on above: Performed By: #### 1 [id number] ####[facility] (DEFAULT)[address] [place] [address] 86851 UA Blood Negative Normal NEGATIVE [facility] Comment on above: Performed By: #### 1 [id number] ####[facility] (DEFAULT)[address] [place] [address] 72598 UA Clarity CLEAR Normal CLEAR [facility] Comment on above: Performed By: #### 1 [id number] ####[facility] (DEFAULT)[address] [place] [address] 55204 UA Leuk Est Negative Normal NEGATIVE [facility] Comment on above: Performed By: #### 1 [id number] ####[facility] (DEFAULT)[address] [place] [address] 59154 UA Nitrite Negative Normal NEGATIVE [facility] Comment on above: Performed By: #### 1 [id number] ####[facility] (DEFAULT)[address] [place] [address] 31663 UA pH 7.0 Normal 5-8 [facility] Comment on above: Performed By: #### 1 [id number] ####[facility] (DEFAULT)[address] [place] [address] 17710 UA Protein Negative Normal NEGATIVE [facility] Comment on above: Performed By: #### 1 [id number] ####[facility] (DEFAULT)[address] [place] [address] 20546 UA Spec Grav 1.020 Normal 1.001-1.035 [facility] Comment on above: Performed By: #### 1 [id number] ####[facility] (DEFAULT)[address] [place] [address] 33976 UA Urobilinogen 0.2 mg/dL Normal 0.2-1.0 [facility] Comment on above: Performed By: #### 1 [id number] ####[facility] (DEFAULT)[address] [place] [address] 82302 Urine Source Clean Catch Normal [facility] Comment on above: Performed By: #### 1 [id number] ####[facility] (DEFAULT)[address] [place] [address] 97256 XR Hip Complete Right w/ Pel vison 02-23-2025 XR Hip Complete Right w/ Pelvis EXAM: XR HIP COMPLETE RIGHT W/ PELVIS HISTORY: right hip arthroplasty COMPARISON: CT abdomen pelvis from 11/14/2023. TECHNIQUE: Frontal view was done of the pelvis along with 2 views of the right hip. FINDINGS: Bone density is normal. Mild degenerative changes noted throughout the pelvis are unremarkable with moderate to prominent degenerative changes of the right hip. Surrounding soft tissues are unremarkable. No foreign body is noted. IMPRESSION: 1. No evidence of fracture or dislocation of the pelvis or right hip. 2. Chronic and degenerative changes noted. Final Dictated by: Sumit Rodriguez DO Dictated DT/TM: 02/28/25 5:30 Signed (Electronic Signature): Sumit Rodriguez DO 02/28/25 5:31 pm Technologist: MALISSA BEST [facility] Outside Recordson 02-22-2025 Outside Records [id number]#1.00 OTGTIFF [facility] Outside Recordson 12-30-2024 Outside Records [id number]#1.00O [facility] [id number]#1.00O [facility] Procedure Visiton 12-22-2024 Procedure Visit [id number] Arnel Mena Lencho 1960 M Date Provider Department Center 12/22/2024 Joanne-JEFFERY [facility] URO Second Fl Family History Problem Relation Age of Onset Stroke Father Heart attack Father's Brother Family Status - Relation Status Age at Father Father's Brother Level of Service:82867 [place] OFFICE/OUTPT VISIT,PROCEDURE ONLY Reason for Visit and Comments: Benign Prostatic Hypertrophy [[id number]] - cysto Normal [facility] CT Neck W contrast Augustin 12-[address] [place] [address] CT Scan Report Signed Patient: ALESIA MENA MR#: [id number] : 1960 Acct:[id number] Age/Sex: 64 / M ADM Date: 12/16/24 Loc: LAB Attending Dr: Adair Melo M.D. Ordering Physician: Adair Melo M.D. Date of Service: 12/16/24 Procedure(s): CT soft tissue neck w con Accession Number(s): [id number] cc: ARUN OGDEN [address] [address] Patient Name: ALESIA MENA MRN: [id number] date: 1960 Sex: M Assigned Patient Location: LAB Current Patient Location: LAB Accession/Order Number: [id number] Exam Date: 12/16/2024 10:15 Report Date: 12/16/2024 10:20 At the request of: ADAIR MELO MD Procedure: CT soft tissue neck [...] Grayson M.D. 12/16/2024 10:20 AM Dictation Location: [place] [address] Electronically authenticated by: [id number] Y Date: 12/16/2024 10:20 Dictated By: Damion Grayson M.D. Signed By: 12/16/24 1022 DD/ 1020 TD/TT: Dust Collector Treater: [facility] Radiology, Radiologi MD david - 12/16/2024 [place] [address] CT Scan Report Signed Patient: ALESIA MENA MR#: [id number] : 1960 Acct:[id number] Age/Sex: 64 / M ADM Date: 12/16/24 Loc: LAB Attending Dr: Adair Melo M.D. Ordering Physician: Adair Melo M.D. Date of Service: 12/16/24 Procedure(s): CT soft tissue neck w con Accession Number(s): [id number] [place] [address] Patient Name: ALESIA MENA MRN: [facility]:[id number] date: 1960 Sex: M Assigned Patient Location: LAB Current Patient Location: LAB Accession/Order Number: [id number] Exam Date: 12/16/2024 10:15 Report Date: 12/16/2024 10:20 At the request of: ADAIR MELO MD Procedure: CT soft tissue neck [...] Grayson M.D. 12/16/2024 10:20 AM Dictation Location: [place] [address] Electronically authenticated by: [id number] Y Date: 12/16/2024 10:20 Dictated By: Damion Grayson M.D. Signed By: 12/16/24 1022 DD/ 1020 TD/TT: Dust Collector Treater: [facility] Radiology Study observation (narrative) [facility] CT Neck W contrast IVOrdered By: Radiologist Radiology on 12-16-2024 [facility] Work Phone: Rad - Other Radiology Report on 12-16-2024 Rad - Other Radiology Report [id number]#1.00 [facility] 11-24-2024 Follow-Up [id number] Arnel Mena 1960 M Date Provider Department Center 11/24/2024 JEFFERY [facility] URO Second Fl Family History Problem Relation Age of Onset Stroke Father Heart attack Father's Brother Family Status - Relation Status Age at Father Father's Brother Level of Service:67228 [place] OFFICE/OUTPATIENT ESTABLISHED LOW MDM 20 MIN Reason for Visit and Comments: Benign Prostatic Hypertrophy [[id number]] - 6mo med check Normal [facility] XR Hip - right 3 Viewson Imaging [...] Impression moderate degenerative joint disease, right hip [facility] Radiology Study observation (narrative) [facility] Rad - Other Radiology Report on 11-09-2024 Rad - Other Radiology Report [id number]#1.0 [facility] MR [place] [address] Magnetic Resonance Report Signed Patient: ALESIA MENA MR#: [id number] : 1960 Acct:[id number] Age/Sex: 64 / M ADM Date: 11/08/24 Loc: MRI Attending Dr: Anca Petersen NP Ordering Physician: Anca Petersen NP Date of Service: 11/08/24 Procedure(s): MR lumbar spine wo con Accession Number(s): [id number] cc: Anca Petersen FLOWER MACHINE OPERATOR; ARUN OGDEN [place] [address] Patient Name: ALESIA MENA MRN: [id number] date: 1960 Sex: M Assigned Patient Location: MRI Current Patient Location: MRI Accession/Order Number: [id number] Exam Date: 11/08/2024 14:32 Report Date: 11/08/2024 [...] Cruz Jr., D.O.11/08/2024 2:35 PM Dictation Location: [place] [address] Electronically authenticated by: [id number] Y Date: 11/08/2024 14:35 Dictated By: Melvin De La Cruz M.D. Signed By: 11/08/248 DD/ 34 TD/TT: Dust Collector Treater: [facility] Radiology, Radiologmartin hernandez MD - 11/08/2024 [place] [address] Magnetic Resonance Report Signed Patient: ALESIA MENA MR#: [id number] : 1960 Acct:[id number] Age/Sex: 64 / M ADM Date: 11/08/24 Loc: MRI Attending Dr: Anca Petersen NP Ordering Physician: Anca Petersen NP Date of Service: 11/08/24 Procedure(s): MR lumbar spine wo con Accession Number(s): [id number] cc: Anca Petersen NP; ARUN OGDEN [place] [address] Patient Name: ALESIA MENA MRN: [facility]:[id number] date: 1960 Sex: M Assigned Patient Location: MRI Current Patient Location: MRI Accession/Order Number: [id number] Exam Date: 11/08/2024 14:32 Report Date: 11/08/2024 [...] dictated by: Melvin De La Cruz Jr., DRadhaORadha11/08/2024 2:35 PM Dictation Location: [place] [address] Electronically authenticated by: [id number] Y Date: 11/08/2024 14:35 Dictated By: Melvin De La Cruz M.D. Signed By: 11/08/241437 DD/ 34 TD/TT: Dust Collector Treater: [facility] Radiology Study observation (narrative) [facility] MR LUMBAR SPINE WO CONOrdere d By: Radiologist Radiology on 11-08-2024 [facility] Work Phone: Rad - Other Radiology Report on 11-05-2024 Rad - Other Radiology Report [id number]#1.00 [facility] [place] [facility] Hip - right [address] [address] XRay Report Signed Patient: ALESIA MENA MR#: [id number] : 1960 Acct:[id number] Age/Sex: 64 / M ADM Date: 11/01/24 Loc: RAD Attending Dr: Anca Petersen NP Ordering Physician: Anca Petersen NP Date of Service: 11/01/24 Procedure(s): XR hip RT 2V w/ pelvis Accession Number(s): [id number] cc: Anca Petersen FLOWER MACHINE OPERATOR; MELVIARUN [place] [id number] Patient Name: ALESIA MENA MRN: [facility]:[id number] date: 1960 Sex: M Assigned Patient Location: RAD Current Patient Location: RAD Accession/Order Number: [id number] Exam Date: 11/01/2024 18:16 Report Date: 11/01/2024 18:18 At the request of: ANCA PETERSEN NP Procedure: XR hip RT 2V w/ pelvis 2 views right hip a single view pelvis HISTORY: Chronic right hip pain with worsening. COMPARISON: none Czku-of-mcci contact superior right hip joint space narrowing. Preserved bony articular surface. No AVN. No articular collapse. No fracture. Adequate alignment. Unremarkable soft tissues. XR/XR hip RT 2V w/ pelvis IMPRESSION: Extensive dlwj-gw-gorc contact right hip degeneration. Impression dictated by: Guanako Cee M.D.11/01/2024 6:18 PM Dictation Location: [place] [address] Electronically authenticated by: [id number] Y Date: 11/01/2024 18:18 Dictated By: Guanako Cee D.O. Signed By: 11/01/241819 DD/ 17 TD/TT: Dust Collector Treater: [facility] Radiology, Radiologi MD david - 11/01/2024 [place] [address] XRay Report Signed Patient: ALESIA MENA MR#: [id number] : 1960 Acct:[id number] Age/Sex: 64 / M ADM Date: 11/01/24 Loc: RAD Attending Dr: Anca Petersen NP Ordering Physician: Anca Petersen NP Date of Service: 11/01/24 Procedure(s): XR hip RT 2V w/ pelvis Accession Number(s): [id number] cc: Anca Petersen FLOWER MACHINE OPERATOR; [place] [id number] Patient Name: ALESIA MENA MRN: [facility]:[id number] date: 1960 Sex: M Assigned Patient Location: RAD Current Patient Location: RAD Accession/Order Number: [id number] Exam Date: 11/01/2024 18:16 Report Date: 11/01/2024 18:18 At the request of: ANCA PETERSEN NP Procedure: XR hip RT 2V w/ pelvis 2 views right hip a single view pelvis HISTORY: Chronic right hip pain with worsening. COMPARISON: none Nexa-kw-khlh contact superior right hip joint space narrowing. Preserved bony articular surface. No AVN. No articular collapse. No fracture. Adequate alignment. Unremarkable soft tissues. XR/XR hip RT 2V w/ pelvis IMPRESSION: Extensive nygd-bt-gizi contact right hip degeneration. Impression dictated by: Guanako Cee M.D.11/01/2024 6:18 PM Dictation Location: [place] [address] Electronically authenticated by: [id number] Y Date: 11/01/2024 18:18 Dictated By: Guanako Cee D.O. Signed By: 11/01/241819 DD/ 17 TD/TT: Dust Collector Treater: [facility] Radiology Study observation (narrative) [facility] XR Hip - right 3 ViewsOrdere d By: Radiologist Radiology on 11-01-2024 [facility] Work Phone: EMG 2 Extremitieson 09-15-19 25 EMG/NCS BLE Normal study [facility] - Nerveson 09-15-2024 EMG/NCS BLE Normal study [facility] EMG 2 Extremitieson 09-13-19 25 EMG/NCS BUE Normal study [facility] 11-12 Nerveson 5 EMG/NCS BUE Normal study [facility] Office Visiton 05-26-2024 Follow-up visit [id number] Arnel Mena 1960 M Date Provider Department Center 05/26/2024 Joanne-NU [facility] URO Second Fl Family History Problem Relation Age of Onset Stroke Father Heart attack Father's Brother Family Status - Relation Status Age at Father Father's Brother Level of Service:70688 [place] OFFICE/OUTPATIENT ESTABLISHED MOD MDM 30 MIN Reason for Visit and Comments: Urinary Frequency [[id number]] - Pt c/o weak urinary stream and urgency, pt states he has been taking double flomax since last visit and symptoms are not improving Normal [facility] Physical Therapy Noteon Physical Therapy Note [id number]#1.00O [facility] Coding Summaryon 03-28-2024 Coding Summary [facility] HmyvdskbUAi7eJx+PGhlYWQ +KE4QKAItT22sxFYkqL5xP7 NMTElOSywgQVBQTElOSyIgb uCkZX9xzKFpGIYy IC8+KH4mBCDaFgajpMGej0B 4oAW8I13cds0pTReinMI5HG JsPqAhaiapf4clyHu2SZzjE mluOyBt MXWauU15MTH7kD07Hi25mJD utUNbp3rayOk6EiApHISnON R8kUwjCUtvw7RgXHJoL80ej DCtj3M8 XZXwfPruuOUjBqJoxNT2iR3 eIWxljctxi6awsxyfXhj3vl 21qADof6O1xLG2D2YfmlM0A GJvbGQg ZmasbYLMjT1uwwopg0cmrjc tDaShHXLjPTj5LCy0FREmkM aaXpVvPX84YRZ0RHSzroYhO 2FsLWFs qQogZfO2c6U8Fz2VM5PHUyu gC6SAETXOHDdxhQA+PC90cj 57A1OoAprmQmm1RJJjXQO8r LJ3zQ6o YSPcBJglt1O8cVR0K6KallH xot4uu8ioEXMwCLdcA55vfO Pkq9L1AZZdpOC4QLLriUobP iBzaG93 Oyc+PRDzbNnxq7JcSdxbc1k zu0nscKr1VgkpBIZukoZtoO pxCXA9b2AwHv8gMSAjjTN9d KK2qX8b TjUsXlX2OGmtL722VjPwcYV hKefmK69dD3VgqQM+PHRyPj s2UEVevVyqJA8lJ5ClBWPwp mctbGVm dNboTK0fSACfagysSAStaK1 mPTXeA5w7SiNnMjG6PPlbD6 ZuZFWvqzbwLe84sQ4fBoDuC vD7ZOra Q0InobU7LRXsrIIvVBxgXPP 3P11zq4W4VCErROJaPVF5jA I9sT3tlOvmzooiqQVpgGisn mVydGlj HVjsSJheF911QJZlwOgeRdH vZGluZyBEYXRlOiAgMDgvMj UvMjAyNDwvdGQ+OQRiXZA7i WxlPSAn sEXxVHtvCj6udSgzuBwwOV5 rBYRijwojOBCnmK7vJHXurU GheLlvBU6qIPOptrfnh846W iAxMHB0 SGCatAVxP3DlrZ7xZyJiVOY rNQNuF8TyfKDzLQpqU818ZX brXnG0CPHruaKtO5VxALMzk WduOiB0 i6W2Xi4De5OlvcydJ6FfjAK pGdEbWvfuAEm7K7VpJqxyvO I+ST31OEFgQE34IBt1GGH6g WxlPSdi XYZjK3DmuD7dExBuYCIuPDP kOyc+PHRhYmxlIHdpZHRoPS ofQZWuDqFepWgbRL2jNo1vP GVyLWNv oSgbdJGqVhEye6cxRBGhIEb xIO0rvFrrD0ZyhHZ5KZNzz6 p9Of48S28fS4FnuJT+PGNvb OY9vRW5 yA9zYoXpKuP4BCseB056OcX auLLxWvrwq8zoj4vhbDc0Fj K1BYMxtsMshWlwPRH9q5UmJ u28I22z IHdpZHRoPSIxNSUiIHZhbGl etz9iiH6zPt1+JFJozVO6jS C1lT7zXzSdUnJ9MDmoY138W nRvcCIv Kpvvp5lli2hpiDk3GgTuCBB queTvrJglJWW7i9MqGa73O2 ItaCegf7NxCxb8zz18kIWub 4T5rGH6 J7PfACRgftubcUSmyOtsBE5 lDUJcihdaMFBtsI2oZKZwJ9 i7OyPfXaV3KMpyH0GrajY4D GJvbGQg UJDqbRYPiB7urkzaf1rqags yGsUtTQBnNKn5PJu3HUWqeC pvXaKbRFX9XbS9ACQ2zRHgj P7nbVzd luwkoF7wTgg+QAA4eMOetII XQB7cHbjhiTM+LBPwJPN8zS vvZQabNMLvgY9lILYlG3c1B iAwLjA1 RIcrZ3YtimH7JXCvrOSfCAS vgGRDhY4flrqry1vqpuwbUx IzTAXtLLo0TZr4GFDzzUdcD iBsZWZ0 NdA3QJC1jYFkgJ7kpMqzkfi hnW3bCsx+RydjzDldZQZ2YM z9R2RcZgi4SDFhdGjgUK7av GFkZGlu Ag8hcSjzmSreYC8sGVUgbvk wo836ZpPfk6plUHWwyGJjNW gxLJF4P89zs8Q2AFWqWHZcA NS9nLA4 gV4xzMbatckdtZLciKnycwK ifBptMIziYHxrA398ZTBcpC saRzCaLGl9Q4FcFrk9CVByy ZyeSO4s nQMhIRenRw6kbVromKtoSY3 bNZHweytfh467EyHih6ekOF DerDDeUAqtRZU3A96uh6H8O CMwMDAw YCJ0hYW5qB8slVeihlktcFK mdDsgdmVydGljYWwtYWxpZ2 03COJwaAkpDrTvyYr4A0DiC ru4YCWx bSvfAF8nlNTvPAroOh3vzJf faBclKP6jFIHelrfvs481Vq Fsp6vnNCXkxYLxXIbfSXB8H 86dz8N6 RQKvNOEsNLC4qOY6dY6frYj nbjogbGVmdDsgdmVydGljYW abMSvaE826GZKqxHnkFdUnh GllbnQg EZcfPNg3Y8NpWehlcJO+PC9 3QVUaLI66sWMsaHAjv6ttqI d6McVbXYUkLHP7hFsdXJkry 3JkZXIt J02qhROfa0F3PWCegOzemPU oGiWznMH4rO4nMChcgbpae0 eltazzXjhch9bukh12hZ59I 29sIHdp ZHRoPSIzMCUiIHZhbGlnbj0 poV0lPz3+SXKxcFV2kTM9mP 3kLANcQsG5CPxgV418DjRmb CIvPjxj n7rbt5zriLj2XhN6JZJmlhH loJqlSMQ7o3NaKl37W78fMA dpZHRoPSIyMCUiIHZhbGlnb l4ppO9e Ii8+UCEabFZ1eXS1cT3uFeQ iUyY9DIwaO962ElNptWRfDy rwE15xR4LjxFW+RFGxYbl5X CBzdHls AX3kdBMrLVleRi1pOPS5HnQ hGmVoECwiP6SjDLOihlbxcq escAN6MKQnVJIcwZ82Jx1af DogMTBw nKUHpW0fvnnyz7coowbeVqV uEKFkSJp8OIl5YUTwdHkcDd UsBDU0VdW5BWE9cRIdaM3di Glnbjog hD2sD7YwAPXmtoaiZd10lJ5 bLkAdXcJ5IXdxIzr+U0tFRU kURCASL9LWWyJjHwaoaQT+P HRkIHN0 uMabXNqyTSNxsG5mNNNoR0n 6KrWbTzH6XIbnZ2AhQWIktg wbCz07zS1zErRsXkM7MIdoB 8YiyiH4 SRHdoXRnSVegMYB0M04uh5G 6ZKDjNJMzPYX7cRM5oX8xtM lnbjogbGVmdDsgdmVydGljY WwtYWxp Z890KNLbaDizHsZ0GrX6EoN 9WbJ8A4ApIvw0ITGwfWjhPI 0ovARaGLhrKi7rdOcrlMivW C8cQTQy xghdILPuhX6oXPEegTQgjPr zHP3cTYIfdxiue272IjOwZG Z6QJMygQJlD1FulY6nOaUnZ DAwMDAw Q6OszVClAYahG078TVzqIcC 6TARjpcHdX8ArIBUnuQcoHa Y2m2A0Zr91TrVBNFVcncxqo GQ+PHRk HPT4kKoaONfkWQOiaB9cQJB jM5u2EoIrLdF2TQdyH2BiDP SsjtdyEh02yI4eXqInMdI9M LzvK3Gx feN9BRHxcBTaUXwvUYC7J43 rz7I5PFCpCALvRMF4lWJ7sL 1hbGlnbjogbGVmdDsgdmVyd GljYWwt OCtmH035RZMmdFtyUd1YQMT 6M0SzTrq9XEUnsOteVF2csL CwXRsiDk1duIvofYywXO3qC TBpbjtw JCVirI6fNLNpfRLrxRnjRZ8 gXLNdjfbfx137QmBtYXL9ML PvyHHqS6KfaX8sEcKyDHWcP RLpE9Bs vSMjUPxrJ428ZJldJcY2BRU uzlEfV6OzDYAdsCblYdS1u7 D5By0CRKG4ivElksndS4W6z UT7sECg dDwvdGQ+WB88cq83W5AiKiq iHwc9CJZkVNS4uCU2tY8zWX UpPUhrj0B7eFE8N8KuzwMzu z1dn9yx ZANpMIwiN26vkXOvr2H8UPH uhAI1KSNciVscAiRwjS44Wp c+HUFdpVujg5LwYpoxu9hva 8zpgXa0 VeHsUHCcjiQnuPegIXT2o2Q kZy39L52jUFjkFHJuFZXxKD KhVYDbkGvsju7ggL2oRj4+P GNvbCB3 qIP8aD0hRpEiHfG0LJgiH69 3UlJoiFYpLrmlo4gai8vbcT d7BaIkMRNhjrRtwTbrNWZ7s 6HqKh13 F1WvuMdcr2VvYqp0yh57aJL ib9R6uAW2H1SaOXBxyhdyfY KusGgbII6fPQThvhrfIWTtz K8sCVSm X2e4VxSzUpM7XDybD1UorzZ 8HHXskCPvJSWowYNImL5jiw ehb8akjcelEfSpVZVoPWe0U Xg8FZWg aVkiYwGeKNR9RwE7CAK8uKK hiG0ssJbietkrrU9eKuc+UG k5d8hpbYVdTH5idCZ4VK44K A51xRZb h5A0rKJ8J7KcMRUlrigxunv knZL5TWVyWBPvdS74Bs3zxQ rcEi6tOKFhORI2NRPvpICwD 3IajW3q DaOcGZBxCMQcC2VxcZJbEOi aN645KCrnDsK8UVBsieCaU5 NpMWBtzRagEoK7d9W8Qi1HA Q59AJ10 NR56bEIcp0C1tTN9P3WuPQD bvlinbjbldFJ9THIpFMCtmD 87Pg7ovEymGn5wBVClXZG2L FRpbWVz H7FdyS2vCbBgHLBlHMLtE3G gxAAeOPpxJ619RDtwWlI6YI OxoyQxA8AzORMyeGrlUfQ2c 4Q1Ik2G Fo43EG90IQ05zOJqr4S5rTB 6E8WaWUEvhsoydkckrCY1VP OnYDLudS85Qn9ihKoyMl5yJ CAxMHB0 ZEJyzIEjG9PerF9cXwLfDEQ yPVKnE7SmiCNzDKydO269QR ldLnY9DFPjytPdS5MwZWIla WduOiB0 x6K0Lq7CJCkhqrk0I7HxJge vdHI+BE63UIGuTN25qBEspW Zne1ruzUy3GuWmWIYrZFL2j WxlPSdi b3J (more content not included)... [facility] Outside Recordson 03-12-2024 Outside Records [id number]#1.00O [facility] Rad - Other Radiology Report on 03-12-2024 Rad - Other Radiology Report [id number]#1.00O [facility] Rad - Other Radiology Report [id number]#1.00O [facility] Rad - Other Radiology Report [id number]#1.00O [facility] Coding Summaryon 03-09-2024 Coding Summary [employer] 64 LriuzyrpRDv4mOw+PGhlYWQ +FX1SAHLhO09amGHkgI2jB0 NMTElOSywgQVBQTElOSyIgb gCkCW7kjANdUDOf IC8+OM8cXNVjWwdgiGAki2E 7qUO6B37axs6iKNokpUM3YF FlRgDkohkce0fzeXk5SGzkO mluOyBt SKOtsV18ECW8wB36Za14jFI tdPOwy2vgzCo3WrVuYKUpRR M4zCngNDacl3UcAXTdM82ob VZqv5X7 XBNqqScjyYDnHkWfvSU1uC5 lRUmrncmle2dkcdohQtz7xr 51mQKcp1M6vWM0Y6RvezV5B GJvbGQg YnqfbSFMuZ9goiddc9knbyu vYfJwDXIjWQr5SXw0ADAygA zeGeYgQI54YAV0ZLZyzaFqH 2FsLWFs kNaaUpI0x5D8Hx6JP1IJElu nV5RWNFQBYNbiySI+PC90cj 87G8IkPfhqYqv8VUWhNLC8t DA7tX9o GBYfEGaoe9P2qEI9O0SdqoZ rno9qa7tiRQMkZYalV78jxC Huu7U1ACGxkRV0KTAmxEfsT iBzaG93 Oyc+FWNmhDsew8DrKgedm7d zn5hykMt8WttrOSJrqiZlqK xmEJI2l0YjUe7zWPVgeJY2t YU6bR0r DaRuTsU2UPpnU252XqFmsSR yHvxiU72vT2MltMI+PHRyPj h6GBBorVaePL0nK0KrDMTbu mctbGVm qNvjET2iRPUxisoyACNhrN4 oGSAhH6t5SwHmFaE1QKjzC0 EcYECtnvgvJg75yF7mQvPcU qF6RTig F6EpoiX5AXNwtQLwYWwgUAS 6H11sc0R5WTGxXAZwLKU3sL W8lJ1wfIkavdjbwUXntTbuh mVydGlj DArjDOhaU399TJXqpIvnXbR vZGluZyBEYXRlOiAgMDgvMD YvMjAyNDwvdGQ+XFWqWZM5s WxlPSAn gJRfXRijCc9qfSycrOhaPQ9 zLOMxhebcEBVjaL1eSUQjrG VkaScbDO7rJPDxbumkw057A iAxMHB0 IMMgoWFoL6OgpN5rWpTxTEU hWXDiT1QreMPnURtdK198RW hoMeV2GOPmnvJfZ3EkPTNwe WduOiB0 v5D3Az6Sr5EdywrpS0LzrVD pZkUqJjihUPb6J9HbSghmrN I+TX18CHGqWA77MQz0XZG3y WxlPSdi XGBfZ7KarK4mOrIqGYKlXTW kOyc+PHRhYmxlIHdpZHRoPS ezLGFoJiTbcKujTX3tXx9jO GVyLWNv rJslcLYxHnJpc9lyPTNiNBu cXI9dlBcvB9LbdFS4APYje3 p2Ns21J27fN4RvwEZ+PGNvb OR3qUG7 zW9xYiSdRpW2HRglZ254DiH ahMFmGcnod4ixc7lxpHd3Bv P6VGVwqmKowLjdVPU3r6OsE m73S29w IHdpZHRoPSIxNSUiIHZhbGl mhw7udK8lLk6+GAJanXB6rT C3mE7oHnPwWyH7NLyyZ694G nRvcCIv Fubcb3gta2uhzFh0ReZbAMQ vjlZtrMtbFTP1m4AmAj18O6 AelSexj4NxXay1kq31iJKfq 5F3wQG2 C5KnYQStloatmGDshGhfLZ7 aOHZbflepPGYctC3bZDJqI3 d6ZyPgVzW6XUyaV0BnpyS6E GJvbGQg JVIytMVXfE5oxdeau2bfgiu xWwZwSGAzLIu8CVq5WMDsqR euDbYlJGH7VrM0EMK3qGJoa R9lfIsj cqgueX9cCed+PZI7kXYikJA WWO5vPbtnbXE+QCHrLFX7fW ufYSezJEOffX5gUYPxY3y0B iAwLjA1 YWtwP5PbhjR0MCXatBLsHKP gsEBWoY5eszjwg0uvntadPy WrYZCkRYk9RLq3QVGsqNxaH iBsZWZ0 AfB2IQC3xTZjfT5iqDncjtb hjG3qWia+WjwluNraYQU6WG i8E3ObRmg4TTClgHebOW3aa GFkZGlu Fq6vhPqvzSwwGD9sIGBcmxt sc110SqRjh6yfAYWtcVRqEC nuNOW4L11ly0E1QUGrURZgR HL3xEZ2 jS5edOzrdnvsjPOxvQziipK lbIvrJTlgPGaxM548QAGwuO hnMrFqZHp3N6RdJls5LGZyj QkdTS4u rVExAOpjVn3ijYqyeDmfIP9 oCWIqvopnl022GzTbi6iyLH NzqMMyQRkwZIU4Y82hw9K3X CMwMDAw QBU0dRF4hX1icVmygpraeQJ mdDsgdmVydGljYWwtYWxpZ2 77ZMFmuIgmUnBjmMr7L6UmC bz2GBGz iWtoGE2geFVyQNpeMn0pnXh ibNujHX6bYFGsfgtdz239Fe Wnu3acJQPiuNMbCKqnPDM1B 71ff6G3 UFGcEXOpGRO2wPF9dK3nfGe nbjogbGVmdDsgdmVydGljYW mfDLkvQ204GGQndLydErKaz GllbnQg FFbsZCy0W2MkVqpnvKO+PC9 6GNPhQT60oGOcfUFxu1ehlP l0YgAsZRIhUCF1iEbaMElgx 3JkZXIt U39sdGUir8D0YIIhcFxhxJP qWkGkjZO4eX1tJOsvuwnru0 gxzmnvKtjds2gsoj12tK58C 29sIHdp ZHRoPSIzMCUiIHZhbGlnbj0 lhC2fRu1+BHGhaHQ5xFD8cY 7uOFLpGsH3YJyfV067FiBmk CIvPjxj v2fnc7zzlNb0YeF1DPQaevI niHddVSI6e4SmMp40Y63cLO dpZHRoPSIyMCUiIHZhbGlnb h6ajL2u Ii8+YWBcvDU4dIE8jO5fCqJ dCvO4VYwdL354ErLydITlEz lsK53dM4YbfLO+TQKfPis9W CBzdHls WH4lgMViYRtsAl9xHCN2OeZ bWpLlISiwM1GlSVRchhyqei zviZL1ZVAsUFViiW60La9gt DogMTBw sPLHtK0xstujp7rnhnxdHqY vAREvDPs0NGr3BDZrzMnxVx HgZGM5KvW2BHK5eTOgfX9ha Glnbjog lL7fP1EwOHQuocxdDa47aY4 aUzSuTuU9SYavEai+U0tFRU fHKFZLE0JTGeGaHdqrpSG+P HRkIHN0 qFvsETnqUMKsdC3kKEAtE9y 0OpDhKzS6AMaxX2XqMHQlnd rnVa50cL6iSgSkIyI3XVybO 0SmlmI9 CMRmxZTeEXzgDFU5Q48rs6S 1GFErJZDrCDN8fBG5kO4agM lnbjogbGVmdDsgdmVydGljY WwtYWxp Z123WTYzgNfkMuT3GmG3GjH 3WsO1E7GaXoe8ASLvsHjiTT 1owHMxBLcqVi3xgQpzeYvqI M4xSWGi bxvjLKSfaS5sWNGbdDJdlBe qIJ8wXTWjoosxl504LaAyVL M3JIWjvMZaS0BxyD9aIpYwZ DAwMDAw R2WdmCFqVKdbP845DMcwArT 0AAAjhwVgX0IlGYOzlOhvNq W6b0I3En33EhMNBSKimsule GQ+PHRk EXE6wJnoANxeYKUusB9bKVF wE3w6DiQcZrA1OWbgD9PjFJ CsuodpUa81uO6aBtWqVbW7O TegQ8Os srB9QLHaxGEhMBogTTD5G19 vy5R5IVNjUKStDIQ3zOU5sY 1hbGlnbjogbGVmdDsgdmVyd GljYWwt LHoqB031YFTcfNhtDi1AJHC 1L9SiVyr6QJBnfIbkKG1fqT ZwTQswJo3jgGzmdZejIJ5jY TBpbjtw DMNdnH5sRNIzyUDwqRxbNN2 bWTKybubsp850LgTbKMH2LL UkfZWtM8HmoE1cFgLvYWYzF VKaJ6Nh yTZaJAsfH610JXjnCdJ3PNB ekjIvP7SrCCEeiGpyUgW6c9 G3Vd8WEEfxmPJ+IJ66sm44D 3RhYmxl Vyr1TBPnEFI7uGY7uR0uSQR mVHize3J1zFK8B4AatfNgzo 6dq2abNYMbKZrqM25tbLQeh 4J9ZPNs uIL3YQBcgGctFsVzcF79Fdo +KCBsiIiys4AyEqpbq9hen1 niwYl0ZhVlMSFstoJmmZitN OF8t5Mz Gn14A76gQMerFCJvZNPgSBD yVPLdpAszww9rjL5qGb3+PG QkoFQ8gIO2zE9cMoWuRxN6B CedW015 ZlSepOCjGfvjb6gfh8hykZy 6GiAyYYJfinLiaTdiIXH6b8 VfEw44R3HmmUutw6PyAqt8n h73uLRc m4W6oWM0Z0GcQGTkzqtmpXD uwXieMB5eCZIoncyyZPPkqF 2qMBIpC6v9PfRoLhE7ZNnwG 0TwebX1 KZUadREtNVLiwCFDmB9xewg nq6spbilsJsXwQEQmBGs3QG d1IMZdmAsyLpOmCZJ5GxI2N YR5cVWn pG8iqOedvlsvbO2xEav+UGh 6o4hqdYZvLX0qaJI5WU38EL 41oQKvs1L4kXF1B0JqLJMvk mctcmln bRM5OJCiLQVwnR07Dc1hxZs vWn5uVZOeUVD3VQYwdOGdP6 TzsN0dNyYyVOFoWTFqB3Twn HQtYWxp N409TYkdFbD4DCUnfiBjT6Y uXNOkvWwkVvD0j7L1Qb5DCS 93YR68XQ08gUInl5Q3fCZ2S 3BhZGRp iouietprmTU7SHXuDBZgsD7 8Vp4cqThrAo4fCQMhUXU1DB JcxYGlY5YpoD0mCxXvXMRdS ZHoC7Zq bAKpZIbpH162HEwtPxV2HSC mdlWgF7GaNLRjeSvxMqW0c0 Z7Ai4XJw85SH79JI84uASux 9R4zDG9 V5SdVUGxlxdkbwxqtXH7ZZN sHIEelR12Ds4gmSjuZe8tGE XdAUU4AETorYRlS8ZnhN1vL iAjMDAw HLNlD1CpgRFbZNygT985BCa rMmW4OVNjlxStE1IuLGZejQ mrQiA7t3O5Fy1IEHchzib8P 3RkPjwv dHI+FC23RMYkBN47vSXekJA gt6xffPs0HqKaNQOhSBL0eP dcYCvpt1NuCCCgR74ybTAnk 6J2MWTr bGx (more content not included)... [facility] Follow-Upon 01-19-2024 Follow-Up [id number] Arnel Mena 1960 M Date Provider Department Center 01/19/2024 [id number]-[id number] Second Fl Family History Problem Relation Age of Onset Stroke Father Heart attack Father's Brother Family Status - Relation Status Age at Father Father's Brother Level of Service:35195 [place] OFFICE/OUTPATIENT ESTABLISHED MOD MDM 30 MIN Reason for Visit and Comments: Follow-up [[id number]] - Urgency is better, but not able to put much pressure behind stream, recovering with hernia surgery and hemorhoids, Normal [facility] [place] STRESS/REST MULTIon 11-25 NM STRESS/REST MULTI Patient: ALESIA MENA. Exam Date: 11/25/2022 : 1960 Gender:M Ordering : RAYA MÉNDEZ Admission #: [id number] Family : Order #: [id number] CLICK HERE TO VIEW EXAM RADIOLOGY REPORT [...] the study was pending per attending physician [facility] . For more details please see separate [...] Graham M.D. on 11/25/2022 at 13:11 Normal [facility] US CAROTID ART BILon 02-13-2 023 [...] carotid arteries Spectral Doppler US Thresholds (Reference: Christian EG, et al. Radiology 2000; 214:247-252) Stenosis (%) PSV (cm/sec) VICA/VCCA 0-49 <150 <2.5 50-69 150-225 2.5-4.0 >70 >225 >4.0 Electronically authenticated by: FARHAT PINK Date: 2022-09-16 16:[address] [facility] CREATININEon 03-01-2022 Creatinine [Mass/Vol] 1.09 mg/dL Normal 0.70-1.[address] [facility] Comment on above: Performed By: #### C PEÑA #### [facility] [address] [place] [address] Dr. Ramona Rojo EGFR-AF FAROESE >60 Normal >=[address] [facility] Comment on above: Performed By: #### C PEÑA #### [facility] [address] [place] [address] Dr. Ramona Rojo EGFR-NON AF FAROESE >60 Normal >=[address] [facility] Comment on above: Performed By: #### C PEÑA #### [facility] [address] [place] [address] NECK ST W [...] by: LYNDON GRAHAM Date: 2022-03-01 17:58 Normal [facility] US THYROIDon 01-22-2022 US THYROID EXAMINATION: [...] by: FARHAT PINK Date: 2022-01-22 16:42 Normal [facility] Coding Summary.on 07-04-2020 Coding Summary. CODING DATE: 020 FINAL [facility] STATUS: Home (Routine DC) PAYOR: Commercial Insurance [...] CphT Date Saved: 07/04/2020 04:17 pm Normal [facility] SARS-CoV-2, NAAon 06-17-2020 SARS CORONAVIRUS 2 RNA:PRTHR:PT:RESP IRATORY:ORD:PROBE .AMP.TAR Not Detected Not Detected [facility] Comment on above: Result Comment: This nucleic acid amplification test was developed and its performance characteristics determined by [employer]. Nucleic acid amplification tests include PCR and [...] detected) result in this assay. Performed at: [facility] [address] [facility], [place] [id number] [facility] Trell Diaz Performed By: #### S ARS-CoV-2, STEVE #### [facility] [address] [place] [id number] Physician Orderon 06-13-2020 Physician Order [id number] D:127 Normal [facility] Vital Signs Date Time Vital Sign Value Performing Clinician Facility 03-02-2025 13:20-0400 Body height 175.3 cm Adair Melo MD Work Phone: [facility] 03-02-2025 13:20-0400 Body mass index (BMI) [Ratio] 29.39 kg/m2 Adair Melo MD Work Phone: [facility] 03-02-2025 13:20-0400 Body weight 90.27 kg Adair Melo MD Work Phone: [facility] 03-02-2025 13:20-0400 Diastolic blood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
--- OUTSIDE RECORDS SUMMARY | 2025-03-05 12:49 | XMS_ITS | Clinical Summary ---
Author Organization [facility] Address [address] [place] [address] Care Team Providers Care Propagator Name Role Phone Vivienne Stevenson DO Unavailable [phone] Arun Mina MD Primary Care Provider [phone] Allergies Active Allergy Reactions Criticality Noted Date Comments Codeine 11/29/2024 Lactose Intolerance (Gi) Diarrhea,Nausea Only 0 08/05/2017 Oxycodone-Acetaminophen 11/04/2022 Medications finasteride (Proscar) 5 MG tablet Take 5 mg by mouth Daily Do not crush, chew, or split. Active tiZANidine (Zanaflex) 4 MG tabletIndications: Muscle spasm TAKE 1/2 (ONE-HALF) OF A TABLET TO ONE TABLET BY MOUTH TWICE DAILY 30 tablet 2 5 Active tamsulosin (Flomax) 0.4 MG 24 hr capsule Take 0.4 mg by mouth Daily Active Iron Polysacch Xlosz-K76-RD (Poly-Iron 150 Forte) 150-0.025-1 MG capsuleIndications :Primary osteoarthritis of right hip Take 1 tablet by mouth Daily 30 capsule 1 5 03/23/20 25 Active amoxicillin-clavul anate (Augmentin) 875-125 MG tabletIndications: Neck pain Take 1 tablet (875 mg) by mouth in the morning and 1 tablet (875 mg) before bedtime. Do all this for 7 days. 14 tablet 5 03/09/20 25 Active methylPREDNISolone (Medrol Dospak) 4 MG tablets 5 02/22/20 25 Discontin ued(Thera py completed ) cephalexin (Keflex) 500 MG capsule Take 500 mg by mouth in the morning and 500 mg in the evening and 500 mg before bedtime. 02/22/20 25 Discontin ued(Thera py completed ) Active Problems Problem Noted Date Diagnosed Date BPH (benign prostatic hyperplasia) 03/02/2025 Osteoarthritis 03/02/2025 Chronic hoarseness 11/29/2024 Right inguinal hernia 11/16/2024 [...] Encounters Date Type Department Care Team Description 03/02/2025 1:30 PM EDT Office Visit [facility] [address] [facility] [address] [place] [phone] Sharmaine Calderón MD Neck pain (Primary Dx) 03/02/2025 Telephone [facility] [address] [place] [address] Jr. Carter Bartlett, Antbiotics 03/02/2025 Bamboo flowsheet [facility] [address] [facility] [address] [place] [address] Sharmaine Calderón MD 03/02/2025 Travel 02/21/2025 10:00 AM EDT Office Visit [facility] [address] [address] Girish Fairbanks, SHERRI Primary osteoarthritis of right hip; Pre-op exam 02/21/2025 Bamboo flowsheet [facility] [address] [facility] [phone] Girish Fairbanks NP 02/21/2025 Travel 01/04/2025 Telephone [facility] [address] [place] [address] Sharmaine Calderón MD 01/03/2025 11:10 AM EDT Office Visit [facility] [address] [place] [address] Sharmaine Calderón MD Neck mass (Primary Dx) 01/03/2025 Bamboo flowsheet [facility] [address] [place] [address] Sharmaine Calderón MD 01/03/2025 Travel 12/17/2024 Telephone [facility] [address] [place] [address] Sharmaine Calderón MD 12/16/2024 Clinisync Result Encounter [facility] External Department Unsolicited Sharmaine Calderón MD 12/16/2024 Orders Only [facility] [address] [place] [address] Sharmaine Calderón MD 12/15/2024 Orders Only [facility] [address] [place] [address] Sarina Ji Neck mass 12/10/2024 8:00 AM EDT Office Visit [facility] [address] [facility] [place] [address] Jr. Carter Bartlett DO Pain of right hip (Primary Dx); Primary osteoarthritis of right hip 12/10/2024 Bamboo flowsheet [facility] [address] [facility] [address] [place] [address] Jr. Carter Bartlett, 12/10/2024 Travel from Last 3 Months Family History Medical History Relation Name Comments Hypertension Father Stroke Father COPD Mother Emphysema Mother Relation Name Status Comments Father Mother [...] Mass Index 29.39 03/02/2025 1:20 PM EDT Plan of Treatment Upcoming Encounters Date Type Department Care Team (Late st Contact Info) Description 03/14/2025 2:00 PM EDT Evaluation [facility] [address] [facility] [address] [place] [address] Ama Landa, PT 03/15/2025 3:20 PM EDT Office Visit [facility] [address] [facility] [address] [place] [address] Sharmaine Calderón MD [address] [facility] [address] [place] [address] 04/05/2025 10:00 AM EDT [facility] [address] [place] [phone] Jr. Carter Bartlett, DO [address] [place] [address] Procedures Procedure Name Priority Date/Time Associated Diagnosis Comments CT SOFT TISSUE NECK WO CO Routine 12/16/2024 10:[address] SOFT TISSUE NECK W IV CONTRAST 12/16/2024 10:20 AM EDT from Last 3 Months Results * [...] AM EDT Narrative 12/16/2024 10:22 [place] [address] CT Scan Report Signed Patient: ALESIA MENA MR#: [id number] : 1960 Acct:[id number] Age/Sex: 64 / M ADM Date: 12/16/24 Loc: LAB Attending Dr: Sharmaine Calderón M.D. Ordering Physician: Sharmaine Calderón M.D. Date of Service: 12/16/24 Procedure(s): CT soft tissue neck w con Accession Number(s): [id number] cc: ARUN MINA [place] [id number] Patient Name: ALESIA MENA MRN: [id number] date: 1960 Sex: M Assigned Patient Location: LAB Current Patient Location: LAB Accession/Order Number: [id number] Exam Date: 12/16/2024 10:15 Report Date: 12/16/2024 10:20 At the request of: SHARMAINE CALDERÓN MD Procedure: CT soft tissue neck [...] Grayson M.D. 12/16/2024 10:20 AM Dictation Location: [place] [address] Electronically authenticated by: [id number] Y Date: 12/16/2024 10:20 Dictated By: Damion Grayson M.D. Signed By: 12/16/24 1022 DD/ 1020 TD/TT: Warehouse Clerk: Procedure Note Radiology, Radiologist, MD - 12/16/2024 [place] [address] CT Scan Report Signed Patient: ALESIA MENA JMR#: [id number] : 2Acct:[id number] Age/Sex: 64 / MADM Date: 12/16/24 Loc: LAB Attending Dr: Sharmaine Calderón M.D. Ordering Physician: Sharmaine Calderón M.D. Date of Service: 12/16/24 Procedure(s): CT soft tissue neck w con Accession Number(s): [id number] cc: ARUN MINA [address] [address] Patient Name: ALESIA MENA MRN: [id number] date: 1960 Sex: M Assigned Patient Location: LAB Current Patient Location: LAB Accession/Order Number: [id number] Exam Date: 12/16/2024 10:15 Report Date: 12/16/2024 10:20 At the request of: SHARMAINE CALDERÓN MD Procedure: CT soft tissue neck [...] Grayson M.D. 12/16/2024 10:20 AM Dictation Location: [place] [address] Electronically authenticated by: [id number] Y Date: 0:20 Dictated By: Damion Grayson M.D. Signed By:12/16/24 1022 DD/ 1020 TD/TT: Warehouse Clerk: Sharmaine Calderón MD IMG CT PROCEDURES Final Resul t from Last 3 Months Insurance [facility] MED[place]ID [place] Care Teams Propagator Relationship Specialty Start Date End Date Arun Mina MD [address] [place] [address] PCP - General Family Medicine 03/01/25 Vivienne Stevenson DO [address] [place] [address] Referring Physician Neurology 09/15/24
== END 2025-03-05 12:47 | disposition home or self-care (01) ==
LOC: US 12:46
PROVIDERS: PCP Family Medicine; Visit Provider Otolaryngology
DX: M54.2 Cervicalgia (principal)
CPT/HCPCS: 76536